=== PATIENT | female | born 1960 | race Caucasian/White ===

== ENCOUNTER 2017-12-23 15:40 | Inpatient (IN) | payer OTHER ==
[2017-12-23] MEDS ORDERED: SODIUM CHLORIDE 0.9% 1,000 ML IV ONE (15:48)
[2017-12-23] MEDS ORDERED: SODIUM CHLORIDE 0.9% 500 ML IV ONE (15:48)
--- NOTE | 2017-12-23 15:51 | ED ---
General Adult HPI - General Chief complaint: Chest Pain Stated complaint: poss Stemi Time Seen by Provider: 12/23/17 15:43 Source: patient, EMS, RN notes reviewed Mode of arrival: EMS Limitations: no limitations - History of Present Illness Initial comments: Patient is a pleasant 57-year-old female presenting to the emergency Department with chest discomfort. Onset was about an hour prior to arrival. Patient describes discomfort as pressure. There is some radiation towards the jaw. Patient may have some mild associated dyspnea. No history of similar symptoms previously. No history of previous cardiac disease. Patient is a smoker and does have a history of hypertension. - Related Data Home Medications Medication Instructions Recorded Confirmed Hydrochlorothiazide 12/23/17 Levothyroxine Sodium [Synthroid] 12/23/17 Allergies Allergy/AdvReac Type Severity Reaction Status Date / Time Sulfa (Sulfonamide Allergy Unknown Verified 12/23/17 15:45 Antibiotics) Review of Systems ROS Statement: Those systems with pertinent positive or pertinent negative responses have been documented in the HPI. ROS Other: All systems not noted in ROS Statement are negative. Constitutional: Denies: fever Eyes: Denies: eye pain ENT: Denies: ear pain Respiratory: Denies: cough Cardiovascular: Reports: chest pain Endocrine: Denies: fatigue Gastrointestinal: Denies: abdominal pain Genitourinary: Denies: dysuria Musculoskeletal: Denies: back pain Skin: Denies: rash Neurological: Denies: weakness Past Medical History Past Medical History: Cancer, Hypertension, Thyroid Disorder Additional Past Medical History / Comment(s): breast History of Any Multi-Drug Resistant Organisms: None Reported Additional Past Surgical History / Comment(s): lumpectomy left side Past Psychological History: No Psychological Hx Reported Smoking Status: Current every day smoker Past Alcohol Use History: None Reported Past Drug Use History: None Reported General Exam Limitations: no limitations General appearance: alert Head exam: Present: atraumatic Eye exam: Present: normal appearance Neck exam: Present: normal inspection Respiratory exam: Present: normal lung sounds bilaterally Cardiovascular Exam: Present: regular rate, normal rhythm Expanded Peripheral pulses: 2+: Radial (R), Radial (L), Dorsalis Pedis (R), Dorsalis Pedis (L) GI/Abdominal exam: Present: soft. Absent: tenderness Extremities exam: Present: normal inspection Neurological exam: Present: alert Psychiatric exam: Present: normal affect, normal mood Skin exam: Present: normal color Course Vital Signs 12/23/17 15:41 Temperature 99.3 F Pulse Rate 104 H Respiratory 18 Rate Blood Pressure 163/103 O2 Sat by Pulse 100 Oximetry - Reevaluation(s) Reevaluation #1: 12/23/17 15:49 Dr. Alves was present when patient arrived. Patient has gone to the Autographer already at this time. EKG Findings - EKG Comments: EKG Findings:: Sinus rhythm at 98. OR 170. QRS 80. QT 366. QTc 467. Normal axis. Anterior lateral ST elevation. Q waves in leads V1 through V5. There is also elevation in lead 1 and aVL. Depression in lead 3 and aVF. Disposition Clinical Impression: ST elevation myocardial infarction (STEMI) Disposition: ADMITTED IP TO THIS HOSP Condition: Critical Is patient prescribed a controlled substance at d/c from ED?: No Referrals: Wilbur Downs MD [Primary Care Provider] - 1-2 days Decision Time: 15:51
[2017-12-23 15:55] LABS: Basophils # (A) 0.1 k/uL (0-0.2); Basophils % (A) 1 %; Eosinophils # (A) 0.7 k/uL (0-0.7); Eosinophils % (A) 5 %; HGB 17.2 gm/dL (11.4-16.0); Lymphocytes # (A) 3.2 k/uL (1.0-4.8); Lymphocytes % (A) 25 %; MCH 30.1 pg (25.0-35.0); MCHC 34.5 g/dL (31.0-37.0); MCV 87.2 fL (80.0-100.0); Mean Platelet Volume 7.1; Monocytes # (A) 0.5 k/uL (0-1.0); Monocytes % (A) 4 %; Neutrophils # (A) 8.2 k/uL (1.3-7.7); Neutrophils % (A) 64 %; Platelet Count 333 k/uL (150-450); RBC 5.73 m/uL (3.80-5.40); RDW 14.1 % (11.5-15.5); WBC 12.9 k/uL (3.8-10.6)
[2017-12-23 16:08] LABS: ALT 117 U/L (9-52); AST 89 U/L (14-36); Albumin 4.6 g/dL (3.5-5.0); Alkaline Phosphatase 152 U/L (38-126); Anion Gap 12 mmol/L; Blood Urea Nitrogen 14 mg/dL (7-17); Calcium 10.2 mg/dL (8.4-10.2); Carbon Dioxide 26 mmol/L (22-30); Chloride 101 mmol/L (98-107); Glucose 290 mg/dL (74-99); Potassium 4.1 mmol/L (3.5-5.1); Sodium 139 mmol/L (137-145); Total Bilirubin 0.6 mg/dL (0.2-1.3); Total Protein 8.1 g/dL (6.3-8.2)
[2017-12-23] MEDS ORDERED: LIDOCAINE 2% SYG (PF) 100 MG/5 ML MISCELLANE ONE (16:09)
[2017-12-23] MEDS ORDERED: MIDAZOLAM 2 MG/2 ML VIAL ONE (16:09)
[2017-12-23] MEDS: MIDAZOLAM 2 MG/2 ML VIAL IV ONE ×2 (16:11→16:41)
[2017-12-23] MEDS ORDERED: diphenhydrAMINE 50 MG/ML 1 ML VIAL ONE (16:11)
[2017-12-23] MEDS ORDERED: diphenhydrAMINE 50 MG/ML 1 ML VIAL IVP ONE (16:13)
[2017-12-23] MEDS ORDERED: BIVALIRUDIN BOLUS 250 MG/50 ML IV ONE (16:14)
[2017-12-23] MEDS ORDERED: BIVALIRUDIN 250 MG in SODIUM CHLORIDE 0.9% 50 ML IV ONE (16:14)
[2017-12-23 16:17] LABS: Prothrombin Time 9.8 sec (9.0-12.0)
[2017-12-23] MEDS: LIDOCAINE 2% SYG (PF) 100 MG/5 ML IV ONE ×2 (16:20→16:44)
[2017-12-23] MEDS ORDERED: MORPHINE SULFATE 4 MG/ML SYRINGE ONE (16:22)
[2017-12-23 16:23] LABS: Partial Thromboplastin Time 20.8 sec (22.0-30.0)
[2017-12-23] MEDS ORDERED: METOPROLOL TARTRATE 5 MG/5 ML VIAL IVP ONE ×5 (16:23→17:18)
[2017-12-23] MEDS: MORPHINE SULFATE 4MG/4ML SYRG IV ONE ×2 (16:23→16:48)
[2017-12-23] MEDS: METOPROLOL TARTRATE 5 MG/5 ML VIAL IVP ONE ×2 (16:25→16:30)
[2017-12-23] MEDS: niCARdipine Syringe (1,000 mcg/10 mL) INTRACORON ONE ×2 (16:32→16:37)
[2017-12-23] MEDS ORDERED: NITROGLYCERIN 1000MCG/10ML SYRINGE INTRACORON ONE (16:38)
[2017-12-23] MEDS ORDERED: IOPAMIDOL-370 100ML BTL INJ ONE ×2 (16:43)
[2017-12-23] MEDS ORDERED: TICAGRELOR 90 MG TAB ONE (16:50)
[2017-12-23] MEDS ORDERED: TICAGRELOR 90 MG TAB PO ONE (16:52)
[2017-12-23] MEDS ORDERED: ATROPINE SULFATE 0.1 MG/ML 10ML SYRINGE IV PRN (16:59)
[2017-12-23] MEDS ORDERED: RX INFO: IV CONTRAST WAS GIVEN 1 EACH MISC MISCELLANE PRN (16:59)
[2017-12-23] MEDS ORDERED: MAG HYDROX/AL HYDROX/SIMETH 30 ML CUP PO PRN (16:59)
[2017-12-23] MEDS ORDERED: ATORVASTATIN 80 MG TAB ONE (17:16)
[2017-12-23] MEDS ORDERED: ATORVASTATIN 80 MG TAB PO ONE (17:18)
[2017-12-23 18:12] LABS: Glucose,Whole Blood 314 mg/dL (75-99)
[2017-12-23] MEDS: NICOTINE 14MG/24HR PATCH TRANSDERM SCH (18:12)
[2017-12-23] MEDS: SODIUM CHLORIDE 0.9% 1,000 ML IV SCH (18:12)
[2017-12-23] MEDS: NITROGLYCERIN SL TABS 0.4 MG TAB SUBLINGUAL PRN ×2 (20:23→20:30)
--- NOTE | 2017-12-23 20:28 | CC ---
CARDIAC CATHETERIZATION REPORT DATE OF SERVICE: 12/23/2017. PROCEDURE: 1. Left heart catheterization and coronary angiography. 2. PTCA and stenting of a totally occluded mid LAD performed in the setting of an acute ST-elevation [place] with reperfusion accomplished in 27 minutes. PERFORMED BY: Dr. Niels Alves. ANESTHESIA: Moderate conscious sedation time was 47 minutes. Patient was administered morphine, Versed, Benadryl and oxygen saturation and hemodynamics were monitored closely. CLINICAL INFORMATION: Mrs. Deandra Rodas presented to the emergency room with chest pain and anterior and inferior ST elevation suggestive of an anterior myocardial infarction with a wrap- around LAD. She was advised prompt cardiac catheterization and brought in for the procedure immediately. PROCEDURE NOTE: Under local anesthesia and strict aseptic precautions, a 6-[place] introducer was placed in the right femoral artery. I started out by using a standard left Gabriela type guide catheter. I noted that the LAD was totally occluded in the midportion and proceeded to perform intervention of that in the same setting. I then performed coronary angiography of the right coronary artery and checked LV pressures but did not perform LV gram. The patient tolerated procedure well. She received a Angiomax bolus and infusion as per protocol and also 180 mg of Brilinta was given orally. She was hemodynamically stable, relieved of chest pain. EKG improved remarkably and she also received some IV lidocaine 100 mg total during the procedure because of ventricular ectopy which was reperfusion arrhythmias. Two drug-eluting stents were deployed in the mid LAD. The patient tolerated procedure well. She had a Perclose device used to secure hemostasis and was sent to the room in stable condition. CARDIAC CATHETERIZATION FINDINGS: The left end-diastolic pressure was 24 mmHg without any gradient across aortic valve. LEFT MAIN CORONARY ARTERY: Left main coronary artery is a short patent disease-free vessel that immediately bifurcates into LAD and circumflex. LEFT ANTERIOR DESCENDING CORONARY ARTERY: This vessel is totally occluded in the mid portion after a septal and a small diagonal branch. There is a very small high diagonal branch that comes off and has a tight stenosis. LEFT POSTERIOR CIRCUMFLEX CORONARY ARTERY: Technically a nondominant vessel gives off a single obtuse marginal that has a 30 to 40% narrowing and a small secondary branch which is free of significant disease. There is moderate calcification in the coronary system. RIGHT CORONARY ARTERY: This is a large dominant vessel. No significant disease, supplies a sizable amount of myocardium and distally bifurcates into multiple branches including a large PLV system and a small PDA and all of these branches are free of significant disease other than minor irregularities. LV gram was not performed. CARDIAC CATH FINDINGS: Left main normal. LAD total occluded in the midportion. Circumflex nondominant with 30-40% mid lesion. Right coronary superdominant, no significant lesions, large PLV system. Small PDA system. LV pressures were elevated at 24 mmHg. RECOMMENDATION: Advised PCI of LAD that was performed expeditiously. PCI PROCEDURE DETAILS: Standard left Gabriela guide catheter was used to cannulate the left coronary artery. A run-through wire was used to cross the lesion. Wire was kept distally. Predilatation was performed using a 2.5 caliber 12 mm long Trek balloon. Immediate reperfusion was accomplished in 27 minutes. I then deployed 2 stents. The distal stent was a 2.5 caliber 15 Xience and the proximal stent was a 2.5 caliber 12 Xience. Both of these were telescoped. Excellent angiographic result was achieved. Patient had complete resolution of chest pain. Inferior ST-segment changes resolved completely. Anterior changes persisted but improved remarkably. Patient was hemodynamically stable. The sheath was taken out and a Perclose device used to secure hemostasis and she was sent to the room in stable condition. Results were discussed with the patient and her . This patient received 2 drug-eluting stents in the LAD with remarkably good angiographic result. She is hemodynamically stable and was sent to the ICU in a stable condition. MMODL / IJN: [id number] /
--- NOTE | 2017-12-23 20:34 | LTR ---
DATE OF SERVICE: 12/23/[address] Downs: Thank you for the opportunity to participate in the care of Mrs. Deandra Rodas. This lady presented with acute anterior [place], underwent prompt cardiac cath and PCI of LAD with excellent angiographic results. She has 2 drug-eluting stents. I believe she is going to undergo chemo and radiation for breast cancer. We should, however, continue antiplatelet agent without interruption. I suspect there will be an interruption for the antiplatelet agent during the chemotherapy, but hopefully that will not happen for at least 6 weeks. I discussed the results in detail with the patient and family. I have also spoken to the radiation oncologist. I would appreciate if you would coordinate care for this patient, especially in view of dual antiplatelet therapy and feel free to call me for any questions or concerns. Thank you for your referral and please call for questions. With kindest regards, Sincerely, ALFREDO / MARTNIA: [id number] /
[2017-12-23 21:24] LABS: Glucose,Whole Blood 294 mg/dL (75-99)
[2017-12-23] MEDS ORDERED: MORPHINE SULFATE 2 MG/ML SYRINGE IVP PRN (21:34)
[2017-12-23] MEDS ORDERED: HYDROcodone/APAP 5-325MG 1 EACH TAB PO PRN (21:35)
[2017-12-23] MEDS ORDERED: ACETAMINOPHEN TAB 325 MG TAB PO PRN (21:35)
[2017-12-23] MEDS: INSULIN ASPART 100 UNIT/ML 1 ML 10 ML VIAL SQ SCH (22:09)
[2017-12-23] MEDS: ATORVASTATIN 80 MG TAB PO SCH (22:09)
[2017-12-23] MEDS: METOPROLOL TARTRATE 25 MG TAB PO SCH (22:09)
[2017-12-23] MEDS: ALPRAZolam 0.25 MG TAB PO PRN (22:10)
--- NOTE | 2017-12-23 23:16 | CONS ---
CONSULTATION Mrs. Deandra Rodas is a 57-year-old lady with a diagnosis of hypothyroidism, borderline hypertension, smoking of at least more than 1 pack a day, which she has cut down recently. She was recently diagnosed with left-sided breast cancer, had a lumpectomy on December 06 or so at [facility] and she is scheduled to have chemo and radiation and has met with both the radiation oncologist as well as medical oncologist. She was in her barn working with the horses when she experienced chest pressure and heaviness in both upper extremities that got progressively worse and she came to the emergency room. She had chest pain for nearly an hour before she arrived in the emergency room. She had ongoing chest pain with anterior ST elevation as well as ST elevation in leads 2 3 and AVF also suggestive of a wrap-around LAD. I evaluated the patient in the emergency room and she was hemodynamically stable and advised prompt cardiac catheterization and PCI. I explained to her the rationale, risks, benefits, options. She understood all details and wished to proceed with the procedure. PAST MEDICAL HISTORY: 1. Hypertension. 2. Smoking. 3. Recent diagnosis of left-sided breast cancer status post lumpectomy with some infection on antibiotics, going for radiation and chemotherapy and she has already met with the radiation oncologist and medical oncologist. 4. Probable borderline hypertension. ALLERGIES: SULFA. MEDICATIONS: Hydrochlorothiazide 25 mg daily, Synthroid 150 mcg daily. PHYSICAL EXAMINATION: Blood pressure is 150/90, pulse rate is about 98 per minute. HEENT: Unremarkable. Fundus was not examined by me. NECK: Supple. No JVD. I do not hear a carotid bruit. There is no thyromegaly. Heart exam reveals S1, S2 heard normally. No rub, murmur or gallop lungs are clear. Abdomen is soft, nontender. Lower extremities reveal palpable pulses. No edema. There is evidence of psoriatic changes on the skin throughout the body. EKG revealed sinus mechanism, anterior as well as inferior ST elevation. This suggests probable LAD occlusion of a very large wrap-around LAD. IMPRESSION: 1. Acute anterior ST-elevation myocardial infarction with inferior changes as well. 2. Hypothyroidism. 3. Smoking and chronic obstructive pulmonary disease. 4. Recent diagnosis of breast cancer. RECOMMENDATION: I am recommending prompt cardiac cath and PCI. Risks, benefits, options explained. Patient understands all details as does the and wished to proceed. MMODL / IJN: [id number] /
--- NOTE | 2017-12-23 23:31 | HP ---
HISTORY AND PHYSICAL DATE OF SERVICE: 12/23/2017 CHIEF COMPLAINT: Chest pain. HISTORY OF PRESENT ILLNESS: This 57-year-old woman with a past medical history of multiple medical problems including hypertension, hypothyroidism, history of breast cancer, had a recent lumpectomy with lymph node removal on the left side. The patient was being followed by in the outpatient setting. Today the patient had acute sudden onset of severe crushing chest pain in the anterior part of the chest which was radiating to the back and also to the joints in both arms. Also because of increasing pain the patient went to [facility] and was subsequently transferred to [facility] for further evaluation and treatment. Hyperacute anterior wall myocardial infarction was noted, ST-elevation in the EKG. The patient underwent cardiac catheterization as well as PTCA and stenting of the totally occluded LAD, done by the Cardiology. There is no history of fevers or rigors. No history of headache, loss of consciousness, or seizures. PAST MEDICAL HISTORY: Hypertension, hypothyroidism, history of breast cancer, history of lumpectomy, history of nicotine dependence. MEDICATIONS: Home medications are: 1. Synthroid 150 mcg p.o. daily. 2. HydroDIURIL 12.5 mg b.i.d. 3. Cleocin 300 mg daily. 4. Zyrtec 10 mg daily. ALLERGIES: Sulfa. FAMILY HISTORY: History of heart disease on the dad's side. SOCIAL HISTORY: History of smoking as mentioned, the patient is trying to cut down. No history of alcohol intake. REVIEW OF SYSTEMS: ENT: No diminished vision or hearing. CARDIAC: As mentioned earlier. GI: No nausea or vomiting. : No dysuria or hematuria. NERVOUS SYSTEMS: No numbness or weakness. ALLERGIES: None. MUSCULOSKELETAL: As mentioned. HEMATOLOGY: No history of anemia. ENDOCRINE: Hypothyroid. CONSTITUTIONAL: As mentioned. DERMATOLOGY: Negative. PSYCHIATRIC: As mentioned earlier. PHYSICAL EXAMINATION: Alert and oriented x3. Pulse is 97, blood pressure 120/80, respirations 20, temperature 98.9, pulse ox 98% on 2 L. HEENT: Conjunctivae normal. Oral mucosa moist. NECK: No no jugular venous distention. No lymph node enlargement. CARDIOVASCULAR: S1 and S2 muffled. LUNGS: Breath sounds diminished at the bases. Few scattered rhonchi. No crackles. ABDOMEN: Soft, nontender. No mass palpable. EXTREMITIES: Obese legs. No edema, no swelling. NERVOUS SYSTEM: Higher functions as mentioned. Moves all limbs equally. LYMPHATICS: No lymph nodes palpable SKIN: No rash. LAB STUDIES: WBC 11.3, hemoglobin 17.2. Glucose 293, 214, 294. AST is 89, ALT is 117, troponin 0.05. ASSESSMENT: 1. Acute anterior ST-segment elevation myocardial infarction, status post PTCA and stenting of the mid LAD. 2. Diabetes type 2. 3. History of nicotine dependence. 4. Increased AST and ALT. 5. Increased WBC. 6. Increased hemoglobin. 7. History of hypothyroidism. 8. History of hypertension. 9. History of breast cancer with lumpectomy recently. RECOMMENDATIONS: This 57-year-old woman presented with multiple complex medical issues. We will monitor the patient closely. Continue the current medications and symptomatic treatment. Resume home medications. Dual antiplatelet agents, beta blockers. Otherwise closely follow with post PTCA protocol. Closely monitor blood sugars closely. Repeat labs in the morning. DVT prophylaxis. Incentive spirometry. Closely follow with Cardiology. Further recommendations to follow. MMODL / IJN: [id number] / KANU
[2017-12-24 06:19] LABS: Basophils # (A) 0.1 k/uL (0-0.2); Basophils % (A) 1 %; Eosinophils # (A) 0.3 k/uL (0-0.7); Eosinophils % (A) 2 %; HCT 46.8 % (34.0-46.0); HGB 16.2 gm/dL (11.4-16.0); Lymphocytes # (A) 3.1 k/uL (1.0-4.8); Lymphocytes % (A) 17 %; MCH 31.1 pg (25.0-35.0); MCHC 34.6 g/dL (31.0-37.0); MCV 89.9 fL (80.0-100.0); Mean Platelet Volume 6.7; Monocytes # (A) 0.8 k/uL (0-1.0); Monocytes % (A) 5 %; Neutrophils # (A) 13.1 k/uL (1.3-7.7); Neutrophils % (A) 75 %; Platelet Count 270 k/uL (150-450); RDW 15.1 % (11.5-15.5); WBC 17.6 k/uL (3.8-10.6)
[2017-12-24 06:30] LABS: Anion Gap 10 mmol/L; Blood Urea Nitrogen 11 mg/dL (7-17); Calcium 9.4 mg/dL (8.4-10.2); Carbon Dioxide 26 mmol/L (22-30); Chloride 100 mmol/L (98-107); Glucose 250 mg/dL (74-99); Potassium 4.4 mmol/L (3.5-5.1); Sodium 136 mmol/L (137-145)
[2017-12-24] MEDS ORDERED: LEVOTHYROXINE 75 MCG TAB PO SCH (06:30)
[2017-12-24 07:29] LABS: Glucose,Whole Blood 261 mg/dL (75-99)
[2017-12-24] MEDS: METOPROLOL TARTRATE 25 MG TAB PO SCH ×2 (08:30→20:12)
[2017-12-24] MEDS: INSULIN ASPART 100 UNIT/ML 1 ML 10 ML VIAL SQ SCH ×4 (08:30→20:11)
[2017-12-24] MEDS: TICAGRELOR 90 MG TAB PO SCH ×2 (08:30→20:12)
[2017-12-24] MEDS: NICOTINE 14MG/24HR PATCH TRANSDERM SCH (08:30)
[2017-12-24] MEDS: ASPIRIN 81 MG PO SCH (08:31)
[2017-12-24] MEDS: SODIUM CHLORIDE 0.9% 1,000 ML IV SCH (08:31)
[2017-12-24] MEDS: LEVOTHYROXINE 75 MCG TAB PO SCH (08:31)
[2017-12-24] MEDS: LISINOPRIL 10 MG TAB PO SCH (08:31)
--- NOTE | 2017-12-24 10:50 | PN ---
PROGRESS NOTE Deandra is a 57-year-old lady who is admitted to hospital with acute anterior wall myocardial infarction. Underwent emergent cardiac catheterization and angioplasty of [place] LAD. This morning, patient is feeling better. Denies chest pain or difficulty in breathing. Had an echocardiogram that shows apical hypokinesis. PHYSICAL EXAM: On exam, comfortable at rest. Vital signs are stable. There is no jugular venous distention. Chest exam reveals good air entry bilaterally. Heart exam reveals first and second heart sounds. No gallop. Abdomen is soft. Exam of extremities did not reveal any edema. Peripheral pulses are felt. The patient is currently on aspirin, Lipitor, Zestril, Lopressor. ASSESSMENT: Acute anterior wall myocardial infarction status post catheterization and angioplasty. I do not have any EKG from this morning. I will review it once it is available. Continue with the current medications. Transfer her out of ICU. ALFREDO / KIMMIEN: [id number] /
[2017-12-24 12:08] LABS: Glucose,Whole Blood 247 mg/dL (75-99)
[2017-12-24 12:49] LABS: Hemoglobin A1C 9.5 % (4.0-6.0)
--- NOTE | 2017-12-24 13:03 | ECHOF ---
Referral Reason:Ant STEMi, S/P PCI LAD MEASUREMENTS -------- HEIGHT: 170.2 cm WEIGHT: 82.1 kg BP: 134/91 RVIDd: 2.5 cm (< 3.3) IVSd: 1.3 cm (0.6 - 1.1) LVIDd: 4.3 cm (3.9 - 5.3) LVPWd: 1.3 cm (0.6 - 1.1) IVSs: 1.6 cm LVIDs: 3.3 cm LVPWs: 1.6 cm LA Diam: 3.2 cm (2.7 - 3.8) LAESV Index (A-L): 19.79 ml/m Ao Diam: 3.2 cm (2.0 - 3.7) AV Cusp: 1.8 cm (1.5 - 2.6) MV EXCURSION: 15.944 mm (> 18.000) MV EF SLOPE: 42 mm/s (70 - 150) EPSS: 1.0 cm MV E Jamarcus: 0.83 m/s MV DecT: 205 ms MV A Jamarcus: 0.81 m/s MV E/A Ratio: 1.02 RAP: 15.00 mmHg RVSP: 40.27 mmHg FINDINGS -------- Sinus rhythm. This was a technically good study. The left ventricular size is normal. There is mild concentric left ventricular hypertrophy. Overa ll left ventricular systolic function is mild-moderately impaired with, an EF between 40 - 45 %. Ap ical anterior LV wall motion is hypokinetic. Apical lateral LV wall motion is hypokinetic. Apic al inferior LV wall motion is hypokinetic. Apical septum LV wall motion is hypokinetic. The right ventricle is normal in size. Normal LA size by volume 22+/-6 ml/m2. The right atrium is normal in size. There is mild aortic valve sclerosis. Mild mitral annular calcification present. There is trace mitral regurgitation. Mild tricuspid regurgitation present. There is mild pulmonary hypertension. The right ventricular systolic pressure, as measured by Doppler, is 40.27mmHg. The pulmonic valve was not well visualized. The aortic root size is normal. The inferior vena cava is dilated with no significant inspiratory collapse which is consistent estima [place] right atrial pressure of >15 mmHg. There is no pericardial effusion. CONCLUSIONS -------- 1. Sinus rhythm. 2. This was a technically good study. 3. The left ventricular size is normal. 4. There is mild concentric left ventricular hypertrophy. 5. Apical anterior LV wall motion is hypokinetic. 6. Apical lateral LV wall motion is hypokinetic. 7. Apical inferior LV wall motion is hypokinetic. 8. Apical septum LV wall motion is hypokinetic. 9. The right ventricle is normal in size. 10. Normal LA size by volume 22+/-6 ml/m2. 11. The right atrium is normal in size. 12. There is mild aortic valve sclerosis. 13. Mild mitral annular calcification present. 14. There is trace mitral regurgitation. 15. Mild tricuspid regurgitation present. 16. There is mild pulmonary hypertension. 17. The right ventricular systolic pressure, as measured by Doppler, is 40.27mmHg. 18. The pulmonic valve was not well visualized. 19. The aortic root size is normal. 20. The inferior vena cava is dilated with no significant inspiratory collapse which is consistent es timated right atrial pressure of >15 mmHg. 21. There is no pericardial effusion. [employer]TER: Patricia White RDCS
[2017-12-24] MEDS: ALPRAZolam 0.25 MG TAB PO PRN (13:42)
[2017-12-24 14:21] VITALS: BMI 29.5
--- NOTE | 2017-12-24 15:28 | XR ---
EXAMINATION TYPE: XR chest 1V portable DATE OF EXAM: 12/24/2017 COMPARISON: NONE INDICATION: CHF TECHNIQUE: Single frontal view of the chest is obtained. FINDINGS: The heart size is enlarged. The pulmonary vasculature is normal. The lungs are clear. IMPRESSION: 1. Mild cardiomegaly
--- NOTE | 2017-12-24 16:02 | PN ---
PROGRESS NOTE DATE OF SERVICE: 12/24/2017 This 57-year-old woman was admitted with acute anterior ST segment elevation myocardial infarction and had PTCA and stenting of the mid LAD. The patient has been closely monitored at this time. Patient was complaining of minimal chest tightness which was increasing with respiration at this time. Two-D echo with Doppler was done today which showed ejection fraction 40-45% and hypokinetic echevarria. No pericardial effusion was noted. The patient is on dual antiplatelet treatment. The patient was closely monitored. PAST MEDICAL HISTORY: Reviewed. REVIEW OF SYSTEMS: CARDIOVASCULAR SYSTEM: As mentioned. RESPIRATORY: As mentioned. GI: No nausea. : No dysuria. NERVOUS SYSTEM: No numbness or weakness. CURRENT MEDICATIONS: 1. Tylenol 650 q.6h p.r.n. 2. [place] 5 mg q.h.s. 3. Maalox 30 mL q.4 hours. 4. Xanax 0.25 mg t.i.d. 5. Aspirin 81 mg daily. 6. Lipitor 80 mg q.h.s. 7. p.r.n. for bradycardia. 8. NovoLog a.c. and at bedtime. 9. Synthroid 150 mg mcg p.o. daily. 10.Zestril 10 mg p.o. 11.Lopressor 25 mg p.o. b.i.d. 12.Morphine p.r.n. 13.Habitrol 14 daily. 14.Nitrostat 0.4 mg p.r.n. sublingual. 15.Brilinta 90 mg p.o. b.i.d. 16.Ambien 5 mg p.o. q.h.s. PHYSICAL EXAMINATION: Patient is alert, oriented x3. Pulse 78, blood pressure 131/70, respiration 22, temperature 98.8, pulse ox 94% room air. HEENT: Conjunctivae normal. Oral mucosa moist. NECK: No jugular venous distention. CARDIOVASCULAR: S1, S2 muffled. No S3, no S4. No pericardium rub. No pleural rub. RESPIRATORY: Breath sounds diminished in the bases. No rhonchi. No crackles. ABDOMEN: Soft, nontender. No mass palpable. LEGS: No edema, no swelling. NERVOUS SYSTEM: Higher function as mentioned. Moves all four limbs. No focal deficits. LYMPHATICS: No lymphadenopathy in the neck, axillae, groin. SKIN: No ulcer, rash, or bleeding. LABS: WBC 17, hemoglobin 16.2, sodium is 136. Troponin is 51. Accu-Cheks are 274 and hemoglobin A1c 9.5. ASSESSMENT: 1. Acute ST-segment elevation anterior wall myocardial infarction, status post PTCA and stenting of the mid LAD. 2. Diabetes mellitus type 2, uncontrolled with hyperglycemia. 3. History of nicotine dependence. 4. Chest pain, possibly mild pleural pericarditis. 5. Increased AST, ALT. 6. Increased WBC. 7. Increased hemoglobin. 8. History of hypothyroidism. 9. History of hypertension. 10.History of breast cancer with lumpectomy recently. RECOMMENDATIONS AND DISCUSSION: I recommend to continue current management and symptomatic treatment. Continue the current medication. I would also recommend initiate insulin because of the elevated blood sugars for better control with NovoLog scale. Otherwise I would also recommend smoking cessation. Symptomatic treatment of the pain. Closely follow with Cardiology. The 2D echo is noted. I would also obtain a chest x-ray to complete the workup. The overall prognosis guarded because of multiple complex medical issues. White count is elevated. There is no evidence of an overt infection at this time. I would also recommend UA with micro also. See orders for details. Further recommendations to follow. Discussed with the patient. MMODL / IJN: [id number] / KANU
[2017-12-24 16:48] LABS: Glucose,Whole Blood 265 mg/dL (75-99)
[2017-12-24] MEDS ORDERED: BISACODYL 5 MG TABLET.DR PO PRN (18:33)
[2017-12-24 19:52] LABS: Glucose,Whole Blood 268 mg/dL (75-99)
[2017-12-24] MEDS: ATORVASTATIN 80 MG TAB PO SCH (20:12)
[2017-12-24 20:22] LABS: Appearance,Urine Clear (Clear); Bilirubin,Urine Negative (Negative); Blood,Urine Small (Negative); Color,Urine Light Yellow; Glucose,Urine (UA) 4+ (Negative); Ketones,Urine Negative (Negative); Leukocyte Esterase,Urine Negative (Negative); Nitrite,Urine Negative (Negative); Protein,Urine Negative (Negative); RBC,Urine 2 /hpf (0-5); Specific Gravity,Urine 1.016 (1.001-1.035); Squamous Epithelial Cell,Urine 1 /hpf (0-4); Urobilinogen,Urine <2.0 mg/dL (<2.0); WBC,Urine 1 /hpf (0-5)
[2017-12-24 20:31] LABS: Amphetamine Screen,Urine Not Detected (NotDetected); Barbiturate Screen,Urine Not Detected (NotDetected); Benzodiazepines Screen,Urine Detected (NotDetected); Cocaine Screen,Urine Not Detected (NotDetected); Methadone Screen, Urine Not Detected (NotDetected); Opiate Screen,Urine Not Detected (NotDetected); Oxycodone Screen, Urine Not Detected (NotDetected); Phencyclidine Screen,Urine Not Detected (NotDetected); Tricyclic Antidepressant,Urine Not Detected (NotDetected); Urn Cannabinoid Scrn Not Detected (NotDetected)
[2017-12-24] MEDS: INSULIN DETEMIR 100 UNIT/ML 10 ML VIAL SQ SCH (21:12)
[2017-12-24] MEDS: ZOLPIDEM 5 MG TAB PO PRN (22:51)
[2017-12-25 05:44] LABS: Basophils # (A) 0.1 k/uL (0-0.2); Basophils % (A) 1 %; Eosinophils # (A) 0.6 k/uL (0-0.7); Eosinophils % (A) 4 %; HCT 43.3 % (34.0-46.0); HGB 15.1 gm/dL (11.4-16.0); Lymphocytes # (A) 3.5 k/uL (1.0-4.8); Lymphocytes % (A) 23 %; MCH 30.8 pg (25.0-35.0); MCHC 34.9 g/dL (31.0-37.0); MCV 88.5 fL (80.0-100.0); Monocytes # (A) 0.8 k/uL (0-1.0); Monocytes % (A) 5 %; Neutrophils # (A) 9.8 k/uL (1.3-7.7); Neutrophils % (A) 65 %; Platelet Count 262 k/uL (150-450); RDW 14.2 % (11.5-15.5); WBC 15.1 k/uL (3.8-10.6)
[2017-12-25 05:51] LABS: Anion Gap 5 mmol/L; Blood Urea Nitrogen 11 mg/dL (7-17); Calcium 9.4 mg/dL (8.4-10.2); Carbon Dioxide 29 mmol/L (22-30); Chloride 103 mmol/L (98-107); Glucose 199 mg/dL (74-99); Potassium 4.4 mmol/L (3.5-5.1); Sodium 137 mmol/L (137-145)
[2017-12-25] MEDS: LEVOTHYROXINE 75 MCG TAB PO SCH (06:14)
[2017-12-25 07:02] LABS: Glucose,Whole Blood 191 mg/dL (75-99)
[2017-12-25] MEDS: INSULIN ASPART 100 UNIT/ML 1 ML 10 ML VIAL SQ SCH ×4 (08:00→21:27)
[2017-12-25] MEDS: NICOTINE 14MG/24HR PATCH TRANSDERM SCH (08:56)
[2017-12-25] MEDS: ASPIRIN 81 MG PO SCH (08:56)
[2017-12-25] MEDS: LISINOPRIL 10 MG TAB PO SCH (08:56)
[2017-12-25] MEDS: METOPROLOL TARTRATE 25 MG TAB PO SCH ×2 (08:57→20:40)
[2017-12-25] MEDS: TICAGRELOR 90 MG TAB PO SCH ×2 (08:57→20:39)
--- NOTE | 2017-12-25 11:01 | PN ---
PROGRESS NOTE Deandra is a 57-year-old lady who is admitted to hospital with acute anterior wall myocardial infarction, underwent cardiac catheterization and angioplasty of LAD. The patient had an echocardiogram that showed mild to moderately impaired LV function with an ejection fraction of 40% to 45%. Patient is doing well. We will ambulate her and hopefully can be discharged home tomorrow. LABS: Labs show a hemoglobin of 15. Potassium is 4.4. Creatinine is 0.7. MEDICATIONS: Current medications include aspirin, Lipitor, lisinopril, Lopressor. ALLERGIES: Allergic to SULFA. PHYSICAL EXAMINATION: On exam, comfortable at rest. Vital signs are stable. Chest exam reveals good air entry bilaterally. Heart exam reveals first and second heart sounds. No gallop. Abdomen is soft, nontender. Exam of extremities did not reveal edema. Peripheral pulses are felt. ASSESSMENT: Acute anterior wall myocardial infarction. PLAN: Patient is doing well. She will continue with the current medications. Hopefully can be discharged home tomorrow afternoon. MMODL / IJN: [id number] /
[2017-12-25 12:19] LABS: Glucose,Whole Blood 248 mg/dL (75-99)
[2017-12-25 16:38] LABS: Glucose,Whole Blood 196 mg/dL (75-99)
[2017-12-25] MEDS: INSULIN DETEMIR 100 UNIT/ML 10 ML VIAL SQ SCH (20:37)
[2017-12-25] MEDS: ATORVASTATIN 80 MG TAB PO SCH (20:39)
[2017-12-25 20:52] LABS: Glucose,Whole Blood 187 mg/dL (75-99)
[2017-12-25] MEDS: ZOLPIDEM 5 MG TAB PO PRN (23:29)
[2017-12-26 01:28] VITALS: RESP 18
[2017-12-26 06:24] LABS: Glucose,Whole Blood 175 mg/dL (75-99)
[2017-12-26 08:05] LABS: Basophils # (A) 0.1 k/uL (0-0.2); Basophils % (A) 1 %; Eosinophils # (A) 0.8 k/uL (0-0.7); Eosinophils % (A) 6 %; HCT 43.8 % (34.0-46.0); HGB 14.6 gm/dL (11.4-16.0); Lymphocytes # (A) 3.6 k/uL (1.0-4.8); Lymphocytes % (A) 25 %; MCH 29.4 pg (25.0-35.0); MCHC 33.4 g/dL (31.0-37.0); MCV 88.1 fL (80.0-100.0); Mean Platelet Volume 7.7; Monocytes # (A) 0.9 k/uL (0-1.0); Monocytes % (A) 6 %; Neutrophils # (A) 8.5 k/uL (1.3-7.7); Neutrophils % (A) 61 %; Platelet Count 283 k/uL (150-450); RBC 4.98 m/uL (3.80-5.40); RDW 13.6 % (11.5-15.5); WBC 14.1 k/uL (3.8-10.6)
[2017-12-26 08:31] LABS: Chloride 105 mmol/L (98-107); Glucose 166 mg/dL (74-99); Potassium 4.6 mmol/L (3.5-5.1); Sodium 141 mmol/L (137-145)
[2017-12-26 08:33] LABS: Anion Gap 9 mmol/L; Blood Urea Nitrogen 13 mg/dL (7-17); Calcium 9.1 mg/dL (8.4-10.2); Carbon Dioxide 27 mmol/L (22-30)
[2017-12-26 08:39] LABS: Glucose,Whole Blood 326 mg/dL (75-99)
--- NOTE | 2017-12-26 11:13 | P.PN ---
Subjective Progress Note Date: 12/25/17 Progress Note being dictated for Dr. Monteiro. Interval history: This a 57-year-old female admitted with acute STEMI, status post PTCA with stenting of the mid LAD, newly diagnosed diabetes mellitus and multiple other medical issues. Ambulating, tolerating exertion well. Telemetry sinus rhythm. Denies chest pain, palpitations or increased shortness of breath. Denies lightheadedness dizziness or focal deficits. Blood sugars better controlled. Chest x-ray reporting mild cardiomegaly, lungs clear. Afebrile. Objective - Vital Signs Vital signs: Vital Signs Temp 98.0 F 12/25/17 17:17 Pulse 82 12/25/17 17:17 Resp 15 12/25/17 17:17 BP 115/69 12/25/17 17:17 Pulse Ox 98 12/25/17 17:17 Intake & Output 12/24/17 12/25/17 12/25/17 18:59 06:59 18:59 Intake Total 480 520 510 Output Total 1800 800 600 Balance -1320 -280 -90 Weight 85.6 kg 85.6 kg 85.6 kg Intake: IV 0 20 10 Saline Flush for PIVL 20 10 site Sodium Chloride 0.9% 1, 0 000 ml @ 75 mls/hr IV . [id number] [facility] Rx#:[id number] Oral 480 500 500 Output: Urine 1800 800 600 Other: Voiding Method Bedside Commode - Exam PHYSICAL EXAM: VITAL SIGNS: As above GENERAL: Being up in bed, no acute distress HEENT: Conjunctivae normal. eyes normal. Oral mucosa moist NECK: No JVD. No thyroid enlargement. No LNs CARDIOVASCULAR: S1, S2 muffled. No murmur, no gallop, no rub RESPIRATION: Breath sounds diminished in the bases. No rhonchi or crackles. No bronchial breathing. ABDOMEN: Soft, nontender . No guarding. no masses palpable. Bowel sounds heard. LEGS: No edema. no swelling PSYCHIATRY: Alert and oriented -3, mood and affect normal. NERVOUS SYSTEM: Cranial N 2-12 grossly normal. Moves all 4 limbs. Diffuse weakness No focal deficits. No sensory deficit. Skin: no ulcer no rash Joints: No active swelling. No inflammation. Lymphatic system. No LN neck axilla or groin. - Labs CBC & Chem 7: 12/26/17 05:44 12/25/17 05:25 Labs: Abnormal Lab Results - Last 24 Hours (Table) 12/24/17 12/24/17 12/25/17 Range/Units 19:49 20:05 05:25 WBC 15.1 H (3.8-10.6) k/uL Neutrophils # 9.8 H (1.3-7.7) k/uL Glucose (74-99) mg/dL POC Glucose (mg/dL) 268 H (75-99) mg/dL Urine Glucose (UA) 4+ H (Negative) Urine Blood Small H (Negative) U Benzodiazepines Scrn Detected H (NotDetected) 12/25/17 12/25/17 12/25/17 Range/Units 05:25 07:01 12:17 WBC (3.8-10.6) k/uL Neutrophils # (1.3-7.7) k/uL Glucose 199 H (74-99) mg/dL POC Glucose (mg/dL) 191 H 248 H (75-99) mg/dL Urine Glucose (UA) (Negative) Urine Blood (Negative) U Benzodiazepines Scrn (NotDetected) 12/25/17 Range/Units 16:37 WBC (3.8-10.6) k/uL Neutrophils # (1.3-7.7) k/uL Glucose (74-99) mg/dL POC Glucose (mg/dL) 196 H (75-99) mg/dL Urine Glucose (UA) (Negative) Urine Blood (Negative) U Benzodiazepines Scrn (NotDetected) Assessment and Plan Assessment: 1. Acute STEMI, status post PTCA with stenting of the mid LAD 2. Diabetes mellitus type 2, hemoglobin A1c 9.5, newly diagnosed 3. History of nicotine dependence 4. Elevated LFTs Plan: Continue current medication regime ,monitoring and symptomatic treatment. Increase ambulation as tolerated. Awaiting transfer to telemetry unit. Discharge planning in progress for tomorrow pending cardiology clearance. Close monitoring of Accu-Cheks with Diabetic teaching. Further recommendations to follow. The impression and plan of care has been dictated as directed. : I performed a history and examination of this patient, discussed the same with the dictator. I agree with the dictator's note ,documented as a scribe. Any additional findings or plans will be noted.
[2017-12-26 11:28] VITALS: TEMP 97.5
[2017-12-26] MEDS: INSULIN ASPART 100 UNIT/ML 1 ML 10 ML VIAL SQ SCH ×2 (11:33→13:24)
[2017-12-26] MEDS: LEVOTHYROXINE 75 MCG TAB PO SCH (11:33)
[2017-12-26] MEDS: LISINOPRIL 10 MG TAB PO SCH (11:33)
[2017-12-26] MEDS: ASPIRIN 81 MG PO SCH (11:33)
[2017-12-26] MEDS: TICAGRELOR 90 MG TAB PO SCH (11:34)
[2017-12-26] MEDS: METOPROLOL TARTRATE 25 MG TAB PO SCH (11:34)
[2017-12-26] MEDS: NICOTINE 14MG/24HR PATCH TRANSDERM SCH (11:35)
--- NOTE | 2017-12-26 11:38 | P.PN ---
Subjective Progress Note Date: 12/26/17 This is a 49-year-old female admitted to the hospital with an acute anterior wall myocardial infarction, she underwent angioplasty with stenting of the LAD. Echocardiogram with Doppler study was performed which revealed mildly impaired LV function of 40-45%. She was seen and examined as morning, denies any chest pain or difficulty in breathing. Hemodynamically she is stable. Objective - Vital Signs Vital signs: Vital Signs Temp 98 F 12/26/17 00:00 Pulse 85 12/26/17 00:00 Resp 18 12/26/17 00:00 BP 123/64 12/26/17 00:00 Pulse Ox 97 12/26/17 00:00 Intake & Output 12/25/17 12/26/17 12/26/17 18:59 06:59 18:59 Intake Total 510 1010 120 Output Total 600 Balance -90 1010 120 Weight 85.6 kg Intake: IV 10 10 Saline Flush for PIVL 10 10 site Oral 500 1000 120 Output: Urine 600 Other: Voiding Method Toilet # Voids 2 2 - Exam PHYSICAL EXAMINATION: GENERAL: 57-year-old female in no. Distress at the time of my examination. HEENT: Head is atraumatic, normocephalic. Pupils equal, round. Sclera anicteric. Conjunctiva are clear. Mucous membranes of the mouth are moist. Neck is supple. There is no elevated jugular venous pressure.] bruit is heard. HEART EXAMINATION: Heart S1, S2 normal. No murmur or gallop heard. CHEST EXAMINATION: Lungs are clear to auscultation and precussion. No chest wall tenderness is noted on palpation or with deep breathing. ABDOMEN: Soft, nontender. Bowel sounds are heard. No organomegaly noted. EXTREMITIES: 2+ peripheral pulses with no evidence of peripheral edema and no calf tenderness noted. NEUROLOGIC patient is awake, alert and oriented ?-3. . - Labs CBC & Chem 7: 12/26/17 05:44 12/25/17 05:25 Labs: Abnormal Lab Results - Last 24 Hours (Table) 12/25/17 12/25/17 12/25/17 Range/Units 12:17 16:37 20:50 WBC (3.8-10.6) k/uL Neutrophils # (1.3-7.7) k/uL Eosinophils # (0-0.7) k/uL POC Glucose (mg/dL) 248 H 196 H 187 H (75-99) mg/dL 12/26/17 12/26/17 12/26/17 Range/Units 05:44 06:22 08:28 WBC 14.1 H (3.8-10.6) k/uL Neutrophils # 8.5 H (1.3-7.7) k/uL Eosinophils # 0.8 H (0-0.7) k/uL POC Glucose (mg/dL) 175 H 326 H (75-99) mg/dL Assessment and Plan Plan: Assessment and plan #1 acute anterior wall myocardial infarction status post angioplasty and stenting of the LAD #2 hyperlipidemia #3 hypertension #4 diabetes #5 nicotine dependence Plan From cardiology's perspective, patient may be up to be discharged home today. We'll make her a follow-up appointment to see Dr. CHRISTINA Alves in the office one week post discharge. Patient will be discharged home on aspirin 81 mg daily, Lipitor 80 mg daily, lisinopril 10 mg daily, metoprolol 25 mg one tablet by mouth twice a day, Brilinta 90 mg twice a day, nicotine patch, and sublingual nitroglycerin as needed for chest pain. Patient has been educated regarding her medication, diet, activity, and the importance of nicotine cessation. DNP note has been reviewed, I agree with a documented findings and plan of care. Patient was seen and examined.
[2017-12-26 11:44] LABS: Glucose,Whole Blood 182 mg/dL (75-99)
[2017-12-26 13:32] VITALS: BP 126/71; PULSE 78
--- NOTE | 2017-12-26 16:26 | DS ---
DISCHARGE SUMMARY FINAL DIAGNOSES: 1. Acute ST-elevation myocardial infarction, anterior wall, status post percutaneous transluminal coronary angioplasty and stenting of the mid left anterior descending coronary artery. 2. Diabetes mellitus, type 2, newly diagnosed, with hyperglycemia. 3. History of nicotine dependence. 4. Elevated liver function tests. DISCHARGE DISPOSITION: The patient will be discharged in stable condition with guarded prognosis. HISTORY OF PRESENT ILLNESS: This 57-year-old woman with a past medical history of multiple medical problems was admitted with acute ST-segment elevation myocardial infarction. Patient underwent PTCA and stenting of the mid LAD. The patient improved significantly. Cardiology cleared the patient for discharge. On exam, vitals are stable. CARDIOVASCULAR SYSTEM: S1, S2 muffled. ABDOMEN: Soft. NERVOUS SYSTEM: No focal deficit. DISCHARGE ADVICE AND MEDICATIONS: 1. Diet is cardiac. 2. Activity limited until followup.. 3. Follow up with Dr. Wilbur Downs in 2 to 3 days. 4. Follow up with Cardiology as recommended. 5. Zyrtec 10 mg p.o. daily. 6. Synthroid 150 mcg p.o. daily. 7. Aspirin 81 mg p.o. daily. 8. Lipitor 80 mg at bedtime. 9. Lantus 15 units subcutaneously at bedtime. 10.Zestril 10 mg p.o. daily. 11.Lopressor 25 mg p.o. b.i.d. 12.Habitrol 14 daily. 13.Nitrostat 0.4 sublingually p.r.n. 14.Brilinta 90 mg p.o. b.i.d. 15.Accu-Cheks before meals and at bedtime; results to Dr. Jevon Downs; continue to monitor. 16.Consistent-carb diet. MMODL / IJN: [id number] /
== END 2017-12-26 15:24 | disposition home or self-care (01) | DRG 247 ==
LOC: EC 15:40 → 6ICU 16:59 → 6SEL 12-25 19:52
PROVIDERS: ADMIT Internal Medicine; ATTEND Internal Medicine
PROC: B2111ZZ Fluoroscopy of Multiple Coronary Arteries using Low Osmolar Contrast (ICD-10-PCS; 2017-12-23)
PROC: 027135Z Dilation of Coronary Artery, Two Arteries with Two Drug-eluting Intraluminal Devices, Percutaneous Approach (ICD-10-PCS; principal; 2017-12-23 15:44)
PROC: 4A023N7 Measurement of Cardiac Sampling and Pressure, Left Heart, Percutaneous Approach (ICD-10-PCS; 2017-12-23 15:44)
DX: I21.09 ST elevation (STEMI) myocardial infarction involving other coronary artery of anterior wall (principal); E03.9 Hypothyroidism, unspecified; E11.65 Type 2 diabetes mellitus with hyperglycemia; E78.5 Hyperlipidemia, unspecified; F17.210 Nicotine dependence, cigarettes, uncomplicated; C50.912 Malignant neoplasm of unspecified site of left female breast; I11.9 Hypertensive heart disease without heart failure; I25.10 Atherosclerotic heart disease of native coronary artery without angina pectoris; J44.9 Chronic obstructive pulmonary disease, unspecified; R79.89 Other specified abnormal findings of blood chemistry; D72.829 Elevated white blood cell count, unspecified; Z79.899 Other long term (current) drug therapy; Z79.890 Hormone replacement therapy; Z88.2 Allergy status to sulfonamides
CPT/HCPCS: 36415; 71045; 80048; 80053; 80306; 81001; 83036; 83735; 84484; 85025; 85610; 85730; 93306; 93458; 99285

== ENCOUNTER 2018-10-13 14:49 | Observation (INO) | payer OTHER ==
[2018-10-13] MEDS ORDERED: ASPIRIN 81 MG PO STA (15:19)
--- NOTE | 2018-10-13 15:23 | ED ---
General Adult HPI - General Chief complaint: Chest Pain Stated complaint: Chest pain Time Seen by Provider: 10/13/18 15:04 Source: patient Mode of arrival: wheelchair Limitations: no limitations - History of Present Illness Initial comments: Dictation was produced using [employer] dictation software. please excuse any grammatical, word or spelling errors. Chief Complaint: 58-year-old female past medical history of coronary artery disease presents with chest pain 1 day. History of Present Illness: Is a 58-year-old female she was chest pain 1 day. Patient describes the pain is crushing pressure-like sensation over her anterior sternum. States pain radiates to her back. Denies any extremity paresthesias. No associated diaphoresis. No radiation of symptoms to her upper extremities or jaw. Patient reports that her symptoms are similar to when she was diagnosed with coronary artery disease in the past and requiring emergent stent placement. Patient otherwise has been baseline medically. Patient most previous stent was performed in November of last year. 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 Patient currently asymptomatic. The ROS documented in this emergency department record has been reviewed and confirmed by me. Those systems with pertinent positive or negative responses have been documented in the HPI. All other systems are other negative and/or noncontributory. PHYSICAL EXAM: General Impression: Alert and oriented x3, not in acute distress HEENT: Normocephalic atraumatic, extra-ocular movements intact, pupils equal and reactive to light bilaterally, mucous membranes moist. Cardiovascular: Heart regular rate and rhythm, S1&S2 audible, no murmurs, rubs or gallops Chest: Lungs clear to auscultation bilaterally, no rhonchi, no wheeze, no rales Abdomen: Bowel sounds present, abdomen soft, non-tender, non-distended, no organomegaly Musculoskeletal: Pulses present and equal in all extremities, no peripheral edema Motor: no focal deficits noted Neurological: CN II-XII grossly intact, no focal motor or sensory deficits noted Skin: Intact with no visualized rashes Psych: Normal affect and mood ED course: 58-year-old female past history coronary artery disease presents with chest pain symptoms. Vital signs upon arrival are within acceptable limits.EKG is not suggestive of ischemia or infarction. CBC, coag panel, metabolic panel is unremarkable. Cardiac enzymes are negative. Chest x-ray is nonacute. Patient still has minor symptoms however much improved since initial. Patient given aspirin. Patient is otherwise well-appearing. Physical examination is benign. Given patient's risk factors and history of coronary artery disease and recent stent placement to place patient in observation for serial troponins and cardiology consultation. EKG interpretation: Ventricular rate 70, normal sinus rhythm, FL interval 162, care is 82, QTc 455. No FL prolongation, no QTC prolongation, no ST or T-wave changes noted. EKG compared to 12/23/2017 showing no changes. Overall, this EKG is unremarkable - Related Data Home Medications Medication Instructions Recorded Confirmed Cetirizine HCl [Zyrtec] 10 mg PO DAILY 12/23/17 10/13/18 Anastrozole [Arimidex] 1 mg PO DAILY 10/13/18 10/13/18 Calcium Carbonate [Calcium] 600 mg PO BID 10/13/18 10/13/18 Cholecalciferol (Vitamin D3) 2,000 unit PO DAILY 10/13/18 10/13/18 [Vitamin D3] Insulin Glargine [Lantus] 15 unit SQ HS PRN 10/13/18 10/13/18 Levothyroxine Sodium [Synthroid] 137 mcg PO DAILY 10/13/18 10/13/18 Ubidecarenone [Co Q-10] 100 mg PO DAILY 10/13/18 10/13/18 Previous Rx's Medication Instructions Recorded Aspirin 81 mg PO DAILY #30 chew 12/26/17 Lisinopril [Zestril] 10 mg PO DAILY #30 tab 12/26/17 Metoprolol Tartrate [Lopressor] 25 mg PO BID #60 tab 12/26/17 Nitroglycerin Sl Tabs [Nitrostat] 0.4 mg SUBLINGUAL Q5M PRN #100 tab 12/26/17 Ticagrelor [Brilinta] 90 mg PO BID #60 tab 12/26/17 Allergies Allergy/AdvReac Type Severity Reaction Status Date / Time Sulfa (Sulfonamide Allergy Unknown Verified 10/13/18 16:03 Antibiotics) Review of Systems ROS Statement: Those systems with pertinent positive or pertinent negative responses have been documented in the HPI. ROS Other: All systems not noted in ROS Statement are negative. Past Medical History Past Medical History: Cancer, Hypertension, Thyroid Disorder Additional Past Medical History / Comment(s): breast (in remission) History of Any Multi-Drug Resistant Organisms: MRSA Date of last positivie culture/infection: 2012; groin Additional Past Surgical History / Comment(s): lumpectomy left side with lymphnodes removed, Bladder suspension 20 years ago Past Psychological History: No Psychological Hx Reported Smoking Status: Former smoker Past Alcohol Use History: None Reported Past Drug Use History: None Reported General Exam Limitations: no limitations Course Vital Signs 10/13/18 10/13/18 10/13/18 14:55 15:14 15:30 Temperature 98.7 F Pulse Rate 72 64 65 Respiratory 18 18 18 Rate Blood Pressure 165/90 154/95 144/76 O2 Sat by Pulse 97 95 96 Oximetry 10/13/18 10/13/18 16:00 16:27 Temperature Pulse Rate 53 L 57 L Respiratory 16 18 Rate Blood Pressure 134/68 133/69 O2 Sat by Pulse 97 96 Oximetry Medical Decision Making - Lab Data Result diagrams: 10/13/18 15:25 10/13/18 15:25 Lab Results 10/13/18 10/13/18 10/13/18 Range/Units 15:25 15:25 15:25 WBC 10.6 (3.8-10.6) k/uL RBC 5.49 H (3.80-5.40) m/uL Hgb 16.3 H (11.4-16.0) gm/dL Hct 48.5 H (34.0-46.0) % MCV 88.5 (80.0-100.0) fL MCH 29.8 (25.0-35.0) pg MCHC 33.6 (31.0-37.0) g/dL RDW 13.8 (11.5-15.5) % Plt Count 307 (150-450) k/uL Neutrophils % 58 % Lymphocytes % 25 % Monocytes % 5 % Eosinophils % 10 % Basophils % 1 % Neutrophils # 6.1 (1.3-7.7) k/uL Lymphocytes # 2.6 (1.0-4.8) k/uL Monocytes # 0.6 (0-1.0) k/uL Eosinophils # 1.1 H (0-0.7) k/uL Basophils # 0.1 (0-0.2) k/uL PT 9.7 (9.0-12.0) sec INR 0.9 (<1.2) APTT 23.8 (22.0-30.0) sec Sodium 140 (137-145) mmol/L Potassium 4.7 (3.5-5.1) mmol/L Chloride 111 H (98-107) mmol/L Carbon Dioxide 22 (22-30) mmol/L Anion Gap 7 mmol/L BUN 14 (7-17) mg/dL Creatinine 0.64 (0.52-1.04) mg/dL Est GFR (CKD-EPI)AfAm >90 (>60 ml/min/1.73 sqM) Est GFR (CKD-EPI)NonAf >90 (>60 ml/min/1.73 sqM) Glucose 155 H (74-99) mg/dL Calcium 9.8 (8.4-10.2) mg/dL Magnesium 1.8 (1.6-2.3) mg/dL Total Bilirubin 0.6 (0.2-1.3) mg/dL AST 29 (14-36) U/L ALT 41 (9-52) U/L Alkaline Phosphatase 82 (38-126) U/L Troponin I (0.000-0.034) ng/mL Total Protein 8.1 (6.3-8.2) g/dL Albumin 4.5 (3.5-5.0) g/dL 10/13/18 Range/Units 15:25 WBC (3.8-10.6) k/uL RBC (3.80-5.40) m/uL Hgb (11.4-16.0) gm/dL Hct (34.0-46.0) % MCV (80.0-100.0) fL MCH (25.0-35.0) pg MCHC (31.0-37.0) g/dL RDW (11.5-15.5) % Plt Count (150-450) k/uL Neutrophils % % Lymphocytes % % Monocytes % % Eosinophils % % Basophils % % Neutrophils # (1.3-7.7) k/uL Lymphocytes # (1.0-4.8) k/uL Monocytes # (0-1.0) k/uL Eosinophils # (0-0.7) k/uL Basophils # (0-0.2) k/uL PT (9.0-12.0) sec INR (<1.2) APTT (22.0-30.0) sec Sodium (137-145) mmol/L Potassium (3.5-5.1) mmol/L Chloride (98-107) mmol/L Carbon Dioxide (22-30) mmol/L Anion Gap mmol/L BUN (7-17) mg/dL Creatinine (0.52-1.04) mg/dL Est GFR (CKD-EPI)AfAm (>60 ml/min/1.73 sqM) Est GFR (CKD-EPI)NonAf (>60 ml/min/1.73 sqM) Glucose (74-99) mg/dL Calcium (8.4-10.2) mg/dL Magnesium (1.6-2.3) mg/dL Total Bilirubin (0.2-1.3) mg/dL AST (14-36) U/L ALT (9-52) U/L Alkaline Phosphatase (38-126) U/L Troponin I <0.012 (0.000-0.034) ng/mL Total Protein (6.3-8.2) g/dL Albumin (3.5-5.0) g/dL Disposition Clinical Impression: Chest pain Disposition: ADMITTED IP TO THIS [facility] Condition: Fair Referrals: Wilbur Downs MD [Primary Care Provider] - 1-2 days Decision Time: 16:41
[2018-10-13 15:34] LABS: Basophils # (A) 0.1 k/uL (0-0.2); Basophils % (A) 1 %; Eosinophils # (A) 1.1 k/uL (0-0.7); Eosinophils % (A) 10 %; HCT 48.5 % (34.0-46.0); HGB 16.3 gm/dL (11.4-16.0); Lymphocytes # (A) 2.6 k/uL (1.0-4.8); Lymphocytes % (A) 25 %; MCH 29.8 pg (25.0-35.0); MCHC 33.6 g/dL (31.0-37.0); MCV 88.5 fL (80.0-100.0); Mean Platelet Volume 6.5; Monocytes # (A) 0.6 k/uL (0-1.0); Monocytes % (A) 5 %; Neutrophils # (A) 6.1 k/uL (1.3-7.7); Neutrophils % (A) 58 %; Platelet Count 307 k/uL (150-450); RBC 5.49 m/uL (3.80-5.40); RDW 13.8 % (11.5-15.5); WBC 10.6 k/uL (3.8-10.6)
[2018-10-13 15:44] LABS: ALT 41 U/L (9-52); AST 29 U/L (14-36); Albumin 4.5 g/dL (3.5-5.0); Alkaline Phosphatase 82 U/L (38-126); Anion Gap 7 mmol/L; Blood Urea Nitrogen 14 mg/dL (7-17); Calcium 9.8 mg/dL (8.4-10.2); Carbon Dioxide 22 mmol/L (22-30); Chloride 111 mmol/L (98-107); Glucose 155 mg/dL (74-99); INR 0.9 (<1.2); Magnesium 1.8 mg/dL (1.6-2.3); Partial Thromboplastin Time 23.8 sec (22.0-30.0); Prothrombin Time 9.7 sec (9.0-12.0); Sodium 140 mmol/L (137-145); Total Bilirubin 0.6 mg/dL (0.2-1.3); Total Protein 8.1 g/dL (6.3-8.2)
[2018-10-13 15:48] LABS: Potassium 4.7 mmol/L (3.5-5.1)
--- NOTE | 2018-10-13 16:14 | XR ---
EXAMINATION TYPE: XR chest 2V DATE OF EXAM: 10/13/2018 COMPARISON: 12/24/2017 HISTORY: Chest pain TECHNIQUE: Frontal and lateral views of the chest are obtained. FINDINGS: Heart is enlarged. There is no heart failure. Lungs are clear of infiltrate. There is no s ign of pleural effusion. Bony thorax is intact. There are chest leads. IMPRESSION: Cardiomegaly. No active cardiopulmonary disease. Heart appears increased compared to old exam.
[2018-10-13] MEDS ORDERED: NITROGLYCERIN SL TABS 0.4 MG TAB SUBLINGUAL PRN ×2 (16:42→16:44)
[2018-10-13] MEDS ORDERED: NON-FORMULARY DRUG (Insulin Glargine 15 UNIT) SQ PRN (16:44)
[2018-10-13] MEDS ORDERED: TEMAZEPAM 15 MG CAP PO PRN (17:48)
[2018-10-13] MEDS ORDERED: HYDROcodone/APAP 5-325MG 1 EACH TAB PO PRN (17:48)
[2018-10-13] MEDS ORDERED: ALPRAZolam 0.25 MG TAB PO PRN (17:48)
[2018-10-13] MEDS ORDERED: ACETAMINOPHEN TAB 500 MG TAB PO PRN (17:48)
--- NOTE | 2018-10-13 20:58 | HP ---
HISTORY AND PHYSICAL CHIEF COMPLAINTS: Chest pain. HISTORY OF PRESENT ILLNESS: This 58-year-old woman with a past medical history of multiple medical problems including history of hypertension, hypothyroidism, history of breast cancer, was admitted with acute ST segment elevation myocardial infarction last year. The patient had PTCA of the LAD and the patient improved significantly. Currently the patient was admitted to [facility]. The patient being followed by Dr. Wilbur Downs in the outpatient setting. The patient had initially had pain in the epigastrium. Subsequently, patient had percussion pressure sensation over the sternum which was radiating to the back and there was no associated palpitations, sweating and the patient came to [facility] and was admitted for further evaluation and treatment. There is no history of any fever, rigors. No history of headache, loss of consciousness or seizures. The initial troponins are negative. EKG showed diffuse ST- T changes. PAST MEDICAL HISTORY: History of CAD, cardiac catheterization and cardiac stent, hypertension, hypothyroidism, history of breast cancer, history of MRSA. MEDICATIONS: Prior to admission include home medications are: 1. Coenzyme Q 100 mg daily. 2. Arimidex 1 mg p.o. daily. 3. Nitrostat. 4. Synthroid 137 mcg daily. 5. Vitamin D. 6. Calcium. 8. Lopressor 25 mg p.o. b.i.d. 9. Zestril 10 mg. 10.Lantus 15 units subcu q.h.s. 11.Zyrtec 10 mg daily. 12.Aspirin 81 mg daily. ALLERGIES: SULFA. FAMILY HISTORY: No history of heart disease or strokes in the family. SOCIAL HISTORY: No history of current smoking. Previous history of smoking. No alcohol intake. REVIEW OF SYSTEMS: ENT: No diminished hearing or vision. CARDIOVASCULAR: As mentioned earlier. GI: As mentioned earlier. : No dysuria. NERVOUS SYSTEM: No numbness or weakness. ALLERGY/IMMUNOLOGY: No asthma or hayfever. MUSCULOSKELETAL: As mentioned earlier. HEMATOLOGY/ONCOLOGY: No history of anemia. ENDOCRINE: Diabetes. CONSTITUTIONAL: As mentioned earlier. Dermatology: Negative. Rheumatology: Negative. Psychiatry: As mentioned earlier. PHYSICAL EXAM: Alert, oriented times three. Pulse 57, blood pressure 130/69, respiration 18, temperature normal. Pulse ox 98% on 2 L. HEENT is conjunctivae normal. Oral mucosa moist. Neck is no jugular venous distention. No carotid bruit. No lymph node enlargement. CARDIOVASCULAR: S1, S2 muffled. Respirations: Breath sounds diminished in the bases. Scattered rhonchi. No crackles. ABDOMEN: Soft, nontender. No mass palpable. LEGS: No edema. No swelling. NERVOUS SYSTEM: Higher functions as mentioned earlier. Moves all 4 limbs. No focal motor or sensory deficits. Lymphatics: No lymph nodes palpable in the neck, axillae or groin. Skin: No ulcer. No rash. No bleeding. JOINTS: No active deforming arthropathy. LABS: WBC 10.2, hemoglobin 16.3, sodium 140, potassium 4.7, glucose 150. ASSESSMENT: 1. Chest pain possible unstable angina. 2. Possible gastroesophageal reflux disease. 3. History of myocardial infarction, ST segment elevation as well as cardiac catheterization and stenting of the LAD last year. 4. Diabetes mellitus type 2. 5. History of nicotine dependence. 6. Hypothyroidism. 7. Hypertension. 8. History of breast cancer. 9. History of lumpectomy. 10.History of bladder suspension. RECOMMENDATIONS AND DISCUSSION: In this 58-year-old woman who presented with multiple medical issues, we will monitor the patient closely, continue the current medications, management and symptomatic treatment. Rule out myocardial infarction. Cardiology consultation. Resume the home medications, symptomatic treatment provided. Guarded prognosis because of multiple complex medical issues. Further recommendations to follow. MMODL / IJN: [id number] / MTDD
[2018-10-13] MEDS ORDERED: TICAGRELOR 90 MG TAB PO SCH (21:00)
[2018-10-13] MEDS: METOPROLOL TARTRATE 25 MG TAB PO SCH (21:04)
[2018-10-13] MEDS: CALCIUM CARBONATE 500 MG CHEWABLE PO SCH (21:05)
[2018-10-14 03:39] LABS: Basophils # (A) 0.1 k/uL (0-0.2); Basophils % (A) 1 %; Eosinophils # (A) 1.1 k/uL (0-0.7); Eosinophils % (A) 11 %; HCT 44.4 % (34.0-46.0); HGB 14.9 gm/dL (11.4-16.0); Lymphocytes # (A) 2.9 k/uL (1.0-4.8); Lymphocytes % (A) 28 %; MCH 29.9 pg (25.0-35.0); MCHC 33.6 g/dL (31.0-37.0); MCV 88.9 fL (80.0-100.0); Mean Platelet Volume 6.7; Monocytes # (A) 0.5 k/uL (0-1.0); Monocytes % (A) 5 %; Neutrophils # (A) 5.6 k/uL (1.3-7.7); Neutrophils % (A) 54 %; Platelet Count 289 k/uL (150-450); RBC 4.99 m/uL (3.80-5.40); RDW 13.9 % (11.5-15.5); WBC 10.3 k/uL (3.8-10.6)
[2018-10-14 03:55] LABS: Anion Gap 7 mmol/L; Blood Urea Nitrogen 14 mg/dL (7-17); Calcium 9.5 mg/dL (8.4-10.2); Carbon Dioxide 23 mmol/L (22-30); Chloride 109 mmol/L (98-107); Glucose 173 mg/dL (74-99); HDL Cholesterol 28 mg/dL (40-60); Potassium 4.3 mmol/L (3.5-5.1); Sodium 139 mmol/L (137-145)
[2018-10-14 04:13] LABS: Cholesterol 359 mg/dL (<200); Triglycerides 1185 mg/dL (<150)
[2018-10-14] MEDS ORDERED: LEVOTHYROXINE 137 MCG TAB PO SCH (06:30)
[2018-10-14] MEDS ORDERED: PANTOPRAZOLE 40 MG TABLET PO SCH (07:30)
[2018-10-14] MEDS ORDERED: ATORVASTATIN 40 MG TAB PO SCH (09:00)
[2018-10-14] MEDS ORDERED: ASPIRIN 325 MG TAB PO SCH (09:00)
[2018-10-14] MEDS ORDERED: FENOFIBRATE 54 MG TAB PO SCH (09:00)
[2018-10-14] MEDS ORDERED: ANASTROZOLE 1 MG TAB PO SCH (09:00)
[2018-10-14] MEDS ORDERED: CHOLECALCIFEROL 1,000 UNIT TAB PO SCH (09:00)
[2018-10-14] MEDS ORDERED: CO Q PO SCH (09:00)
[2018-10-14] MEDS ORDERED: LISINOPRIL 10 MG TAB PO SCH (09:00)
[2018-10-14] MEDS ORDERED: CLOPIDOGREL 75 MG TAB PO SCH (09:00)
[2018-10-14] MEDS ORDERED: LORATADINE 10 MG TAB PO SCH (09:00)
[2018-10-14] MEDS: METOPROLOL TARTRATE 25 MG TAB PO SCH (09:43)
[2018-10-14] MEDS: CALCIUM CARBONATE 500 MG CHEWABLE PO SCH (09:44)
--- NOTE | 2018-10-14 09:44 | P.CRDCN ---
History of Present Illness History of present illness: This is a pleasant 58-year-old female past medical history significant for coronary artery disease status post acute anterior wall myocardial infarction and stent placement to the LAD 2017, hypertension, diabetes mellitus, hypertension, dyslipidemia, former nicotine dependence and history of breast cancer in the past status post radiation and lumpectomy. She follows in the off ice with Dr. Alves. We've asked to see her in consultation secondary to chest discomfort. She states yesterday while sitting down watching television she started feeling an abnormal sensation in the midsternal region. She describes this as a tight pressure sensation like somebody was squeezing her from the front to the back. It felt like she was being squeezed in a vice. The symptoms were getting progressively worse with no specific aggravating factor. Similar to her previous heart attack in intensity however the type of systems were some what similar. There was no radiation to the arm, neck or jaw. She denies associated shortness of breath, dizziness, nausea, vomiting, palpitations or diaphoresis. Her symptoms persisted for approximately 30 minutes and ultimately subsided upon arrival to the emergency department when she was given aspirin. She has had no further symptoms of chest discomfort since arriving at the hospital. She is seen and examined resting comfortably in bed laying flat in no acute distress. EKG reveals sinus mechanism with evidence of old anterior wall myocardial infarction T-wave inversions in the precordial leads. Chest x-ray is negative for an acute cardiopulmonary process. Laboratory data reviewed, cardiac enzymes negative 3, WBC 10.3, hemoglobin 14.9, platelets 289, sodium 139, potassium 4.3, creatinine 0.7, triglycerides 1185. Current cardiac medications include aspirin 81 mg daily, lisinopril 10 mg daily, Lopressor 25 mg twice a day, Brilinta 90 mg twice a day. She states she stopped taking her statins couple of months ago for no real reason. Cardiac catheterization performed in November 2017 revealed significant stenosis and total occlusion of the LAD of which she underwent successful stent placement 2 as well as a 30-40% lesion noted in the mid circumflex artery. Echocardiogram obtained at that time revealed impaired left ventricular systolic function with ejection fraction 40-45%. She underwent repeat echocardiogram in the office in December 2017 again showing persistent impaired LV systolic function with ejection fraction 40-45% with hypokinesia of the apex, apical septum and lateral wall. She also had elevated PA pressures at that time. She underwent an exercise stress test in the office January 2018 when she walked for 6 minutes and 7 seconds achieving a heart rate of 154 with evidence of an old apical septal myocardial infarction with no evidence of stress-induced ischemia. At the time of my exam: CONSTITUTIONAL: Denies fever. Denies chills. EYES: Denies blurred vision. Denies vision changes. Denies eye pain. EARS, NOSE, MOUTH & THROAT: Denies headache. Denies sore throat. Denies ear pain. CARDIOVASCULAR: Denies chest pain. Denies shortness of breath. Denies orthopnea. Denies PND. Denies palpitations. RESPIRATORY: Denies cough. GASTROINTESTINAL: Denies abdominal pain. Denies diarrhea. Denies constipation. Denies nausea. Denies vomiting. MUSCULOSKELETAL: Denies myalgias. INTEGUMENTARY: Denies pruitis. Denies rash. NEUROLOGIC: Denies numbness. Denies tingling. Denies weakness. PSYCHIATRIC: Denies anxiety. Denies depression. ENDOCRINE: Denies fatigue. Denies weight change. Denies polydipsia. Denies poly urina. GENITOURINARY: Denies burning, hematuria or urgency with micturation. HEMATOLOGIC: Denies history of anemia. Denies bleeding. Blood pressure 147/77 heart rate 65 afebrile maintaining oxygen saturation on room air GENERAL: This is a 58-year-old female in no apparent distress at the time of my examination. HEENT: Head is atraumatic, normocephalic. Pupils are equal, round. Sclerae anicteric. Conjunctivae are clear. Mucous membranes of the mouth are moist. Neck is supple. There is no jugular venous distention. No carotid bruit is heard. LUNGS: Clear to auscultation no wheezes, rales or rhonchi. No chest wall tenderness is noted on palpation or with deep breathing. HEART: Regular rate and rhythm without murmurs, rubs or gallops. S1 and S2 heard. ABDOMEN: Soft, nontender. Bowel sounds are heard. No organomegaly noted. EXTREMITIES: No evidence of peripheral edema and no calf tenderness noted. VASCULAR: Radial and dorsalis pedis pulses palpated, no evidence of clubbing. NEUROLOGIC: Patient is awake, alert and oriented x3. ASSESSMENT Chest pain at rest, an acute event has been ruled out. History of coronary artery disease in the setting of an acute myocardial infarct ion status post successful stent placement to a totally occluded LAD maintained on dual antiplatelet therapy Ischemic cardiomyopathy, ejection fraction 40-45% Hypertension Dyslipidemia, uncontrolled and noncompliant with medications at home Diabetes mellitus Former nicotine dependence, patient states she quit after her event in November 2017 History of breast cancer status post radiation treatment and lumpectomy PLAN Obtain 2-D echocardiogram and Doppler study to assess cardiac structure and function. Change her Brilinta to Plavix 75 mg daily. Initiate on Crestor and TriCor for better control of lipids. Increase activity and ambulation in the halls and assess for any exertional symptoms of chest discomfort. If she has no symptoms of exertional chest discomfort she may be discharged home to follow-up in the office with Dr. Alves in one to 2 weeks. Any further symptoms of chest discomfort we will consider coronary angiography. Thank you kindly for this consultation. Nurse Practitioner note has been reviewed, I agree with a documented findings and plan of care. Patient was seen and examined. Past Medical History Past Medical History: Cancer, Hypertension, Thyroid Disorder Additional Past Medical History / Comment(s): breast (in remission) History of Any Multi-Drug Resistant Organisms: MRSA Date of last positivie culture/infection: 2012; groin Additional Past Surgical History / Comment(s): lumpectomy left side with lymphnodes removed, Bladder suspension 20 years ago Past Psychological History: No Psychological Hx Reported Smoking Status: Former smoker Past Alcohol Use History: None Reported Past Drug Use History: None Reported Medications and Allergies Home Medications Medication Instructions Recorded Confirmed Type Cetirizine HCl [Zyrtec] 10 mg PO DAILY 12/23/17 10/13/18 History Aspirin 81 mg PO DAILY #30 chew 12/26/17 10/13/18 Rx Lisinopril [Zestril] 10 mg PO DAILY #30 tab 12/26/17 10/13/18 Rx Metoprolol Tartrate [Lopressor] 25 mg PO BID #60 tab 12/26/17 10/13/18 Rx Nitroglycerin Sl Tabs [Nitrostat] 0.4 mg SUBLINGUAL Q5M PRN #100 tab 12/26/17 10/13/18 Rx Ticagrelor [Brilinta] 90 mg PO BID #60 tab 12/26/17 10/13/18 Rx Anastrozole [Arimidex] 1 mg PO DAILY 10/13/18 10/13/18 History Calcium Carbonate [Calcium] 600 mg PO BID 10/13/18 10/13/18 History Cholecalciferol (Vitamin D3) 2,000 unit PO DAILY 10/13/18 10/13/18 History [Vitamin D3] Insulin Glargine [Lantus] 15 unit SQ HS PRN 10/13/18 10/13/18 History Levothyroxine Sodium [Synthroid] 137 mcg PO DAILY 10/13/18 10/13/18 History Ubidecarenone [Co Q-10] 100 mg PO DAILY 10/13/18 10/13/18 History Allergies Allergy/AdvReac Type Severity Reaction Status Date / Time Sulfa (Sulfonamide Allergy Unknown Verified 10/13/18 16:03 Antibiotics) Physical Exam Vitals: Vital Signs Temp Pulse Pulse Resp BP BP Pulse Ox 10/14/18 07:36 97.5 F L 65 15 147/77 97 10/14/18 04:03 67 19 98 10/14/18 03:20 98.4 F 17 112/58 96 10/14/18 02:17 17 10/14/18 01:07 71 18 10/14/18 00:15 64 19 10/13/18 23:32 61 18 147/76 97 10/13/18 22:00 65 16 147/76 10/13/18 21:02 64 16 128/66 97 10/13/18 20:35 73 18 152/78 95 10/13/18 19:30 62 18 137/71 98 10/13/18 18:30 59 L 20 155/94 97 10/13/18 17:30 61 18 137/44 98 10/13/18 16:27 57 L 18 133/69 96 10/13/18 16:00 53 L 16 134/68 97 10/13/18 15:30 65 18 144/76 96 10/13/18 15:14 64 18 154/95 95 10/13/18 14:55 98.7 F 72 18 165/90 97 Intake and Output 10/13/18 10/14/18 10/14/18 22:59 06:59 14:59 Other: Voiding Method Toilet Results 10/14/18 03:22 10/14/18 03:22 Cardiac Enzymes 10/13/18 10/13/18 10/13/18 Range/Units 15:25 15:25 20:42 AST 29 (14-36) U/L Troponin I <0.012 <0.012 (0.000-0.034) ng/mL 10/14/18 Range/Units 03:22 AST (14-36) U/L Troponin I <0.012 (0.000-0.034) ng/mL Coagulation 10/13/18 Range/Units 15:25 PT 9.7 (9.0-12.0) sec APTT 23.8 (22.0-30.0) sec Lipids 10/14/18 Range/Units 03:22 Triglycerides 1185 H (<150) mg/dL Cholesterol 359 H (<200) mg/dL HDL Cholesterol 28 L (40-60) mg/dL CBC 10/13/18 10/14/18 Range/Units 15:25 03:22 WBC 10.6 10.3 (3.8-10.6) k/uL RBC 5.49 H 4.99 (3.80-5.40) m/uL Hgb 16.3 H 14.9 (11.4-16.0) gm/dL Hct 48.5 H 44.4 (34.0-46.0) % Plt Count 307 289 (150-450) k/uL Comprehensive Metabolic Panel 10/13/18 10/14/18 Range/Units 15:25 03:22 Sodium 140 139 (137-145) mmol/L Potassium 4.7 4.3 (3.5-5.1) mmol/L Chloride 111 H 109 H (98-107) mmol/L Carbon Dioxide 22 23 (22-30) mmol/L BUN 14 14 (7-17) mg/dL Creatinine 0.64 0.70 (0.52-1.04) mg/dL Glucose 155 H 173 H (74-99) mg/dL Calcium 9.8 9.5 (8.4-10.2) mg/dL AST 29 (14-36) U/L ALT 41 (9-52) U/L Alkaline Phosphatase 82 (38-126) U/L Total Protein 8.1 (6.3-8.2) g/dL Albumin 4.5 (3.5-5.0) g/dL Current Medications Generic Name Dose Route Start Last Admin Trade Name Freq PRN Reason Stop Dose Admin Acetaminophen 500 mg 10/13/18 17:48 Tylenol Tab PO Q6HR PRN Fever and/ or Pain Hydrocodone Bitart/Acetaminophen 1 each 10/13/18 17:48 [place] 5-325 PO Q6HR PRN Pain Alprazolam 0.25 mg 10/13/18 17:48 Xanax PO TID PRN Anxiety Anastrozole 1 mg 10/14/18 09:00 Arimidex PO DAILY [facility] Atorvastatin Calcium 40 mg 10/14/18 09:00 Lipitor PO DAILY [facility] Calcium Carbonate/Glycine 500 mg 10/13/18 21:00 10/13/18 21:05 Tums PO Not Given BID [facility] Cholecalciferol 2,000 unit 10/14/18 09:00 Vitamin D3 PO DAILY [facility] Clopidogrel Bisulfate 75 mg 10/14/18 09:00 Plavix PO DAILY [facility] Fenofibrate 54 mg 10/14/18 09:00 Lofibra PO DAILY [facility] Levothyroxine Sodium 137 mcg 10/14/18 06:30 10/14/18 07:05 Synthroid PO 137 mcg DAILY@0630 [facility] Administration Lisinopril 10 mg 10/14/18 09:00 Zestril PO DAILY [facility] Loratadine 10 mg 10/14/18 09:00 Claritin PO DAILY [facility] Metoprolol Tartrate 25 mg 10/13/18 21:00 10/13/18 21:04 Lopressor PO 25 mg BID [facility] Administration Nitroglycerin 0.4 mg 10/13/18 16:42 Nitrostat SUBLINGUAL Q5M PRN Chest Pain Nitroglycerin 0.4 mg 10/13/18 16:44 Nitrostat SUBLINGUAL Q5M PRN Chest Pain Co-Q 10 100mg 100 mg 10/14/18 09:00 PO DAILY [facility] Pantoprazole Sodium 40 mg 10/14/18 07:30 Protonix PO AC-BRKFST [facility] Temazepam 15 mg 10/13/18 17:48 Restoril PO HS PRN Insomnia Intake and Output 10/13/18 10/14/18 10/14/18 22:59 06:59 14:59 Other: Voiding Method Toilet 10/14/18 03:22 10/14/18 03:22
[2018-10-14] MEDS ORDERED: ASPIRIN 81 MG PO SCH (09:45)
[2018-10-14 12:13] VITALS: BP 152/68; PULSE 58; RESP 16; TEMP 98
[2018-10-14 12:20] LABS: Glucose,Whole Blood 258 mg/dL (75-99)
--- NOTE | 2018-10-14 12:21 | ECHOF ---
Referral Reason:cp MEASUREMENTS -------- HEIGHT: 165.1 cm WEIGHT: 83.9 kg BP: IVSd: 1.3 cm (0.6 - 1.1) LVIDd: 4.5 cm (3.9 - 5.3) LVPWd: 1.4 cm (0.6 - 1.1) IVSs: 1.7 cm LVIDs: 3.1 cm LVPWs: 2.0 cm LA Diam: 4.1 cm (2.7 - 3.8) LAESV Index (A-L): 33.01 ml/m Ao Diam: 3.0 cm (2.0 - 3.7) AV Cusp: 1.2 cm (1.5 - 2.6) LA Diam: 3.5 cm (2.7 - 3.8) MV EXCURSION: 18.742 mm (> 18.000) MV EF SLOPE: 33 mm/s (70 - 150) EPSS: 0.7 cm MV E Jamarcus: 0.29 m/s MV DecT: 196 ms MV A Jamarcus: 0.61 m/s MV E/A Ratio: 0.48 RAP: 5.00 mmHg RVSP: 26.68 mmHg FINDINGS -------- Sinus rhythm. This was a technically adequate study. The left ventricular size is normal. There is mild concentric left ventricular hypertrophy. Overa ll left ventricular systolic function is mild-moderately impaired with, an EF between 40 - 45 %. An terseptal Hypokinesis [place] Hypokinesis. The right ventricle is normal in size. The left atrium is mildly dilated. LA is midly dilated 29-33ml/m2. The right atrial size is normal. The aortic valve is trileaflet, and appears structurally normal. No aortic stenosis or regurgitation. Mild mitral annular calcification present. Mild mitral regurgitation is present. Mild tricuspid regurgitation present. There is no evidence of pulmonary hypertension. The right v entricular systolic pressure, as measured by Doppler, is 26.68mmHg. There is no pulmonic regurgitation present. The aortic root size is normal. There is no pericardial effusion. CONCLUSIONS -------- 1. The left ventricular size is normal. 2. There is mild concentric left ventricular hypertrophy. 3. Overall left ventricular systolic function is mild-moderately impaired with, an EF between 40 - 45 %. 4. Anterseptal Hypokinesis 5. [place] Hypokinesis. 6. The right ventricle is normal in size. 7. The left atrium is mildly dilated. 8. LA is midly dilated 29-33ml/m2. 9. The right atrial size is normal. 10. The aortic valve is trileaflet, and appears structurally normal. No aortic stenosis or regurgitat ion. 11. Mild mitral annular calcification present. 12. Mild mitral regurgitation is present. 13. There is no evidence of pulmonary hypertension. 14. The right ventricular systolic pressure, as measured by Doppler, is 26.68mmHg. 15. There is no pulmonic regurgitation present. 16. The aortic root size is normal. 17. There is no pericardial effusion. SPUD GRADER: Marlen Carver RDCS
--- NOTE | 2018-10-14 16:08 | P.DS ---
Providers Date of admission: 10/13/18 16:42 Attending physician: Sharan Monteiro Consults: 10/13/18 16:42 Consult Physician Urgent Consulting Provider: Tereso Alves Consult Reason/Comments: chest pain Do you want consulting provider notified?: Yes Primary care physician: Wilbur Downs MD Hospital Course: Diagnoses: Chest pain/pressure, completely resolved. Patient has been cleared by cartilage team for discharge Hyperlipidemia Hypertension Diabetes mellitus History of coronary artery disease History of left breast cancer, status post lumpectomy, continue on anastrozole Hypothyroidism Hospital course This is a pleasant 58 years old female with past medical history of coronary artery disease, status post stenting, breast cancer status post radiation therapy and lumpectomy, currently on oral chemotherapy, history of diabetes mellitus, hypertension, osteoarthritis, psoriasis, hypothyroidism. She presents because of signs symptoms of chest discomfort with no dyspnea or dizziness. Patient had no palpitation. Patient chest pressure has completely resolved and she denies any other symptoms. She's been evaluated by [facility] with the workup including echo, cardiac enzymes and EKG was reviewed by the [facility]. Patient has been cleared by [facility] for discharge after chest some of her medication lack change in her bowel intact to Plavix and adding TriCor and Crestor for her height cholesterol, patient is made aware of these changes and she agreeable with them. Patient back to her baseline and she wants to be discharged home. Problems and management plan was discussed with the patient and she verbalized understanding and acceptance Patient was found stable and can be discharged home however she needs follow-up as an outpatient. Patient was instructed to follow up with her PCP in one week. Also she was instructed to follow up with her [facility] in 2 weeks and she agrees with that. Patient said that she will call and make her own appointments. Gen: patient is a AAOx3, no distress CVS: S1-S2, RRR, no murmur Lungs: B/L CTA, no wheezing Abdomen: soft, no distention, no tenderness, positive bowel sounds Extremity: no leg edema or induration Time spent more than 35 minutes Patient Condition at Discharge: Fair Plan - Discharge Summary Discharge Rx Participant: No New Discharge Prescriptions: New Rosuvastatin Calcium [Crestor] 10 mg PO DAILY #90 tab Fenofibrate [Lofibra] 54 mg PO DAILY #90 tab Clopidogrel [Plavix] 75 mg PO DAILY #90 tab Pantoprazole [Protonix] 40 mg PO AC-BRKFST #20 tablet.dr Continue Cetirizine HCl [Zyrtec] 10 mg PO DAILY Aspirin 81 mg PO DAILY #30 chew Lisinopril [Zestril] 10 mg PO DAILY #30 tab Metoprolol Tartrate [Lopressor] 25 mg PO BID #60 tab Nitroglycerin Sl Tabs [Nitrostat] 0.4 mg SUBLINGUAL Q5M PRN #100 tab PRN Reason: Chest Pain Ubidecarenone [Co Q-10] 100 mg PO DAILY Anastrozole [Arimidex] 1 mg PO DAILY Levothyroxine Sodium [Synthroid] 137 mcg PO DAILY Cholecalciferol (Vitamin D3) [Vitamin D3] 2,000 unit PO DAILY Calcium Carbonate [Calcium] 600 mg PO BID Insulin Glargine [Lantus] 15 unit SQ HS PRN PRN Reason: Blood Sugar - High Discontinued Ticagrelor [Brilinta] 90 mg PO BID #60 tab Discharge Medication List Cetirizine HCl [Zyrtec] 10 mg PO DAILY 12/23/17 [History] Aspirin 81 mg PO DAILY #30 chew 12/26/17 [Rx] Lisinopril [Zestril] 10 mg PO DAILY #30 tab 12/26/17 [Rx] Metoprolol Tartrate [Lopressor] 25 mg PO BID #60 tab 12/26/17 [Rx] Nitroglycerin Sl Tabs [Nitrostat] 0.4 mg SUBLINGUAL Q5M PRN #100 tab 12/26/17 [Rx] Anastrozole [Arimidex] 1 mg PO DAILY 10/13/18 [History] Calcium Carbonate [Calcium] 600 mg PO BID 10/13/18 [History] Cholecalciferol (Vitamin D3) [Vitamin D3] 2,000 unit PO DAILY 10/13/18 [History] Insulin Glargine [Lantus] 15 unit SQ HS PRN 10/13/18 [History] Levothyroxine Sodium [Synthroid] 137 mcg PO DAILY 10/13/18 [History] Ubidecarenone [Co Q-10] 100 mg PO DAILY 10/13/18 [History] Clopidogrel [Plavix] 75 mg PO DAILY #90 tab 10/14/18 [Rx] Fenofibrate [Lofibra] 54 mg PO DAILY #90 tab 10/14/18 [Rx] Pantoprazole [Protonix] 40 mg PO AC-BRKFST #20 tablet. 10/14/18 [Rx] Rosuvastatin Calcium [Crestor] 10 mg PO DAILY #90 tab 10/14/18 [Rx] Follow up Appointment(s)/Referral(s): Tereso Alves MD [STAFF PHYSICIAN] - 2 Weeks ([facility] will call with appointment date and time) Wilbur Downs MD [Primary Care Provider] - 1-2 days Activity/Diet/Wound Care/Special Instructions: Cardiac diet Activity is limited until you see your doctor
== END 2018-10-14 16:30 | disposition home or self-care (01) ==
LOC: EC 14:49 → 1SOBS 16:42
PROVIDERS: ADMIT Hospitalist; ATTEND Hospitalist
DX: R07.89 Other chest pain (principal); I25.10 Atherosclerotic heart disease of native coronary artery without angina pectoris; I11.9 Hypertensive heart disease without heart failure; E03.9 Hypothyroidism, unspecified; E11.9 Type 2 diabetes mellitus without complications; E78.5 Hyperlipidemia, unspecified; M19.90 Unspecified osteoarthritis, unspecified site; L40.9 Psoriasis, unspecified; I25.5 Ischemic cardiomyopathy; Z91.14 Patient's other noncompliance with medication regimen; Z79.811 Long term (current) use of aromatase inhibitors; Z79.4 Long term (current) use of insulin; Z79.890 Hormone replacement therapy; Z79.82 Long term (current) use of aspirin; Z79.899 Other long term (current) drug therapy; Z88.2 Allergy status to sulfonamides; Z86.14 Personal history of Methicillin resistant Staphylococcus aureus infection; Z95.5 Presence of coronary angioplasty implant and graft; Z87.891 Personal history of nicotine dependence; Z85.3 Personal history of malignant neoplasm of breast; I25.2 Old myocardial infarction; Z92.3 Personal history of irradiation
CPT/HCPCS: 99285; 36415; 93005 ×2; 93306; 80061; 80053; 80048; 83735; 84484 ×2; 85025 ×2; 85610; 85730; 71046; G0378 ×2; S0170

== ENCOUNTER 2021-01-10 04:28 | Inpatient (IN) | payer OTHER ==
--- NOTE | 2021-01-10 04:37 | ED ---
Chest Pain HPI - General Chief Complaint: Chest Pain Stated Complaint: Chest Pain Time Seen by Provider: 01/10/21 04:35 Source: patient, RN notes reviewed, old records reviewed Mode of arrival: wheelchair - History of Present Illness Initial Comments: This pain started this morning after she woke up or so she will chest pain. Patient has history of ST elevated HI and cardiac of coronary artery disease. Patient states pain left-sided of her chest were back. She is not related to her first HI she said that happened so quick this was definitely not as severe. Patient denying any diaphoresis she might feel shortness of breath. Patient is also having persistent chest pain throughout ER stay but not requiring pain medication currently MD Complaint: chest pain -: hour(s) Pain Location: left chest Pain Radiation: LUE Severity: severe Severity scale (1-10): 8 Quality: heaviness, similar to prior HI Consistency: constant Improves With: nothing Worsens With: nothing Anginal Symptoms: sense of impending doom Other Symptoms: palpitations Treatments Prior to Arrival: none - Related Data Home Medications Medication Instructions Recorded Confirmed Cetirizine HCl [Zyrtec] 10 mg PO DAILY 12/23/17 10/13/18 Anastrozole [Arimidex] 1 mg PO DAILY 10/13/18 10/13/18 Calcium Carbonate [Calcium] 600 mg PO BID 10/13/18 10/13/18 Cholecalciferol (Vitamin D3) 2,000 unit PO DAILY 10/13/18 10/13/18 [Vitamin D3] Insulin Glargine [Lantus] 15 unit SQ HS PRN 10/13/18 10/13/18 Levothyroxine Sodium [Synthroid] 137 mcg PO DAILY 10/13/18 10/13/18 Ubidecarenone [Co Q-10] 100 mg PO DAILY 10/13/18 10/13/18 Previous Rx's Medication Instructions Recorded Aspirin 81 mg PO DAILY #30 chew 12/26/17 Metoprolol Tartrate [Lopressor] 25 mg PO BID #60 tab 12/26/17 Nitroglycerin Sl Tabs [Nitrostat] 0.4 mg SUBLINGUAL Q5M PRN #100 tab 12/26/17 lisinopriL [Zestril] 10 mg PO DAILY #30 tab 12/26/17 Clopidogrel [Plavix] 75 mg PO DAILY #90 tab 10/14/18 Fenofibrate [Lofibra] 54 mg PO DAILY #90 tab 10/14/18 Pantoprazole [Protonix] 40 mg PO ARIN #20 tablet. 10/14/18 Rosuvastatin Calcium [Crestor] 10 mg PO DAILY #90 tab 10/14/18 Allergies Allergy/AdvReac Type Severity Reaction Status Date / Time Sulfa (Sulfonamide Allergy Unknown Verified 01/10/21 06:23 Antibiotics) Review of Systems ROS Statement: Those systems with pertinent positive or pertinent negative responses have been documented in the HPI. ROS Other: All systems not noted in ROS Statement are negative. EKG Findings - EKG Comments: EKG Findings:: EKG sinus rhythm 79, MI 154 QRS 92 QTC 477 Past Medical History Past Medical History: Coronary Artery Disease (CAD), Cancer, Diabetes Mellitus, Hypertension, Myocardial Infarction (HI), Osteoarthritis (OA), Skin Disorder, Thyroid Disorder Additional Past Medical History / Comment(s): L breast cancer with lumpectomy and radiation, IDDM type II, psoriasis, arthritis in neck, hypothyroid, sinus problems, past elevated LFT but pt was told not to worry about that. Last Myocardial Infarction Date:: 12/23/17 History of Any Multi-Drug Resistant Organisms: MRSA Date of last positivie culture/infection: 2012; MDRO Source:: groin Past Surgical History: Heart Catheterization With Stent Additional Past Surgical History / Comment(s): lumpectomy left breast with lymph nodes removed, bladder suspension 20 years ago, colonoscopy Past Anesthesia/Blood Transfusion Reactions: No Reported Reaction Date of Last Stent Placement:: 12/23/17 Past Psychological History: No Psychological Hx Reported Smoking Status: Never smoker Past Alcohol Use History: None Reported Past Drug Use History: None Reported - Past Family History Father Family Medical History: Cancer, Diabetes Mellitus, Hypertension Additional Family Medical History / Comment(s): Father of lymphoma at the age of 54yrs. Mother Additional Family Medical History / Comment(s): Mother has heart problems and is almost 80yrs old General Exam General appearance: alert, in no apparent distress, anxious Head exam: Present: atraumatic, normocephalic, normal inspection Eye exam: Present: normal appearance, PERRL, EOMI. Absent: scleral icterus, conjunctival injection, periorbital swelling ENT exam: Present: normal exam, mucous membranes moist Neck exam: Present: normal inspection. Absent: tenderness, meningismus, lymphadenopathy Respiratory exam: Present: normal lung sounds bilaterally. Absent: respiratory distress, wheezes, rales, rhonchi, stridor Cardiovascular Exam: Present: regular rate, normal rhythm, normal heart sounds. Absent: systolic murmur, diastolic murmur, rubs, gallop, clicks GI/Abdominal exam: Present: soft, normal bowel sounds. Absent: distended, tenderness, guarding, rebound, rigid Extremities exam: Present: normal inspection, full ROM, normal capillary refill. Absent: tenderness, pedal edema, joint swelling, calf tenderness Back exam: Present: normal inspection Neurological exam: Present: alert, oriented X3, CN II-XII intact Psychiatric exam: Present: normal affect, normal mood Skin exam: Present: warm, dry, intact, normal color. Absent: rash Course Vital Signs 01/10/21 01/10/21 01/10/21 04:34 04:59 05:46 Temperature 98.1 F Pulse Rate 70 79 79 Respiratory 18 16 16 Rate Blood Pressure 161/114 157/90 141/75 O2 Sat by Pulse 97 96 95 Oximetry 01/10/21 05:54 Temperature Pulse Rate 79 Respiratory 16 Rate Blood Pressure 138/91 O2 Sat by Pulse 95 Oximetry - Reevaluation(s) Reevaluation #1: 01/10/21 05:38 Medical record is reviewed Reevaluation #2: 01/10/21 05:39 Patient still has persistent chest pain here in the ER Reevaluation #3: 01/10/21 06:25 Patient is multiple EKGs with no changes in morphology Reevaluation #4: 01/10/21 06:25 patient informed results and questions answered - Consultations Consultation #1: Spoke with Dr. Ramirez regarding elevated troponin, EKGs, we will send Dr. Eisenberg EKGs and attempt nitro for chest pain Chest Pain MDM - MDM 60 female DF for evaluation patient Dese for evaluation of chest pain elevated troponin. Patient be admitted for cardiac evaluation and treatment, Critical Care Time Critical Care Time: Yes Total Critical Care Time: 31 Disposition Clinical Impression: Chest pain, Acute non-ST elevation myocardial infarction (NSTEMI) Disposition: ADMITTED IP TO THIS HOSP Condition: Serious Is patient prescribed a controlled substance at d/c from ED?: No
[2021-01-10 04:47] LABS: Basophils # (A) 0.1 k/uL (0-0.2); Basophils % (A) 1 %; Eosinophils # (A) 0.5 k/uL (0-0.7); Eosinophils % (A) 5 %; HCT 47.5 % (34.0-46.0); HGB 16.2 gm/dL (11.4-16.0); Lymphocytes # (A) 2.6 k/uL (1.0-4.8); Lymphocytes % (A) 24 %; MCH 31.1 pg (25.0-35.0); MCHC 34.1 g/dL (31.0-37.0); Mean Platelet Volume 8.1; Monocytes # (A) 0.5 k/uL (0-1.0); Monocytes % (A) 4 %; Neutrophils % (A) 64 %; Platelet Count 282 k/uL (150-450); RBC 5.21 m/uL (3.80-5.40); RDW 13.9 % (11.5-15.5); WBC 10.9 k/uL (3.8-10.6)
[2021-01-10 04:57] LABS: INR 0.9 (<1.2); Partial Thromboplastin Time 22.7 sec (22.0-30.0); Prothrombin Time 9.8 sec (9.0-12.0)
[2021-01-10 04:59] LABS: ALT 60 U/L (4-34); AST 90 U/L (14-36); African American GFR (CKD) >90 (>60 ml/min/1.73 sqM); Albumin 4.2 g/dL (3.5-5.0); Alkaline Phosphatase 151 U/L (38-126); Anion Gap 9 mmol/L; Blood Urea Nitrogen 12 mg/dL (7-17); Calcium 10.1 mg/dL (8.4-10.2); Carbon Dioxide 23 mmol/L (22-30); Chloride 103 mmol/L (98-107); Creatine Kinase 277 U/L (30-135); Glucose 338 mg/dL (74-99); Magnesium 1.5 mg/dL (1.6-2.3); Non-African American GFR(CKD) >90 (>60 ml/min/1.73 sqM); Potassium 4.4 mmol/L (3.5-5.1); Sodium 135 mmol/L (137-145); Total Bilirubin 0.4 mg/dL (0.2-1.3); Total Protein 7.8 g/dL (6.3-8.2)
--- NOTE | 2021-01-10 05:05 | XR ---
EXAMINATION TYPE: XR chest 1V portable DATE OF EXAM: 01/10/2021 COMPARISON: 10/13/2018 HISTORY: Chest pain TECHNIQUE: FINDINGS: Heart is moderately enlarged. There is no gross heart failure. Costophrenic angles are chuck r. There are no hilar masses. There are chest leads. Mediastinum is normal. IMPRESSION: There is moderate cardiomegaly that is similar to old exam. No heart failure.
[2021-01-10] MEDS ORDERED: NITROGLYCERIN SL TABS 0.4 MG TAB SUBLINGUAL PRN (05:30)
[2021-01-10] MEDS ORDERED: MORPHINE SULFATE 4 MG/ML SYRINGE IV PRN (05:30)
[2021-01-10] MEDS ORDERED: HEPARIN SODIUM 1,000 UN/ML (10ML VL) IV ONE (05:30)
[2021-01-10] MEDS ORDERED: ASPIRIN 325 MG TAB PO STA ×2 (05:38→07:32)
[2021-01-10] MEDS ORDERED: NITROGLYCERIN OINT 1 INCH/GM PACKET TOPICAL STA (05:45)
[2021-01-10] MEDS: HEPARIN SOD,PORK IN 0.45% NACL 25,000 UNIT in 0.45% NACL 1 250ML.BAG IV SCH (05:56)
[2021-01-10 06:49] LABS: Glucose,Whole Blood 333 mg/dL (75-99)
[2021-01-10] MEDS ORDERED: HEPARIN SODIUM,PORCINE 2,500 UNIT in SODIUM CHLORIDE 0.9% 250 ML IRRIGATION PRN (07:00)
[2021-01-10] MEDS ORDERED: HEPARIN SODIUM,PORCINE 10,000 UNIT in SODIUM CHLORIDE 0.9% 1,000 ML IRRIGATION PRN (07:00)
--- NOTE | 2021-01-10 07:21 | CONS ---
CONSULTATION CHIEF COMPLAINT: Chest pain. HISTORY OF PRESENT ILLNESS: Deandra is a 60-year-old lady with history of known coronary artery disease, status post prior cardiac catheterization in 2018, hypertension, diabetes, dyslipidemia, who presented to [facility] Emergency Room this morning complaining of chest pain. Chest discomfort is primarily in upper back and intrascapular pain with mild to moderate intensity. Came on at rest and persistent. She was still having chest pain in the ER. The EKG shows sinus rhythm with poor R-wave progression. Troponin had come back elevated at 3.5. Her chest pain has improved somewhat with the sublingual nitroglycerin, but did not resolve fully. At the time of my evaluation she is still complaining of intrascapular chest discomfort. I advised the patient to undergo cardiac catheterization for further evaluation. She sees Dr. Niels Alves in the outpatient setting for her cardiac needs. PAST MEDICAL HISTORY: Significant for diabetes, hypertension, dyslipidemia. MEDICATIONS: At home include aspirin, Arimidex, Pepcid, Lofibra, insulin, levothyroxine, metoprolol, and lisinopril. ALLERGIES: SULFA. FAMILY HISTORY: Negative for premature coronary artery disease. SOCIAL HISTORY: Significant for smoking. There is no history of EtOH abuse or drug abuse. REVIEW OF SYSTEMS: HEENT: Unremarkable. CARDIAC: As described above. RESPIRATORY: As described above. GI: Negative. GENITOURINARY: Negative. ALLERGY/IMMUNOLOGY: Negative. SKIN: Negative. MUSCULOSKELETAL: Negative. ENDOCRINE: Negative. DERMATOLOGIC: Negative. CONSTITUTIONAL: Negative. ONCOLOGICAL: Negative. EXECUTOR OF ESTATE: Negative. Rest of the system review is not relevant. PHYSICAL EXAM: She is comfortable at rest. Vital signs are stable. There is no jugular venous distention. Carotid upstroke is normal. There is no bruit. Chest exam reveals good air entry bilaterally. Heart exam reveals first and second heart sounds. No gallop. No murmur. No rub. Abdomen is soft and nontender. Exam of extremities did not reveal any edema. Peripheral pulses are felt. LABS: Labs show that the troponin is elevated. Creatinine is 0.9. Hemoglobin is 16.2, platelet count is 282. Troponin is elevated at 3.8, blood sugar is poorly controlled at 333. ASSESSMENT: Acute non ST-segment elevation myocardial infarction. PLAN: Patient will undergo cardiac catheterization to performing angioplasty by Dr. Niels Alves, her primary unemployment insurance director, who is going to do this sometime this morning. MMELIANEL / IJN: [id number] /
[2021-01-10] MEDS ORDERED: LIDOCAINE 1% INJ 10MG/ML (20 ML MDV) ONE (07:24)
[2021-01-10] MEDS ORDERED: VERAPAMIL 2.5 MG/ML 2 ML AMP ONE (07:24)
[2021-01-10] MEDS ORDERED: HEPARIN SODIUM 1,000 UN/ML (10ML VL) ONE (07:24)
[2021-01-10] MEDS ORDERED: LIDOCAINE 1% INJ 10MG/ML (20 ML MDV) SQ ONE (07:32)
[2021-01-10] MEDS ORDERED: MIDAZOLAM 2 MG/2 ML VIAL IV ONE (07:32)
[2021-01-10] MEDS ORDERED: SODIUM CHLORIDE 0.9% 1,000 ML in EMPTY BAG 1 BAG IV ONE (07:32)
[2021-01-10] MEDS ORDERED: ALPRAZolam 0.5 MG TAB PO PRN (07:32)
[2021-01-10] MEDS ORDERED: ALPRAZolam 0.25 MG TAB PO PRN (07:32)
[2021-01-10] MEDS ORDERED: ATORVASTATIN 80 MG TAB PO STA (07:32)
[2021-01-10] MEDS: VERAPAMIL SYRINGE (5 MG/10 ML) INTRAARTER ONE ×2 (07:34→08:13)
[2021-01-10] MEDS ORDERED: IV FLUID CONTINUATION 900 ML IV ONE (07:36)
[2021-01-10] MEDS: HEPARIN SODIUM 1,000 UN/ML (10ML VL) IV ONE ×2 (07:42→08:18)
[2021-01-10] MEDS ORDERED: TIROFIBAN BOLUS 12.5MG/250 ML BAG IV ONE (07:44)
[2021-01-10] MEDS ORDERED: TIROFIBAN 12.5MG-250ML NS 250 ML IV ONE (07:44)
[2021-01-10] MEDS ORDERED: TICAGRELOR 90 MG TAB ONE (07:45)
[2021-01-10] MEDS ORDERED: TICAGRELOR 90 MG TAB PO ONE (07:46)
[2021-01-10] MEDS: NITROGLYCERIN 1000MCG/10ML SYRINGE INTRACORON ONE ×2 (08:03→08:09)
[2021-01-10] MEDS ORDERED: IOPAMIDOL-370 100ML BTL INJ ONE ×2 (08:05→08:14)
[2021-01-10] MEDS: METOPROLOL TARTRATE 25 MG TAB PO SCH ×2 (10:00→20:42)
[2021-01-10] MEDS: SODIUM CHLORIDE 0.9% 1,000 ML IV SCH (10:02)
--- NOTE | 2021-01-10 11:40 | CC ---
CARDIAC CATHETERIZATION REPORT DATE OF SERVICE: 01/10/2021 PROCEDURE: 1. Left heart catheterization and coronary angiography. 2. PTCA and stenting of totally occluded proximal/mid LAD with 3 drug-eluting stents. PERFORMED BY: Dr. Niels Alves. ANESTHESIA: Moderate conscious sedation time was 47 minutes. Patient was administered Versed. Oxygen saturation, hemodynamics and EKG were monitored closely. CLINICAL INFORMATION: Mrs. Deandra Rodas is a 60-year-old lady with history of smoking, hypertension, diabetes, hyperlipidemia, who suffered from an acute anterior wall myocardial infarction with ST elevation in September 2018 and underwent stenting of a totally occluded mid LAD with 2 drug-eluting stents. She continues to smoke and has significant risk factors. Recently her underwent aortocoronary bypass surgery about 2 weeks ago. She came into the hospital with chest pain, did not have any ST elevation, but had precordial ST-T abnormality, nonspecific type with a non-ST elevation MO and troponin up to 4.0. She was seen and evaluated by Dr. Eisenberg and I proceeded with coronary angiography. PROCEDURE NOTE: Under local anesthesia and strict aseptic precautions, a 6-Kazakh introducer was placed in the right radial artery. Using a JR4 catheter, I performed selective coronary angiography of the right coronary artery. Using a JL3.5 guide catheter, I did selective coronary angiography of the left system and proceeded to perform intervention in the same setting. The moderate conscious sedation time was 47 minutes. CARDIAC CATHETERIZATION FINDINGS: Left ventricular end-diastolic pressure was about 8-9 mmHg without any gradient across the aortic valve. CORONARY ANGIOGRAPHY FINDINGS: RIGHT CORONARY ARTERY: This is a large dominant vessel that has about a 30% to 35% narrowing, super dominant, gives off a large PDA and PLV, both of which supply a fair amount of myocardium. Minor irregularities. No significant disease in the RCA. LEFT MAIN CORONARY ARTERY: Short patent disease-free vessel that bifurcates into LAD and circumflex. LEFT ANTERIOR DESCENDING CORONARY ARTERY: This vessel is totally occluded in the proximal portion after the origin of a small diagonal branch and the occlusion is well before the stent which can be visualized. This is the culprit lesion. LEFT POSTERIOR CIRCUMFLEX CORONARY ARTERY: This is a nondominant vessel that has about a 50-60% narrowing in the midportion and from this narrowed area a small obtuse marginal comes off and then it continues distally as a second obtuse marginal branch. The circumflex therefore has a 50% mid lesion. The LAD has a total occlusion. LEFT VENTRICULOGRAM: LV-gram was not performed. FINAL IMPRESSION: This patient has a right dominant system, 35% RCA disease, 100% mid LAD occlusion, mid/proximal LAD occlusion before the stent, circumflex has a 50% stenosis, nondominant vessel. RECOMMENDATIONS: I recommend intervention of the LAD and proceeded to perform this in the same setting. PTCA PROCEDURE DETAILS: I used a JL3.5 guide catheter to cannulate the left coronary artery, a run-through wire to cross the lesion. A 2.5 caliber 12 mm NC Trek balloon was used to pre-dilate the lesion both proximal to the stent and also within the stent and also distal to the stent. I then deployed a 3.25 caliber 12 mm stent proximal to the previous stent and then another 3.25 caliber 8 mm stent proximal to it. I used the same balloon to dilate within the previous stent distally and I noted that there was a small dissection beyond the distal stent. This was addressed with a 2.5 caliber 18 mm long Xience stent. This Xience stent was deployed extending from the previous stent into the LAD beyond the diagonal branch. Therefore, 3 stents were deployed, 2 of them were 3.25 caliber 8 mm long and 12 mm long proximal to the previous stent and another 2.5 caliber 18 mm stent distal to and within the previous stent. The patient has diffuse disease distally and there was also sluggish flow initially but then the flow improved. Patient had a good CHERI-3 flow. Resolution of chest pain. EKG improved. She received 180 mg of Brilinta and was sent to the ICU in a hemodynamically stable condition. The results were discussed with her mother and also her . She received heparin and Aggrastat combination. ACT initially was over 300 and subsequently ACT was 194 and additional 1000 units was given. Excellent angiographic result was achieved, but the distal LAD has diffuse disease in it all the way towards the apex. The patient was advised regarding risk factor modification and smoking cessation. She was sent to the ICU in a stable condition after applying a TR band and saturation of the fingers of the right hand was about 94%. Excellent angiographic result without complication was achieved. MMODL / IJN: [id number] /
[2021-01-10 11:45] LABS: Glucose,Whole Blood 293 mg/dL (75-99)
[2021-01-10] MEDS: INSULIN ASPART (NovoLOG) 100 UNIT/ML VIAL SQ SCH ×3 (13:21→20:42)
[2021-01-10 16:35] LABS: Glucose,Whole Blood 229 mg/dL (75-99)
[2021-01-10] MEDS: INSULN ASP PRT/INSULIN ASPART 100 UNIT/ML 10 ML VIAL SQ SCH (17:21)
[2021-01-10] MEDS: NICOTINE 14MG/24HR PATCH TRANSDERM SCH (17:21)
--- NOTE | 2021-01-10 20:20 | P.HPIM ---
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 Chronic stable medical conditions include diabetes mellitus type 2, hypertension, or strep throat is, hypothyroid, psoriasis, arthritis. Patient has known history of coronary artery disease with a stent. Patient smokes less than half a pack a day. Yesterday morning patient started having pain in the upper part of the chest and across the back. Patient did go down to the left arm and her teeth. There was no dizziness nor lightheadedness but patient did break on in a perspiration. Symptoms gradually progressed and got worse over over the day. Patient decided to come to the ER. This morning. Troponins were positive. Patient ruled out for an acute non-ST elevation myocardial infarction. Patient is found to have totally occluded proximal LAD. PTCA and stenting was done with 3 stents. Postprocedure laying in bed. No chest pain. No shortness of breath. Review of systems: GEN.: Tired EYES: None HEENT: None NECK: None RESPIRATORY: As above CARDIOVASCULAR: As above GASTROINTESTINAL: None GENITOURINARY: None MUSCULOSKELETAL: Some joint pains LYMPHATICS: None HEMATOLOGICAL: None PSYCHIATRY: None NEUROLOGICAL: None Past medical history to include: Coronary artery disease with stent, diabetes, hypertension, prostatitis, hypothyroid, left breast cancer with lumpectomy and radiation, psoriasis, arthritis of the neck, sinus problems, claustrophobia Social history: This with her . Patient has been smoking over 45 years currently down to less than half a pack a day. No alcohol. Family history: Diabetes, hypertension, father had lymphoma Physical examination: VITAL SIGNS: 98.1, 70, 16, 157 /90, 96% room air upon presentation GENERAL: BMI 35, laying in bed, not in distress. EYES: Pupils equal. Conjunctiva normal. HEENT: External appearance of nose and ears normal, oral cavity grossly normal. NECK: JVD not raised; masses not palpable. HEART: First and second heart sounds are normal; no edema. LUNGS: Respiratory rate normal; decreased breath sounds. ABDOMEN: Soft, nontender, liver spleen not palpable, no masses palpable. PSYCH: Alert and oriented x3; mood and affect normal. NEUROLOGICAL: Cranial nerves grossly intact; no facial asymmetry, power and sensation grossly intact. LYMPHATICS: No lymph nodes palpable in the axilla and neck INVESTIGATIONS, reviewed in the clinical context: WBC 10.9 hemoglobin 16.2 platelets 282 potassium 4.4 creatinine 0.61 Blood glucose 338 Magnesium 1.5 AST 90 ALT 60 Troponin I 3.8- 4.0- 31.4 ProBNP 1570 EKG tracing personally reviewed by me-normal sinus rhythm. T waves in V1 and V2 lead L1, aVL, poor R-wave progression Chest x-ray film personally reviewed by me-cardiomegaly Assessment and plan: -Acute non-ST evaluation myocardial infarction Patient underwent emergent cardiac catheterization with 3 stents stent to the LAD. Aspirin, Lipitor, IV heparin, Cozaar, Lopressor, Brilinta -Coronary artery disease with a prior history of stent -Obesity BMI 35 Dietitian -Essential hypertension, uncontrolled Patient on Cozaar, Lopressor. Follow blood pressure closely -Diabetes mellitus type 2, chronic insulin, uncontrolled with hyperglycemia Patient mealtimes a rather anorectic and variable amounts. This was discussed with the patient. For the present time. The patient on NovoLog mix 70/30 mix 14 units with breakfast and supper and 6 units with lunch. Follow Accu-Cheks closely -Hypothyroid Continue with Synthroid -Chronic nicotine dependence, cigarette smoker Nicotine patch 14 Patient admitted to the ICU. IV heparin. Beta cierra, aspirin, Brilinta, Cozaar. Insulin as above. Care was discussed with the patient. Questions answered. Patient was seen by cardiology. Follow Accu-Cheks Given the complexity and severity of patient's condition expect the patient to be in the hospital at least for 2 overnights Past Medical History Past Medical History: Coronary Artery Disease (CAD), Cancer, Diabetes Mellitus, Hypertension, Myocardial Infarction (MA), Osteoarthritis (OA), Skin Disorder, Thyroid Disorder Additional Past Medical History / Comment(s): L breast cancer with lumpectomy and radiation, IDDM type II, psoriasis, arthritis in neck, hypothyroid, sinus p roblems, past elevated LFT but pt was told not to worry about that. Last Myocardial Infarction Date:: 12/23/17 History of Any Multi-Drug Resistant Organisms: MRSA Date of last positivie culture/infection: 2012; MDRO Source:: groin Past Surgical History: Heart Catheterization With Stent Additional Past Surgical History / Comment(s): lumpectomy left breast with lymph nodes removed, bladder suspension 20 years ago, colonoscopy Past Anesthesia/Blood Transfusion Reactions: No Reported Reaction Date of Last Stent Placement:: 12/23/17 Past Psychological History: No Psychological Hx Reported Smoking Status: Never smoker Past Alcohol Use History: None Reported Past Drug Use History: None Reported - Past Family History Father Family Medical History: Cancer, Diabetes Mellitus, Hypertension Additional Family Medical History / Comment(s): Father of lymphoma at the age of 54yrs. Mother Additional Family Medical History / Comment(s): Mother has heart problems and is almost 80yrs old Medications and Allergies Home Medications Medication Instructions Recorded Confirmed Type Cetirizine HCl [Zyrtec] 10 mg PO DAILY 12/23/17 01/10/21 History Aspirin 81 mg PO DAILY #30 chew 12/26/17 01/10/21 Rx Metoprolol Tartrate [Lopressor] 25 mg PO BID #60 tab 12/26/17 01/10/21 Rx Nitroglycerin Sl Tabs [Nitrostat] 0.4 mg SUBLINGUAL Q5M PRN #100 tab 12/26/17 01/10/21 Rx lisinopriL [Zestril] 10 mg PO DAILY #30 tab 12/26/17 01/10/21 Rx Anastrozole [Arimidex] 1 mg PO DAILY 10/13/18 01/10/21 History Calcium Carbonate [Calcium] 600 mg PO BID 10/13/18 01/10/21 History Levothyroxine Sodium [Synthroid] 137 mcg PO DAILY 10/13/18 01/10/21 History Ubidecarenone [Co Q-10] 100 mg PO HS 10/13/18 01/10/21 History Clopidogrel [Plavix] 75 mg PO DAILY #90 tab 10/14/18 01/10/21 Rx Cholecalciferol [Vitamin D3 (25 25 mcg PO BID 01/10/21 01/10/21 History Mcg = 1000 Iu)] Cyanocobalamin (Vitamin B-12) 2,500 mcg PO DAILY 01/10/21 01/10/21 History [Vitamin B-12] Famotidine [Pepcid] 20 mg PO BID 01/10/21 01/10/21 History Fenofibrate [Lofibra] 54 mg PO HS 01/10/21 01/10/21 History Insulin NPH Human Isophane 20 units SQ HS 01/10/21 01/10/21 History [NovoLIN N] Serenol 1 tab PO DAILY 01/10/21 01/10/21 History Ticagrelor [Brilinta] 90 mg PO BID 30 Days #60 tab 01/10/21 Rx Allergies Allergy/AdvReac Type Severity Reaction Status Date / Time Sulfa (Sulfonamide Allergy Unknown Verified 01/10/21 06:23 Antibiotics) Physical Exam Vitals: Vital Signs Temp Pulse Resp BP Pulse Ox 01/10/21 10:00 75 16 139/89 94 L 01/10/21 09:00 76 26 H 137/89 92 L 01/10/21 08:00 134/102 01/10/21 07:50 134/102 01/10/21 07:40 134/102 01/10/21 07:30 134/102 01/10/21 07:00 75 11 L 142/84 94 L 01/10/21 06:50 99.3 F 77 18 149/86 92 L 01/10/21 05:54 79 16 138/91 95 01/10/21 05:46 79 16 141/75 95 01/10/21 04:59 79 16 157/90 96 01/10/21 04:34 98.1 F 70 18 161/114 97 Intake and Output 01/09/21 01/10/21 01/10/21 22:59 06:59 14:59 Intake Total 306 Balance 306 Intake: IV 306 0.9 NaCl- 150 Oral 0 Other: Weight 98.4 kg Results CBC & Chem 7: 01/10/21 04:38 01/10/21 04:38 Labs: Abnormal Lab Results - Last 24 Hours (Table) 01/10/21 01/10/21 01/10/21 Range/Units 04:38 04:38 04:38 WBC 10.9 H (3.8-10.6) k/uL Hgb 16.2 H (11.4-16.0) gm/dL Hct 47.5 H (34.0-46.0) % APTT (22.0-30.0) sec Sodium 135 L (137-145) mmol/L Glucose 338 H (74-99) mg/dL POC Glucose (mg/dL) (75-99) mg/dL Magnesium 1.5 L (1.6-2.3) mg/dL AST 90 H (14-36) U/L ALT 60 H (4-34) U/L Alkaline Phosphatase 151 H (38-126) U/L Creatine Kinase 277 H (30-135) U/L Troponin I 3.830 H* (0.000-0.034) ng/mL 01/10/21 01/10/21 01/10/21 Range/Units 06:02 06:02 06:48 WBC (3.8-10.6) k/uL Hgb (11.4-16.0) gm/dL Hct (34.0-46.0) % APTT 128.1 H* (22.0-30.0) sec Sodium (137-145) mmol/L Glucose (74-99) mg/dL POC Glucose (mg/dL) 333 H (75-99) mg/dL Magnesium (1.6-2.3) mg/dL AST (14-36) U/L ALT (4-34) U/L Alkaline Phosphatase (38-126) U/L Creatine Kinase (30-135) U/L Troponin I 4.010 H* (0.000-0.034) ng/mL Thrombosis Risk Factor Assmnt - Choose All That Apply Any of the Below Risk Factors Present?: Yes Each Factor Represents 1 point: Acute MA Other Risk Factors: Yes Each Risk Factor Represents 2 Points: Age 61-74 years Other congenital or acquired thrombophilia - If yes, enter type in comment: No Thrombosis Risk Factor Assessment Total Risk Factor Score: 3 Thrombosis Risk Factor Assessment Level: Moderate Risk
[2021-01-10 20:24] LABS: Glucose,Whole Blood 265 mg/dL (75-99)
[2021-01-10] MEDS: LOSARTAN 50 MG TAB PO SCH (20:41)
[2021-01-10] MEDS: FAMOTIDINE 20 MG TAB PO SCH (20:42)
[2021-01-11] MEDS: SODIUM CHLORIDE 0.9% 1,000 ML IV SCH (02:20)
[2021-01-11] MEDS: HEPARIN SOD,PORK IN 0.45% NACL 25,000 UNIT in 0.45% NACL 1 250ML.BAG IV SCH (06:51)
[2021-01-11] MEDS ORDERED: INSULN ASP PRT/INSULIN ASPART 100 UNIT/ML 10 ML VIAL SQ SCH (07:30)
[2021-01-11 07:40] LABS: HCT 43.5 % (34.0-46.0); HGB 15.2 gm/dL (11.4-16.0); MCH 31.4 pg (25.0-35.0); MCHC 34.9 g/dL (31.0-37.0); MCV 89.9 fL (80.0-100.0); Mean Platelet Volume 7.8; Platelet Count 238 k/uL (150-450); RBC 4.83 m/uL (3.80-5.40); RDW 13.4 % (11.5-15.5); WBC 10.4 k/uL (3.8-10.6)
[2021-01-11 07:57] LABS: African American GFR (CKD) >90 (>60 ml/min/1.73 sqM); Anion Gap 4 mmol/L; Blood Urea Nitrogen 13 mg/dL (7-17); Calcium 9.3 mg/dL (8.4-10.2); Carbon Dioxide 27 mmol/L (22-30); Chloride 105 mmol/L (98-107); Glucose 257 mg/dL (74-99); Non-African American GFR(CKD) >90 (>60 ml/min/1.73 sqM); Potassium 4.5 mmol/L (3.5-5.1); Sodium 136 mmol/L (137-145)
[2021-01-11] MEDS: ASPIRIN 81 MG PO SCH (08:05)
[2021-01-11] MEDS: FAMOTIDINE 20 MG TAB PO SCH ×2 (08:05→20:07)
[2021-01-11] MEDS: LEVOTHYROXINE 137 MCG TAB PO SCH (08:05)
[2021-01-11] MEDS: NICOTINE 14MG/24HR PATCH TRANSDERM SCH (08:06)
[2021-01-11] MEDS: METOPROLOL TARTRATE 25 MG TAB PO SCH (08:06)
[2021-01-11] MEDS ORDERED: ASPIRIN 325 MG TAB PO SCH (09:00)
[2021-01-11] MEDS ORDERED: TICAGRELOR 90 MG TAB PO SCH (09:00)
--- NOTE | 2021-01-11 09:20 | US ---
EXAMINATION TYPE: US abdomen limited DATE OF EXAM: 01/11/2021 COMPARISON: NONE CLINICAL HISTORY: Mildly elevated LFT. EXAM MEASUREMENTS: Liver Length: 21.5 cm Gallbladder Wall: 0.1 cm CBD: 0.5 cm Right Kidney: 11.7 x 5.1 x 5.7 cm Pancreas: Tail obscured by overlying bowel gas, visualized portions wnl Liver: Increased attenuation, decreased visualization of vessels suggestive of fatty infiltrate. Enl arged Gallbladder: wnl Evidence for sonographic Hankins's sign: No CBD: wnl Right Kidney: No hydronephrosis or masses seen IMPRESSION: The liver is enlarged and echogenic with poor penetration which is nonspecific but is most commonly s een with hepatic steatosis. Please correlate with patient's clinical scenario.
[2021-01-11 10:07] LABS: Glucose,Whole Blood 308 mg/dL (75-99)
[2021-01-11] MEDS: INSULIN ASPART (NovoLOG) 100 UNIT/ML VIAL SQ SCH ×4 (10:19→20:09)
[2021-01-11] MEDS: INSULN ASP PRT/INSULIN ASPART 100 UNIT/ML 10 ML VIAL SQ SCH ×2 (10:21→16:48)
--- NOTE | 2021-01-11 10:35 | ECHOF ---
Referral Reason:NSTEMI s/p PCI MEASUREMENTS -------- HEIGHT: 168.9 cm WEIGHT: 82.1 kg BP: 118/70 IVSd: 1.4 cm (0.6 - 1.1) LVIDd: 4.5 cm (3.9 - 5.3) LVPWd: 1.4 cm (0.6 - 1.1) EDV(Teich): 93 ml IVSs: 2.2 cm LVIDs: 3.5 cm LVPWs: 2.0 cm %IVS Thck: 53 % ESV(Teich): 51 ml EF(Teich): 45 % %FS: 22 % SV(Teich): 42 ml LA Diam: 2.4 cm (2.7 - 3.8) RVIDd: 2.3 cm (< 3.3) LALs A4C: 4.5 cm LAAs A4C: 13.5 cm LAESV A-L A4C: 35 ml LAESV MOD A4C: 30 ml LALs A2C: 4.3 cm LAAs A2C: 14.6 cm LAESV A-L A2C: 42 ml LAESV MOD A2C: 41 ml LAESV(A-L): 39 ml LAESV Index (A-L): 20.05 ml/m HR_2Ch_Q: 72 bpm HR_4Ch_Q: 69 bpm LVVED_2Ch_Q: 67 ml LVVED_4Ch_Q: 74 ml LVVED_BiP_Q: 69 ml LVVES_2Ch_Q: 43 ml LVVES_4Ch_Q: 55 ml LVVES_BiP_Q: 50 ml LVEF_2Ch_Q: 35 % LVEF_4Ch_Q: 26 % LVEF_BiP_Q: 28 % LVSV_2Ch_Q: 24 ml LVSV_4Ch_Q: 19 ml LVSV_BiP_Q: 19 ml LVCO_2Ch_Q: 1.7 l/min LVCO_4Ch_Q: 1.3 l/min LVCO_BiP_Q: 1.4 l/min LVLs_2Ch_Q: 6.5 cm LVLs_4Ch_Q: 7.1 cm LVLd_2Ch_Q: 7.2 cm LVLd_4Ch_Q: 7.6 cm Ao Diam: 3.1 cm (2.0 - 3.7) AV Cusp: 1.7 cm (1.5 - 2.6) EPSS: 1.2 cm MV E Jamarcus: 0.56 m/s MV DecT: 388 ms MV Dec Edmonson: 1.5 m/s MV A Jamarcus: 0.87 m/s MV E/A Ratio: 0.65 MV PHT: 113 ms AV Vmax: 1.34 m/s AV maxP.13 mmHg MV EF SLOPE: 61.52 mm/s (70 - 150) MV EXCURSION: 19.20 mm (> 18.000) FINDINGS -------- Sinus rhythm. This was a technically adequate study. The left ventricular size is normal. There is moderate concentric left ventricular hypertrophy. O verall left ventricular systolic function is severely impaired with, an EF between 25 - 30 %. Apica l anterior LV wall motion is hypokinetic. Apical lateral LV wall motion is hypokinetic. Apical inferior LV wall motion is hypokinetic. Apical septum LV wall motion is hypokinetic. The right ventricle is normal in size. Normal LA size by volume 22+/-6 ml/m2. The right atrium is normal in size. Interatrial and interventricular septum intact. There is mild aortic valve sclerosis. The mitral valve is normal. The tricuspid valve appears structurally normal. Unable to estimate RVSP due to inadequate TR jet s pectral doppler profile. Trace/mild (physiologic) pulmonic regurgitation. The aortic root size is normal. IVC Not well visulized. There is no pericardial effusion. CONCLUSIONS -------- 1. The left ventricular size is normal. 2. There is moderate concentric left ventricular hypertrophy. 3. Overall left ventricular systolic function is severely impaired with, an EF between 25 - 30 %. 4. Apical anterior LV wall motion is hypokinetic. 5. Apical lateral LV wall motion is hypokinetic. 6. Apical inferior LV wall motion is hypokinetic. 7. Apical septum LV wall motion is hypokinetic. 8. Trace/mild (physiologic) pulmonic regurgitation. 9. There is no pericardial effusion. RECEIVING TEAM MEMBER: Patricia White RD
[2021-01-11 11:59] LABS: Glucose,Whole Blood 353 mg/dL (75-99)
--- NOTE | 2021-01-11 13:12 | P.PN ---
Subjective This is a pleasant 60-year-old female past medical history significant for coronary artery disease status post acute anterior wall myocardial infarction and stent placement to the LAD 2017, hypertension, type 2 diabetes, hypertension, dyslipidemia, nicotine dependence and history of breast cancer in the past status post radiation and lumpectomy. She follows in the office with Dr. Alves. Patient presents to the emergency department with complaints of chest pain. EKG shows sinus rhythm with poor R wave progression, precordial ST-T abn ormality. Troponin elevated to 4.0. Cardiac catheterization was recommended. 01/10- Patient underwent cardiac catheterization with Dr. Alves, which revealed RCA 30-35% stenosis, 100% mid LAD occlusion, mid/proximal LAD occlusion before the stent, circumflex 50% mid lesion. 3 stents were placed into the LAD. Echocardiogram EF 25-30%, Apical anterior, lateral, inferior and septum LV wall motion is hypokinetic. Previous echocardiogram 09/2018 revealed an EF of 40- 45%. 01/11/2021: Patient seen and examined at bedside, no acute distress. Denies chest pain, shortness of breath, palpitations, lightheadedness, dizziness. Telemetry reviewed, patient maintain sinus mechanism HR 70-80s. Patient currently maintained on aspirin 81 mg daily, atorvastatin 20 mg nightly, metoprolol tartrate 25 mg twice a day, Brilinta 90 mg twice a day, losartan 50 mg nightly. Blood pressure 118/70 heart rate 81 afebrile maintaining oxygen saturation on room air GENERAL: This is a 58-year-old female in no apparent distress at the time of my examination. HEENT: Head is atraumatic, normocephalic. No JVD. LUNGS: Clear to auscultation no wheezes, rales or rhonchi. No chest wall tenderness is noted on palpation or with deep breathing. HEART: Regular rate and rhythm . S1 and S2 heard. ABDOMEN: Soft, nontender. Bowel sounds are heard. No organomegaly noted. EXTREMITIES: No evidence of peripheral edema and no calf tenderness noted. VASCULAR: Radial and dorsalis pedis pulses palpated, 2+ pulses SKIN: Right radial cath site, clean dry intact no hematoma NEUROLOGIC: Patient is awake, alert and oriented x3. ASSESSMENT NSTEMI s/p PCI to LAD on 01/10/2021 History of coronary artery disease in the setting of an acute myocardial infarction status post successful stent placement to a totally occluded LAD Ischemic cardiomyopathy, ejection fraction 25-30% Hypertension Dyslipidemia Type 2 Diabetes Chronic nicotine dependence History of breast cancer status post radiation treatment and lumpectomy PLAN Echo reviewed EF 25-30% Start spironolactone 25mg daily Stop metoprolol tartrate 25mg BID Start metoprolol succinate 25mg daily Continue dual antiplatelet therapy- Per case management patients co-pay is $80 for Brilinta, which patient cannot afford. Will switch patient to Plavix 75mg daily Continue atorvastatin 80mg daily, and Losartan 50mg On discharge, patient will follow up with Dr. Alves Further recommendations based on clinical course Nurse Practitioner note has been reviewed, I agree with a documented findings and plan of care. Patient was seen and examined. Objective - Vital Signs Vital signs: Vital Signs Temp 98.4 F 01/10/21 12:00 Pulse 68 01/10/21 13:00 Resp 20 01/10/21 13:00 BP 120/84 01/10/21 13:00 Pulse Ox 95 01/10/21 13:00 Intake & Output 01/09/21 01/10/21 01/10/21 18:59 06:59 18:59 Intake Total 531 Balance 531 Weight 98.4 kg Intake: IV 531 0.9 NaCl- 375 Oral 0 - Labs CBC & Chem 7: 01/11/21 07:17 01/11/21 07:17 Labs: Abnormal Lab Results - Last 24 Hours (Table) 01/10/21 01/10/21 01/10/21 Range/Units 04:38 04:38 04:38 WBC 10.9 H (3.8-10.6) k/uL Hgb 16.2 H (11.4-16.0) gm/dL Hct 47.5 H (34.0-46.0) % APTT (22.0-30.0) sec Sodium 135 L (137-145) mmol/L Glucose 338 H (74-99) mg/dL POC Glucose (mg/dL) (75-99) mg/dL Magnesium 1.5 L (1.6-2.3) mg/dL AST 90 H (14-36) U/L ALT 60 H (4-34) U/L Alkaline Phosphatase 151 H (38-126) U/L Creatine Kinase 277 H (30-135) U/L Troponin I 3.830 H* (0.000-0.034) ng/mL 01/10/21 01/10/21 01/10/21 Range/Units 06:02 06:02 06:48 WBC (3.8-10.6) k/uL Hgb (11.4-16.0) gm/dL Hct (34.0-46.0) % APTT 128.1 H* (22.0-30.0) sec Sodium (137-145) mmol/L Glucose (74-99) mg/dL POC Glucose (mg/dL) 333 H (75-99) mg/dL Magnesium (1.6-2.3) mg/dL AST (14-36) U/L ALT (4-34) U/L Alkaline Phosphatase (38-126) U/L Creatine Kinase (30-135) U/L Troponin I 4.010 H* (0.000-0.034) ng/mL 01/10/21 01/10/21 Range/Units 11:00 11:44 WBC (3.8-10.6) k/uL Hgb (11.4-16.0) gm/dL Hct (34.0-46.0) % APTT (22.0-30.0) sec Sodium (137-145) mmol/L Glucose (74-99) mg/dL POC Glucose (mg/dL) 293 H (75-99) mg/dL Magnesium (1.6-2.3) mg/dL AST (14-36) U/L ALT (4-34) U/L Alkaline Phosphatase (38-126) U/L Creatine Kinase (30-135) U/L Troponin I 31.400 H* (0.000-0.034) ng/mL
[2021-01-11] MEDS: SPIRONOLACTONE 25 MG TAB PO SCH (13:47)
[2021-01-11 15:38] LABS: Chol/HDL Ratio 15.96
[2021-01-11 16:32] LABS: Glucose,Whole Blood 242 mg/dL (75-99)
--- NOTE | 2021-01-11 17:07 | P.PN ---
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 Chronic stable medical conditions include diabetes mellitus type 2, hypertension, or strep throat is, hypothyroid, psoriasis, arthritis. Patient has known history of coronary artery disease with a stent. Patient smokes less than half a pack a day. Yesterday morning patient started having pain in the upper part of the chest and across the back. Patient did go down to the left arm and her teeth. There was no dizziness nor lightheadedness but patient did break on in a perspiration. Symptoms gradually progressed and got worse over over the day. Patient decided to come to the ER. This morning. Troponins were positive. Patient ruled out for an acute non-ST elevation myocardial infarction. Patient is found to have totally occluded proximal LAD. PTCA and stenting was done with 3 stents. January 11: Sitting up in a chair. Eating her lunch. Accu-Cheks every running a bit high. No chest pain or shortness of breath. Review of systems: Was done for constitutional, cardiovascular, GI, pulmonary. relevant finding as above Active Medications Alprazolam (Alprazolam 0.25 Mg Tab) 0.25 mg PO Q6HR PRN PRN Reason: Mild Anxiety Alprazolam (Alprazolam 0.5 Mg Tab) 0.5 mg PO Q6HR PRN PRN Reason: Moderate Anxiety Aspirin (Aspirin 81 Mg) 81 mg PO DAILY [facility] Last Admin: 01/11/21 08:05 Dose: 81 mg Documented by: Atorvastatin Calcium (Atorvastatin 80 Mg Tab) 80 mg PO HS [facility] Clopidogrel Bisulfate (Clopidogrel 75 Mg Tab) 75 mg PO DAILY [facility] Famotidine (Famotidine 20 Mg Tab) 20 mg PO BID [facility] Last Admin: 01/11/21 08:05 Dose: 20 mg Documented by: Insulin Aspart (Insulin Aspart (Novolog) 100 Unit/Ml Vial) 0 unit SQ ACHS [facility]; Protocol Last Admin: 01/11/21 16:48 Dose: 3 unit Documented by: Insulin Aspart (Insuln Asp Prt/Insulin Aspart 100 Unit/Ml 10 Ml Vial) 14 unit SQ AC-BID [facility] Last Admin: 01/11/21 16:48 Dose: 14 unit Documented by: Insulin Aspart (Insuln Asp Prt/Insulin Aspart 100 Unit/Ml 10 Ml Vial) 6 unit SQ AC-BRKFST [facility] Last Admin: 01/11/21 10:21 Dose: 6 unit Documented by: Levothyroxine Sodium (Levothyroxine 137 Mcg Tab) 137 mcg PO DAILY@0630 [facility] Last Admin: 01/11/21 08:05 Dose: 137 mcg Documented by: Losartan Potassium (Losartan 50 Mg Tab) 50 mg PO HS [facility] Last Admin: 01/10/21 20:41 Dose: 50 mg Documented by: Metoprolol Succinate (Metoprolol Succinate (Er) 25 Mg Tab.Er.24h) 25 mg PO DAILY [facility] Morphine Sulfate (Morphine Sulfate 4 Mg/Ml Syringe) 4 mg IV Q4HR PRN PRN Reason: Chest Pain Nicotine (Nicotine 14mg/24hr Patch) 1 patch TRANSDERM DAILY [facility] Last Admin: 01/11/21 08:06 Dose: 1 patch Documented by: Nitroglycerin (Nitroglycerin Sl Tabs 0.4 Mg Tab) 0.4 mg SUBLINGUAL Q5M PRN PRN Reason: Chest Pain Last Admin: 01/10/21 05:41 Dose: 0.4 mg Documented by: Spironolactone (Spironolactone 25 Mg Tab) 25 mg PO DAILY [facility] Last Admin: 01/11/21 13:47 Dose: 25 mg Documented by: Past medical history to include: Coronary artery disease with stent, diabetes, hypertension, prostatitis, hypothyroid, left breast cancer with lumpectomy and radiation, psoriasis, arthritis of the neck, sinus problems, claustrophobia Social history: This with her . Patient has been smoking over 45 years currently down to less than half a pack a day. No alcohol. Family history: Diabetes, hypertension, father had lymphoma Physical examination: VITAL SIGNS: 97.5, 79, 18, 130/72, 98% room air GENERAL: Sitting up in a chair, eating her lunch EYES: Pupils equal. Conjunctiva normal. HEENT: External appearance of nose and ears normal, oral cavity grossly normal. NECK: JVD not raised; masses not palpable. HEART: First and second heart sounds are normal; no edema. LUNGS: Respiratory rate normal; decreased breath sounds. ABDOMEN: Soft, nontender, liver spleen not palpable, no masses palpable. PSYCH: Alert and oriented x3; mood and affect normal. INVESTIGATIONS, reviewed in the clinical context: January 11: WBC 10.4 hemoglobin 15.2 potassium 4.5 crit 0.66 HbA1c: 11.9 triglycerides 702 less frustrating 3. Accu-Cheks 308, 353, 242 Liver ultrasound: There was enlarged. Suggestive of hepatic steatosis 2-D echocardiogram: Moderate concentric LVH. EF 25-30%. Multiple wall motion abnormality. Admission labs: WBC 10.9 hemoglobin 16.2 platelets 282 potassium 4.4 creatinine 0.61 Blood glucose 338 Magnesium 1.5 AST 90 ALT 60 Troponin I 3.8- 4.0- 31.4 ProBNP 1570 EKG tracing personally reviewed by me-normal sinus rhythm. T waves in V1 and V2 lead L1, aVL, poor R-wave progression Chest x-ray film personally reviewed by me-cardiomegaly Assessment and plan: -Acute non-ST evaluation myocardial infarction emergent cardiac catheterization with 3 stents to the LAD. Aspirin, Lipitor, IV heparin, Cozaar, Lopressor, Brilinta -Acute ischemic cardiomyopathy from systolic dysfunction EF 25-30% On Cozaar. add Aldactone. -Coronary artery disease with a prior history of stent -Obesity BMI 35 Dietitian -Essential hypertension, Cozaar, Lopressor. Follow blood pressure closely -Diabetes mellitus type 2, chronic insulin, uncontrolled with hyperglycemia Patient mealtimes a rather erratic and variable amounts. This was discussed with the patient. For the present time. Increase NovoLog mix 70/30 mix 20 units with breakfast and supper and 10 units with lunch. Follow Accu-Cheks closely -Hypothyroid Continue with Synthroid -Chronic nicotine dependence, cigarette smoker Nicotine patch 14 Care was discussed with the patient. Increase activity as tolerated. Aldactone was added. NovoLog Mix 70/30 dose was increased as above. Discussed with the patient importance of diabetes control. We'll get a better handle on Accu- Cheks before patient's discharge.
[2021-01-11 19:55] LABS: Glucose,Whole Blood 220 mg/dL (75-99)
[2021-01-11] MEDS: LOSARTAN 50 MG TAB PO SCH (20:07)
[2021-01-11] MEDS: ATORVASTATIN 80 MG TAB PO SCH (20:07)
[2021-01-12 06:09] LABS: Glucose,Whole Blood 231 mg/dL (75-99)
[2021-01-12 06:53] LABS: Glucose,Whole Blood 255 mg/dL (75-99)
[2021-01-12] MEDS: LEVOTHYROXINE 137 MCG TAB PO SCH (06:58)
[2021-01-12] MEDS ORDERED: INSULN ASP PRT/INSULIN ASPART 100 UNIT/ML 10 ML VIAL SQ SCH ×2 (07:30)
[2021-01-12] MEDS: INSULIN ASPART (NovoLOG) 100 UNIT/ML VIAL SQ SCH ×4 (08:44→19:52)
[2021-01-12] MEDS: NICOTINE 14MG/24HR PATCH TRANSDERM SCH (08:54)
[2021-01-12] MEDS: FAMOTIDINE 20 MG TAB PO SCH ×2 (08:54→19:52)
[2021-01-12] MEDS: ASPIRIN 81 MG PO SCH (08:54)
[2021-01-12] MEDS: CLOPIDOGREL 75 MG TAB PO SCH (08:54)
[2021-01-12] MEDS: SPIRONOLACTONE 25 MG TAB PO SCH (08:55)
[2021-01-12] MEDS: METOPROLOL SUCCINATE (ER) 25 MG TAB.ER.24H PO SCH (08:55)
[2021-01-12 11:49] LABS: Glucose,Whole Blood 235 mg/dL (75-99)
[2021-01-12] MEDS: INSULN ASP PRT/INSULIN ASPART 100 UNIT/ML 10 ML VIAL SQ SCH ×2 (12:45→17:20)
[2021-01-12 13:13] VITALS: BMI 31.0
--- NOTE | 2021-01-12 13:14 | P.PN ---
Subjective This is a pleasant 60-year-old female past medical history significant for coronary artery disease status post acute anterior wall myocardial infarction and stent placement to the LAD 2017, hypertension, type 2 diabetes, hypertension, dyslipidemia, nicotine dependence and history of breast cancer in the past status post radiation and lumpectomy. She follows in the office with Dr. Alves. Patient presents to the emergency department with complaints of chest pain. EKG shows sinus rhythm with poor R wave progression, precordial ST-T abn ormality. Troponin elevated to 4.0. Cardiac catheterization was recommended. 01/10- Patient underwent cardiac catheterization with Dr. Alves, which revealed RCA 30-35% stenosis, 100% mid LAD occlusion, mid/proximal LAD occlusion before the stent, circumflex 50% mid lesion. 3 stents were placed into the LAD. Echocardiogram EF 25-30%, Apical anterior, lateral, inferior and septum LV wall motion is hypokinetic. Previous echocardiogram 09/2018 revealed an EF of 40- 45%. 01/12/2021: Patient seen and examined at bedside, no acute distress. Denies chest pain, shortness of breath, palpitations, lightheadedness, dizziness. Telemetry reviewed, patient maintain sinus mechanism HR 70-80s. Patient currently maintained on aspirin 81 mg daily, atorvastatin 20 mg nightly, metoprolol tartrate 25 mg twice a day, Plavix 75mg daily, losartan 50 mg nightly, Spironolactone 25mg daily. Blood pressure 130/65, heart rate 77, afebrile, maintaining oxygen saturations 96% on room air. GENERAL: This is a 58-year-old female in no apparent distress at the time of my examination. HEENT: Head is atraumatic, normocephalic. No JVD. LUNGS: Clear to auscultation no wheezes, rales or rhonchi. HEART: Regular rate and rhythm . S1 and S2 heard. ABDOMEN: Soft, nontender. Bowel sounds are heard. No organomegaly noted. EXTREMITIES: No evidence of peripheral edema and no calf tenderness noted. VASCULAR: Radial and dorsalis pedis pulses palpated, 2+ pulses SKIN: Right radial cath site, clean dry intact no hematoma NEUROLOGIC: Patient is awake, alert and oriented x3. ASSESSMENT NSTEMI s/p PCI to LAD on 01/10/2021 History of coronary artery disease in the setting of an acute myocardial infarction status post successful stent placement to a totally occluded LAD Ischemic cardiomyopathy, ejection fraction 25-30% Hypertension Dyslipidemia Type 2 Diabetes Chronic nicotine dependence History of breast cancer status post radiation treatment and lumpectomy PLAN From a cardiology perspective, patient is stable to be discharged home. Echo reviewed EF 25-30% Continue spironolactone 25mg daily Continue metoprolol succinate 25mg daily Continue dual antiplatelet therapy- Aspirin and Plavix. Per case management patients co-pay is $80 for [employer], which patient cannot afford. Will continue with Plavix 75mg daily Continue atorvastatin 80mg daily, and Losartan 50mg On discharge, patient will follow up with Dr. Alves Nurse Practitioner note has been reviewed, I agree with a documented findings and plan of care. Patient was seen and examined. Objective - Vital Signs Vital signs: Vital Signs Temp 97 F L 01/12/21 08:00 Pulse 77 01/12/21 08:00 Resp 16 01/12/21 08:40 BP 131/65 01/12/21 08:00 Pulse Ox 95 01/12/21 04:11 Intake & Output 01/11/21 01/12/21 01/12/21 18:59 06:59 18:59 Intake Total 480 180 Output Total 0 0 Balance 480 180 Weight 87.2 kg Intake: Oral 480 180 Output: Urine 0 Stool 0 0 Other: # Voids 2 1 # Bowel Movements 0 - Labs CBC & Chem 7: 01/11/21 07:17 01/11/21 07:17 Labs: Abnormal Lab Results - Last 24 Hours (Table) 01/11/21 01/11/21 01/11/21 Range/Units 07:17 07:17 09:58 POC Glucose (mg/dL) 308 H (75-99) mg/dL Hemoglobin A1c 11.9 H (4.0-6.0) % Triglycerides 702.0 H (0.0-149.0) mg/dL Cholesterol 383 H (0-200) mg/dL HDL Cholesterol 24.0 L (40.0-60.0) mg/dL 01/11/21 01/11/21 01/11/21 Range/Units 11:57 16:31 19:54 POC Glucose (mg/dL) 353 H 242 H 220 H (75-99) mg/dL Hemoglobin A1c (4.0-6.0) % Triglycerides (0.0-149.0) mg/dL Cholesterol (0-200) mg/dL HDL Cholesterol (40.0-60.0) mg/dL 01/12/21 01/12/21 Range/Units 06:08 06:52 POC Glucose (mg/dL) 231 H 255 H (75-99) mg/dL Hemoglobin A1c (4.0-6.0) % Triglycerides (0.0-149.0) mg/dL Cholesterol (0-200) mg/dL HDL Cholesterol (40.0-60.0) mg/dL
[2021-01-12 16:03] VITALS: RESP 16
[2021-01-12 16:56] LABS: Glucose,Whole Blood 188 mg/dL (75-99)
--- NOTE | 2021-01-12 19:46 | P.PN ---
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 Chronic stable medical conditions include diabetes mellitus type 2, hypertension, or strep throat is, hypothyroid, psoriasis, arthritis. Patient has known history of coronary artery disease with a stent. Patient smokes less than half a pack a day. Yesterday morning patient started having pain in the upper part of the chest and across the back. Patient did go down to the left arm and her teeth. There was no dizziness nor lightheadedness but patient did break on in a perspiration. Symptoms gradually progressed and got worse over over the day. Patient decided to come to the ER. This morning. Troponins were positive. Patient ruled out for an acute non-ST elevation myocardial infarction. Patient is found to have totally occluded proximal LAD. PTCA and stenting was done with 3 stents. January 11: Sitting up in a chair. Eating her lunch. Accu-Cheks every running a bit high. No chest pain or shortness of breath. January 12: No chest pain no shortness breath. Feeling better. Accu-Cheks are better controlled today in 200s. Seen by the dietitian. Patient having a better understanding of 4 meals in view of diabetes Review of systems: Was done for constitutional, cardiovascular, GI, pulmonary. relevant finding as above Active Medications Alprazolam (Alprazolam 0.25 Mg Tab) 0.25 mg PO Q6HR PRN PRN Reason: Mild Anxiety Alprazolam (Alprazolam 0.5 Mg Tab) 0.5 mg PO Q6HR PRN PRN Reason: Moderate Anxiety Aspirin (Aspirin 81 Mg) 81 mg PO DAILY [facility] Last Admin: 01/12/21 08:54 Dose: 81 mg Documented by: Atorvastatin Calcium (Atorvastatin 80 Mg Tab) [address] [facility] Last Admin: 01/11/21 20:07 Dose: 80 mg Documented by: Clopidogrel Bisulfate (Clopidogrel 75 Mg Tab) 75 mg PO DAILY [facility] Last Admin: 01/12/21 08:54 Dose: 75 mg Documented by: Famotidine (Famotidine 20 Mg Tab) 20 mg PO BID [facility] Last Admin: 01/12/21 08:54 Dose: 20 mg Documented by: Insulin Aspart (Insulin Aspart (Novolog) 100 Unit/Ml Vial) [address] [facility]; Protocol Last Admin: 01/12/21 17:20 Dose: 2 unit Documented by: Insulin Aspart (Insuln Asp Prt/Insulin Aspart 100 Unit/Ml 10 Ml Vial) 10 unit SQ AC-LUNCH [facility] Last Admin: 01/12/21 12:45 Dose: 10 unit Documented by: Insulin Aspart (Insuln Asp Prt/Insulin Aspart 100 Unit/Ml 10 Ml Vial) 24 unit SQ AC-BID [facility] Last Admin: 01/12/21 17:20 Dose: 24 unit Documented by: Levothyroxine Sodium (Levothyroxine 137 Mcg Tab) 137 mcg PO DAILY@0630 [facility] Last Admin: 01/12/21 06:58 Dose: 137 mcg Documented by: Losartan Potassium (Losartan 50 Mg Tab) 50 mg PO HS [facility] Last Admin: 01/11/21 20:07 Dose: 50 mg Documented by: Metoprolol Succinate (Metoprolol Succinate (Er) 25 Mg Tab.Er.24h) 25 mg PO DAILY [facility] Last Admin: 01/12/21 08:55 Dose: 25 mg Documented by: Morphine Sulfate (Morphine Sulfate 4 Mg/Ml Syringe) 4 mg IV Q4HR PRN PRN Reason: Chest Pain Nicotine (Nicotine 14mg/24hr Patch) 1 patch TRANSDERM DAILY [facility] Last Admin: 01/12/21 08:54 Dose: 1 patch Documented by: Nitroglycerin (Nitroglycerin Sl Tabs 0.4 Mg Tab) 0.4 mg SUBLINGUAL Q5M PRN PRN Reason: Chest Pain Last Admin: 01/10/21 05:41 Dose: 0.4 mg Documented by: Spironolactone (Spironolactone 25 Mg Tab) 25 mg PO DAILY [facility] Last Admin: 01/12/21 08:55 Dose: 25 mg Documented by: Past medical history to include: Coronary artery disease with stent, diabetes, hypertension, prostatitis, hypothyroid, left breast cancer with lumpectomy and radiation, psoriasis, arthritis of the neck, sinus problems, claustrophobia Social history: This with her . Patient has been smoking over 45 years currently down to less than half a pack a day. No alcohol. Family history: Diabetes, hypertension, father had lymphoma Physical examination: VITAL SIGNS: 98, 74, 16, 131/76, 96% room air GENERAL: Sitting up in a chair, comfortable EYES: Pupils equal. Conjunctiva normal. HEENT: External appearance of nose and ears normal, oral cavity grossly normal. NECK: JVD not raised; masses not palpable. HEART: First and second heart sounds are normal; no edema. LUNGS: Respiratory rate normal; decreased breath sounds. ABDOMEN: Soft, nontender, liver spleen not palpable, no masses palpable. PSYCH: Alert and oriented x3; mood and affect normal. INVESTIGATIONS, reviewed in the clinical context: January 12: Accu-Cheks: 231, 255, 235, January 11: WBC 10.4 hemoglobin 15.2 potassium 4.5 crit 0.66 HbA1c: 11.9 triglycerides 702 less frustrating 3. Accu-Cheks 308, 353, 242 Liver ultrasound: There was enlarged. Suggestive of hepatic steatosis 2-D echocardiogram: Moderate concentric LVH. EF 25-30%. Multiple wall motion abnormality. Admission labs: WBC 10.9 hemoglobin 16.2 platelets 282 potassium 4.4 creatinine 0.61 Blood glucose 338 Magnesium 1.5 AST 90 ALT 60 Troponin I 3.8- 4.0- 31.4 ProBNP 1570 EKG tracing personally reviewed by me-normal sinus rhythm. T waves in V1 and V2 lead L1, aVL, poor R-wave progression Chest x-ray film personally reviewed by me-cardiomegaly Assessment and plan: -Acute non-ST evaluation myocardial infarction emergent cardiac catheterization with 3 stents to the LAD. Aspirin, Lipitor, IV heparin-discontinued, Cozaar, Lopressor, Brilinta-patient cannot afford. Change back to Plavix -Acute ischemic cardiomyopathy from systolic dysfunction EF 25-30% On Cozaar. Aldactone. -Coronary artery disease with a prior history of stent Continue current medications -Obesity BMI 35 Dietitian -Essential hypertension, Cozaar, Lopressor. Follow blood pressure closely -Diabetes mellitus type 2, chronic insulin, uncontrolled with hyperglycemia Patient mealtimes rather erratic and variable amounts. This was discussed with the patient. For the present time. Increase NovoLog mix 70/30 mix 24 units with breakfast and supper and 10 units with lunch. Follow Accu-Cheks closely -Hypothyroid Continue with Synthroid -Chronic nicotine dependence, cigarette smoker Nicotine patch 14 Insulin for to adjusted today. Discussed with the patient. Seems to have a better understanding. Hopefully can be discharged tomorrow. Patient cannot afford Brilinta. wallpaper remover steam to Plavix.
[2021-01-12 19:48] LABS: Glucose,Whole Blood 250 mg/dL (75-99)
[2021-01-12] MEDS: ATORVASTATIN 80 MG TAB PO SCH (19:52)
[2021-01-12] MEDS: LOSARTAN 50 MG TAB PO SCH (19:52)
[2021-01-13] MEDS: INSULN ASP PRT/INSULIN ASPART 100 UNIT/ML 10 ML VIAL SQ SCH ×2 (06:53→13:33)
[2021-01-13] MEDS: LEVOTHYROXINE 137 MCG TAB PO SCH (06:53)
[2021-01-13 06:54] LABS: Glucose,Whole Blood 201 mg/dL (75-99)
[2021-01-13] MEDS: INSULIN ASPART (NovoLOG) 100 UNIT/ML VIAL SQ SCH ×2 (06:55→13:34)
[2021-01-13 09:49] VITALS: PULSE 72; TEMP 98
[2021-01-13] MEDS: METOPROLOL SUCCINATE (ER) 25 MG TAB.ER.24H PO SCH (09:49)
[2021-01-13] MEDS: ASPIRIN 81 MG PO SCH (09:49)
[2021-01-13] MEDS: CLOPIDOGREL 75 MG TAB PO SCH (09:49)
[2021-01-13] MEDS: FAMOTIDINE 20 MG TAB PO SCH (09:49)
[2021-01-13] MEDS: SPIRONOLACTONE 25 MG TAB PO SCH (09:49)
[2021-01-13] MEDS: NICOTINE 14MG/24HR PATCH TRANSDERM SCH (09:49)
[2021-01-13 11:42] LABS: Glucose,Whole Blood 219 mg/dL (75-99)
[2021-01-13 15:39] VITALS: BP 128/68
--- NOTE | 2021-01-13 19:36 | P.DS ---
Providers Date of admission: 01/10/21 05:30 Expected date of discharge: 01/13/21 Attending physician: Malcolm Gibson Consults: 01/10/21 05:30 Consult Physician Urgent Consulting Provider: Candido Ramirez Consult Reason/Comments: NSTEMI Do you want consulting provider notified?: Yes Primary care physician: Wilbur Downs MD Hospital Course: Chief Complaint: Chest pain History of presenting complaint: This is a pleasant 60-year-old patient, Dr. Wilbur Downs. Chronic stable medical conditions include diabetes mellitus type 2, hypertension, or strep throat is, hypothyroid, psoriasis, arthritis. Patient has known history of coronary artery disease with a stent. Patient smokes less than half a pack a day. Yesterday morning patient started having pain in the upper part of the chest and across the back. Patient did go down to the left arm and her teeth. There was no dizziness nor lightheadedness but patient did break on in a perspiration. Symptoms gradually progressed and got worse over over the day. Patient decided to come to the ER. This morning. Troponins were positive. Patient ruled out for an acute non-ST elevation myocardial infarction. Patient is found to have totally occluded proximal LAD. PTCA and stenting was done with 3 stents. January 11: Sitting up in a chair. Eating her lunch. Accu-Cheks every running a bit high. No chest pain or shortness of breath. January 12: No chest pain no shortness breath. Feeling better. Accu-Cheks are better controlled today in 200s. Seen by the dietitian. Patient having a better understanding of 4 meals in view of diabetes January 13: Doing much better. No cardiac symptoms. Accu-Cheks, better controlled. Importance of management of diabetes injects factors discussed detail. Patient told to monitor Accu-Cheks. Didn't take it to her family doctor. Discussion and discharge planning more than 35 minutes Consultation: [facility]iology [facility] Past medical history to include: Coronary artery disease with stent, diabetes, hypertension, prostatitis, hypothyroid, left breast cancer with lumpectomy and radiation, psoriasis, arthritis of the neck, sinus problems, claustrophobia Social history: This with her . Patient has been smoking over 45 years currently down to less than half a pack a day. No alcohol. Family history: Diabetes, hypertension, father had lymphoma Physical examination: VITAL SIGNS: 98, 72, 16, 121/72, 97% room air GENERAL: Sitting up in a chair, comfortable EYES: Pupils equal. Conjunctiva normal. HEENT: External appearance of nose and ears normal, oral cavity grossly normal. NECK: JVD not raised; masses not palpable. HEART: First and second heart sounds are normal; no edema. LUNGS: Respiratory rate normal; decreased breath sounds. ABDOMEN: Soft, nontender, liver spleen not palpable, no masses palpable. PSYCH: Alert and oriented x3; mood and affect normal. INVESTIGATIONS, reviewed in the clinical context: January 12: Accu-Cheks: 231, 255, 235, January 11: WBC 10.4 hemoglobin 15.2 potassium 4.5 crit 0.66 HbA1c: 11.9 triglycerides 702 less frustrating 3. Accu-Cheks 308, 353, 242 Liver ultrasound: There was enlarged. Suggestive of hepatic steatosis 2-D echocardiogram: Moderate concentric LVH. EF 25-30%. Multiple wall motion abnormality. Admission labs: WBC 10.9 hemoglobin 16.2 platelets 282 potassium 4.4 creatinine 0.61 Blood glucose 338 Magnesium 1.5 AST 90 ALT 60 Troponin I 3.8- 4.0- 31.4 ProBNP 1570 EKG tracing personally reviewed by me-normal sinus rhythm. T waves in V1 and V2 lead L1, aVL, poor R-wave progression Chest x-ray film personally reviewed by me-cardiomegaly Assessment and plan: -Acute non-ST evaluation myocardial infarction emergent cardiac catheterization with 3 stents to the LAD. Aspirin, Lipitor, IV heparin-discontinued, Cozaar, Lopressor, Brilinta-patient cannot afford. Change back to Plavix -Acute ischemic cardiomyopathy from systolic dysfunction EF 25-30% On Cozaar. Aldactone. -Coronary artery disease with a prior history of stent Continue current medications -Obesity BMI 35 Dietitian -Essential hypertension, Cozaar, Lopressor. Follow blood pressure closely -Diabetes mellitus type 2, chronic insulin, uncontrolled with hyperglycemia Patient mealtimes rather erratic and variable amounts. This was discussed with the patient. For the present time. Increase NovoLog mix 70/30 mix 26 units with breakfast and supper and 10 units with lunch. -Hypothyroid Continue with Synthroid -Chronic nicotine dependence, cigarette smoker Nicotine patch 14 Disposition: Home Plan - Discharge Summary Discharge Rx Participant: Yes New Discharge Prescriptions: New Atorvastatin [Lipitor] 80 mg PO HS 30 Days #30 tab Clopidogrel [Plavix] 75 mg PO DAILY 30 Days #30 tab Insuln Asp Prt/Insulin Aspart [NovoLOG MIX 70-30 VIAL] 26 unit SQ AC-BID #1 vial Insuln Asp Prt/Insulin Aspart [NovoLOG MIX 70-30 VIAL] 10 unit SQ AC-LUNCH #1 vial Losartan [Cozaar] 50 mg PO HS 30 Days #30 tab Spironolactone [Aldactone] 25 mg PO DAILY 30 Days #30 tab Metoprolol Succinate (ER) [Toprol XL] 25 mg PO DAILY 30 Days #30 tab.er.24h Nicotine 14Mg/24Hr Patch [Habitrol] 1 patch TRANSDERM DAILY #14 patch Continue Aspirin 81 mg PO DAILY #30 chew Nitroglycerin Sl Tabs [Nitrostat] 0.4 mg SUBLINGUAL Q5M PRN #100 tab PRN Reason: Chest Pain Ubidecarenone [Co Q-10] 100 mg PO HS Anastrozole [Arimidex] 1 mg PO DAILY Levothyroxine Sodium [Synthroid] 137 mcg PO DAILY Calcium Carbonate [Calcium] 600 mg PO BID Serenol 1 tab PO DAILY Cyanocobalamin (Vitamin B-12) [Vitamin B-12] 2,500 mcg PO DAILY Famotidine [Pepcid] 20 mg PO BID Cholecalciferol [Vitamin D3 (25 Mcg = 1000 Iu)] 25 mcg PO BID Fenofibrate [Lofibra] 54 mg PO HS Discontinued Cetirizine HCl [Zyrtec] 10 mg PO DAILY lisinopriL [Zestril] 10 mg PO DAILY #30 tab Metoprolol Tartrate [Lopressor] 25 mg PO BID #60 tab Clopidogrel [Plavix] 75 mg PO DAILY #90 tab Insulin NPH Human Isophane [NovoLIN N] 20 units SQ HS Discharge Medication List Aspirin 81 mg PO DAILY #30 chew 12/26/17 [Rx] Nitroglycerin Sl Tabs [Nitrostat] 0.4 mg SUBLINGUAL Q5M PRN #100 tab 12/26/17 [Rx] Anastrozole [Arimidex] 1 mg PO DAILY 10/13/18 [History] Calcium Carbonate [Calcium] 600 mg PO BID 10/13/18 [History] Levothyroxine Sodium [Synthroid] 137 mcg PO DAILY 10/13/18 [History] Ubidecarenone [Co Q-10] 100 mg PO HS 10/13/18 [History] Cholecalciferol [Vitamin D3 (25 Mcg = 1000 Iu)] 25 mcg PO BID 01/10/21 [History] Cyanocobalamin (Vitamin B-12) [Vitamin B-12] 2,500 mcg PO DAILY 01/10/21 [History] Famotidine [Pepcid] 20 mg PO BID 01/10/21 [History] Fenofibrate [Lofibra] 54 mg PO HS 01/10/21 [History] Serenol 1 tab PO DAILY 01/10/21 [History] Atorvastatin [Lipitor] 80 mg PO HS 30 Days #30 tab 01/11/21 [Rx] Clopidogrel [Plavix] 75 mg PO DAILY 30 Days #30 tab 01/11/21 [Rx] Losartan [Cozaar] 50 mg PO HS 30 Days #30 tab 01/11/21 [Rx] Metoprolol Succinate (ER) [Toprol XL] 25 mg PO DAILY 30 Days #30 tab.er.24h 01/12/21 [Rx] Spironolactone [Aldactone] 25 mg PO DAILY 30 Days #30 tab 01/12/21 [Rx] Insuln Asp Prt/Insulin Aspart [NovoLOG MIX 70-30 VIAL] 10 unit SQ AC-LUNCH #1 vial 01/13/21 [Rx] Insuln Asp Prt/Insulin Aspart [NovoLOG MIX 70-30 VIAL] 26 unit SQ AC-BID #1 vial 01/13/21 [Rx] Nicotine 14Mg/24Hr Patch [Habitrol] 1 patch TRANSDERM DAILY #14 patch 01/13/21 [Rx] Follow up Appointment(s)/Referral(s): Tereso Alves MD [STAFF PHYSICIAN] - 01/25/21 11:00 am Wilbur Downs MD [Primary Care Provider] - 1-2 days Patient Instructions/Handouts: *[facility] - After Heart Catheterization - Charge Lpn Instructions Discharge Disposition: HOME SELF-CARE
--- NOTE | 2021-01-14 11:40 | CDI ---
Documentation Clarification Form Date: 01/14/2021 11:25:17 AM From: Ely Diaz CCS, CCDS Admit Date: 01/10/2021 05:30:00 AM Patient Name: Deandra Rodas Visit Number: [id number] Discharge Date: 01/13/2021 03:38:00 PM ATTENTION: The Clinical Documentation Specialists (CDI) and [facility] Coding Staff appreciate your assistance in clarifying documentation. Please respond to the clarification below the line at the bottom and electronically sign. The CDI & [facility] Coding staff will review the response and follow-up if needed. Please note: Queries are made part of the Legal Health Record. If you have any questions, please contact the author of this message via ITS. Dr. Tereso Alves: Coronary Dissection is documented in the 01/10 Heart Catheterization and PTCA report: "... I used the same balloon to dilate within the previous stent distally and I noted that there was a small dissection beyond the distal stent. This was addressed with a 2.5 caliber 18 mm long Xience stent. This Xience stent was deployed extending from the previous stent into the LAD beyond the diagonal branch." Additional clarification regarding the significance of the documented coronary dissection is requested. History/Risk Factors per the 01/10 H/P: DM II, Hypertension, Hypothyroid, Psoriasis, Osteoarthritis, CAD w/stent, Smoker. Clinical Indicators: Presented to the ED on 01/10 with Chest Pain. History of STEMI & CAD. ED Clinical Impression: Chest pain, Acute NSTEMI Procedures: 01/10 Left Heart Catheterization w/o Left Ventriculogram: This patient has a right dominant system, 35% RCA disease, 100% mid LAD occlusion, mid/proximal LAD occlusion before the stent, circumflex has a 50% stenosis, nondominant vessel. 01/10 PTCA with 3 stents to LAD Treatment 01/10: IV Heparin, IV Morphine, Nitro sl, po Aspirin, Nitropaste, to laboratory animal facility supervisor. Please clarify the significance of the documented coronary dissection: [ ] Coronary dissection is clinically significant and is a complication of the procedure [ ] Coronary dissection is clinically significant but is not a complication of the procedure [ ] Coronary dissection not clinically significant [ ] Other, please specify: [ ] Unable to determine (Template Last Revised: August 2020) Coronary dissection not clinically significant MTDD
== END 2021-01-13 15:38 | disposition home or self-care (01) | DRG 246 ==
LOC: EC 04:28 → 2SICU 05:30 → 3SCARD 21:15
PROVIDERS: ADMIT Hospitalist; ATTEND Hospitalist
PROC: B2111ZZ Fluoroscopy of Multiple Coronary Arteries using Low Osmolar Contrast (ICD-10-PCS; 2021-01-10)
PROC: 027036Z Dilation of Coronary Artery, One Artery with Three Drug-eluting Intraluminal Devices, Percutaneous Approach (ICD-10-PCS; principal; 2021-01-10 07:30)
PROC: 4A023N7 Measurement of Cardiac Sampling and Pressure, Left Heart, Percutaneous Approach (ICD-10-PCS; 2021-01-10 07:30)
DX: I21.4 Non-ST elevation (NSTEMI) myocardial infarction (principal); I25.42 Coronary artery dissection; I25.10 Atherosclerotic heart disease of native coronary artery without angina pectoris; I25.2 Old myocardial infarction; I11.9 Hypertensive heart disease without heart failure; I25.5 Ischemic cardiomyopathy; F17.210 Nicotine dependence, cigarettes, uncomplicated; E78.5 Hyperlipidemia, unspecified; M19.90 Unspecified osteoarthritis, unspecified site; E03.9 Hypothyroidism, unspecified; L40.9 Psoriasis, unspecified; Z79.4 Long term (current) use of insulin; Z79.890 Hormone replacement therapy; Z79.82 Long term (current) use of aspirin; Z79.02 Long term (current) use of antithrombotics/antiplatelets; Z88.2 Allergy status to sulfonamides; Z86.14 Personal history of Methicillin resistant Staphylococcus aureus infection; Z83.3 Family history of diabetes mellitus; Z82.49 Family history of ischemic heart disease and other diseases of the circulatory system; Z85.3 Personal history of malignant neoplasm of breast; E66.9 Obesity, unspecified; Z68.35 Body mass index [BMI] 35.0-35.9, adult; E11.65 Type 2 diabetes mellitus with hyperglycemia; Z92.3 Personal history of irradiation; Z79.811 Long term (current) use of aromatase inhibitors; Z79.899 Other long term (current) drug therapy; Z80.7 Family history of other malignant neoplasms of lymphoid, hematopoietic and related tissues
CPT/HCPCS: 36415; 71045; 76705; 80048; 80053; 80061; 82550; 83036; 83721; 83735; 83880; 84484; 85025; 85027; 85610; 85730; 93005; 93306; 93458; 99291

== ENCOUNTER 2023-09-16 15:09 | Inpatient (IN) | payer OTHER ==
--- NOTE | 2023-09-16 15:55 | ED ---
General Adult HPI - General Chief complaint: Shortness of Breath Stated complaint: fever/[place] Time Seen by Provider: 09/16/23 15:19 Source: patient, family Mode of arrival: wheelchair Limitations: no limitations - History of Present Illness Initial comments: Dictation was produced using [employer] dictation software. please excuse any grammatical, word or spelling errors. Chief Complaint: 63-year-old female past medical history of [place] tobacco abuse presents to the ER for cough and constitutional symptoms History of Present Illness: Patient 63-year-old female with 3 days history of cough and chest congestion. She does report shortness of breath. who is at the bedside states that he came down with bronchitis recently. States that he was expecting that his would not have contracted disease. Patient did have some mild nasal congestion and sore throat. She denies any chest pain. States that her cough is nonproductive. The ROS documented in this emergency department record has been reviewed and confirmed by me. Those systems with pertinent positive or negative responses have been documented in the HPI. All other systems are other negative and/or noncontributory. - Related Data Home Medications Medication Instructions Recorded Confirmed Anastrozole [Arimidex] 1 mg PO DAILY 10/13/18 01/10/21 Calcium Carbonate [Calcium] 600 mg PO BID 10/13/18 01/10/21 Levothyroxine Sodium [Synthroid] 137 mcg PO DAILY 10/13/18 01/10/21 Ubidecarenone [Co Q-10] 100 mg PO HS 10/13/18 01/10/21 Cholecalciferol [Vitamin D3 (25 25 mcg PO BID 01/10/21 01/10/21 Mcg = 1000 Iu)] Cyanocobalamin (Vitamin B-12) 2,500 mcg PO DAILY 01/10/21 01/10/21 [Vitamin B-12] Famotidine [Pepcid] 20 mg PO BID 01/10/21 01/10/21 Fenofibrate [Lofibra] 54 mg PO HS 01/10/21 01/10/21 Serenol 1 tab PO DAILY 01/10/21 01/10/21 Previous Rx's Medication Instructions Recorded Aspirin 81 mg PO DAILY #30 chew 12/26/17 Nitroglycerin Sl Tabs [Nitrostat] 0.4 mg SUBLINGUAL Q5M PRN #100 tab 12/26/17 Atorvastatin [Lipitor] 80 mg PO HS 30 Days #30 tab 01/11/21 Clopidogrel [Plavix] 75 mg PO DAILY 30 Days #30 tab 01/11/21 Losartan [Cozaar] 50 mg PO HS 30 Days #30 tab 01/11/21 Metoprolol Succinate (ER) [Toprol 25 mg PO DAILY 30 Days #30 01/12/21 XL] tab.er.24h Spironolactone [Aldactone] 25 mg PO DAILY 30 Days #30 tab 01/12/21 Insuln Asp Prt/Insulin Aspart 10 unit SQ AC-LUNCH #1 vial 01/13/21 [NovoLOG MIX 70-30 VIAL] Insuln Asp Prt/Insulin Aspart 26 unit SQ AC-BID #1 vial 01/13/21 [NovoLOG MIX 70-30 VIAL] Nicotine 14Mg/24Hr Patch [Habitrol] 1 patch TRANSDERM DAILY #14 patch 01/13/21 Allergies Allergy/AdvReac Type Severity Reaction Status Date / Time Sulfa (Sulfonamide Allergy Unknown Verified 09/16/23 15:17 Antibiotics) Review of Systems ROS Statement: Those systems with pertinent positive or pertinent negative responses have been documented in the HPI. ROS Other: All systems not noted in ROS Statement are negative. Past Medical History Past Medical History: Coronary Artery Disease (CAD), Cancer, Diabetes Mellitus, Hypertension, Myocardial Infarction ([place]), Osteoarthritis (OA), Skin Disorder, Thyroid Disorder Additional Past Medical History / Comment(s): L breast cancer with lumpectomy and radiation, IDDM type II, psoriasis, arthritis in neck, hypothyroid, sinus problems, past elevated LFT but pt was told not to worry about that. Last Myocardial Infarction Date:: 12/23/17 History of Any Multi-Drug Resistant Organisms: MRSA Date of last positivie culture/infection: 2012; MDRO Source:: groin Past Surgical History: Heart Catheterization With Stent Additional Past Surgical History / Comment(s): lumpectomy left breast with lymph nodes removed, bladder suspension 20 years ago, colonoscopy Past Anesthesia/Blood Transfusion Reactions: No Reported Reaction Date of Last Stent Placement:: 12/23/17 Past Psychological History: No Psychological Hx Reported Smoking Status: Never smoker Past Alcohol Use History: None Reported Past Drug Use History: None Reported - Past Family History Father Family Medical History: Cancer, Diabetes Mellitus, Hypertension Additional Family Medical History / Comment(s): Father of lymphoma at the age of 54yrs. Mother Additional Family Medical History / Comment(s): Mother has heart problems and is almost 80yrs old General Exam - General Exam Comments Initial Comments: PHYSICAL EXAM: General Impression: Alert and oriented x3, not in acute distress HEENT: Normocephalic atraumatic, extra-ocular movements intact, pupils equal and reactive to light bilaterally, mucous membranes moist. Cardiovascular: Heart regular rate and rhythm Chest: Able to complete full sentences, no retractions, no tachypnea Abdomen: abdomen soft, non-tender, non-distended, no organomegaly Musculoskeletal: Pulses present and equal in all extremities, no peripheral edema Motor: no focal deficits noted Neurological: CN II-XII grossly intact, no focal motor or sensory deficits noted Skin: Intact with no visualized rashes Psych: Normal affect and mood Limitations: no limitations Course Vital Signs 09/16/23 09/16/23 15:15 17:27 Temperature 100.3 F H 99.1 F Pulse Rate 128 H 117 H Respiratory 18 20 Rate Blood Pressure 146/83 126/65 O2 Sat by Pulse 90 L 97 Oximetry EKG Findings - EKG Comments: EKG Findings:: My EKG interpretation: Ventricular rate 121, sinus tachycardia,. 150, cures 94, QTc 410. No HI prolongation, no QTC prolongation. Interpretation limited due to significant artifact specially in the lateral precordial leads. Overall this EKG is nonspecific Medical Decision Making - Medical Decision Making Was pt. sent in by a medical professional or institution (, PA, SHIP CARPENTER, urgent care, hospital, or [facility]...) When possible be specific @ -No Did you speak to anyone other than the patient for history (EMS, parent, family, police, friend...)? What history was obtained from this source @ -No Did you review nursing and triage notes (agree or disagree)? Why? @ -I reviewed and agree with nursing and triage notes Were old charts reviewed (outside hosp., previous admission, EMS record, old EKG, old radiological studies, urgent care reports/EKG's, [facility] records)? Report findings @ -No old charts were reviewed Differential Diagnosis (chest pain, altered mental status, abdominal pain women, abdominal pain men, vaginal bleeding, musculoskeletal, weakness, fever, dyspnea, syncope, headache, dizziness, GI bleed, back pain, seizure, CVA, palpatations, mental health)? @ -Not applicable EKG interpreted by me (3pts min.). @ -None done X-rays interpreted by me (1pt min.). @ -Chest x-ray shows focal pneumonia likely viral CT interpreted by me (1pt min.). @ -None done U/S interpreted by me (1pt. min.). @ -None done What testing was considered but not performed or refused? (CT, X-rays, U/S, labs)? Why? @ -None What meds were considered but not given or refused? Why? @ -None Did you discuss the management of the patient with other professionals (professionals i.e. , PA, SHIP CARPENTER, lab, RT, psych nurse, social media content specialist, central office trouble shooter, teacher, tactical response group officer, rifle case repairer)? Give summary @ -Case discussed with hospitalist for admission Was smoking cessation discussed for >3mins.? @ -No Was critical care preformed (if so, how long)? @ -No Were there social determinants of health that impacted care today? How? (Homelessness, low income, unemployed, alcoholism, drug addiction, transportation, low edu. Level, literacy, decrease access to med. care, usp, rehab)? @ -No Was there de-escalation of care discussed even if they declined (Discuss DNR or withdrawal of care, Hospice)? DNR status @ -No What co-morbidities impacted this encounter? (DM, HTN, Smoking, COPD, CAD, Cancer, CVA, ARF, Chemo, Hep., AIDS, mental health diagnosis, sleep apnea, morbid obesity)? @ -None Was patient admitted / discharged? Hospital course, mention meds given and route, prescriptions, significant lab abnormalities, going to OR and other pertinent info. @ -63-year-old female presents emergency department for respiratory infectious type symptoms. Vital signs upon arrival shows temperature 100.3, heart rate of 128. Patient 90% on room air. Laboratory evaluation shows findings within acceptable limits except for some mild acidosis. Influenza A positive. Patient given IV fluids. Patient started on Tamiflu. Disposition options were discussed. She is feels ill and would prefer to be admitted observation. Undiagnosed new problem with uncertain prognosis? @ -No Drug Therapy requiring intensive monitoring for toxicity (Heparin, Nitro, Insulin, Cardizem)? @ -No Were any procedures done? @ -No Diagnosis/symptom? Acute, or Chronic, or Acute on Chronic? Uncomplicated (without systemic symptoms) or Complicated (systemic symptoms)? @ -Influenza complicated by respiratory failure Side effects of treatment? @ -No Exacerbation, Progression, or Severe Exacerbation? @ -No Poses a threat to life or bodily function? How? (Chest pain, [place], [place], pneumonia, PE, COPD, DKA, ARF, appy, cholecystitis, CVA, Diverticulitis, Homicidal, Suicidal, threat to staff... and all critical care pts) @ -yes - Lab Data Result diagrams: 09/16/23 16:10 09/16/23 16:10 Lab Results 09/16/23 09/16/23 09/16/23 Range/Units 16:00 16:10 16:10 WBC 10.9 H (3.8-10.6) k/uL RBC 5.37 (3.80-5.40) m/uL Hgb 16.6 H (11.4-16.0) gm/dL Hct 47.8 H (34.0-46.0) % MCV 89.0 (80.0-100.0) fL MCH 30.9 (25.0-35.0) pg MCHC 34.7 (31.0-37.0) g/dL RDW 12.9 (11.5-15.5) % Plt Count 179 (150-450) k/uL MPV 8.6 Neutrophils % 83 % Lymphocytes % 10 % Monocytes % 5 % Eosinophils % 1 % Basophils % 1 % Neutrophils # 9.0 H (1.3-7.7) k/uL Lymphocytes # 1.1 (1.0-4.8) k/uL Monocytes # 0.5 (0-1.0) k/uL Eosinophils # 0.1 (0-0.7) k/uL Basophils # 0.1 (0-0.2) k/uL PT 10.5 (10.0-12.5) sec INR 1.0 (<1.2) APTT 29.2 (22.0-30.0) sec Sodium (137-145) mmol/L Potassium (3.5-5.1) mmol/L Chloride (98-107) mmol/L Carbon Dioxide (22-30) mmol/L Anion Gap mmol/L BUN (7-17) mg/dL Creatinine (0.52-1.04) mg/dL Est GFR (CKD-EPI)AfAm (>60 ml/min/1.73 sqM) Est GFR (CKD-EPI)NonAf (>60 ml/min/1.73 sqM) Glucose (74-99) mg/dL Plasma Lactic Acid Tyson (0.7-2.0) mmol/L Calcium (8.4-10.2) mg/dL Total Bilirubin (0.2-1.3) mg/dL AST (14-36) U/L ALT (4-34) U/L Alkaline Phosphatase (38-126) U/L Total Protein (6.3-8.2) g/dL Albumin (3.5-5.0) g/dL Influenza Type A (PCR) Detected A (Not Detectd) Influenza Type B (PCR) Not Detected (Not Detectd) RSV (PCR) Not Detected (Not Detectd) SARS-CoV-2 (PCR) Not Detected (Not Detectd) 09/16/23 09/16/23 Range/Units 16:10 16:10 WBC (3.8-10.6) k/uL RBC (3.80-5.40) m/uL Hgb (11.4-16.0) gm/dL Hct (34.0-46.0) % MCV (80.0-100.0) fL MCH (25.0-35.0) pg MCHC (31.0-37.0) g/dL RDW (11.5-15.5) % Plt Count (150-450) k/uL MPV Neutrophils % % Lymphocytes % % Monocytes % % Eosinophils % % Basophils % % Neutrophils # (1.3-7.7) k/uL Lymphocytes # (1.0-4.8) k/uL Monocytes # (0-1.0) k/uL Eosinophils # (0-0.7) k/uL Basophils # (0-0.2) k/uL PT (10.0-12.5) sec INR (<1.2) APTT (22.0-30.0) sec Sodium 133 L (137-145) mmol/L Potassium 3.9 (3.5-5.1) mmol/L Chloride 102 (98-107) mmol/L Carbon Dioxide 17 L (22-30) mmol/L Anion Gap 14 mmol/L BUN 17 (7-17) mg/dL Creatinine 0.54 (0.52-1.04) mg/dL Est GFR (CKD-EPI)AfAm >90 (>60 ml/min/1.73 sqM) Est GFR (CKD-EPI)NonAf >90 (>60 ml/min/1.73 sqM) Glucose 326 H (74-99) mg/dL Plasma Lactic Acid Tyson 2.0 (0.7-2.0) mmol/L Calcium 9.4 (8.4-10.2) mg/dL Total Bilirubin 0.8 (0.2-1.3) mg/dL AST 24 (14-36) U/L ALT 24 (4-34) U/L Alkaline Phosphatase 90 (38-126) U/L Total Protein 7.3 (6.3-8.2) g/dL Albumin 3.6 (3.5-5.0) g/dL Influenza Type A (PCR) (Not Detectd) Influenza Type B (PCR) (Not Detectd) RSV (PCR) (Not Detectd) SARS-CoV-2 (PCR) (Not Detectd) Disposition Clinical Impression: Influenza Disposition: ADMITTED IP TO THIS HOSP Condition: Fair Referrals: Wilbur Downs MD [REFERRING] - 1-2 days Decision Time: 17:37
[2023-09-16 16:19] LABS: Basophils # (A) 0.1 k/uL (0-0.2); Basophils % (A) 1 %; Eosinophils # (A) 0.1 k/uL (0-0.7); Eosinophils % (A) 1 %; HCT 47.8 % (34.0-46.0); HGB 16.6 gm/dL (11.4-16.0); Lymphocytes # (A) 1.1 k/uL (1.0-4.8); Lymphocytes % (A) 10 %; MCH 30.9 pg (25.0-35.0); MCHC 34.7 g/dL (31.0-37.0); Mean Platelet Volume 8.6; Monocytes # (A) 0.5 k/uL (0-1.0); Monocytes % (A) 5 %; Neutrophils % (A) 83 %; Platelet Count 179 k/uL (150-450); RBC 5.37 m/uL (3.80-5.40); RDW 12.9 % (11.5-15.5); WBC 10.9 k/uL (3.8-10.6)
[2023-09-16] MEDS: ACETAMINOPHEN TAB 500 MG TAB PO STA (16:19)
[2023-09-16 16:29] LABS: ALT 24 U/L (4-34); AST 24 U/L (14-36); African American GFR (CKD) >90 (>60 ml/min/1.73 sqM); Albumin 3.6 g/dL (3.5-5.0); Alkaline Phosphatase 90 U/L (38-126); Anion Gap 14 mmol/L; Blood Urea Nitrogen 17 mg/dL (7-17); Calcium 9.4 mg/dL (8.4-10.2); Carbon Dioxide 17 mmol/L (22-30); Chloride 102 mmol/L (98-107); Glucose 326 mg/dL (74-99); Non-African American GFR(CKD) >90 (>60 ml/min/1.73 sqM); Potassium 3.9 mmol/L (3.5-5.1); Sodium 133 mmol/L (137-145); Total Bilirubin 0.8 mg/dL (0.2-1.3); Total Protein 7.3 g/dL (6.3-8.2)
[2023-09-16 16:39] LABS: Partial Thromboplastin Time 29.2 sec (22.0-30.0); Prothrombin Time 10.5 sec (10.0-12.5)
--- NOTE | 2023-09-16 17:23 | XR ---
EXAMINATION TYPE: XR chest 2V DATE OF EXAM: 09/16/2023 5:08 PM CLINICAL INDICATION:Female, 63 years old with history of cough; [facility] COMPARISON: Chest radiographs from 01/10/2021. TECHNIQUE: XR chest 2V Frontal and lateral views of the chest. FINDINGS: Lungs/Pleura: Multifocal airspace opacities are identified within the left lung. No evidence of pleur al effusion or pneumothorax. Pulmonary vascularity: Unremarkable. Heart/mediastinum: Cardiomediastinal silhouette is unremarkable. Musculoskeletal: No acute osseous pathology. IMPRESSION: Findings most consistent with left sided acute focal pneumonia.
[2023-09-16] MEDS ORDERED: NALOXONE 0.4 MG/ML 1 ML VIAL IV PRN (17:31)
[2023-09-16] MEDS: SODIUM CHLORIDE 0.9% 1,000 ML IV STA (18:50)
[2023-09-16 19:55] LABS: Appearance,Urine Cloudy (Clear); Bacteria,Urine Rare /hpf; Bilirubin,Urine Negative (Negative); Blood,Urine Small (Negative); Color,Urine Yellow; Glucose,Urine (UA) 4+ (Negative); Hyaline Casts,Urine 6 /lpf (0-2); Ketones,Urine 1+ (Negative); Leukocyte Esterase,Urine Negative (Negative); Mucus,Urine Rare /hpf; Nitrite,Urine Negative (Negative); Protein,Urine 2+ (Negative); RBC,Urine 3 /hpf (0-5); Specific Gravity,Urine 1.036 (1.001-1.035); Squamous Epithelial Cell,Urine 4 /hpf (0-4); Urobilinogen,Urine <2.0 mg/dL (<2.0); WBC,Urine 2 /hpf (0-5)
[2023-09-16] MEDS: HYDROcodone/APAP 5-325MG 1 EACH TAB PO STA (19:55)
[2023-09-16 20:11] LABS: Glucose,Whole Blood 396 mg/dL (70-110)
[2023-09-16] MEDS: IPRATROPIUM-ALBUTEROL 3 ML NEB INHALATION PRN (20:13)
[2023-09-16] MEDS: SODIUM CHLORIDE 0.9% 1,000 ML IV SCH (21:47)
[2023-09-16] MEDS: INSULIN ASPART (NovoLOG) 100 UNIT/ML VIAL SQ SCH (22:33)
[2023-09-16] MEDS: OSELTAMIVIR 75 MG CAP PO SCH (22:33)
[2023-09-17] MEDS: ACETAMINOPHEN TAB 325 MG TAB PO PRN (00:52)
[2023-09-17 01:23] LABS: Glucose,Whole Blood 426 mg/dL (70-110)
[2023-09-17] MEDS ORDERED: DILTIAZEM DRIP BOLUS FROM BAG 1 MG SOLN IV ONE (01:38)
[2023-09-17] MEDS ORDERED: niCARdipine 20 MG in SODIUM CHLORIDE 0.9% 192 ML IV SCH (01:45)
[2023-09-17] MEDS: DILTIAZEM 125 MG in SODIUM CHLORIDE 0.9% 100 ML IV SCH (01:59)
[2023-09-17] MEDS: AZITHROMYCIN 500 MG in SODIUM CHLORIDE 0.9% 250 ML IVPB SCH (01:59)
[2023-09-17] MEDS: DILTIAZEM DRIP BOLUS FROM BAG 1 MG SOLN IV ONE (02:00)
[2023-09-17] MEDS: HEPARIN SOD,PORK IN 0.45% NACL 25,000 UNIT in 0.45% NACL 1 250ML.BAG IV SCH (02:03)
[2023-09-17] MEDS: INSULIN ASPART (NovoLOG) 100 UNIT/ML VIAL SQ ONE (02:15)
--- NOTE | 2023-09-17 02:36 | P.CNPUL ---
History of Present Illness Consult date: 09/17/23 Requesting physician: Pan Buckley Reason for consult: dyspnea Chief complaint: Shortness of breath, fever, cough History of present illness: I am seeing this patient in consultation today 09/17/2023 after she presented with several days of flulike symptoms. Patient is a 63-year-old white female with past medical history significant for hypertension, hyperlipidemia, coronary artery disease with 3 stents to the LAD, diabetes mellitus, hypothyroidism, psoriasis, former tobacco smoker, among other things. Starting Sunday, the patient started to develop runny nose, sore throat, congested nonproductive cough, intermittent fevers with a Tmax of 102 F, myalgias, nausea without emesis, reduced appetite. Her reportedly had similar symptoms. Over the weekend, she has progressively become more short of breath, and came to the emergency room yesterday afternoon. She did test positive for influenza A on arrival. She is currently sitting up in bed, on 4 L/min nasal cannula, in some mild respiratory distress. She talks in short 3-4 word phrases. There is some accessory muscle use. She is complaining of some sharp left lateral chest pain. This began several days ago with coughing. Reproducible with palpation. chest x-ray on arrival demonstrates some left-sided airspace opacities, concerning for pneumonia. CBC on arrival: WBC count of 10.9, hemoglobin 16.6, hematocrit 47.8, platelets 179. BMP on arrival: Sodium 133, potassium 3.9, chloride 102, serum bicarb 17, BUN 17, creatinine 0.44, glucose 326. Patient was started on a 5-day course of Tamiflu in the emergency room. Earlier, while on the general medical floor, an A team was called as the patient did go into atrial fibrillation with rapid ventricular rate. Patient denies any history of irregular heart rhythm or atrial fibrillation. Heart rate currently fluctuates between 150 and 190 bpm. Blood pressure is currently stable at 120/76 mmHg. She is currently alert and able to answer my questions. She is dyspneic, her nasal cannula had been hanging on her forehead. Denies any lightheadedness, heart palpitations, substernal or radiating chest pain. Patient is in the process of being transferred to the cardiac stepdown unit, and cardiology has been notified. Review of Systems REVIEW OF SYSTEMS: CONSTITUTIONAL: Denies any recent significant weight loss or weight gain. Admits generalized weakness, fatigue, malaise, myalgias, and intermittent fevers. EYES: Denies change in vision. EARS, NOSE, MOUTH, THROAT: Admits sinus congestion and frontal headache and post nasal drip and sore throat CARDIOVASCULAR: Denies chest pain, palpitations or syncopal episodes. RESPIRATORY: See HPI GASTROINTESTINAL: Denies abdominal pain, vomiting, or diarrhea. Admits reduced oral intake and some nausea. GENITOURINARY: Denies hematuria, denies infections. MUSKULOSKELETAL: Denies pain, denies swelling. INTEGUMENTARY: Denies rash, denies eczema. NEUROLOGICAL: Denies recent memory loss, no recent seizure activity. PSYCHIATRIC: Denies anxiety, denies depression. HEMATOLOGIC/LYMPHATIC: Denies anemia, denies enlarged lymph node Past Medical History Past Medical History: Coronary Artery Disease (CAD), Cancer, Diabetes Mellitus, Hypertension, Myocardial Infarction ([place]), Osteoarthritis ([place]), Skin Disorder, Thyroid Disorder Additional Past Medical History / Comment(s): L breast cancer with lumpectomy and radiation, IDDM type II, psoriasis, arthritis in neck, hypothyroid, sinus problems, past elevated LFT but pt was told not to worry about that. Last Myocardial Infarction Date:: 12/23/17 History of Any Multi-Drug Resistant Organisms: MRSA Date of last positivie culture/infection: 2012; MDRO Source:: groin Past Surgical History: Heart Catheterization With Stent Additional Past Surgical History / Comment(s): lumpectomy left breast with lymph nodes removed, bladder suspension 20 years ago, colonoscopy Past Anesthesia/Blood Transfusion Reactions: No Reported Reaction Date of Last Stent Placement:: 12/23/17 Past Psychological History: No Psychological Hx Reported Additional Psychological History / Comment(s): Pt has clausterphobia. Pt resides with her spouse. She is independent. Smoking Status: Never smoker Past Alcohol Use History: None Reported Additional Past Alcohol Use History / Comment(s): Pt started smoking in 1974 and quit in 11/2017 Past Drug Use History: None Reported - Past Family History Father Family Medical History: Cancer, Diabetes Mellitus, Hypertension Additional Family Medical History / Comment(s): Father of lymphoma at the age of 54yrs. Mother Additional Family Medical History / Comment(s): Mother has heart problems and is almost 80yrs old Medications and Allergies Home Medications Medication Instructions Recorded Confirmed Type Aspirin 81 mg PO DAILY #30 chew 12/26/17 09/16/23 Rx Anastrozole [Arimidex] 1 mg PO DAILY 10/13/18 09/16/23 History Clopidogrel [Plavix] 75 mg PO DAILY 30 Days #30 tab 01/11/21 09/16/23 Rx Losartan [Cozaar] 50 mg PO HS 30 Days #30 tab 01/11/21 09/16/23 Rx Spironolactone [Aldactone] 25 mg PO DAILY 30 Days #30 tab 01/12/21 09/16/23 Rx Fluocinolone 0.01% Oil 1 applic TOPICAL DIRECTED 09/16/23 09/16/23 History Insulin NPH Hum/Reg Insulin Hm 45 unit SQ DAILY 09/16/23 09/16/23 History [NovoLIN 70-30 100 Unit/ml Vial] Levothyroxine Sodium [Synthroid] 150 mcg PO DAILY 09/16/23 09/16/23 History Metoprolol Succinate (ER) [Toprol 75 mg PO BID 09/16/23 09/16/23 History Xl] Rosuvastatin [Crestor] 20 mg PO HS 09/16/23 09/16/23 History Venlafaxine HCl [Effexor XR] 150 mg PO DAILY 09/16/23 09/16/23 History Allergies Allergy/AdvReac Type Severity Reaction Status Date / Time Sulfa (Sulfonamide Allergy Unknown Verified 09/16/23 18:02 Antibiotics) Physical Exam Vitals: Vital Signs Temp Pulse Pulse Resp BP BP Pulse Ox 09/16/23 20:20 104 H 09/16/23 20:15 100 09/16/23 19:58 98.1 F 108 H 20 141/65 97 09/16/23 18:54 99 F 109 H 20 134/65 97 09/16/23 17:27 99.1 F 117 H 20 126/65 97 09/16/23 15:15 100.3 F H 128 H 18 146/83 90 L Intake and Output 09/16/23 09/16/23 09/17/23 14:59 22:59 06:59 Other: Weight 79.379 kg GENERAL EXAM: Patient is currently sitting up in bed with her legs crossed, speaks in 3-4 word phrases, appears dyspneic at rest. HEAD: Normocephalic and atraumatic EYES: Normal reaction of pupils, equal size. NOSE: Clear with pink turbinates. THROAT: No erythema or exudates. NECK: No masses, no JVD. CHEST: No chest wall deformity. LUNGS: Equal air entry with diffuse rhonchi. On 4 L/min nasal cannula. No conversational dyspnea or accessory muscle use.. CVS: S1 and S2 normal with no audible murmur, irregular rhythm. No extra heart sounds. Tachycardic, heart rate currently 160 bpm ABDOMEN: No hepatosplenomegaly, active bowel sounds, no guarding or rigidity. SPINE: No scoliosis or deformity SKIN: Diffuse erythema and plaquing on all 4 extremities CENTRAL NERVOUS SYSTEM: No focal deficits, tone is normal in all 4 extremities. EXTREMITIES: There is no peripheral edema, clubbing, or cyanosis. Peripheral pulses are intact. Results - Laboratory Findings CBC and BMP: 09/16/23 16:10 09/16/23 16:10 PT/INR, D-dimer PT 10.5 sec (10.0-12.5) 09/16/23 16:10 INR 1.0 (<1.2) 09/16/23 16:10 Abnormal lab findings: Abnormal Labs 09/16/23 09/16/23 09/16/23 16:00 16:10 16:10 WBC 10.9 H Hgb 16.6 H Hct 47.8 H Neutrophils # 9.0 H Sodium 133 L Carbon Dioxide 17 L Glucose 326 H POC Glucose (mg/dL) Urine Appearance Ur Specific Kerrick Urine Protein Urine Glucose (UA) Urine Ketones Urine Blood Urine Bacteria Hyaline Casts Urine Mucus Influenza Type A (PCR) Detected A 09/16/23 09/16/23 09/17/23 19:00 20:09 01:21 WBC Hgb Hct Neutrophils # Sodium Carbon Dioxide Glucose POC Glucose (mg/dL) 396 H 426 H Urine Appearance Cloudy H Ur Specific Kerrick 1.036 H Urine Protein 2+ H Urine Glucose (UA) 4+ H Urine Ketones 1+ H Urine Blood Small H Urine Bacteria Rare H Hyaline Casts 6 H Urine Mucus Rare H Influenza Type A (PCR) - Diagnostic Findings Chest x-ray: image reviewed Assessment and Plan Assessment: Acute hypoxemic respiratory failure, secondary to acute influenza A infection and possible left-sided superimposed bacterial pneumonia. Chest x-ray on admiss ion demonstrates left-sided airspace opacities, concerning for community- acquired pneumonia. New onset atrial fibrillation with rapid ventricular rate, patient was started on Cardizem infusion at 10 mg/h and anticoagulated on IV heparin per protocol History of coronary artery disease with PCI/stents to the LAD History of hyperlipidemia History of hypertension Diabetes mellitus, insulin-dependent History of hypothyroidism Psoriasis Former tobacco smoker Plan: Patient's medications, labs, chest x-ray reviewed Continue supplemental oxygen to maintain oxygen saturation of 92% or greater Continue Tamiflu twice daily for 5 days Add combination of azithromycin and Rocephin Obtain blood cultures and sputum culture. Procalcitonin level pending. Start patient on Cardizem infusion and IV heparin infusion per cardiology recommendation Repeat EKG is pending. Blood glucose management per admitting Patient is in the process of being transferred to the cardiac stepdown unit. I have personally seen and examined the patient, performed the documentation and the assessment and plan as written. Number of minutes spent on the visit:30 Time with Patient: Greater than 30
[2023-09-17 02:42] LABS: Glucose,Whole Blood 403 mg/dL (70-110)
[2023-09-17 02:58] LABS: Glucose,Whole Blood 471 mg/dL (70-110)
[2023-09-17 03:08] LABS: ABG Base Excess -9.1 mmol/L; ABG HCO3 19 mmol/L (21-25); ABG Oxygen Saturation 95.5 % (94-97); ABG PCO2 48 mmHg (35-45); ABG PH 7.21 (7.35-7.45); ABG PO2 94 mmHg (83-108); ABG TCO2 20 mmol/L (19-24); Allen Test Performed? Yes
[2023-09-17 03:18] LABS: Glucose,Whole Blood 420 mg/dL (70-110)
[2023-09-17] MEDS ORDERED: DEXTROSE 50% SYRINGE 50 ML IVP PRN ×2 (03:33)
[2023-09-17] MEDS: INSULIN REGULAR 100 UNIT in SODIUM CHLORIDE 0.9% 100 ML IV SCH (03:48)
[2023-09-17 04:05] LABS: HCT 49.7 % (34.0-46.0); MCH 29.7 pg (25.0-35.0); MCHC 32.1 g/dL (31.0-37.0); MCV 92.5 fL (80.0-100.0); Mean Platelet Volume 8.8; Platelet Count 194 k/uL (150-450); RBC 5.37 m/uL (3.80-5.40); WBC 3.3 k/uL (3.8-10.6)
[2023-09-17 04:10] LABS: African American GFR (CKD) 42 (>60 ml/min/1.73 sqM); Anion Gap 16 mmol/L; Blood Urea Nitrogen 30 mg/dL (7-17); Calcium 8.8 mg/dL (8.4-10.2); Carbon Dioxide 15 mmol/L (22-30); Chloride 103 mmol/L (98-107); Glucose 389 mg/dL (74-99); Magnesium 1.3 mg/dL (1.6-2.3); Non-African American GFR(CKD) 36 (>60 ml/min/1.73 sqM); Potassium 3.1 mmol/L (3.5-5.1); Sodium 134 mmol/L (137-145)
[2023-09-17 04:25] LABS: Neutrophils % (M) 4 %
[2023-09-17 04:26] LABS: Band Neutrophils % 36 %; Lymphocytes # (M) 1.32 k/uL (1.0-4.8); Metamyelocytes # (M) 0.53 k/uL (0); Metamyelocytes % 16 %; Monocytes # (M) 0.13 k/uL (0-1.0); Nucleated Red Blood Cells 0 /100 WBC (0-0); Total Cells Counted 100
[2023-09-17] MEDS ORDERED: SODIUM CHLORIDE 0.9% 1,000 ML IV SCH (04:30)
[2023-09-17] MEDS: DEXTROSE 5% IN WATER 100 ML with AMIODARONE 150 MG IV ONE (04:32)
[2023-09-17] MEDS ORDERED: Magnesium Replacement Protocol 1 EACH MISC MISCELLANE PRN (04:34)
[2023-09-17] MEDS ORDERED: Potassium Replacement Protocol 1 EACH MISC MISCELLANE PRN ×2 (04:34→18:33)
[2023-09-17] MEDS: AMIODARONE 360 MG in DEXTROSE 5% IN WATER 200 ML IV ONE (04:42)
[2023-09-17] MEDS: SODIUM CHLORIDE 0.9% 1,000 ML IV ONE ×3 (04:48→08:52)
[2023-09-17] MEDS: MAGNESIUM SULFATE-D5W PMX 1 GM in DEXTROSE/WATER 1 100ML.BAG IVPB SCH (04:53)
[2023-09-17] MEDS: POTASSIUM CHLORIDE 10 MEQ in WATER FOR INJECTION 1 100ML.BAG IVPB SCH (04:53)
[2023-09-17 05:04] LABS: Glucose,Whole Blood 339 mg/dL (70-110)
[2023-09-17] MEDS: DEXTROSE 5% IN WATER 1,000 ML with SODIUM BICARB (1 MEQ/ML) 150 ML IV SCH (05:08)
[2023-09-17 05:53] LABS: Glucose,Whole Blood 311 mg/dL (70-110)
[2023-09-17 06:08] LABS: ABG Base Excess -10.5 mmol/L; ABG HCO3 19 mmol/L (21-25); ABG Oxygen Saturation 95.7 % (94-97); ABG PCO2 55 mmHg (35-45); ABG PO2 101 mmHg (83-108); ABG TCO2 20 mmol/L (19-24); Allen Test Performed? Yes
[2023-09-17 06:12] LABS: ABG PH 7.13 (7.35-7.45)
[2023-09-17] MEDS: NOREPINEPHRINE 4 MG in SODIUM CHLORIDE 0.9% 250 ML IV SCH (06:40)
[2023-09-17 07:08] LABS: Glucose,Whole Blood 264 mg/dL (70-110)
[2023-09-17] MEDS: SODIUM BICARB 8.4% 50 ML SYR (1 MEQ/ML) IV STA (07:08)
--- NOTE | 2023-09-17 07:29 | P.CRDCN ---
History of Present Illness Consult date: 09/17/23 Chief complaint: Shortness of breath and cough and congestion History of present illness: The patient is a 63-year-old female patient who is known to our service from before with a past medical history significant for coronary artery disease with prior stenting of the LAD in the setting of acute coronary syndrome with subsequent echocardiogram showing an ejection fraction between 25 to 30% at that point as well as history of smoking and hypertension and dyslipidemia and multiple comorbid conditions. The patient was brought to the hospital by her who is brought in medic. Apparently for the last few days she has been experiencing progressive cough associated with shortness of breath and congestion and also low-grade fever exceeding 100 Fahrenheit. No symptoms of any chest pain or chest discomfort and no dizziness or lightheadedness and no presyncope or syncope. She was brought to the hospital where chest x-ray showed what is seems to be underlying pneumonia involving the left lung and the patient was initially admitted to the floor. We consulted to see the patient because of atrial fibrillation with rapid ventricular response and initially the patient was stable hemodynamically and started on Cardizem IV. Subsequently the patient deteriorated over the next few hours. Her shortness of breath has progressed and she became more congested and for that reason she was transferred to the intensive care unit and she was intubated and placed on mechanical ventilation. Because her pressure has been soft the Cardizem IV was stopped and she was started on amiodarone IV. Currently she is in atrial fibrillation with overall controlled heart rate and heart rate around 110 bpm. She is also on heparin IV. Beside that she underwent further workup including hemoglobin which came to be stable and creatinine at 1.53 with low potassium and normal sodium. The chest x-ray showed large left-sided pneumonia. Currently the patient is in what is seems to be septic shock. She received 3 L of IV fluid with the pressure being low and currently she is unstable requiring norepinephrine to support her blood pressure. She underwent stenting of the LAD in 2020 and she underwent an echo last in 2020 showing an EF between 25 to 30%. For some reasons reviewing her home medication she continues to be on dual antiplatelet therapy for unknown reason at this point. No history of atrial fibrillation in the past and. The e xamination showed the patient to be intubated on mechanical ventilation with irregular rhythm and bilateral rhonchi and no edema was noted Assessment Pneumonia/sepsis Possible septic shock Atrial fibrillation which is a new diagnosis to the patient in the setting of sepsis History of cardiomyopathy Coronary artery disease with prior stenting of the LAD History of smoking Electrolytes imbalance Acute renal failure likely to be prerenal Plan Agree about continue amiodarone at this point Continue heparin as well Monitor the kidney function and electrolytes and hemoglobin Supportive blood pressure with vasopressors Obtain an echocardiogram and further cardiac testing including serial enzymes Further recommendation to follow Past Medical History Past Medical History: Coronary Artery Disease (CAD), Cancer, Diabetes Mellitus, Hypertension, Myocardial Infarction (DC), Osteoarthritis (OA), Skin Disorder, Thyroid Disorder Additional Past Medical History / Comment(s): L breast cancer with lumpectomy and radiation, IDDM type II, psoriasis, arthritis in neck, hypothyroid, sinus problems, past elevated LFT but pt was told not to worry about that. Last Myocardial Infarction Date:: 12/23/17 History of Any Multi-Drug Resistant Organisms: MRSA Date of last positivie culture/infection: 2012; MDRO Source:: groin Past Surgical History: Heart Catheterization With Stent Additional Past Surgical History / Comment(s): lumpectomy left breast with lymph nodes removed, bladder suspension 20 years ago, colonoscopy Past Anesthesia/Blood Transfusion Reactions: No Reported Reaction Date of Last Stent Placement:: 12/23/17 Past Psychological History: No Psychological Hx Reported Additional Psychological History / Comment(s): Pt has clausterphobia. Pt resides with her spouse. She is independent. Smoking Status: Never smoker Past Alcohol Use History: None Reported Additional Past Alcohol Use History / Comment(s): Pt started smoking in 1974 and quit in 11/2017 Past Drug Use History: None Reported - Past Family History Father Family Medical History: Cancer, Diabetes Mellitus, Hypertension Additional Family Medical History / Comment(s): Father of lymphoma at the age of 54yrs. Mother Additional Family Medical History / Comment(s): Mother has heart problems and is almost 80yrs old Medications and Allergies Home Medications Medication Instructions Recorded Confirmed Type Aspirin 81 mg PO DAILY #30 chew 12/26/17 09/16/23 Rx Anastrozole [Arimidex] 1 mg PO DAILY 10/13/18 09/16/23 History Clopidogrel [Plavix] 75 mg PO DAILY 30 Days #30 tab 01/11/21 09/16/23 Rx Losartan [Cozaar] 50 mg PO HS 30 Days #30 tab 01/11/21 09/16/23 Rx Spironolactone [Aldactone] 25 mg PO DAILY 30 Days #30 tab 01/12/21 09/16/23 Rx Fluocinolone 0.01% Oil 1 applic TOPICAL DIRECTED 09/16/23 09/16/23 History Insulin NPH Hum/Reg Insulin Hm 45 unit SQ DAILY 09/16/23 09/16/23 History [NovoLIN 70-30 100 Unit/ml Vial] Levothyroxine Sodium [Synthroid] 150 mcg PO DAILY 09/16/23 09/16/23 History Metoprolol Succinate (ER) [Toprol 75 mg PO BID 09/16/23 09/16/23 History Xl] Rosuvastatin [Crestor] 20 mg PO HS 09/16/23 09/16/23 History Venlafaxine HCl [Effexor XR] 150 mg PO DAILY 09/16/23 09/16/23 History Allergies Allergy/AdvReac Type Severity Reaction Status Date / Time Sulfa (Sulfonamide Allergy Unknown Verified 09/16/23 18:02 Antibiotics) Physical Exam Vitals: Vital Signs Temp Pulse Pulse Resp BP BP Pulse Ox 09/17/23 07:00 103 H 32 H 99 09/17/23 06:45 112 H 31 H 91/53 96 09/17/23 06:30 99 19 64/47 100 09/17/23 06:15 99 27 H 76/58 09/17/23 06:00 116 H 22 85/52 09/17/23 05:45 112 H 31 H 82/51 09/17/23 05:30 111 H 23 82/51 09/17/23 05:00 109 H 25 H 83/53 97 09/17/23 04:30 126 H 23 80/68 09/17/23 04:00 146 H 25 H 85/59 97 09/17/23 03:30 98.7 F 158 H 28 H 119/54 96 09/17/23 03:25 09/17/23 03:19 151 H 31 H 09/16/23 20:20 104 H 09/16/23 20:15 100 09/16/23 20:00 108 H 09/16/23 19:58 98.1 F 108 H 20 141/65 97 09/16/23 18:54 99 F 109 H 20 134/65 97 09/16/23 17:27 99.1 F 117 H 20 126/65 97 09/16/23 15:15 100.3 F H 128 H 18 146/83 90 L FiO2 09/17/23 07:00 100 09/17/23 06:45 100 09/17/23 06:30 40 09/17/23 06:15 100 09/17/23 06:00 09/17/23 05:45 09/17/23 05:30 09/17/23 05:00 40 09/17/23 04:30 09/17/23 04:00 40 09/17/23 03:30 40 09/17/23 03:25 40 09/17/23 03:19 09/16/23 20:20 09/16/23 20:15 09/16/23 20:00 09/16/23 19:58 09/16/23 18:54 09/16/23 17:27 09/16/23 15:15 Intake and Output 09/16/23 09/17/23 09/17/23 22:59 06:59 14:59 Intake Total 3038.091 112.333 Output Total 237 0 Balance 2801.091 112.333 Intake: IV 2500 100 Dextrose 5% in Water 1, 200 100 000 ml @ 100 mls/hr IV . [id number] [facility] with Sodium Bicarb (1 Meq/ml) 150 ml Rx#:[id number] Magnesium Sulfate-D5w Pmx 100 1 gm In Dextrose/Water 1 100ml.bag @ 100 mls/hr IVPB Q1H [facility] Rx#: [id number] Potassium Chloride 10 meq 100 In Water For Injection 1 100ml.bag @ 100 mls/hr IVPB Q1HR [facility] Rx#: [id number] Sodium Chloride 0.9% 1, 2000 000 ml @ 999 mls/hr IV . Q1H1M ONE Rx#:[id number] cefTRIAXone 2 gm In 100 Sodium Chloride 0.9% 50 ml @ 100 mls/hr IVPB Q24H [facility] Rx#:[id number] Intake, IV Titration 58.091 12.333 Amount Diltiazem 125 mg In 46.708 Sodium Chloride 0.9% 100 ml @ 10 MG/HR 10 mls/hr IV .[id number] [facility] Rx#: [id number] Insulin Regular 100 unit 11.383 12.333 In Sodium Chloride 0.9% 100 ml @ Titrate IV .Q0M [facility] Rx#:[id number] Oral 480 Output: Urine 237 0 Other: Voiding Method Indwelling Catheter Weight 79.379 kg ABP, PAP, CO, CI - Last 8 Hours Arterial Blood Pressure 94/46 Results 09/17/23 03:43 09/17/23 03:43 Cardiac Enzymes 09/16/23 09/17/23 Range/Units 16:10 03:43 AST 24 (14-36) U/L Troponin I 0.029 (0.000-0.034) ng/mL Coagulation 09/16/23 Range/Units 16:10 PT 10.5 (10.0-12.5) sec APTT 29.2 (22.0-30.0) sec CBC 09/16/23 09/17/23 Range/Units 16:10 03:43 WBC 10.9 H 3.3 L (3.8-10.6) k/uL RBC 5.37 5.37 (3.80-5.40) m/uL Hgb 16.6 H 16.0 (11.4-16.0) gm/dL Hct 47.8 H 49.7 H (34.0-46.0) % Plt Count 179 194 (150-450) k/uL Comprehensive Metabolic Panel 09/16/23 09/17/23 Range/Units 16:10 03:43 Sodium 133 L 134 L (137-145) mmol/L Potassium 3.9 3.1 L (3.5-5.1) mmol/L Chloride 102 103 (98-107) mmol/L Carbon Dioxide 17 L 15 L (22-30) mmol/L BUN 17 30 H (7-17) mg/dL Creatinine 0.54 1.52 H (0.52-1.04) mg/dL Glucose 326 H 389 H (74-99) mg/dL Calcium 9.4 8.8 (8.4-10.2) mg/dL AST 24 (14-36) U/L ALT 24 (4-34) U/L Alkaline Phosphatase 90 (38-126) U/L Total Protein 7.3 (6.3-8.2) g/dL Albumin 3.6 (3.5-5.0) g/dL Current Medications Generic Name Dose Route Start Last Admin Trade Name Freq PRN Reason Stop Dose Admin Acetaminophen 650 mg 09/16/23 17:31 09/17/23 00:52 Acetaminophen Tab 325 Mg Tab PO 650 mg Q6HR PRN Administration Mild Pain or Fever > 100.5 Albuterol/Ipratropium 3 ml 09/16/23 19:38 09/16/23 20:13 Ipratropium-Albuterol 3 Ml Neb INHALATION 3 ml RT-TID PRN Administration Shortness Of Breath Or Wheezing Chlorhexidine Gluconate 15 ml 09/17/23 09:00 Chlorhexidine Gluconate 15 Ml Cup MUCOUS MEM BID [facility] Dextrose/Water 25 ml 09/17/23 03:33 Dextrose 50% Syringe 50 Ml IVP PER PROTOCOL PRN Hypoglycemia Protocol Dextrose/Water 50 ml 09/17/23 03:33 Dextrose 50% Syringe 50 Ml IVP PER PROTOCOL PRN Hypoglycemia Protocol Heparin Sodium (Porcine) 0 unit 09/17/23 01:48 Heparin Sodium 1,000 Un/Ml (10ml Vl) IV PER PROTOCOL PRN Low PTT Protocol Sodium Chloride 1,000 mls @ 20 mls/hr 09/16/23 17:45 09/16/23 21:47 Saline 0.9% IV Not Given .Q24H [facility] Azithromycin 500 mg/ Sodium 250 mls @ 250 mls/hr 09/17/23 02:00 09/17/23 01:59 Chloride IVPB 09/19/23 02:59 250 mls/hr Q24H [facility] Administration Protocol Ceftriaxone Sodium 2 gm/ 50 mls @ 100 mls/hr 09/17/23 02:00 09/17/23 03:51 Sodium Chloride IVPB 100 mls/hr Q24H [facility] Administration Protocol Diltiazem HCl 125 mg/ Sodium 125 mls @ 10 mls/hr 09/17/23 02:00 09/17/23 06:20 Chloride IV 0 mg/hr .[id number] [facility] 0 mls/hr Infusion 10 MG/HR Heparin Sodium/Sodium Chloride 250 mls @ 9.525 mls/hr 09/17/23 02:00 09/17/23 02:03 25,000 unit/ Sodium Chloride IV 12 units/kg/hr .Q24H [facility] 9.525 mls/hr Administration Protocol 12 UNITS/KG/HR Insulin Human Regular 100 unit 100 mls @ 0 mls/hr 09/17/23 04:00 09/17/23 07:13 / Sodium Chloride IV 12 units/hr .Q0M [facility] 12 mls/hr Titration Protocol Titrate Amiodarone HCl 360 mg/ 200 mls @ 33.333 mls/hr 09/17/23 04:45 09/17/23 04:42 Dextrose/Water IV 09/17/23 10:44 1 mg/min .Q6H [facility] 33.333 mls/hr Administration Protocol 1 MG/MIN Amiodarone HCl 450 mg/ 250 mls @ 16.667 mls/hr 09/17/23 11:00 Dextrose/Water IV 09/18/23 04:59 .Q15H [facility] Protocol 0.5 MG/MIN Sodium Bicarbonate 150 ml/ 1,150 mls @ 100 mls/hr 09/17/23 05:00 09/17/23 05:08 Dextrose/Water IV 100 mls/hr .[id number] [facility] Administration Potassium Chloride 10 meq/ IV 100 mls @ 100 mls/hr 09/17/23 05:00 09/17/23 06:02 Solution IVPB 09/17/23 08:59 100 mls/hr Q1HR [facility] Administration Protocol Magnesium Sulfate/Dextrose 1 100 mls @ 100 mls/hr 09/17/23 04:45 09/17/23 06:02 gm/ IV Solution IVPB 09/17/23 08:44 100 mls/hr Q1H [facility] Administration Protocol Propofol 1,000 mg/ IV Solution 100 mls @ 7.144 mls/hr 09/17/23 06:15 09/17/23 06:43 IV 15 mcg/kg/min .Q14H [facility] 7.144 mls/hr Administration Protocol 15 MCG/KG/MIN Norepinephrine Bitartrate 4 mg 254 mls @ 9.073 mls/hr 09/17/23 06:30 09/17/23 06:40 / Sodium Chloride IV 0.03 mcg/kg/min .Q24H [facility] 9.073 mls/hr Administration Protocol 0.03 MCG/KG/MIN Insulin Aspart 0 unit 09/16/23 21:00 09/16/23 22:33 Insulin Aspart (Novolog) 100 Unit/Ml Vial SQ 10 unit ACHS [facility] Administration Protocol Miscellaneous Information 1 each 09/17/23 04:34 Potassium Replacement Protocol 1 Each Misc MISCELLANE DAILY PRN Per Protocol Protocol Miscellaneous Information 1 each 09/17/23 04:34 Magnesium Replacement Protocol 1 Each Misc MISCELLANE DAILY PRN Per Protocol Protocol Naloxone HCl 0.2 mg 09/16/23 17:31 Naloxone 0.4 Mg/Ml 1 Ml Vial IV Q2M PRN Opioid Reversal Oseltamivir Phosphate 75 mg 09/16/23 21:00 09/16/23 22:33 Oseltamivir 75 Mg Cap PO 09/21/23 09:01 75 mg Q12HR [facility] Administration Protocol Intake and Output 09/16/23 09/17/23 09/17/23 22:59 06:59 14:59 Intake Total 3038.091 112.333 Output Total 237 0 Balance 2801.091 112.333 Intake: IV 2500 100 Dextrose 5% in Water 1, 200 100 000 ml @ 100 mls/hr IV . [id number] [facility] with Sodium Bicarb (1 Meq/ml) 150 ml Rx#:[id number] Magnesium Sulfate-D5w Pmx 100 1 gm In Dextrose/Water 1 100ml.bag @ 100 mls/hr IVPB Q1H [facility] Rx#: [id number] Potassium Chloride 10 meq 100 In Water For Injection 1 100ml.bag @ 100 mls/hr IVPB Q1HR [facility] Rx#: [id number] Sodium Chloride 0.9% 1, 2000 000 ml @ 999 mls/hr IV . Q1H1M [facility] Rx#:[id number] cefTRIAXone 2 gm In 100 Sodium Chloride 0.9% 50 ml @ 100 mls/hr IVPB Q24H [facility] Rx#:[id number] Intake, IV Titration 58.091 12.333 Amount Diltiazem 125 mg In 46.708 Sodium Chloride 0.9% 100 ml @ 10 MG/HR 10 mls/hr IV .[id number] [facility] Rx#: [id number] Insulin Regular 100 unit 11.383 12.333 In Sodium Chloride 0.9% 100 ml @ Titrate IV .Q0M [facility] Rx#:[id number] Oral 480 Output: Urine 237 0 Other: Voiding Method Indwelling Catheter Weight 79.379 kg 09/17/23 03:43 09/17/23 03:43
--- NOTE | 2023-09-17 07:38 | XR ---
EXAMINATION TYPE: XR chest 1V portable DATE OF EXAM: 09/17/2023 7:22 AM CLINICAL INDICATION:Female, 63 years old with history of Tube placement; COMPARISON: Chest radiograph from one day prior. TECHNIQUE: XR chest 1V portable Frontal view of the chest. FINDINGS: Lungs/Pleura: Left airspace opacities. No evidence of pneumothorax or pleural effusion. Pulmonary vascularity: Unremarkable. Heart/mediastinum: Cardiomediastinal silhouette is unremarkable. Musculoskeletal: No acute osseous pathology. Other findings: None Lines/Tubes: Endotracheal tube with distal tip 5.3 cm above the becca. Nasogastric tube with its distal tip and side-port projecting under the diaphragm. IMPRESSION: 1. Left airspace opacities concerning for pneumonia. 2. Stable support tubes.
[2023-09-17 07:49] LABS: ABG Base Excess -2.3 mmol/L; ABG HCO3 25 mmol/L (21-25); ABG PCO2 56 mmHg (35-45); ABG PH 7.26 (7.35-7.45); ABG PO2 >400 mmHg (83-108); ABG TCO2 27 mmol/L (19-24); Allen Test Performed? Yes
--- NOTE | 2023-09-17 07:49 | XR ---
EXAMINATION TYPE: XR chest 1V DATE OF EXAM: 09/17/2023 5:21 AM CLINICAL INDICATION:Female, 63 years old with history of SOB; [facility] COMPARISON: Chest radiograph from one day prior. TECHNIQUE: XR chest 1V Frontal view of the chest. FINDINGS: Lungs/Pleura: Masslike consolidation left midlung. There is no evidence of pleural effusion, focal co nsolidation, or pneumothorax. Pulmonary vascularity: Unremarkable. Heart/mediastinum: Cardiomediastinal silhouette is unremarkable. Musculoskeletal: No acute osseous pathology. IMPRESSION: Masslike consolidation left midlung. This is worsened from prior.
[2023-09-17 07:59] LABS: Glucose,Whole Blood 246 mg/dL (70-110)
--- NOTE | 2023-09-17 08:28 | P.CNPUL ---
History of Present Illness Consult date: 09/17/23 Reason for consult: dyspnea History of present illness: 63-year-old female patient currently intubated on mechanical ventilator due to extensive left lung pneumonia. The patient is known to have coronary artery disease with previous coronary stenting x 3 involving the LAD in addition to history of congestive heart failure/ischemic cardiomyopathy, breast cancer, hypertension hyperlipidemia and she is a chronic smoker. The patient started ge tting sick sometime last week and she was having cough and congestion and fever with a temperature of 102 along with myalgias without any emesis. She came into the hospital and she tested positive for influenza A and within 12 hours she decompensated and the patient was brought into the intensive care unit with hypoxic respiratory failure. She was briefly placed placed on the BiPAP and she failed BiPAP therapy. Subsequently, the patient was intubated and placed on the mechanical ventilator. During the course, the patient also developed A-fib with RVR. At this point in time, the patient is in septic shock, hypotensive, intubated on mechanical ventilator. Her ventilator setting including assist- control mode with rate of 20, tidal volume of 400, FiO2 of 60% and a PEEP of 5. Preintubation blood gas shows 0.13 with a pCO2 of 55 and FiO2 of 40% with a pO2 of 101. This was done on the BiPAP. The patient's chest x-ray showed an extensive left lung consolidation that developed. ET tube is in a good location post intubation. Patient was given IV Eliquis patient received a total of 2 L 2 L of normal saline and currently she is on pressors with norepinephrine running at 0.13 mcg/kg/min. Her mean arterial pressures of 57. She is also in A-fib RVR, amiodarone drip is running at 1 mg/min and the patient is also on IV heparin. She is on propofol running at 3035 mcg/kg/min and IV fluids are in the order of bicarb infusion at rate of 100 cc an hour. White cell count is at 3.3 with a hemoglobin of 16 and a platelet count of 194. The BUN is at 30 with a creatinine of 1.5 and a serum bicarb is at 15 with a sodium level of 134 and a potassium level of 3.1. The troponins were negative. The rest of the viral panel is also negative with exception of influenza a. She was started on Tamiflu. She is on a combination of Rocephin and Zithromax. The patient is also on insulin drip at 13 units an hour for blood sugar control. Review of Systems ROS unobtainable: due to endotracheal tube Past Medical History Past Medical History: Coronary Artery Disease (CAD), Cancer, Heart Failure, Diabetes Mellitus, Hypertension, Myocardial Infarction ([place]), Osteoarthritis (OA), Skin Disorder, Thyroid Disorder Additional Past Medical History / Comment(s): L breast cancer with lumpectomy and radiation, IDDM type II, psoriasis, arthritis in neck, hypothyroid, sinus problems, past elevated LFT but pt was told not to worry about that. Last Myocardial Infarction Date:: 12/23/17 History of Any Multi-Drug Resistant Organisms: MRSA Date of last positivie culture/infection: 2012; MDRO Source:: groin Past Surgical History: Heart Catheterization With Stent Additional Past Surgical History / Comment(s): lumpectomy left breast with lymph nodes removed, bladder suspension 20 years ago, colonoscopy Past Anesthesia/Blood Transfusion Reactions: No Reported Reaction Date of Last Stent Placement:: 12/23/17 Past Psychological History: No Psychological Hx Reported Additional Psychological History / Comment(s): Pt has clausterphobia. Pt res ides with her spouse. She is independent. Smoking Status: Never smoker Past Alcohol Use History: None Reported Additional Past Alcohol Use History / Comment(s): Pt started smoking in 1974 and quit in 11/2017 Past Drug Use History: None Reported - Past Family History Father Family Medical History: Cancer, Diabetes Mellitus, Hypertension Additional Family Medical History / Comment(s): Father of lymphoma at the age of 54yrs. Mother Additional Family Medical History / Comment(s): Mother has heart problems and is almost 80yrs old Medications and Allergies Home Medications Medication Instructions Recorded Confirmed Type Aspirin 81 mg PO DAILY #30 chew 12/26/17 09/16/23 Rx Anastrozole [Arimidex] 1 mg PO DAILY 10/13/18 09/16/23 History Clopidogrel [Plavix] 75 mg PO DAILY 30 Days #30 tab 01/11/21 09/16/23 Rx Losartan [Cozaar] 50 mg PO HS 30 Days #30 tab 01/11/21 09/16/23 Rx Spironolactone [Aldactone] 25 mg PO DAILY 30 Days #30 tab 01/12/21 09/16/23 Rx Fluocinolone 0.01% Oil 1 applic TOPICAL DIRECTED 09/16/23 09/16/23 History Insulin NPH Hum/Reg Insulin Hm 45 unit SQ DAILY 09/16/23 09/16/23 History [NovoLIN 70-30 100 Unit/ml Vial] Levothyroxine Sodium [Synthroid] 150 mcg PO DAILY 09/16/23 09/16/23 History Metoprolol Succinate (ER) [Toprol 75 mg PO BID 09/16/23 09/16/23 History Xl] Rosuvastatin [Crestor] 20 mg PO HS 09/16/23 09/16/23 History Venlafaxine HCl [Effexor XR] 150 mg PO DAILY 09/16/23 09/16/23 History Allergies Allergy/AdvReac Type Severity Reaction Status Date / Time Sulfa (Sulfonamide Allergy Unknown Verified 09/16/23 18:02 Antibiotics) Physical Exam Vitals: Vital Signs Temp Pulse Pulse Resp BP BP Pulse Ox 09/17/23 07:53 09/17/23 07:00 103 H 32 H 99 09/17/23 06:45 112 H 31 H 91/53 96 09/17/23 06:30 99 19 64/47 100 09/17/23 06:15 99 27 H 76/58 09/17/23 06:00 116 H 22 85/52 09/17/23 05:45 112 H 31 H 82/51 09/17/23 05:30 111 H 23 82/51 09/17/23 05:00 109 H 25 H 83/53 97 09/17/23 04:30 126 H 23 80/68 09/17/23 04:00 146 H 25 H 85/59 97 09/17/23 03:30 98.7 F 158 H 28 H 119/54 96 09/17/23 03:25 09/17/23 03:19 151 H 31 H 09/16/23 20:20 104 H 09/16/23 20:15 100 09/16/23 20:00 108 H 09/16/23 19:58 98.1 F 108 H 20 141/65 97 09/16/23 18:54 99 F 109 H 20 134/65 97 09/16/23 17:27 99.1 F 117 H 20 126/65 97 09/16/23 15:15 100.3 F H 128 H 18 146/83 90 L FiO2 09/17/23 07:53 60 09/17/23 07:00 100 09/17/23 06:45 100 09/17/23 06:30 40 09/17/23 06:15 100 09/17/23 06:00 09/17/23 05:45 09/17/23 05:30 09/17/23 05:00 40 09/17/23 04:30 09/17/23 04:00 40 09/17/23 03:30 40 09/17/23 03:25 40 09/17/23 03:19 09/16/23 20:20 09/16/23 20:15 09/16/23 20:00 09/16/23 19:58 09/16/23 18:54 09/16/23 17:27 09/16/23 15:15 Intake and Output 09/16/23 09/17/23 09/17/23 22:59 06:59 14:59 Intake Total 3038.091 112.333 Output Total 237 0 Balance 2801.091 112.333 Intake: IV 2500 100 Dextrose 5% in Water 1, 200 100 000 ml @ 100 mls/hr IV . [id number] LAURE with Sodium Bicarb (1 Meq/ml) 150 ml Rx#:[id number] Magnesium Sulfate-D5w Pmx 100 1 gm In Dextrose/Water 1 100ml.bag @ 100 mls/hr IVPB Q1H LAURE Rx#: [id number] Potassium Chloride 10 meq 100 In Water For Injection 1 100ml.bag @ 100 mls/hr IVPB Q1HR LAURE Rx#: [id number] Sodium Chloride 0.9% 1, 2000 000 ml @ 999 mls/hr IV . Q1H1M ONE Rx#:[id number] cefTRIAXone 2 gm In 100 Sodium Chloride 0.9% 50 ml @ 100 mls/hr IVPB Q24H LAURE Rx#:[id number] Intake, IV Titration 58.091 12.333 Amount Diltiazem 125 mg In 46.708 Sodium Chloride 0.9% 100 ml @ 10 MG/HR 10 mls/hr IV .[id number] LAURE Rx#: [id number] Insulin Regular 100 unit 11.383 12.333 In Sodium Chloride 0.9% 100 ml @ Titrate IV .Q0M LAURE Rx#:[id number] Oral 480 Output: Urine 237 0 Other: Voiding Method Indwelling Catheter Weight 79.379 kg ABP, PAP, CO, CI - Last 8 Hours Arterial Blood Pressure 94/46 GENERAL EXAM: Patient is Sedated, intubated on mechanical ventilator on assist control mode mechanical ventilation. The patient has an orogastric and orotracheal tube are both in place. HEAD: Normocephalic and atraumatic EYES: Normal reaction of pupils, equal size. NOSE: Clear with pink turbinates. THROAT: No erythema or exudates. NECK: No masses, no JVD. CHEST: No chest wall deformity. LUNGS: Equal air entry with diffuse rhonchi. Diffuse rhonchi heard throughout the lung irizarry bilaterally CVS: S1 and S2 normal with no audible murmur, irregular rhythm. No extra heart sounds. ABDOMEN: No hepatosplenomegaly, active bowel sounds, no guarding or rigidity. SPINE: No scoliosis or deformity SKIN: Diffuse erythema and plaquing on all 4 extremities, the patient has psoriatic patches throughout her body more so in the lower extremities bilaterally. CENTRAL NERVOUS SYSTEM: No focal deficits, tone is normal in all 4 extremities. The patient is currently sedated on propofol EXTREMITIES: There is no peripheral edema, clubbing, or cyanosis. Peripheral pulses are intact. Results - Laboratory Findings CBC and BMP: 09/17/23 03:43 09/17/23 03:43 ABG ABG pH 7.13 (7.35-7.45) L* 09/17/23 06:01 ABG pCO2 55 mmHg (35-45) H 09/17/23 06:01 ABG pO2 101 mmHg (83-108) 09/17/23 06:01 ABG O2 Saturation 95.7 % (94-97) 09/17/23 06:01 PT/INR, D-dimer PT 10.5 sec (10.0-12.5) 09/16/23 16:10 INR 1.0 (<1.2) 09/16/23 16:10 Abnormal lab findings: Abnormal Labs 09/16/23 09/16/23 09/16/23 16:00 16:10 16:10 WBC 10.9 H Hgb 16.6 H Hct 47.8 H Neutrophils # 9.0 H Metamyelocytes # (Man) ABG pH ABG pCO2 ABG HCO3 Sodium 133 L Potassium Carbon Dioxide 17 L BUN Creatinine Glucose 326 H POC Glucose (mg/dL) Plasma Lactic Acid Tyson Magnesium Troponin I Procalcitonin Urine Appearance Ur Specific [place] Urine Protein Urine Glucose (UA) Urine Ketones Urine Blood Urine Bacteria Hyaline Casts Urine Mucus Influenza Type A (PCR) Detected A 09/16/23 09/16/23 09/16/23 16:10 19:00 20:09 WBC Hgb Hct Neutrophils # Metamyelocytes # (Man) ABG pH ABG pCO2 ABG HCO3 Sodium Potassium Carbon Dioxide BUN Creatinine Glucose POC Glucose (mg/dL) 396 H Plasma Lactic Acid Tyson Magnesium Troponin I Procalcitonin 5.65 H Urine Appearance Cloudy H Ur Specific [place] 1.036 H Urine Protein 2+ H Urine Glucose (UA) 4+ H Urine Ketones 1+ H Urine Blood Small H Urine Bacteria Rare H Hyaline Casts 6 H Urine Mucus Rare H Influenza Type A (PCR) 09/17/23 09/17/23 09/17/23 01:21 02:32 02:56 WBC Hgb Hct Neutrophils # Metamyelocytes # (Man) ABG pH ABG pCO2 ABG HCO3 Sodium Potassium Carbon Dioxide BUN Creatinine Glucose POC Glucose (mg/dL) 426 H 403 H 471 H Plasma Lactic Acid Tyson Magnesium Troponin I Procalcitonin Urine Appearance Ur Specific [place] Urine Protein Urine Glucose (UA) Urine Ketones Urine Blood Urine Bacteria Hyaline Casts Urine Mucus Influenza Type A (PCR) 09/17/23 09/17/23 09/17/23 03:00 03:17 03:43 WBC 3.3 L Hgb Hct 49.7 H Neutrophils # Metamyelocytes # (Man) 0.53 H ABG pH 7.21 L ABG pCO2 48 H ABG HCO3 19 L Sodium Potassium Carbon Dioxide BUN Creatinine Glucose POC Glucose (mg/dL) 420 H Plasma Lactic Acid Tyson Magnesium Troponin I Procalcitonin Urine Appearance Ur Specific [place] Urine Protein Urine Glucose (UA) Urine Ketones Urine Blood Urine Bacteria Hyaline Casts Urine Mucus Influenza Type A (PCR) 09/17/23 09/17/23 09/17/23 03:43 03:43 05:02 WBC Hgb Hct Neutrophils # Metamyelocytes # (Man) ABG pH ABG pCO2 ABG HCO3 Sodium 134 L Potassium 3.1 L Carbon Dioxide 15 L BUN 30 H Creatinine 1.52 H Glucose 389 H POC Glucose (mg/dL) 339 H Plasma Lactic Acid Tyson 6.5 H* Magnesium 1.3 L Troponin I Procalcitonin Urine Appearance Ur Specific [place] Urine Protein Urine Glucose (UA) Urine Ketones Urine Blood Urine Bacteria Hyaline Casts Urine Mucus Influenza Type A (PCR) 09/17/23 09/17/23 09/17/23 05:52 06:01 07:06 WBC Hgb Hct Neutrophils # Metamyelocytes # (Man) ABG pH 7.13 L* ABG pCO2 55 H ABG HCO3 19 L Sodium Potassium Carbon Dioxide BUN Creatinine Glucose POC Glucose (mg/dL) 311 H 264 H Plasma Lactic Acid Tyson Magnesium Troponin I Procalcitonin Urine Appearance Ur Specific [place] Urine Protein Urine Glucose (UA) Urine Ketones Urine Blood Urine Bacteria Hyaline Casts Urine Mucus Influenza Type A (PCR) 09/17/23 09/17/23 09/17/23 07:25 07:25 07:57 WBC Hgb Hct Neutrophils # Metamyelocytes # (Man) ABG pH ABG pCO2 ABG HCO3 Sodium Potassium Carbon Dioxide BUN Creatinine Glucose POC Glucose (mg/dL) 246 H Plasma Lactic Acid Tyson 5.0 H* Magnesium Troponin I 0.050 H* Procalcitonin Urine Appearance Ur Specific [place] Urine Protein Urine Glucose (UA) Urine Ketones Urine Blood Urine Bacteria Hyaline Casts Urine Mucus Influenza Type A (PCR) - Diagnostic Findings Chest x-ray: image reviewed Assessment and Plan Plan: Acute hypoxic respiratory failure, secondary to an extensive left lung pneumonia. The patient has developed dense consolidation of the left lower lobe highly suggestive of bacterial pneumonia with an underlying influenza A infection. Currently intubated on mechanical ventilator. Acute hypercapnic respiratory failure secondary to above, currently intubated on mechanical ventilator Acute influenza A infection Acute hypotension secondary to septic shock, currently on pressors New onset A-fib with RVR currently on amiodarone drip running at 1 mg/min. Cardizem drip has been discontinued and the patient is currently on IV heparin Acute kidney injury Continue propofol for sedation Anion gap metabolic acidosis Coronary artery disease with previous PCI involving the LAD and stenting. History of CHF, impaired LV function with systolic heart failure Hypertension history of Hyperlipidemia history of Diabetes mellitus insulin-dependent History of smoking Psoriasis Hypothyroidism History of breast cancer Plan Continue ventilator support and increased respiratory rate up to 28 and FiO2 will be gradually weaned down to maintain saturation above 90% The patient will be given a total of 3 L of fluid bolus and continue with the bicarb infusion for now Check lactic acid level Check procalcitonin level Propofol for sedation Continue pressors and titrate for mean arterial pressure above 60 Vasopressin if needed Will assess a triple-lumen catheter Monitor renal function Obtain ultrasound of the kidneys Obtain echocardiogram Will proceed with a bronchoscopy and obtain a lavage of the left lower lobe Antibiotic coverage will include a combination of Rocephin and Zithromax and v ancomycin Continue Tamiflu IV heparin IV insulin for blood sugar control Patient n.p.o. for now Condition is critical and will continue to follow make further recommendation based on his progress. Time with Patient: Greater than 30
[2023-09-17] MEDS: CISATRACURIUM 2 MG/ML 5 ML VIAL IV ONE (08:31)
[2023-09-17] MEDS ORDERED: VANCOMYCIN IV PER PHARMACY 1 EACH MISC MISCELLANE PRN (08:40)
[2023-09-17 09:08] LABS: Glucose,Whole Blood 201 mg/dL (70-110)
--- NOTE | 2023-09-17 09:50 | XR ---
EXAMINATION TYPE: XR chest 1V confirm line plcmt DATE OF EXAM: 09/17/2023 9:25 AM CLINICAL INDICATION:Female, 63 years old with history of line placement; [facility] COMPARISON: Chest radiographs same day TECHNIQUE: XR chest 1V confirm line plcmt Frontal view of the chest. FINDINGS: Lungs/Pleura: Left midlung airspace consolidation There is no evidence of pleural effusion, right foc al consolidation, or pneumothorax. Pulmonary vascularity: Unremarkable. Heart/mediastinum: Cardiomediastinal silhouette is unremarkable. Musculoskeletal: No acute osseous pathology. Left central venous catheter with tip in the superior vena cava. Endotracheal tube 3. Exam as well as clear. Nasogastric tube in appropriate position with tip terminating below the diaphragm. IMPRESSION: 1. Support line and tubes in appropriate position. 2. Left midlung airspace consolidation.
[2023-09-17] MEDS: HEPARIN SODIUM 1,000 UN/ML (10ML VL) IV PRN (09:58)
[2023-09-17] MEDS: VANCOMYCIN 1,500 MG in SODIUM CHLORIDE 0.9% 500 ML 500 ML IVPB ONE (10:00)
[2023-09-17 10:18] LABS: Glucose,Whole Blood 186 mg/dL (70-110)
[2023-09-17] MEDS: CHLORHEXIDINE GLUCONATE 15 ML CUP MUCOUS MEM SCH (10:28)
[2023-09-17] MEDS: AMIODARONE 450 MG in DEXTROSE 5% IN WATER 250 ML IV SCH (10:33)
--- NOTE | 2023-09-17 10:38 | CA ---
Transthoracic Echo Report Name: Deandra Rodas Age: 63 Gender: F : 1960 Exam Date: 09/17/2023 07:42 Exam Location: [facility] Ht (in): 67 Wt (lb): 175 Ordering Physician: Dawood Mendes Attending/Referring Phys: Wet Cotton Feeder Lila Sinha RDCS Procedure CPT: Indications: evaluate LV function Cardiac Hx: Technical Quality: Fair Contrast 1: Definity Total Dose (mL): 2 Contrast 2: Total Dose (mL): MEASUREMENTS (Male / Female) Normal Values 2D ECHO LV Diastolic Diameter PLAX 4.4 cm 4.2 - 5.9 / 3.9 - 5.3 cm LV Systolic Diameter PLAX 1.6 cm IVS Diastolic Thickness 1.3 cm 0.6 - 1.0 / 0.6 - 0.9 cm LVPW Diastolic Thickness 1.6 cm 0.6 - 1.0 / 0.6 - 0.9 cm LV Relative Wall Thickness 0.7 RV Internal Dim ED PLAX 2.2 cm LA Volume 29.1 cm??? 18 - 58 / 22 - 52 cm??? LA Volume Index 14.9 cm???/m??? 16 - 28 cm???/m??? M-MODE Aortic Root Diameter MM 3.3 cm LA Systolic Diameter MM 3.6 cm LA Ao Ratio MM 1.1 AV Cusp Separation MM 1.5 cm DOPPLER AV Peak Velocity 173.3 cm/s AV Peak Gradient 12.0 mmHg AV Mean Velocity 136.1 cm/s AV Mean Gradient 7.9 mmHg AV Velocity Time Integral 23.3 cm LVOT Peak Velocity 109.0 cm/s LVOT Peak Gradient 4.8 mmHg LVOT Velocity Time Integral 14.3 cm MV Area PHT 6.4 cm??? Mitral E Point Velocity 104.1 cm/s Mitral A Point Velocity 0.4 cm/s Mitral E to A Ratio 231.6 MV Deceleration Time 118.5 ms MV E' Velocity 7.0 cm/s Mitral E to MV E' Ratio 14.8 TR Peak Velocity 231.8 cm/s TR Peak Gradient 21.5 mmHg Right Ventricular Systolic Press 25.8 mmHg FINDINGS Left Ventricle Moderately increased left ventricular wall thickness. Reduced global left ventricular systolic function. Tyrone akinetic. Left ventricular apical thrombus. Left ventricular ejection fraction is estimated at 20-25 %. Right Ventricle Normal right ventricular size and function. Right ventricular systolic pressure within normal limits. Right Atrium Normal right atrial size. Left Atrium Normal left atrial size. Mitral Valve Structurally normal mitral valve. Mild mitral annular calcification. Mild mitral regurgitation. Aortic Valve No aortic valve stenosis or regurgitation. Tricuspid Valve Structurally normal tricuspid valve. Mild tricuspid regurgitation. Pulmonic Valve Structurally normal pulmonic valve. Pericardium No pericardial effusion. Aorta Normal size aortic root and proximal ascending aorta. CONCLUSIONS LV apical thrombus present Apical and periapical akinesis Globally reduced EF 20-25% Mild mitral regurgitation No pericardial effusion Previewed by: Dr Heron Kearney (Electronically Signed) Final Date: 17 September 2023 10:37
[2023-09-17 11:09] LABS: Glucose,Whole Blood 162 mg/dL (70-110)
[2023-09-17 12:10] LABS: Glucose,Whole Blood 182 mg/dL (70-110)
[2023-09-17 13:12] LABS: Glucose,Whole Blood 138 mg/dL (70-110)
--- NOTE | 2023-09-17 14:02 | US ---
EXAMINATION TYPE: US kidneys/renal and bladder DATE OF EXAM: 09/17/2023 COMPARISON: NONE CLINICAL INDICATION: Female, 63 years old with history of elevated creat.; Elevated creat EXAM MEASUREMENTS: Right Kidney: 13.3 x 6.4 x 5.9 cm Left Kidney: 13.0 x 5.7 x 5.9 cm Right Kidney: Enlarged. Left Kidney: Enlarged. Bladder: Not visualized Bilateral Jets seen: No *Incidental finding: Gallbladder appears enlarged measuring 10.7 cm in length. Gallbladder wall appea rs thickened: 0.44 cm. IMPRESSION: 1. No evidence for obstructive uropathy 2. Mild thickening of the gallbladder wall suggested which could be due to incomplete distention cor relate for signs and symptoms of acute cholecystitis tightness.
[2023-09-17 14:10] LABS: Glucose,Whole Blood 169 mg/dL (70-110)
[2023-09-17] MEDS ORDERED: VENLAFAXINE HCL ER 150 MG CAP PO SCH (14:15)
[2023-09-17] MEDS: CLOPIDOGREL 75 MG TAB PO SCH (14:43)
[2023-09-17] MEDS: ASPIRIN 81 MG PO SCH (14:43)
[2023-09-17 15:22] LABS: Glucose,Whole Blood 201 mg/dL (70-110)
[2023-09-17 16:21] LABS: Glucose,Whole Blood 187 mg/dL (70-110)
--- NOTE | 2023-09-17 16:44 | P.PCN ---
Date of Procedure: 09/17/23 Preoperative Diagnosis: Left lung pneumonia Postoperative Diagnosis: Same Procedure(s) Performed: Bronchoscopy and bronchoalveolar lavage of the left lower lobe Insertion of the triple-lumen catheters Anesthesia: JAREKA Surgeon: Lonnie Palacios Estimated Blood Loss (ml): 0 Pathology: other Condition: critical Disposition: ICU Operative Findings: Bronchoscopy and the bronchoalveolar lavage A timeout was done. Consent was obtained by the . The bronchoscopy was done in the intensive care unit as the patient was intubated on mechanical ventilator. The patient was placed on 100% FiO2. The patient was sedated with propofol and the patient was also given a dose of Nimbex 10 mg IV push After achieving adequate paralysis, the flexor bronchoscope was easily passed through the orotracheal tube. The bronchoscope was advanced to the lower t rachea and the distal trachea was within normal limits. Examination of the right side include the right mainstem bronchus, right upper lobe bronchus, bronchus immediately right middle lobe bronchus and right lower lobe bronchus and the various 10 segments on the right. No significant abnormalities was noted on the right. Then the bronchoscope was moved to the left and left mainstem bronchus was filled with some respiratory secretions that were suctioned out without any major difficulties. The secondary becca between the left upper and left lower lobe was inflamed and erythematous and there was some mucosal inflammatory changes. More secretions were noted in the left lower lobe bronchus and the lingular segment of the left upper lobe. The various 8 segments on the left were expected and there was no endobronchial tumors or lesions. The bronchoscope was moved to the left lower lobe and bronchoalveolar lavage was done. A total of 60 cc of saline was infused and 30 cc of purulent material was aspirated without major difficulties. The aspirate was somewhat bloody. No oxygen saturation the patient tolerated procedure well without any hemodynamic instability. Therapeutic airway suctioning was done and the bronchoscope was removed The bronchoalveolar lavage from the left lower lobe will be sent for microbial cultures and analysis The patient will be kept on a combination of Rocephin, Zithromax and vancomycin Central Line Procedure Note Indication: [x_] Hypotension/Sepsis/Need for Pressors [_] Vascular Access [_] Dialysis Access [_] Suspected Central Line Infection [_] Line Malfunction [_] Other: _ Central Line Location: [_] Right or [_x] Left [_] Internal Jugular Vein or [x_] Subclavian Vein or [_] Femoral Vein Consent: [_x ] Consent was obtained from prior to the procedure. Indications, risks and benefits were discussed prior to the procedure. [_] The procedure was performed emergently and the permission was implied because of the emergent nature. PROCEDURE SUMMARY: The [facility] Central Line Insertion Practices form was completed during and immediately following the procedure. A time out was performed. My hands were washed immediately prior to the procedure. I wore a surgical cap, mask with protective eyewear, full gown and sterile gloves throughout the procedure. The patient was placed in Trendelenburg position. The Left chest was prepped using chlorhexidine scrub and draped in sterile fashion using a three quarter sheet drape and sterile towels. Skin preparation was allowed to dry prior to skin puncture. Anatomic landmarks were identified. Anesthesia was achieved over the vein using 1% lidocaine. Using real-time ultrasound, with sterile probe cover and sterile gel, the introducer needle was inserted into the vein under direct ultrasound visualization. Venous blood was withdrawn. The syringe was removed and a guidewire was advanced into the introducer needle. The guidewire was visualized in the appropriate vein by ultrasound. A small incision was made at the skin surface with a scalpel and the introducer needle was exchanged for a dilator over the guidewire. After appropriate dilation was obtained, the dilator was exchanged over the wire for an antimicrobial coated central venous catheter. The wire was removed and the catheter was sutured in place . A biopatch was placed at the insertion site. A sterile op-site was placed over the catheter and biopatch. The patient tolerated the procedure without any hemodynamic compromise. At time of procedure completion, all ports aspirated and flushed properly. Post-procedure chest x-ray : [_] Is pending at this time. [_x ] Shows adequate positioning of the catheter for use.
[2023-09-17 17:01] LABS: Appearance,BF Grossly Bloody (Clear); RBC, Body Fluid 9600 /UL (0-2000)
[2023-09-17 17:24] LABS: Glucose,Whole Blood 238 mg/dL (70-110)
[2023-09-17 18:11] LABS: Glucose,Whole Blood 225 mg/dL (70-110)
[2023-09-17] MEDS: POTASSIUM BICARBONATE/CIT AC 20 MEQ TABLET.EFF NG-TUBE SCH (18:49)
[2023-09-17 19:10] LABS: Glucose,Whole Blood 236 mg/dL (70-110)
[2023-09-17] MEDS: VASOPRESSIN 20 UNIT in SODIUM CHLORIDE 0.9% 50 ML IV SCH (19:47)
[2023-09-17 20:04] LABS: Glucose,Whole Blood 171 mg/dL (70-110)
[2023-09-17] MEDS: ALBUMIN HUMAN 5% 500 ML in EMPTY BAG 1 BAG IVPB STA (20:06)
[2023-09-17] MEDS: ATORVASTATIN 40 MG TAB PO SCH (20:17)
[2023-09-17] MEDS: NOREPINEPHRINE 32 MG in SODIUM CHLORIDE 0.9% 218 ML IV SCH (20:30)
[2023-09-17] MEDS: OSELTAMIVIR 30 MG CAP PO SCH (20:48)
[2023-09-17 21:14] LABS: Glucose,Whole Blood 168 mg/dL (70-110)
[2023-09-17 22:06] LABS: Glucose,Whole Blood 173 mg/dL (70-110)
--- NOTE | 2023-09-17 23:20 | P.HPIM ---
History of Present Illness H&P Date: 09/17/23 Chief Complaint: Shortness of breath Patient is a 63-year-old female with a known history of coronary artery disease status post stent placement, chronic CHF, hypertension, diabetes type 2, history of left breast cancer due to lumpectomy and radiation, hypothyroidism and ost eoarthritis and prior history of smoking, quit in 2018 presents to ER with complaints of shortness of breath, cough, congestion and generalized weakness since last week. She was also complaining of nasal congestion and sore throat. Cough is mainly nonproductive. Patient's was treated for bronchitis recently. On admission patient was Febrile with Tmax 100.3 and tachycardic and tachypneic admission on admission. She was requiring 4 L oxygen via nasal cannula. Laboratory data showed WBC 10.9 hemoglobin 16.6 and platelets 179, sodium 133 potassium 3.9 chloride 102 bicarb is 17, BUN 17 and creatinine 0.54 and blood sugar 326 procalcitonin level was 5.65 Urinalysis showed cloudy with increased physical gravity and 2+ protein and 4+ glucose and 1+ ketones and negative for leukocyte esterase. Patient is tested positive for influenza A. Patient decompensated and was sent to ER due to hypoxic respiratory failure. Patient was placed on BiPAP initially and is eventually intubated and currently on mechanical ventilator. Chest x-ray showed findings most consistent with a left-sided acute focal pneumonia. Review of Systems ROS unobtainable: due to endotracheal tube Past Medical History Past Medical History: Coronary Artery Disease (CAD), Cancer, Heart Failure, Diabetes Mellitus, Hypertension, Myocardial Infarction (CO), Osteoarthritis (OA), Skin Disorder, Thyroid Disorder Additional Past Medical History / Comment(s): L breast cancer with lumpectomy and radiation, IDDM type II, psoriasis, arthritis in neck, hypothyroid, sinus problems, past elevated LFT but pt was told not to worry about that. Last Myocardial Infarction Date:: 12/23/17 History of Any Multi-Drug Resistant Organisms: MRSA Date of last positivie culture/infection: 2012; MDRO Source:: groin Past Surgical History: Heart Catheterization With Stent Additional Past Surgical History / Comment(s): lumpectomy left breast with lymph nodes removed, bladder suspension 20 years ago, colonoscopy Past Anesthesia/Blood Transfusion Reactions: No Reported Reaction Date of Last Stent Placement:: 12/23/17 Past Psychological History: No Psychological Hx Reported Additional Psychological History / Comment(s): Pt has clausterphobia. Pt resides with her spouse. She is independent. Smoking Status: Never smoker Past Alcohol Use History: None Reported Additional Past Alcohol Use History / Comment(s): Pt started smoking in 1974 and quit in 11/2017 Past Drug Use History: None Reported - Past Family History Father Family Medical History: Cancer, Diabetes Mellitus, Hypertension Additional Family Medical History / Comment(s): Father of lymphoma at the age of 54yrs. Mother Additional Family Medical History / Comment(s): Mother has heart problems and is almost 80yrs old Medications and Allergies Home Medications Medication Instructions Recorded Confirmed Type Aspirin 81 mg PO DAILY #30 chew 12/26/17 09/16/23 Rx Anastrozole [Arimidex] 1 mg PO DAILY 10/13/18 09/16/23 History Clopidogrel [Plavix] 75 mg PO DAILY 30 Days #30 tab 01/11/21 09/16/23 Rx Losartan [Cozaar] 50 mg PO HS 30 Days #30 tab 01/11/21 09/16/23 Rx Spironolactone [Aldactone] 25 mg PO DAILY 30 Days #30 tab 01/12/21 09/16/23 Rx Fluocinolone 0.01% Oil 1 applic TOPICAL DIRECTED 09/16/23 09/16/23 History Insulin NPH Hum/Reg Insulin Hm 45 unit SQ DAILY 09/16/23 09/16/23 History [NovoLIN 70-30 100 Unit/ml Vial] Levothyroxine Sodium [Synthroid] 150 mcg PO DAILY 09/16/23 09/16/23 History Metoprolol Succinate (ER) [Toprol 75 mg PO BID 09/16/23 09/16/23 History Xl] Rosuvastatin [Crestor] 20 mg PO HS 09/16/23 09/16/23 History Venlafaxine HCl [Effexor XR] 150 mg PO DAILY 09/16/23 09/16/23 History Allergies Allergy/AdvReac Type Severity Reaction Status Date / Time Sulfa (Sulfonamide Allergy Unknown Verified 09/16/23 18:02 Antibiotics) Physical Exam Vitals: Vital Signs Temp Pulse Pulse Resp BP BP Pulse Ox 09/17/23 10:30 122 H 28 H 97 09/17/23 10:15 115 H 28 H 97 09/17/23 10:00 116 H 28 H 97 09/17/23 09:45 126 H 28 H 97 09/17/23 09:30 122 H 97 09/17/23 09:15 105 H 99 09/17/23 09:00 129 H 27 H 72 L 09/17/23 08:45 134 H 28 H 96 09/17/23 08:30 95 09/17/23 08:15 114 H 31 H 97 09/17/23 08:00 97.9 F 114 H 23 98 09/17/23 07:53 09/17/23 07:45 101 H 24 99 09/17/23 07:30 106 H 24 92 L 09/17/23 07:15 96 21 98 09/17/23 07:00 103 H 32 H 99 09/17/23 06:45 112 H 31 H 91/53 96 09/17/23 06:30 99 19 64/47 100 09/17/23 06:15 99 27 H 76/58 09/17/23 06:00 116 H 22 85/52 09/17/23 05:45 112 H 31 H 82/51 09/17/23 05:30 111 H 23 82/51 09/17/23 05:00 109 H 25 H 83/53 97 09/17/23 04:30 126 H 23 80/68 09/17/23 04:00 146 H 25 H 85/59 97 09/17/23 03:30 98.7 F 158 H 28 H 119/54 96 09/17/23 03:25 09/17/23 03:19 151 H 31 H 09/16/23 20:20 104 H 09/16/23 20:15 100 09/16/23 20:00 108 H 09/16/23 19:58 98.1 F 108 H 20 141/65 97 09/16/23 18:54 99 F 109 H 20 134/65 97 09/16/23 17:27 99.1 F 117 H 20 126/65 97 09/16/23 15:15 100.3 F H 128 H 18 146/83 90 L FiO2 09/17/23 10:30 09/17/23 10:15 09/17/23 10:00 09/17/23 09:45 09/17/23 09:30 09/17/23 09:15 09/17/23 09:00 09/17/23 08:45 09/17/23 08:30 09/17/23 08:15 60 09/17/23 08:00 100 09/17/23 07:53 60 09/17/23 07:45 09/17/23 07:30 09/17/23 07:15 09/17/23 07:00 100 09/17/23 06:45 100 09/17/23 06:30 40 09/17/23 06:15 100 09/17/23 06:00 09/17/23 05:45 09/17/23 05:30 09/17/23 05:00 40 09/17/23 04:30 09/17/23 04:00 40 09/17/23 03:30 40 09/17/23 03:25 40 09/17/23 03:19 09/16/23 20:20 09/16/23 20:15 09/16/23 20:00 09/16/23 19:58 09/16/23 18:54 09/16/23 17:27 09/16/23 15:15 Intake and Output 09/16/23 09/17/23 09/17/23 22:59 06:59 14:59 Intake Total 3038.091 2042.015 Output Total 237 20 Balance 2801.091 2022.015 Intake: IV 2500 1783 Dextrose 5% in Water 1, 200 200 000 ml @ 100 mls/hr IV . [id number] [facility] with Sodium Bicarb (1 Meq/ml) 150 ml Rx#:[id number] Magnesium Sulfate-D5w Pmx 100 1 gm In Dextrose/Water 1 100ml.bag @ 100 mls/hr IVPB Q1H [facility] Rx#: [id number] Potassium Chloride 10 meq 100 In Water For Injection 1 100ml.bag @ 100 mls/hr IVPB Q1HR [facility] Rx#: [id number] Pressure Bag (0.9 sodium 3 chloride) Sodium Chloride 0.9% 1, 80 000 ml @ 20 mls/hr IV . Q24H [facility] Rx#:[id number] Sodium Chloride 0.9% 1, 2000 1000 000 ml @ 999 mls/hr IV . Q1H1M ONE Rx#:[id number] Vancomycin 1,500 mg In 500 Sodium Chloride 0.9% 500 ml 500 ml @ 167 mls/hr IVPB ONCE ONE Rx#: [id number] cefTRIAXone 2 gm In 100 Sodium Chloride 0.9% 50 ml @ 100 mls/hr IVPB Q24H [facility] Rx#:[id number] Intake, IV Titration 58.091 259.015 Amount Diltiazem 125 mg In 46.708 Sodium Chloride 0.9% 100 ml @ 10 MG/HR 10 mls/hr IV .[id number] [facility] Rx#: [id number] Heparin Sod,Pork in 0.45% 66.516 NaCl 25,000 unit In 0.45 % NaCl 1 250ml.bag @ 12 UNITS/KG/HR 9.525 mls/hr IV .Q24H [facility] Rx#: [id number] Insulin Regular 100 unit 11.383 53.866 In Sodium Chloride 0.9% 100 ml @ Titrate IV .Q0M [facility] Rx#:[id number] Norepinephrine 4 mg In 108.825 Sodium Chloride 0.9% 250 ml @ 0.03 MCG/KG/MIN 9. 073 mls/hr IV .Q24H [facility] Rx#:[id number] propofoL 1,000 mg In 29.808 Empty Bag 1 bag @ 15 MCG/ KG/MIN 7.144 mls/hr IV . Q14H [facility] Rx#:[id number] Oral 480 Output: Urine 237 20 Other: Voiding Method Indwelling Catheter Weight 79.379 kg ABP, PAP, CO, CI - Last 8 Hours Arterial Blood Pressure 124/48 Arterial Blood Pressure 86/43 Arterial Blood Pressure 106/45 Arterial Blood Pressure 90/45 Arterial Blood Pressure 97/46 Arterial Blood Pressure 100/48 Arterial Blood Pressure 190/67 Arterial Blood Pressure 92/50 Arterial Blood Pressure 86/53 Arterial Blood Pressure 101/50 Arterial Blood Pressure 82/45 Arterial Blood Pressure 104/44 Arterial Blood Pressure 95/49 Arterial Blood Pressure 97/42 Arterial Blood Pressure 94/46 PHYSICAL EXAMINATION: Patient is sedated and on mechanical ventilator... HEENT: Normocephalic. Neck is supple. Pupils reactive. Nostrils clear. Oral cavity is moist. Neck reveals no JVD, carotid bruits, or thyromegaly. CHEST EXAMINATION: Trachea is central. Symmetrical expansion. Bibasilar diminished sounds and scattered coarse sounds on the left side.. CARDIAC: Normal S1, S2 with no gallops. No murmurs ABDOMEN: Soft. Bowel sounds present. No organomegaly. No abdominal bruits. Extremities: reveal no edema. No clubbing or cyanosis Neurologically patient is sedated and intubated. No gross focal deficits noted Skin: No rash or skin lesions. Psychiatric: Could not be assessed Musculoskeletal: No joint swelling or deformity. Results CBC & Chem 7: 09/17/23 03:43 09/17/23 17:15 Labs: Abnormal Lab Results - Last 24 Hours (Table) 09/16/23 09/16/23 09/16/23 Range/Units 16:00 16:10 16:10 WBC 10.9 H (3.8-10.6) k/uL Hgb 16.6 H (11.4-16.0) gm/dL Hct 47.8 H (34.0-46.0) % Neutrophils # 9.0 H (1.3-7.7) k/uL Metamyelocytes # (Man) (0) k/uL APTT (22.0-30.0) sec ABG pH (7.35-7.45) ABG pCO2 (35-45) mmHg ABG HCO3 (21-25) mmol/L Sodium 133 L (137-145) mmol/L Potassium (3.5-5.1) mmol/L Carbon Dioxide 17 L (22-30) mmol/L BUN (7-17) mg/dL Creatinine (0.52-1.04) mg/dL Glucose 326 H (74-99) mg/dL POC Glucose (mg/dL) (70-110) mg/dL Hemoglobin A1c (<=6.0) % Plasma Lactic Acid Tyson (0.7-2.0) mmol/L Magnesium (1.6-2.3) mg/dL Troponin I (0.000-0.034) ng/mL Procalcitonin (0.02-0.09) ng/mL Urine Appearance (Clear) Ur Specific Emmett (1.001-1.035) Urine Protein (Negative) Urine Glucose (UA) (Negative) Urine Ketones (Negative) Urine Blood (Negative) Urine Bacteria (None) /hpf Hyaline Casts (0-2) /lpf Urine Mucus (None) /hpf Influenza Type A (PCR) Detected A (Not Detectd) 09/16/23 09/16/23 09/16/23 Range/Units 16:10 19:00 20:09 WBC (3.8-10.6) k/uL Hgb (11.4-16.0) gm/dL Hct (34.0-46.0) % Neutrophils # (1.3-7.7) k/uL Metamyelocytes # (Man) (0) k/uL APTT (22.0-30.0) sec ABG pH (7.35-7.45) ABG pCO2 (35-45) mmHg ABG HCO3 (21-25) mmol/L Sodium (137-145) mmol/L Potassium (3.5-5.1) mmol/L Carbon Dioxide (22-30) mmol/L BUN (7-17) mg/dL Creatinine (0.52-1.04) mg/dL Glucose (74-99) mg/dL POC Glucose (mg/dL) 396 H (70-110) mg/dL Hemoglobin A1c (<=6.0) % Plasma Lactic Acid Tyson (0.7-2.0) mmol/L Magnesium (1.6-2.3) mg/dL Troponin I (0.000-0.034) ng/mL Procalcitonin 5.65 H (0.02-0.09) ng/mL Urine Appearance Cloudy H (Clear) Ur Specific Emmett 1.036 H (1.001-1.035) Urine Protein 2+ H (Negative) Urine Glucose (UA) 4+ H (Negative) Urine Ketones 1+ H (Negative) Urine Blood Small H (Negative) Urine Bacteria Rare H (None) /hpf Hyaline Casts 6 H (0-2) /lpf Urine Mucus Rare H (None) /hpf Influenza Type A (PCR) (Not Detectd) 09/17/23 09/17/23 09/17/23 Range/Units 01:21 02:32 02:56 WBC (3.8-10.6) k/uL Hgb (11.4-16.0) gm/dL Hct (34.0-46.0) % Neutrophils # (1.3-7.7) k/uL Metamyelocytes # (Man) (0) k/uL APTT (22.0-30.0) sec ABG pH (7.35-7.45) ABG pCO2 (35-45) mmHg ABG HCO3 (21-25) mmol/L Sodium (137-145) mmol/L Potassium (3.5-5.1) mmol/L Carbon Dioxide (22-30) mmol/L BUN (7-17) mg/dL Creatinine (0.52-1.04) mg/dL Glucose (74-99) mg/dL POC Glucose (mg/dL) 426 H 403 H 471 H (70-110) mg/dL Hemoglobin A1c (<=6.0) % Plasma Lactic Acid Tyson (0.7-2.0) mmol/L Magnesium (1.6-2.3) mg/dL Troponin I (0.000-0.034) ng/mL Procalcitonin (0.02-0.09) ng/mL Urine Appearance (Clear) Ur Specific Emmett (1.001-1.035) Urine Protein (Negative) Urine Glucose (UA) (Negative) Urine Ketones (Negative) Urine Blood (Negative) Urine Bacteria (None) /hpf Hyaline Casts (0-2) /lpf Urine Mucus (None) /hpf Influenza Type A (PCR) (Not Detectd) 09/17/23 09/17/23 09/17/23 Range/Units 03:00 03:17 03:43 WBC 3.3 L (3.8-10.6) k/uL Hgb (11.4-16.0) gm/dL Hct 49.7 H (34.0-46.0) % Neutrophils # (1.3-7.7) k/uL Metamyelocytes # (Man) 0.53 H (0) k/uL APTT (22.0-30.0) sec ABG pH 7.21 L (7.35-7.45) ABG pCO2 48 H (35-45) mmHg ABG HCO3 19 L (21-25) mmol/L Sodium (137-145) mmol/L Potassium (3.5-5.1) mmol/L Carbon Dioxide (22-30) mmol/L BUN (7-17) mg/dL Creatinine (0.52-1.04) mg/dL Glucose (74-99) mg/dL POC Glucose (mg/dL) 420 H (70-110) mg/dL Hemoglobin A1c (<=6.0) % Plasma Lactic Acid Tyson (0.7-2.0) mmol/L Magnesium (1.6-2.3) mg/dL Troponin I (0.000-0.034) ng/mL Procalcitonin (0.02-0.09) ng/mL Urine Appearance (Clear) Ur Specific Emmett (1.001-1.035) Urine Protein (Negative) Urine Glucose (UA) (Negative) Urine Ketones (Negative) Urine Blood (Negative) Urine Bacteria (None) /hpf Hyaline Casts (0-2) /lpf Urine Mucus (None) /hpf Influenza Type A (PCR) (Not Detectd) 09/17/23 09/17/23 09/17/23 Range/Units 03:43 03:43 03:43 WBC (3.8-10.6) k/uL Hgb (11.4-16.0) gm/dL Hct (34.0-46.0) % Neutrophils # (1.3-7.7) k/uL Metamyelocytes # (Man) (0) k/uL APTT (22.0-30.0) sec ABG pH (7.35-7.45) ABG pCO2 (35-45) mmHg ABG HCO3 (21-25) mmol/L Sodium 134 L (137-145) mmol/L Potassium 3.1 L (3.5-5.1) mmol/L Carbon Dioxide 15 L (22-30) mmol/L BUN 30 H (7-17) mg/dL Creatinine 1.52 H (0.52-1.04) mg/dL Glucose 389 H (74-99) mg/dL POC Glucose (mg/dL) (70-110) mg/dL Hemoglobin A1c 12.7 H (<=6.0) % Plasma Lactic Acid Tyson 6.5 H* (0.7-2.0) mmol/L Magnesium 1.3 L (1.6-2.3) mg/dL Troponin I (0.000-0.034) ng/mL Procalcitonin (0.02-0.09) ng/mL Urine Appearance (Clear) Ur Specific Emmett (1.001-1.035) Urine Protein (Negative) Urine Glucose (UA) (Negative) Urine Ketones (Negative) Urine Blood (Negative) Urine Bacteria (None) /hpf Hyaline Casts (0-2) /lpf Urine Mucus (None) /hpf Influenza Type A (PCR) (Not Detectd) 09/17/23 09/17/23 09/17/23 Range/Units 05:02 05:52 06:01 WBC (3.8-10.6) k/uL Hgb (11.4-16.0) gm/dL Hct (34.0-46.0) % Neutrophils # (1.3-7.7) k/uL Metamyelocytes # (Man) (0) k/uL APTT (22.0-30.0) sec ABG pH 7.13 L* (7.35-7.45) ABG pCO2 55 H (35-45) mmHg ABG HCO3 19 L (21-25) mmol/L Sodium (137-145) mmol/L Potassium (3.5-5.1) mmol/L Carbon Dioxide (22-30) mmol/L BUN (7-17) mg/dL Creatinine (0.52-1.04) mg/dL Glucose (74-99) mg/dL POC Glucose (mg/dL) 339 H 311 H (70-110) mg/dL Hemoglobin A1c (<=6.0) % Plasma Lactic Acid Tyson (0.7-2.0) mmol/L Magnesium (1.6-2.3) mg/dL Troponin I (0.000-0.034) ng/mL Procalcitonin (0.02-0.09) ng/mL Urine Appearance (Clear) Ur Specific Emmett (1.001-1.035) Urine Protein (Negative) Urine Glucose (UA) (Negative) Urine Ketones (Negative) Urine Blood (Negative) Urine Bacteria (None) /hpf Hyaline Casts (0-2) /lpf Urine Mucus (None) /hpf Influenza Type A (PCR) (Not Detectd) 09/17/23 09/17/23 09/17/23 Range/Units 07:06 07:25 07:25 WBC (3.8-10.6) k/uL Hgb (11.4-16.0) gm/dL Hct (34.0-46.0) % Neutrophils # (1.3-7.7) k/uL Metamyelocytes # (Man) (0) k/uL APTT (22.0-30.0) sec ABG pH (7.35-7.45) ABG pCO2 (35-45) mmHg ABG HCO3 (21-25) mmol/L Sodium (137-145) mmol/L Potassium (3.5-5.1) mmol/L Carbon Dioxide (22-30) mmol/L BUN (7-17) mg/dL Creatinine (0.52-1.04) mg/dL Glucose (74-99) mg/dL POC Glucose (mg/dL) 264 H (70-110) mg/dL Hemoglobin A1c (<=6.0) % Plasma Lactic Acid Tyson 5.0 H* (0.7-2.0) mmol/L Magnesium (1.6-2.3) mg/dL Troponin I 0.050 H* (0.000-0.034) ng/mL Procalcitonin (0.02-0.09) ng/mL Urine Appearance (Clear) Ur Specific Emmett (1.001-1.035) Urine Protein (Negative) Urine Glucose (UA) (Negative) Urine Ketones (Negative) Urine Blood (Negative) Urine Bacteria (None) /hpf Hyaline Casts (0-2) /lpf Urine Mucus (None) /hpf Influenza Type A (PCR) (Not Detectd) 09/17/23 09/17/23 09/17/23 Range/Units 07:57 08:15 09:07 WBC (3.8-10.6) k/uL Hgb (11.4-16.0) gm/dL Hct (34.0-46.0) % Neutrophils # (1.3-7.7) k/uL Metamyelocytes # (Man) (0) k/uL APTT 40.6 H (22.0-30.0) sec ABG pH (7.35-7.45) ABG pCO2 (35-45) mmHg ABG HCO3 (21-25) mmol/L Sodium (137-145) mmol/L Potassium (3.5-5.1) mmol/L Carbon Dioxide (22-30) mmol/L BUN (7-17) mg/dL Creatinine (0.52-1.04) mg/dL Glucose (74-99) mg/dL POC Glucose (mg/dL) 246 H 201 H (70-110) mg/dL Hemoglobin A1c (<=6.0) % Plasma Lactic Acid Tyson (0.7-2.0) mmol/L Magnesium (1.6-2.3) mg/dL Troponin I (0.000-0.034) ng/mL Procalcitonin (0.02-0.09) ng/mL Urine Appearance (Clear) Ur Specific Emmett (1.001-1.035) Urine Protein (Negative) Urine Glucose (UA) (Negative) Urine Ketones (Negative) Urine Blood (Negative) Urine Bacteria (None) /hpf Hyaline Casts (0-2) /lpf Urine Mucus (None) /hpf Influenza Type A (PCR) (Not Detectd) 09/17/23 Range/Units 10:16 WBC (3.8-10.6) k/uL Hgb (11.4-16.0) gm/dL Hct (34.0-46.0) % Neutrophils # (1.3-7.7) k/uL Metamyelocytes # (Man) (0) k/uL APTT (22.0-30.0) sec ABG pH (7.35-7.45) ABG pCO2 (35-45) mmHg ABG HCO3 (21-25) mmol/L Sodium (137-145) mmol/L Potassium (3.5-5.1) mmol/L Carbon Dioxide (22-30) mmol/L BUN (7-17) mg/dL Creatinine (0.52-1.04) mg/dL Glucose (74-99) mg/dL POC Glucose (mg/dL) 186 H (70-110) mg/dL Hemoglobin A1c (<=6.0) % Plasma Lactic Acid Tyson (0.7-2.0) mmol/L Magnesium (1.6-2.3) mg/dL Troponin I (0.000-0.034) ng/mL Procalcitonin (0.02-0.09) ng/mL Urine Appearance (Clear) Ur Specific Emmett (1.001-1.035) Urine Protein (Negative) Urine Glucose (UA) (Negative) Urine Ketones (Negative) Urine Blood (Negative) Urine Bacteria (None) /hpf Hyaline Casts (0-2) /lpf Urine Mucus (None) /hpf Influenza Type A (PCR) (Not Detectd) Thrombosis Risk Factor Assmnt - DVT/VTE Prophylaxis DVT/VTE Prophylaxis: Pharmacologic Prophylaxis ordered - Choose All That Apply Each Factor Represents 1 point: Age 41-60 years, Obesity (BMI >25) Other Risk Factors: No Thrombosis Risk Factor Assessment Total Risk Factor Score: 2 Thrombosis Risk Factor Assessment Level: Low Risk Assessment and Plan Assessment: Acute hypoxic respiratory failure requiring mechanical ventilator currently. Acute influenza A infection Left-sided acute focal bacterial pneumonia Sepsis/septic shock requiring pressor support secondary to above New onset atrial fibrillation with rapid ventricular rate Hyperglycemia is uncontrolled diabetes type 2 Acute kidney injury possibly ATN Coronary artery history of stent placement to LAD Chronic CHF with systolic dysfunction/ischemic cardiomyopathy Hyperlipidemia Hypertension Hypothyroidism History of breast cancer status post lumpectomy and radiation Previous history of smoking DVT prophylaxis patient is on heparin drip currently Plan: Patient is on mechanical ventilator. Sedated. Patient will be continued on antibiotics vancomycin and ceftriaxone and also on azithromycin. Patient to be continued on telemetry. Continue with Cardizem drip and amiodarone drip. Patient is also on pressor support with norepinephrine. Was started on Tamiflu Continue with home medications including aspirin Plavix and statins. Patient is on insulin drip for better blood sugar control. Follow-up repeat lactic acid level. Follow-up renal function. Follow-up culture reports. Critical care team is on board. Prognosis is guarded at this time. Time with Patient: Greater than 30
[2023-09-17 23:33] LABS: Glucose,Whole Blood 192 mg/dL (70-110)
[2023-09-17] MEDS: POTASSIUM CHLORIDE 20 MEQ in WATER FOR INJECTION 1 100ML.BAG IVPB SCH (23:55)
[2023-09-18 00:11] LABS: Glucose,Whole Blood 196 mg/dL (70-110)
[2023-09-18] MEDS: IPRATROPIUM-ALBUTEROL 3 ML NEB INHALATION SCH (00:16)
[2023-09-18 01:08] LABS: Glucose,Whole Blood 182 mg/dL (70-110)
[2023-09-18 02:39] LABS: Glucose,Whole Blood 200 mg/dL (70-110)
[2023-09-18 02:39] LABS: Glucose,Whole Blood 209 mg/dL (70-110)
[2023-09-18] MEDS: MAGNESIUM SULFATE-D5W PMX 1 GM in DEXTROSE/WATER 1 100ML.BAG IVPB ONE (03:28)
[2023-09-18 03:41] LABS: ALT 17 U/L (4-34); AST 32 U/L (14-36); African American GFR (CKD) 32 (>60 ml/min/1.73 sqM); Albumin 2.7 g/dL (3.5-5.0); Alkaline Phosphatase 45 U/L (38-126); Anion Gap 11 mmol/L; Blood Urea Nitrogen 32 mg/dL (7-17); Carbon Dioxide 19 mmol/L (22-30); Chloride 104 mmol/L (98-107); Glucose 200 mg/dL (74-99); Non-African American GFR(CKD) 28 (>60 ml/min/1.73 sqM); Potassium 4.1 mmol/L (3.5-5.1); Sodium 134 mmol/L (137-145); Total Bilirubin 0.7 mg/dL (0.2-1.3); Total Protein 5.8 g/dL (6.3-8.2)
[2023-09-18 03:45] LABS: Glucose,Whole Blood 203 mg/dL (70-110)
[2023-09-18 03:56] LABS: HCT 41.3 % (34.0-46.0); HGB 14.2 gm/dL (11.4-16.0); MCH 30.7 pg (25.0-35.0); MCHC 34.4 g/dL (31.0-37.0); MCV 89.1 fL (80.0-100.0); Mean Platelet Volume 10.9; Platelet Count 122 k/uL (150-450); RBC 4.63 m/uL (3.80-5.40); RDW 13.6 % (11.5-15.5); WBC 2.2 k/uL (3.8-10.6)
[2023-09-18 04:22] LABS: Glucose,Whole Blood 224 mg/dL (70-110)
[2023-09-18 05:25] LABS: Glucose,Whole Blood 197 mg/dL (70-110)
[2023-09-18 05:53] LABS: ABG Base Excess -5.1 mmol/L; ABG HCO3 22 mmol/L (21-25); ABG PCO2 44 mmHg (35-45); ABG PH 7.29 (7.35-7.45); ABG PO2 72 mmHg (83-108); ABG TCO2 23 mmol/L (19-24); Allen Test Performed? Yes
[2023-09-18 06:22] LABS: Glucose,Whole Blood 191 mg/dL (70-110)
[2023-09-18] MEDS: VANCOMYCIN 1,500 MG in SODIUM CHLORIDE 0.9% 500 ML 500 ML IVPB ONE (06:23)
[2023-09-18] MEDS: LEVOTHYROXINE 75 MCG TAB PO SCH (06:23)
[2023-09-18 07:08] LABS: Glucose,Whole Blood 186 mg/dL (70-110)
[2023-09-18 07:51] LABS: Glucose,Whole Blood 184 mg/dL (70-110)
[2023-09-18 07:54] LABS: Band Neutrophils % 19 %; Eosinophils # (M) 0.07 k/uL (0-0.7); Lymphocytes # (M) 0.33 k/uL (1.0-4.8); Metamyelocytes # (M) 0.31 k/uL (0); Metamyelocytes % 14 %; Monocytes # (M) 0.11 k/uL (0-1.0); Myelocytes # (M) 0.04 k/uL (0); Myelocytes % 2 %; Neutrophils % (M) 42 %; Nucleated Red Blood Cells 0 /100 WBC (0-0); Total Cells Counted 100
--- NOTE | 2023-09-18 08:40 | XR ---
EXAMINATION TYPE: XR chest 1V portable DATE OF EXAM: 09/18/2023 5:19 AM CLINICAL INDICATION:Female, 63 years old with history of Tube placement; [facility] COMPARISON: Chest radiographs from 09/17/2023. TECHNIQUE: XR chest 1V portable Frontal view of the chest. FINDINGS: Lungs/Pleura: Similar left midlung airspace consolidation. There is no evidence of pleural effusion, focal consolidation, or pneumothorax. Pulmonary vascularity: Unremarkable. Heart/mediastinum: Cardiomediastinal silhouette is unremarkable. Musculoskeletal: No acute osseous pathology. Other findings: None Lines/Tubes: Endotracheal tube with distal tip 2.8 cm above the becca. Nasogastric tube with its distal tip and side-port projecting under the diaphragm. Left central venous catheter with distal tip at the superior vena cava. IMPRESSION: Similar left midlung airspace consolidation
[2023-09-18 08:53] LABS: Nucleated Cells, Body Fluid 200 /UL
[2023-09-18 09:15] LABS: Glucose,Whole Blood 156 mg/dL (70-110)
[2023-09-18] MEDS: PIPERACILLIN-TAZOBACTAM 3.375 GM in SODIUM CHLORIDE 0.9% 100 ML IVPB SCH (09:35)
[2023-09-18] MEDS: AMIODARONE 200 MG TAB PO SCH (10:12)
[2023-09-18 10:23] LABS: Glucose,Whole Blood 144 mg/dL (70-110)
--- NOTE | 2023-09-18 10:38 | P.PN ---
Subjective Progress Note Date: 09/18/23 63-year-old female patient currently intubated on mechanical ventilator due to extensive left lung pneumonia. The patient is known to have coronary artery disease with previous coronary stenting x 3 involving the LAD in addition to history of congestive heart failure/ischemic cardiomyopathy, breast cancer, hypertension hyperlipidemia and she is a chronic smoker. The patient started getting sick sometime last week and she was having cough and congestion and fever with a temperature of 102 along with myalgias without any emesis. She came into the hospital and she tested positive for influenza A and within 12 hours she decompensated and the patient was brought into the intensive care unit with hypoxic respiratory failure. She was briefly placed placed on the BiPAP and she failed BiPAP therapy. Subsequently, the patient was intubated and placed on the mechanical ventilator. During the course, the patient also developed A-fib with RVR. At this point in time, the patient is in septic shock , hypotensive, intubated on mechanical ventilator. Her ventilator setting including assist-control mode with rate of 20, tidal volume of 400, FiO2 of 60% and a PEEP of 5. Preintubation blood gas shows 0.13 with a pCO2 of 55 and FiO2 of 40% with a pO2 of 101. This was done on the BiPAP. The patient's chest x- ray showed an extensive left lung consolidation that developed. ET tube is in a good location post intubation. Patient was given IV Eliquis patient received a total of 2 L 2 L of normal saline and currently she is on pressors with norepinephrine running at 0.13 mcg/kg/min. Her mean arterial pressures of 57. She is also in A-fib RVR, amiodarone drip is running at 1 mg/min and the patient is also on IV heparin. She is on propofol running at 3035 mcg/kg/min and IV fluids are in the order of bicarb infusion at rate of 100 cc an hour. White cell count is at 3.3 with a hemoglobin of 16 and a platelet count of 194. The BUN is at 30 with a creatinine of 1.5 and a serum bicarb is at 15 with a sodium level of 134 and a potassium level of 3.1. The troponins were negative. The re st of the viral panel is also negative with exception of influenza a. She was started on Tamiflu. She is on a combination of Rocephin and Zithromax. The patient is also on insulin drip at 13 units an hour for blood sugar control. On 09/18/2023, the patient is being seen for a follow-up. The patient was in septic shock related to a extensive left lung pneumonia. The patient is post intubation mechanical ventilation. She also underwent a bronchoscopy yesterday endobronchial lavage of the left lung was done and the cultures are still pending for now. This morning, the patient remains intubated on mechanical ventilator. He is currently on propofol running at 45 mcg/kg/min. She is on a assist-control mode at the rate of 28, tidal volume of 400, FiO2 of 50% with a PEEP of 5. Peak airway pressures around 38 with a static airway pressure of around 25. CVP is at 13. The patient remains on a bicarb infusion running at 100 cc an hour. Cardiac rhythm has converted to sinus and the patient completed amiodarone loading. She is hypotensive with a low urine output of 10 to 20 cc an hour. Norepinephrine is running at 0.26 mcg/kg/min and the patient is also on vasopressin, physiologic dose. She remains on IV heparin. Echocardiogram was completed yesterday and the patient was found to have impaired LV function with a left ventricular ejection fraction of 20 to 25%. At the same time, the patient was found to have a left ventricular apical thrombus and apical/periapical akinesis and mild mitral regurgitation. The patient remains on IV heparin. As mentioned, the patient has converted to normal sinus rhythm. In terms of the blood work, the repeat procalcitonin level was quite elevated at 99. Blood cultures are negative. The patient has sustained acute kidney injury with a creatinine of 1.88 with a BUN of 32. Sodium is at 134. Potassium is at 4.1. Bicarb level is up to 19. The patient's white cell count is at 2.2 with a hemoglobin 14.2 and a platelet count of 122. Lactic acid level has been fluctuating and the highest level was at 6.5 dropped down to 5.0. In terms of antibiotic coverage, the patient on Rocephin and Zithromax and vancomycin. The patient is also completing course of Tamiflu. The patient is currently in sinus tachycardia. Tmax was one 1.6. Objective - Vital Signs Vital signs: Vital Signs Temp 98.8 F 09/18/23 04:00 Pulse 126 H 09/18/23 08:28 Resp 28 H 09/18/23 08:00 BP 91/53 09/17/23 06:45 Pulse Ox 92 L 09/18/23 08:00 FiO2 50 09/18/23 08:13 Intake & Output 09/17/23 09/18/23 09/18/23 18:59 06:59 18:59 Intake Total 4136.542 4166.731 386.470 Output Total 335 880 40 Balance 3801.542 3286.731 346.470 Weight 85.2 kg Intake: IV 3327 3019 242 Albumin Human 5% 500 ml 500 In Empty Bag 1 bag @ 500 mls/hr IVPB ONCE STA Rx#: [id number] Azithromycin 500 mg In 250 Sodium Chloride 0.9% 250 ml @ 250 mls/hr IVPB Q24H [facility] Rx#:[id number] Dextrose 5% in Water 1, 1000 1200 200 000 ml @ 100 mls/hr IV . [id number] [facility] with Sodium Bicarb (1 Meq/ml) 150 ml Rx#:[id number] Magnesium Sulfate-D5w Pmx 100 1 gm In Dextrose/Water 1 100ml.bag @ 100 mls/hr IVPB ONCE ONE Rx#: [id number] Magnesium Sulfate-D5w Pmx 200 1 gm In Dextrose/Water 1 100ml.bag @ 100 mls/hr IVPB Q1H [facility] Rx#: [id number] Potassium Chloride 10 meq 200 200 In Water For Injection 1 100ml.bag @ 100 mls/hr IVPB Q1HR [facility] Rx#: [id number] Pressure Bag (0.9 sodium 27 69 12 chloride) Sodium Chloride 0.9% 1, 400 100 30 000 ml @ 20 mls/hr IV . Q24H [facility] Rx#:[id number] Sodium Chloride 0.9% 1, 1000 000 ml @ 999 mls/hr IV . Q1H1M ONE Rx#:[id number] Vancomycin 1,500 mg In 500 500 Sodium Chloride 0.9% 500 ml 500 ml @ 167 mls/hr IVPB ONCE ONE Rx#: [id number] cefTRIAXone 2 gm In 100 Sodium Chloride 0.9% 50 ml @ 100 mls/hr IVPB Q24H [facility] Rx#:[id number] Intake, IV Titration 968.562 4031.731 144.470 Amount Amiodarone 450 mg In 250 Dextrose 5% in Water 250 ml @ 0.5 MG/MIN 16.667 mls/hr IV .Q15H [facility] Rx#: [id number] Heparin Sod,Pork in 0.45% 66.516 164.287 NaCl 25,000 unit In 0.45 % NaCl 1 250ml.bag @ 12 UNITS/KG/HR 9.525 mls/hr IV .Q24H [facility] Rx#: [id number] Insulin Regular 100 unit 115.125 92.308 19.458 In Sodium Chloride 0.9% 100 ml @ Titrate IV .Q0M [facility] Rx#:[id number] Norepinephrine 32 mg In 67.471 48.230 Sodium Chloride 0.9% 218 ml @ 0.03 MCG/KG/MIN 1. 116 mls/hr IV .Q24H [facility] Rx#:[id number] Norepinephrine 4 mg In 455.666 225.112 Sodium Chloride 0.9% 250 ml @ 0.03 MCG/KG/MIN 9. 073 mls/hr IV .Q24H [facility] Rx#:[id number] Vasopressin 20 unit In 27.004 Sodium Chloride 0.9% 50 ml @ 0.03 UNITS/MIN 4.59 mls/hr IV .Q11H7M [facility] Rx# :[id number] propofoL 1,000 mg In 172.235 Empty Bag 1 bag @ 15 MCG/ KG/MIN 7.144 mls/hr IV . Q14H [facility] Rx#:[id number] propofoL 1,000 mg In 231.549 76.782 Empty Bag 1 bag @ 15 MCG/ KG/MIN 7.144 mls/hr IV . Q14H [facility] Rx#:[id number] Other 90 Output: Gastric Drainage 700 Urine 335 180 40 Other: Voiding Method Indwelling Catheter Indwelling Catheter Indwelling Catheter ABP, PAP, CO, CI - Last Documented Arterial Blood Pressure 115/52 - Exam GENERAL EXAM: Patient is Sedated, intubated on mechanical ventilator on assist control mode mechanical ventilation. The patient has an orogastric and orotracheal tube are both in place. HEAD: Normocephalic and atraumatic EYES: Normal reaction of pupils, equal size. NOSE: Clear with pink turbinates. THROAT: No erythema or exudates. NECK: No masses, no JVD. CHEST: No chest wall deformity. LUNGS: Equal air entry with diffuse rhonchi. Diffuse rhonchi heard throughout the lung irizarry bilaterally CVS: S1 and S2 normal with no audible murmur, irregular rhythm. No extra heart sounds. ABDOMEN: No hepatosplenomegaly, active bowel sounds, no guarding or rigidity. SPINE: No scoliosis or deformity SKIN: Diffuse erythema and plaquing on all 4 extremities, the patient has psoriatic patches throughout her body more so in the lower extremities bilaterally. CENTRAL NERVOUS SYSTEM: No focal deficits, tone is normal in all 4 extremities. The patient is currently sedated on propofol EXTREMITIES: There is no peripheral edema, clubbing, or cyanosis. Peripheral pulses are intact. - Labs CBC & Chem 7: 09/18/23 03:25 09/18/23 03:25 Labs: Abnormal Lab Results - Last 24 Hours (Table) 09/17/23 09/17/23 09/17/23 Range/Units 03:43 03:43 03:43 WBC (3.8-10.6) k/uL Plt Count (150-450) k/uL Lymphocytes # (Manual) (1.0-4.8) k/uL Metamyelocytes # (Man) (0) k/uL Myelocytes # (Manual) (0) k/uL APTT (22.0-30.0) sec ABG pH (7.35-7.45) ABG pCO2 (35-45) mmHg ABG pO2 (83-108) mmHg ABG Total CO2 (19-24) mmol/L ABG O2 Saturation (94-97) % ABG Lactic Acid (0.5-1.6) mmol/L Sodium (137-145) mmol/L Potassium (3.5-5.1) mmol/L Carbon Dioxide (22-30) mmol/L BUN (7-17) mg/dL Creatinine (0.52-1.04) mg/dL Glucose (74-99) mg/dL POC Glucose (mg/dL) (70-110) mg/dL Hemoglobin A1c 12.7 H (<=6.0) % Plasma Lactic Acid Tyson (0.7-2.0) mmol/L Calcium (8.4-10.2) mg/dL Troponin I (0.000-0.034) ng/mL Total Protein (6.3-8.2) g/dL Albumin (3.5-5.0) g/dL Procalcitonin 99.90 H (0.02-0.09) ng/mL Cortisol 151.0 H (3.1-22.4) UG/DL Fluid Appearance (Clear) 09/17/23 09/17/23 09/17/23 Range/Units 07:47 08:15 08:30 WBC (3.8-10.6) k/uL Plt Count (150-450) k/uL Lymphocytes # (Manual) (1.0-4.8) k/uL Metamyelocytes # (Man) (0) k/uL Myelocytes # (Manual) (0) k/uL APTT 40.6 H (22.0-30.0) sec ABG pH 7.26 L (7.35-7.45) ABG pCO2 56 H (35-45) mmHg ABG pO2 >400 H (83-108) mmHg ABG Total CO2 27 H (19-24) mmol/L ABG O2 Saturation 99.0 H (94-97) % ABG Lactic Acid (0.5-1.6) mmol/L Sodium (137-145) mmol/L Potassium (3.5-5.1) mmol/L Carbon Dioxide (22-30) mmol/L BUN (7-17) mg/dL Creatinine (0.52-1.04) mg/dL Glucose (74-99) mg/dL POC Glucose (mg/dL) (70-110) mg/dL Hemoglobin A1c (<=6.0) % Plasma Lactic Acid Tyson (0.7-2.0) mmol/L Calcium (8.4-10.2) mg/dL Troponin I (0.000-0.034) ng/mL Total Protein (6.3-8.2) g/dL Albumin (3.5-5.0) g/dL Procalcitonin (0.02-0.09) ng/mL Cortisol (3.1-22.4) UG/DL Fluid Appearance Grossly Bloody A (Clear) 09/17/23 09/17/23 09/17/23 Range/Units 09:07 10:16 11:07 WBC (3.8-10.6) k/uL Plt Count (150-450) k/uL Lymphocytes # (Manual) (1.0-4.8) k/uL Metamyelocytes # (Man) (0) k/uL Myelocytes # (Manual) (0) k/uL APTT (22.0-30.0) sec ABG pH (7.35-7.45) ABG pCO2 (35-45) mmHg ABG pO2 (83-108) mmHg ABG Total CO2 (19-24) mmol/L ABG O2 Saturation (94-97) % ABG Lactic Acid (0.5-1.6) mmol/L Sodium (137-145) mmol/L Potassium (3.5-5.1) mmol/L Carbon Dioxide (22-30) mmol/L BUN (7-17) mg/dL Creatinine (0.52-1.04) mg/dL Glucose (74-99) mg/dL POC Glucose (mg/dL) 201 H 186 H 162 H (70-110) mg/dL Hemoglobin A1c (<=6.0) % Plasma Lactic Acid Tyson (0.7-2.0) mmol/L Calcium (8.4-10.2) mg/dL Troponin I (0.000-0.034) ng/mL Total Protein (6.3-8.2) g/dL Albumin (3.5-5.0) g/dL Procalcitonin (0.02-0.09) ng/mL Cortisol (3.1-22.4) UG/DL Fluid Appearance (Clear) 09/17/23 09/17/23 09/17/23 Range/Units 11:48 12:09 13:11 WBC (3.8-10.6) k/uL Plt Count (150-450) k/uL Lymphocytes # (Manual) (1.0-4.8) k/uL Metamyelocytes # (Man) (0) k/uL Myelocytes # (Manual) (0) k/uL APTT (22.0-30.0) sec ABG pH (7.35-7.45) ABG pCO2 (35-45) mmHg ABG pO2 (83-108) mmHg ABG Total CO2 (19-24) mmol/L ABG O2 Saturation (94-97) % ABG Lactic Acid (0.5-1.6) mmol/L Sodium (137-145) mmol/L Potassium (3.5-5.1) mmol/L Carbon Dioxide (22-30) mmol/L BUN (7-17) mg/dL Creatinine (0.52-1.04) mg/dL Glucose (74-99) mg/dL POC Glucose (mg/dL) 182 H 138 H (70-110) mg/dL Hemoglobin A1c (<=6.0) % Plasma Lactic Acid Tyson 4.4 H* (0.7-2.0) mmol/L Calcium (8.4-10.2) mg/dL Troponin I (0.000-0.034) ng/mL Total Protein (6.3-8.2) g/dL Albumin (3.5-5.0) g/dL Procalcitonin (0.02-0.09) ng/mL Cortisol (3.1-22.4) UG/DL Fluid Appearance (Clear) 09/17/23 09/17/23 09/17/23 Range/Units 14:09 15:15 15:19 WBC (3.8-10.6) k/uL Plt Count (150-450) k/uL Lymphocytes # (Manual) (1.0-4.8) k/uL Metamyelocytes # (Man) (0) k/uL Myelocytes # (Manual) (0) k/uL APTT 54.1 H (22.0-30.0) sec ABG pH (7.35-7.45) ABG pCO2 (35-45) mmHg ABG pO2 (83-108) mmHg ABG Total CO2 (19-24) mmol/L ABG O2 Saturation (94-97) % ABG Lactic Acid (0.5-1.6) mmol/L Sodium (137-145) mmol/L Potassium (3.5-5.1) mmol/L Carbon Dioxide (22-30) mmol/L BUN (7-17) mg/dL Creatinine (0.52-1.04) mg/dL Glucose (74-99) mg/dL POC Glucose (mg/dL) 169 H 201 H (70-110) mg/dL Hemoglobin A1c (<=6.0) % Plasma Lactic Acid Tyson (0.7-2.0) mmol/L Calcium (8.4-10.2) mg/dL Troponin I (0.000-0.034) ng/mL Total Protein (6.3-8.2) g/dL Albumin (3.5-5.0) g/dL Procalcitonin (0.02-0.09) ng/mL Cortisol (3.1-22.4) UG/DL Fluid Appearance (Clear) 09/17/23 09/17/23 09/17/23 Range/Units 16:19 17:15 17:15 WBC (3.8-10.6) k/uL Plt Count (150-450) k/uL Lymphocytes # (Manual) (1.0-4.8) k/uL Metamyelocytes # (Man) (0) k/uL Myelocytes # (Manual) (0) k/uL APTT (22.0-30.0) sec ABG pH (7.35-7.45) ABG pCO2 (35-45) mmHg ABG pO2 (83-108) mmHg ABG Total CO2 (19-24) mmol/L ABG O2 Saturation (94-97) % ABG Lactic Acid (0.5-1.6) mmol/L Sodium (137-145) mmol/L Potassium 3.2 L (3.5-5.1) mmol/L Carbon Dioxide (22-30) mmol/L BUN (7-17) mg/dL Creatinine (0.52-1.04) mg/dL Glucose (74-99) mg/dL POC Glucose (mg/dL) 187 H (70-110) mg/dL Hemoglobin A1c (<=6.0) % Plasma Lactic Acid Tyson (0.7-2.0) mmol/L Calcium (8.4-10.2) mg/dL Troponin I 0.102 H* (0.000-0.034) ng/mL Total Protein (6.3-8.2) g/dL Albumin (3.5-5.0) g/dL Procalcitonin (0.02-0.09) ng/mL Cortisol (3.1-22.4) UG/DL Fluid Appearance (Clear) 09/17/23 09/17/23 09/17/23 Range/Units 17:20 17:30 18:10 WBC (3.8-10.6) k/uL Plt Count (150-450) k/uL Lymphocytes # (Manual) (1.0-4.8) k/uL Metamyelocytes # (Man) (0) k/uL Myelocytes # (Manual) (0) k/uL APTT (22.0-30.0) sec ABG pH (7.35-7.45) ABG pCO2 (35-45) mmHg ABG pO2 (83-108) mmHg ABG Total CO2 (19-24) mmol/L ABG O2 Saturation (94-97) % ABG Lactic Acid 3.9 H* (0.5-1.6) mmol/L Sodium (137-145) mmol/L Potassium (3.5-5.1) mmol/L Carbon Dioxide (22-30) mmol/L BUN (7-17) mg/dL Creatinine (0.52-1.04) mg/dL Glucose (74-99) mg/dL POC Glucose (mg/dL) 238 H 225 H (70-110) mg/dL Hemoglobin A1c (<=6.0) % Plasma Lactic Acid Tyson (0.7-2.0) mmol/L Calcium (8.4-10.2) mg/dL Troponin I (0.000-0.034) ng/mL Total Protein (6.3-8.2) g/dL Albumin (3.5-5.0) g/dL Procalcitonin (0.02-0.09) ng/mL Cortisol (3.1-22.4) UG/DL Fluid Appearance (Clear) 09/17/23 09/17/23 09/17/23 Range/Units 19:07 20:02 20:31 WBC (3.8-10.6) k/uL Plt Count (150-450) k/uL Lymphocytes # (Manual) (1.0-4.8) k/uL Metamyelocytes # (Man) (0) k/uL Myelocytes # (Manual) (0) k/uL APTT (22.0-30.0) sec ABG pH (7.35-7.45) ABG pCO2 (35-45) mmHg ABG pO2 (83-108) mmHg ABG Total CO2 (19-24) mmol/L ABG O2 Saturation (94-97) % ABG Lactic Acid (0.5-1.6) mmol/L Sodium (137-145) mmol/L Potassium (3.5-5.1) mmol/L Carbon Dioxide (22-30) mmol/L BUN (7-17) mg/dL Creatinine (0.52-1.04) mg/dL Glucose (74-99) mg/dL POC Glucose (mg/dL) 236 H 171 H (70-110) mg/dL Hemoglobin A1c (<=6.0) % Plasma Lactic Acid Tyson 5.0 H* (0.7-2.0) mmol/L Calcium (8.4-10.2) mg/dL Troponin I (0.000-0.034) ng/mL Total Protein (6.3-8.2) g/dL Albumin (3.5-5.0) g/dL Procalcitonin (0.02-0.09) ng/mL Cortisol (3.1-22.4) UG/DL Fluid Appearance (Clear) 09/17/23 09/17/23 09/17/23 Range/Units 21:13 22:04 23:13 WBC (3.8-10.6) k/uL Plt Count (150-450) k/uL Lymphocytes # (Manual) (1.0-4.8) k/uL Metamyelocytes # (Man) (0) k/uL Myelocytes # (Manual) (0) k/uL APTT (22.0-30.0) sec ABG pH (7.35-7.45) ABG pCO2 (35-45) mmHg ABG pO2 (83-108) mmHg ABG Total CO2 (19-24) mmol/L ABG O2 Saturation (94-97) % ABG Lactic Acid (0.5-1.6) mmol/L Sodium (137-145) mmol/L Potassium (3.5-5.1) mmol/L Carbon Dioxide (22-30) mmol/L BUN (7-17) mg/dL Creatinine (0.52-1.04) mg/dL Glucose (74-99) mg/dL POC Glucose (mg/dL) 168 H 173 H 192 H (70-110) mg/dL Hemoglobin A1c (<=6.0) % Plasma Lactic Acid Tyson (0.7-2.0) mmol/L Calcium (8.4-10.2) mg/dL Troponin I (0.000-0.034) ng/mL Total Protein (6.3-8.2) g/dL Albumin (3.5-5.0) g/dL Procalcitonin (0.02-0.09) ng/mL Cortisol (3.1-22.4) UG/DL Fluid Appearance (Clear) 09/17/23 09/18/23 09/18/23 Range/Units 23:15 00:08 01:06 WBC (3.8-10.6) k/uL Plt Count (150-450) k/uL Lymphocytes # (Manual) (1.0-4.8) k/uL Metamyelocytes # (Man) (0) k/uL Myelocytes # (Manual) (0) k/uL APTT (22.0-30.0) sec ABG pH (7.35-7.45) ABG pCO2 (35-45) mmHg ABG pO2 (83-108) mmHg ABG Total CO2 (19-24) mmol/L ABG O2 Saturation (94-97) % ABG Lactic Acid (0.5-1.6) mmol/L Sodium (137-145) mmol/L Potassium 3.2 L (3.5-5.1) mmol/L Carbon Dioxide (22-30) mmol/L BUN (7-17) mg/dL Creatinine (0.52-1.04) mg/dL Glucose (74-99) mg/dL POC Glucose (mg/dL) 196 H 182 H (70-110) mg/dL Hemoglobin A1c (<=6.0) % Plasma Lactic Acid Tyson (0.7-2.0) mmol/L Calcium (8.4-10.2) mg/dL Troponin I (0.000-0.034) ng/mL Total Protein (6.3-8.2) g/dL Albumin (3.5-5.0) g/dL Procalcitonin (0.02-0.09) ng/mL Cortisol (3.1-22.4) UG/DL Fluid Appearance (Clear) 09/18/23 09/18/23 09/18/23 Range/Units 02:19 02:37 03:24 WBC (3.8-10.6) k/uL Plt Count (150-450) k/uL Lymphocytes # (Manual) (1.0-4.8) k/uL Metamyelocytes # (Man) (0) k/uL Myelocytes # (Manual) (0) k/uL APTT (22.0-30.0) sec ABG pH (7.35-7.45) ABG pCO2 (35-45) mmHg ABG pO2 (83-108) mmHg ABG Total CO2 (19-24) mmol/L ABG O2 Saturation (94-97) % ABG Lactic Acid (0.5-1.6) mmol/L Sodium (137-145) mmol/L Potassium (3.5-5.1) mmol/L Carbon Dioxide (22-30) mmol/L BUN (7-17) mg/dL Creatinine (0.52-1.04) mg/dL Glucose (74-99) mg/dL POC Glucose (mg/dL) 200 H 209 H 203 H (70-110) mg/dL Hemoglobin A1c (<=6.0) % Plasma Lactic Acid Tyson (0.7-2.0) mmol/L Calcium (8.4-10.2) mg/dL Troponin I (0.000-0.034) ng/mL Total Protein (6.3-8.2) g/dL Albumin (3.5-5.0) g/dL Procalcitonin (0.02-0.09) ng/mL Cortisol (3.1-22.4) UG/DL Fluid Appearance (Clear) 09/18/23 09/18/23 09/18/23 Range/Units 03:25 03:25 04:20 WBC 2.2 L (3.8-10.6) k/uL Plt Count 122 L (150-450) k/uL Lymphocytes # (Manual) 0.33 L (1.0-4.8) k/uL Metamyelocytes # (Man) 0.31 H (0) k/uL Myelocytes # (Manual) 0.04 H (0) k/uL APTT (22.0-30.0) sec ABG pH (7.35-7.45) ABG pCO2 (35-45) mmHg ABG pO2 (83-108) mmHg ABG Total CO2 (19-24) mmol/L ABG O2 Saturation (94-97) % ABG Lactic Acid (0.5-1.6) mmol/L Sodium 134 L (137-145) mmol/L Potassium (3.5-5.1) mmol/L Carbon Dioxide 19 L (22-30) mmol/L BUN 32 H (7-17) mg/dL Creatinine 1.88 H (0.52-1.04) mg/dL Glucose 200 H (74-99) mg/dL POC Glucose (mg/dL) 224 H (70-110) mg/dL Hemoglobin A1c (<=6.0) % Plasma Lactic Acid Tyson (0.7-2.0) mmol/L Calcium 7.0 L (8.4-10.2) mg/dL Troponin I (0.000-0.034) ng/mL Total Protein 5.8 L (6.3-8.2) g/dL Albumin 2.7 L (3.5-5.0) g/dL Procalcitonin (0.02-0.09) ng/mL Cortisol (3.1-22.4) UG/DL Fluid Appearance (Clear) 09/18/23 09/18/23 09/18/23 Range/Units 05:22 05:55 06:21 WBC (3.8-10.6) k/uL Plt Count (150-450) k/uL Lymphocytes # (Manual) (1.0-4.8) k/uL Metamyelocytes # (Man) (0) k/uL Myelocytes # (Manual) (0) k/uL APTT (22.0-30.0) sec ABG pH 7.29 L (7.35-7.45) ABG pCO2 (35-45) mmHg ABG pO2 72 L (83-108) mmHg ABG Total CO2 (19-24) mmol/L ABG O2 Saturation (94-97) % ABG Lactic Acid (0.5-1.6) mmol/L Sodium (137-145) mmol/L Potassium (3.5-5.1) mmol/L Carbon Dioxide (22-30) mmol/L BUN (7-17) mg/dL Creatinine (0.52-1.04) mg/dL Glucose (74-99) mg/dL POC Glucose (mg/dL) 197 H 191 H (70-110) mg/dL Hemoglobin A1c (<=6.0) % Plasma Lactic Acid Tyson (0.7-2.0) mmol/L Calcium (8.4-10.2) mg/dL Troponin I (0.000-0.034) ng/mL Total Protein (6.3-8.2) g/dL Albumin (3.5-5.0) g/dL Procalcitonin (0.02-0.09) ng/mL Cortisol (3.1-22.4) UG/DL Fluid Appearance (Clear) 09/18/23 09/18/23 Range/Units 07:06 07:50 WBC (3.8-10.6) k/uL Plt Count (150-450) k/uL Lymphocytes # (Manual) (1.0-4.8) k/uL Metamyelocytes # (Man) (0) k/uL Myelocytes # (Manual) (0) k/uL APTT (22.0-30.0) sec ABG pH (7.35-7.45) ABG pCO2 (35-45) mmHg ABG pO2 (83-108) mmHg ABG Total CO2 (19-24) mmol/L ABG O2 Saturation (94-97) % ABG Lactic Acid (0.5-1.6) mmol/L Sodium (137-145) mmol/L Potassium (3.5-5.1) mmol/L Carbon Dioxide (22-30) mmol/L BUN (7-17) mg/dL Creatinine (0.52-1.04) mg/dL Glucose (74-99) mg/dL POC Glucose (mg/dL) 186 H 184 H (70-110) mg/dL Hemoglobin A1c (<=6.0) % Plasma Lactic Acid Tyson (0.7-2.0) mmol/L Calcium (8.4-10.2) mg/dL Troponin I (0.000-0.034) ng/mL Total Protein (6.3-8.2) g/dL Albumin (3.5-5.0) g/dL Procalcitonin (0.02-0.09) ng/mL Cortisol (3.1-22.4) UG/DL Fluid Appearance (Clear) Microbiology - Last 24 Hours (Table) 09/17/23 06:54 Gram Stain - Preliminary Sputum Assessment and Plan Plan: Acute hypoxic respiratory failure, secondary to an extensive bilateral pneumonia. The patient has extensive left lung consolidation and new filtration is also seen on the right. Currently intubated on mechanical ventilator. The patient has adequate oxygenation and ventilation for now. Bronchoscopy on the left lower lobe bronchial lavage was done. Bronchial lavage cultures is pending. Blood cultures are still pending. Acute hypercapnic respiratory failure secondary to above, currently intubated on mechanical ventilator Septic shock, likely bacterial in nature. Procalcitonin level is significantly greater than 99. Currently on a combination of norepinephrine and vasopressin and the patient is also on a combination of antibiotics including Rocephin and Zithromax and vancomycin. Acute influenza A infection, on Tamiflu Episodic fever Leukopenia, induced by septic shock. The patient's absolute neutrophil count is at 1.3 New onset A-fib with RVR currently converted to sinus rhythm and the patient is sinus tachycardia Acute kidney injury, creatinine is up to 1.8 and the patient remains oliguric. Adequately sustained with IV fluids with a total of 7 L of fluid positivity and the patient has a CVP of 13. Anion gap metabolic acidosis, mild lactic acidosis Coronary artery disease with previous PCI involving the LAD and stenting. History of CHF, impaired LV function with systolic heart failure systolic heart failure with an ejection fraction of 20 to 25% Ventricular apical thrombus currently on IV heparin Hypertension history of Hyperlipidemia history of Diabetes mellitus insulin-dependent History of smoking Psoriasis Hypothyroidism History of breast cancer Plan Continue ventilator support, no change on mechanical ventilator for today Adequate fluid resuscitation with 7 L fluid positivity and a CVP of 13 Continue bicarb infusion Check lactic acid level, the levels needs to be monitored Check procalcitonin level, currently at 99 Propofol for sedation Continue pressors and titrate for mean arterial pressure above 60, the patient is currently on a combination norepinephrine and vasopressin physiologic dose Monitor renal function, no hydronephrosis on ultrasound of the kidneys Continue IV heparin Awaiting the results of the bone and blood cultures Antibiotic coverage will include a combination of Zosyn and Zithromax and vancomycin, Rocephin will be dropped Continue Tamiflu IV insulin for blood sugar control Initiate tube feeds for enteral feeding and nutritional support Condition is critical and will continue to follow make further recommendation based on his progress. This is a critical care evaluation that was done more than 30 minutes. Time with Patient: Greater than 30
[2023-09-18 11:05] LABS: Glucose,Whole Blood 141 mg/dL (70-110)
[2023-09-18 12:18] LABS: Glucose,Whole Blood 126 mg/dL (70-110)
[2023-09-18] MEDS: PANTOPRAZOLE 40 MG/10 ML VIAL IVP SCH (12:23)
[2023-09-18 13:26] LABS: Glucose,Whole Blood 138 mg/dL (70-110)
[2023-09-18 14:56] LABS: Glucose,Whole Blood 167 mg/dL (70-110)
[2023-09-18] MEDS: ACETAMINOPHEN IV (For NPO) 1,000 MG in EMPTY BAG 1 BAG IVPB PRN (15:14)
--- NOTE | 2023-09-18 15:15 | P.PN ---
Subjective The patient is a 63-year-old female patient who is known to our service from before with a past medical history significant for coronary artery disease with prior stenting of the LAD in the setting of acute coronary syndrome with subsequent echocardiogram showing an ejection fraction between 25 to 30% at that point as well as history of smoking and hypertension and dyslipidemia and multiple comorbid conditions. The patient was brought to the hospital by her who is brought in medic. Apparently for the last few days she has been experiencing progressive cough associated with shortness of breath and congestion and also low-grade fever exceeding 100 Fahrenheit. No symptoms of any chest pain or chest discomfort and no dizziness or lightheadedness and no presyncope or syncope. She was brought to the hospital where chest x-ray showed what is seems to be underlying pneumonia involving the left lung and the patient was initially admitted to the floor. We consulted to see the patient because of atrial fibrillation with rapid ventricular response and initially the patient was stable hemodynamically and started on Cardizem IV. Subsequently the patient deteriorated over the next few hours. Her shortness of breath has progressed and she became more congested and for that reason she was transferred to the intensive care unit and she was intubated and placed on mechanical ventilation. Because her pressure has been soft the Cardizem IV was stopped and she was started on amiodarone IV. Currently she is in atrial fibrillation with overall controlled heart rate and heart rate around 110 bpm. She is also on heparin IV. Beside that she underwent further workup including hemoglobin which came to be stable and creatinine at 1.53 with low potassium and normal sodium. The chest x-ray showed large left-sided pneumonia. Currently the patient is in what is seems to be septic shock. She received 3 L of IV fluid with the pressure being low and currently she is unstable requiring norepinephrine to support her blood pressure. She underwent stenting of the LAD in 2020 and she underwent an echo last in 2020 showing an EF between 25 to 30%. For some reasons reviewing her home medication she continues to be on dual antiplatelet therapy for unknown reason at this point. No history of atrial fibrillation in the past and. 09/17 Patient seen and examined. Patient remains intubated on ventilator. FiO2 50%. Echocardiogram from yesterday shows EF 20-25% with apical akinesis as well as left ventricular apical thrombus. She did go into A. fib with RVR with heart rates up into the 180s and was placed on amiodarone. She converted and has been sinus tachycardia with heart rates from the 120s to 130s. She is tachypnic on ventilator despite increased sedation with propofol. She is receiving IV fluids with bicarbonate drip at 100 mL per hour. She had received approximate 7 L with very minimal urine output. Creatinine has been increasing up to 1.9 this morning. PHYSICAL EXAMINATION Vital signs reviewed. CONSTITUTIONAL: Ill appearing, on vent HEENT: Head is normocephalic. Pupils are equal, round. Sclerae anicteric. Mucous membranes of the mouth are moist. No JVD. No carotid bruit. CHEST EXAMINATION: Lungs are clear to auscultation. No chest wall tenderness is noted on palpation or with deep breathing. HEART EXAMINATION: tachycardic rate and rhythm. S1, S2 heard. No murmurs, gallops or rub. ABDOMEN: Soft, nontender. Positive bowel sounds. EXTREMITIES: 2+ peripheral pulses, no lower extremity edema and no calf tenderness. NEUROLOGIC EXAMINATION: Patient is sedated on vent Assessment Pneumonia/sepsis, Influenza A Septic shock New onset atrial fibrillation, currently sinus rhythm History of cardiomyopathy Coronary artery disease with prior stenting of the LAD History of smoking Electrolytes imbalance Acute renal failure likely ATN from sepsis Apical LV thrombus Sinus tachycardia, appears reactive to severe sepsis Plan Continue with amiodarone. Patient with worsening kidney function without much urine output. She appears volume resuscitated with CVP reading 11-12. Check repeat kidney function however if worsening creatinine, likely decrease or discontinue IV fluids with high risk of becoming overloaded. If kidney function worsening likely consult nephrology. Check TSH given continued tachycardia however this appears sinus tachycardia. Continue with amiodarone and remainder of supportive care. Continue anticoagulation for her LV thrombus as well as A. fib. Prognosis guarded. Objective - Vital Signs Vital signs: Vital Signs Temp 102.3 F H 09/18/23 12:00 Pulse 126 H 09/18/23 13:15 Resp 32 H 09/18/23 13:15 BP 91/53 09/17/23 06:45 Pulse Ox 92 L 09/18/23 13:15 FiO2 50 09/18/23 13:00 Intake & Output 09/17/23 09/18/23 09/18/23 18:59 06:59 18:59 Intake Total 4136.542 4166.731 1676.032 Output Total 335 880 125 Balance 3801.542 3286.731 1551.032 Weight 85.2 kg 85.2 kg Intake: IV 3327 3019 1352 Albumin Human 5% 500 ml 500 In Empty Bag 1 bag @ 500 mls/hr IVPB ONCE STA Rx#: [id number] Azithromycin 500 mg In 250 Sodium Chloride 0.9% 250 ml @ 250 mls/hr IVPB Q24H [facility] Rx#:[id number] Dextrose 5% in Water 1, 1000 1200 700 000 ml @ 100 mls/hr IV . Q40F26H [facility] with Sodium Bicarb (1 Meq/ml) 150 ml Rx#:[id number] Magnesium Sulfate-D5w Pmx 100 1 gm In Dextrose/Water 1 100ml.bag @ 100 mls/hr IVPB ONCE ONE Rx#: [id number] Magnesium Sulfate-D5w Pmx 200 1 gm In Dextrose/Water 1 100ml.bag @ 100 mls/hr IVPB Q1H [facility] Rx#: [id number] Potassium Chloride 10 meq 200 200 In Water For Injection 1 100ml.bag @ 100 mls/hr IVPB Q1HR [facility] Rx#: [id number] Pressure Bag (0.9 sodium 27 69 42 chloride) Sodium Chloride 0.9% 1, 400 100 110 000 ml @ 20 mls/hr IV . Q24H [facility] Rx#:[id number] Sodium Chloride 0.9% 1, 1000 000 ml @ 999 mls/hr IV . Q1H1M [facility] Rx#:[id number] Vancomycin 1,500 mg In 500 500 500 Sodium Chloride 0.9% 500 ml 500 ml @ 167 mls/hr IVPB ONCE ONE Rx#: [id number] cefTRIAXone 2 gm In 100 Sodium Chloride 0.9% 50 ml @ 100 mls/hr IVPB Q24H [facility] Rx#:[id number] Intake, IV Titration 634.302 3882.731 279.032 Amount Amiodarone 450 mg In 250 Dextrose 5% in Water 250 ml @ 0.5 MG/MIN 16.667 mls/hr IV .Q15H [facility] Rx#: [id number] Heparin Sod,Pork in 0.45% 66.516 164.287 NaCl 25,000 unit In 0.45 % NaCl 1 250ml.bag @ 12 UNITS/KG/HR 9.525 mls/hr IV .Q24H [facility] Rx#: [id number] Insulin Regular 100 unit 115.125 92.308 67.109 In Sodium Chloride 0.9% 100 ml @ Titrate IV .Q0M [facility] Rx#:[id number] Norepinephrine 32 mg In 67.471 87.355 Sodium Chloride 0.9% 218 ml @ 0.03 MCG/KG/MIN 1. 116 mls/hr IV .Q24H [facility] Rx#:[id number] Norepinephrine 4 mg In 455.666 225.112 Sodium Chloride 0.9% 250 ml @ 0.03 MCG/KG/MIN 9. 073 mls/hr IV .Q24H [facility] Rx#:[id number] Vasopressin 20 unit In 27.004 Sodium Chloride 0.9% 50 ml @ 0.03 UNITS/MIN 4.59 mls/hr IV .Q11H7M [facility] Rx# :[id number] propofoL 1,000 mg In 172.235 Empty Bag 1 bag @ 15 MCG/ KG/MIN 7.144 mls/hr IV . Q14H [facility] Rx#:[id number] propofoL 1,000 mg In 231.549 124.568 Empty Bag 1 bag @ 15 MCG/ KG/MIN 7.144 mls/hr IV . Q14H [facility] Rx#:[id number] Tube Feeding 15 Other 90 30 Output: Gastric Drainage 700 Urine 335 180 125 Other: Voiding Method Indwelling Catheter Indwelling Catheter Indwelling Catheter ABP, PAP, CO, CI - Last Documented Arterial Blood Pressure 110/50 - Labs CBC & Chem 7: 09/18/23 03:25 09/18/23 03:25 Labs: Abnormal Lab Results - Last 24 Hours (Table) 09/17/23 09/17/23 09/17/23 Range/Units 03:43 03:43 08:30 WBC (3.8-10.6) k/uL Plt Count (150-450) k/uL Lymphocytes # (Manual) (1.0-4.8) k/uL Metamyelocytes # (Man) (0) k/uL Myelocytes # (Manual) (0) k/uL APTT (22.0-30.0) sec ABG pH (7.35-7.45) ABG pO2 (83-108) mmHg ABG Lactic Acid (0.5-1.6) mmol/L Sodium (137-145) mmol/L Potassium (3.5-5.1) mmol/L Carbon Dioxide (22-30) mmol/L BUN (7-17) mg/dL Creatinine (0.52-1.04) mg/dL Glucose (74-99) mg/dL POC Glucose (mg/dL) (70-110) mg/dL Plasma Lactic Acid Tyson (0.7-2.0) mmol/L Calcium (8.4-10.2) mg/dL Troponin I (0.000-0.034) ng/mL Total Protein (6.3-8.2) g/dL Albumin (3.5-5.0) g/dL Procalcitonin 99.90 H (0.02-0.09) ng/mL Cortisol 151.0 H (3.1-22.4) UG/DL Fluid Appearance Grossly Bloody A (Clear) Fluid RBC 9600 H (0-2000) /uL Influenza Type A (PCR) (Not detected) 09/17/23 09/17/23 09/17/23 Range/Units 08:30 15:15 15:19 WBC (3.8-10.6) k/uL Plt Count (150-450) k/uL Lymphocytes # (Manual) (1.0-4.8) k/uL Metamyelocytes # (Man) (0) k/uL Myelocytes # (Manual) (0) k/uL APTT 54.1 H (22.0-30.0) sec ABG pH (7.35-7.45) ABG pO2 (83-108) mmHg ABG Lactic Acid (0.5-1.6) mmol/L Sodium (137-145) mmol/L Potassium (3.5-5.1) mmol/L Carbon Dioxide (22-30) mmol/L BUN (7-17) mg/dL Creatinine (0.52-1.04) mg/dL Glucose (74-99) mg/dL POC Glucose (mg/dL) 201 H (70-110) mg/dL Plasma Lactic Acid Tyson (0.7-2.0) mmol/L Calcium (8.4-10.2) mg/dL Troponin I (0.000-0.034) ng/mL Total Protein (6.3-8.2) g/dL Albumin (3.5-5.0) g/dL Procalcitonin (0.02-0.09) ng/mL Cortisol (3.1-22.4) UG/DL Fluid Appearance (Clear) Fluid RBC (0-2000) /uL Influenza Type A (PCR) DETECTED A (Not detected) 09/17/23 09/17/23 09/17/23 Range/Units 16:19 17:15 17:15 WBC (3.8-10.6) k/uL Plt Count (150-450) k/uL Lymphocytes # (Manual) (1.0-4.8) k/uL Metamyelocytes # (Man) (0) k/uL Myelocytes # (Manual) (0) k/uL APTT (22.0-30.0) sec ABG pH (7.35-7.45) ABG pO2 (83-108) mmHg ABG Lactic Acid (0.5-1.6) mmol/L Sodium (137-145) mmol/L Potassium 3.2 L (3.5-5.1) mmol/L Carbon Dioxide (22-30) mmol/L BUN (7-17) mg/dL Creatinine (0.52-1.04) mg/dL Glucose (74-99) mg/dL POC Glucose (mg/dL) 187 H (70-110) mg/dL Plasma Lactic Acid Tyson (0.7-2.0) mmol/L Calcium (8.4-10.2) mg/dL Troponin I 0.102 H* (0.000-0.034) ng/mL Total Protein (6.3-8.2) g/dL Albumin (3.5-5.0) g/dL Procalcitonin (0.02-0.09) ng/mL Cortisol (3.1-22.4) UG/DL Fluid Appearance (Clear) Fluid RBC (0-2000) /uL Influenza Type A (PCR) (Not detected) 09/17/23 09/17/23 09/17/23 Range/Units 17:20 17:30 18:10 WBC (3.8-10.6) k/uL Plt Count (150-450) k/uL Lymphocytes # (Manual) (1.0-4.8) k/uL Metamyelocytes # (Man) (0) k/uL Myelocytes # (Manual) (0) k/uL APTT (22.0-30.0) sec ABG pH (7.35-7.45) ABG pO2 (83-108) mmHg ABG Lactic Acid 3.9 H* (0.5-1.6) mmol/L Sodium (137-145) mmol/L Potassium (3.5-5.1) mmol/L Carbon Dioxide (22-30) mmol/L BUN (7-17) mg/dL Creatinine (0.52-1.04) mg/dL Glucose (74-99) mg/dL POC Glucose (mg/dL) 238 H 225 H (70-110) mg/dL Plasma Lactic Acid Tyson (0.7-2.0) mmol/L Calcium (8.4-10.2) mg/dL Troponin I (0.000-0.034) ng/mL Total Protein (6.3-8.2) g/dL Albumin (3.5-5.0) g/dL Procalcitonin (0.02-0.09) ng/mL Cortisol (3.1-22.4) UG/DL Fluid Appearance (Clear) Fluid RBC (0-2000) /uL Influenza Type A (PCR) (Not detected) 09/17/23 09/17/23 09/17/23 Range/Units 19:07 20:02 20:31 WBC (3.8-10.6) k/uL Plt Count (150-450) k/uL Lymphocytes # (Manual) (1.0-4.8) k/uL Metamyelocytes # (Man) (0) k/uL Myelocytes # (Manual) (0) k/uL APTT (22.0-30.0) sec ABG pH (7.35-7.45) ABG pO2 (83-108) mmHg ABG Lactic Acid (0.5-1.6) mmol/L Sodium (137-145) mmol/L Potassium (3.5-5.1) mmol/L Carbon Dioxide (22-30) mmol/L BUN (7-17) mg/dL Creatinine (0.52-1.04) mg/dL Glucose (74-99) mg/dL POC Glucose (mg/dL) 236 H 171 H (70-110) mg/dL Plasma Lactic Acid Tyson 5.0 H* (0.7-2.0) mmol/L Calcium (8.4-10.2) mg/dL Troponin I (0.000-0.034) ng/mL Total Protein (6.3-8.2) g/dL Albumin (3.5-5.0) g/dL Procalcitonin (0.02-0.09) ng/mL Cortisol (3.1-22.4) UG/DL Fluid Appearance (Clear) Fluid RBC (0-2000) /uL Influenza Type A (PCR) (Not detected) 09/17/23 09/17/23 09/17/23 Range/Units 21:13 22:04 23:13 WBC (3.8-10.6) k/uL Plt Count (150-450) k/uL Lymphocytes # (Manual) (1.0-4.8) k/uL Metamyelocytes # (Man) (0) k/uL Myelocytes # (Manual) (0) k/uL APTT (22.0-30.0) sec ABG pH (7.35-7.45) ABG pO2 (83-108) mmHg ABG Lactic Acid (0.5-1.6) mmol/L Sodium (137-145) mmol/L Potassium (3.5-5.1) mmol/L Carbon Dioxide (22-30) mmol/L BUN (7-17) mg/dL Creatinine (0.52-1.04) mg/dL Glucose (74-99) mg/dL POC Glucose (mg/dL) 168 H 173 H 192 H (70-110) mg/dL Plasma Lactic Acid Tyson (0.7-2.0) mmol/L Calcium (8.4-10.2) mg/dL Troponin I (0.000-0.034) ng/mL Total Protein (6.3-8.2) g/dL Albumin (3.5-5.0) g/dL Procalcitonin (0.02-0.09) ng/mL Cortisol (3.1-22.4) UG/DL Fluid Appearance (Clear) Fluid RBC (0-2000) /uL Influenza Type A (PCR) (Not detected) 09/17/23 09/18/23 09/18/23 Range/Units 23:15 00:08 01:06 WBC (3.8-10.6) k/uL Plt Count (150-450) k/uL Lymphocytes # (Manual) (1.0-4.8) k/uL Metamyelocytes # (Man) (0) k/uL Myelocytes # (Manual) (0) k/uL APTT (22.0-30.0) sec ABG pH (7.35-7.45) ABG pO2 (83-108) mmHg ABG Lactic Acid (0.5-1.6) mmol/L Sodium (137-145) mmol/L Potassium 3.2 L (3.5-5.1) mmol/L Carbon Dioxide (22-30) mmol/L BUN (7-17) mg/dL Creatinine (0.52-1.04) mg/dL Glucose (74-99) mg/dL POC Glucose (mg/dL) 196 H 182 H (70-110) mg/dL Plasma Lactic Acid Tyson (0.7-2.0) mmol/L Calcium (8.4-10.2) mg/dL Troponin I (0.000-0.034) ng/mL Total Protein (6.3-8.2) g/dL Albumin (3.5-5.0) g/dL Procalcitonin (0.02-0.09) ng/mL Cortisol (3.1-22.4) UG/DL Fluid Appearance (Clear) Fluid RBC (0-2000) /uL Influenza Type A (PCR) (Not detected) 09/18/23 09/18/23 09/18/23 Range/Units 02:19 02:37 03:24 WBC (3.8-10.6) k/uL Plt Count (150-450) k/uL Lymphocytes # (Manual) (1.0-4.8) k/uL Metamyelocytes # (Man) (0) k/uL Myelocytes # (Manual) (0) k/uL APTT (22.0-30.0) sec ABG pH (7.35-7.45) ABG pO2 (83-108) mmHg ABG Lactic Acid (0.5-1.6) mmol/L Sodium (137-145) mmol/L Potassium (3.5-5.1) mmol/L Carbon Dioxide (22-30) mmol/L BUN (7-17) mg/dL Creatinine (0.52-1.04) mg/dL Glucose (74-99) mg/dL POC Glucose (mg/dL) 200 H 209 H 203 H (70-110) mg/dL Plasma Lactic Acid Tyson (0.7-2.0) mmol/L Calcium (8.4-10.2) mg/dL Troponin I (0.000-0.034) ng/mL Total Protein (6.3-8.2) g/dL Albumin (3.5-5.0) g/dL Procalcitonin (0.02-0.09) ng/mL Cortisol (3.1-22.4) UG/DL Fluid Appearance (Clear) Fluid RBC (0-2000) /uL Influenza Type A (PCR) (Not detected) 09/18/23 09/18/23 09/18/23 Range/Units 03:25 03:25 04:20 WBC 2.2 L (3.8-10.6) k/uL Plt Count 122 L (150-450) k/uL Lymphocytes # (Manual) 0.33 L (1.0-4.8) k/uL Metamyelocytes # (Man) 0.31 H (0) k/uL Myelocytes # (Manual) 0.04 H (0) k/uL APTT (22.0-30.0) sec ABG pH (7.35-7.45) ABG pO2 (83-108) mmHg ABG Lactic Acid (0.5-1.6) mmol/L Sodium 134 L (137-145) mmol/L Potassium (3.5-5.1) mmol/L Carbon Dioxide 19 L (22-30) mmol/L BUN 32 H (7-17) mg/dL Creatinine 1.88 H (0.52-1.04) mg/dL Glucose 200 H (74-99) mg/dL POC Glucose (mg/dL) 224 H (70-110) mg/dL Plasma Lactic Acid Tyson (0.7-2.0) mmol/L Calcium 7.0 L (8.4-10.2) mg/dL Troponin I (0.000-0.034) ng/mL Total Protein 5.8 L (6.3-8.2) g/dL Albumin 2.7 L (3.5-5.0) g/dL Procalcitonin (0.02-0.09) ng/mL Cortisol (3.1-22.4) UG/DL Fluid Appearance (Clear) Fluid RBC (0-2000) /uL Influenza Type A (PCR) (Not detected) 09/18/23 09/18/23 09/18/23 Range/Units 05:22 05:55 06:21 WBC (3.8-10.6) k/uL Plt Count (150-450) k/uL Lymphocytes # (Manual) (1.0-4.8) k/uL Metamyelocytes # (Man) (0) k/uL Myelocytes # (Manual) (0) k/uL APTT (22.0-30.0) sec ABG pH 7.29 L (7.35-7.45) ABG pO2 72 L (83-108) mmHg ABG Lactic Acid (0.5-1.6) mmol/L Sodium (137-145) mmol/L Potassium (3.5-5.1) mmol/L Carbon Dioxide (22-30) mmol/L BUN (7-17) mg/dL Creatinine (0.52-1.04) mg/dL Glucose (74-99) mg/dL POC Glucose (mg/dL) 197 H 191 H (70-110) mg/dL Plasma Lactic Acid Tyson (0.7-2.0) mmol/L Calcium (8.4-10.2) mg/dL Troponin I (0.000-0.034) ng/mL Total Protein (6.3-8.2) g/dL Albumin (3.5-5.0) g/dL Procalcitonin (0.02-0.09) ng/mL Cortisol (3.1-22.4) UG/DL Fluid Appearance (Clear) Fluid RBC (0-2000) /uL Influenza Type A (PCR) (Not detected) 09/18/23 09/18/23 09/18/23 Range/Units 07:06 07:50 09:15 WBC (3.8-10.6) k/uL Plt Count (150-450) k/uL Lymphocytes # (Manual) (1.0-4.8) k/uL Metamyelocytes # (Man) (0) k/uL Myelocytes # (Manual) (0) k/uL APTT (22.0-30.0) sec ABG pH (7.35-7.45) ABG pO2 (83-108) mmHg ABG Lactic Acid (0.5-1.6) mmol/L Sodium (137-145) mmol/L Potassium (3.5-5.1) mmol/L Carbon Dioxide (22-30) mmol/L BUN (7-17) mg/dL Creatinine (0.52-1.04) mg/dL Glucose (74-99) mg/dL POC Glucose (mg/dL) 186 H 184 H 156 H (70-110) mg/dL Plasma Lactic Acid Tyson (0.7-2.0) mmol/L Calcium (8.4-10.2) mg/dL Troponin I (0.000-0.034) ng/mL Total Protein (6.3-8.2) g/dL Albumin (3.5-5.0) g/dL Procalcitonin (0.02-0.09) ng/mL Cortisol (3.1-22.4) UG/DL Fluid Appearance (Clear) Fluid RBC (0-2000) /uL Influenza Type A (PCR) (Not detected) 09/18/23 09/18/23 09/18/23 Range/Units 10:21 11:04 12:17 WBC (3.8-10.6) k/uL Plt Count (150-450) k/uL Lymphocytes # (Manual) (1.0-4.8) k/uL Metamyelocytes # (Man) (0) k/uL Myelocytes # (Manual) (0) k/uL APTT (22.0-30.0) sec ABG pH (7.35-7.45) ABG pO2 (83-108) mmHg ABG Lactic Acid (0.5-1.6) mmol/L Sodium (137-145) mmol/L Potassium (3.5-5.1) mmol/L Carbon Dioxide (22-30) mmol/L BUN (7-17) mg/dL Creatinine (0.52-1.04) mg/dL Glucose (74-99) mg/dL POC Glucose (mg/dL) 144 H 141 H 126 H (70-110) mg/dL Plasma Lactic Acid Tyson (0.7-2.0) mmol/L Calcium (8.4-10.2) mg/dL Troponin I (0.000-0.034) ng/mL Total Protein (6.3-8.2) g/dL Albumin (3.5-5.0) g/dL Procalcitonin (0.02-0.09) ng/mL Cortisol (3.1-22.4) UG/DL Fluid Appearance (Clear) Fluid RBC (0-2000) /uL Influenza Type A (PCR) (Not detected) 09/18/23 09/18/23 Range/Units 13:25 14:53 WBC (3.8-10.6) k/uL Plt Count (150-450) k/uL Lymphocytes # (Manual) (1.0-4.8) k/uL Metamyelocytes # (Man) (0) k/uL Myelocytes # (Manual) (0) k/uL APTT (22.0-30.0) sec ABG pH (7.35-7.45) ABG pO2 (83-108) mmHg ABG Lactic Acid (0.5-1.6) mmol/L Sodium (137-145) mmol/L Potassium (3.5-5.1) mmol/L Carbon Dioxide (22-30) mmol/L BUN (7-17) mg/dL Creatinine (0.52-1.04) mg/dL Glucose (74-99) mg/dL POC Glucose (mg/dL) 138 H 167 H (70-110) mg/dL Plasma Lactic Acid Tyson (0.7-2.0) mmol/L Calcium (8.4-10.2) mg/dL Troponin I (0.000-0.034) ng/mL Total Protein (6.3-8.2) g/dL Albumin (3.5-5.0) g/dL Procalcitonin (0.02-0.09) ng/mL Cortisol (3.1-22.4) UG/DL Fluid Appearance (Clear) Fluid RBC (0-2000) /uL Influenza Type A (PCR) (Not detected) Microbiology - Last 24 Hours (Table) 09/17/23 01:56 Blood Culture - Preliminary Blood 09/17/23 01:56 Blood Culture - Preliminary Blood 09/17/23 06:54 Gram Stain - Preliminary Sputum Sputum Culture - Preliminary Presumptive Staph aureus 09/17/23 08:30 Gram Stain - Preliminary Bronchoalviolar Lavage - Left Bronchial Washings Culture - Preliminary Presumptive Staph aureus
[2023-09-18 15:21] LABS: Glucose,Whole Blood 190 mg/dL (70-110)
[2023-09-18 16:02] LABS: African American GFR (CKD) 24 (>60 ml/min/1.73 sqM); Anion Gap 14 mmol/L; Blood Urea Nitrogen 35 mg/dL (7-17); Carbon Dioxide 18 mmol/L (22-30); Chloride 101 mmol/L (98-107); Glucose 183 mg/dL (74-99); Non-African American GFR(CKD) 21 (>60 ml/min/1.73 sqM); Potassium 3.7 mmol/L (3.5-5.1); Sodium 133 mmol/L (137-145)
[2023-09-18 16:08] LABS: Calcium 6.4 mg/dL (8.4-10.2)
[2023-09-18] MEDS ORDERED: Potassium Replacement Protocol 1 EACH MISC MISCELLANE PRN (16:34)
[2023-09-18] MEDS: POTASSIUM BICARBONATE/CIT AC 20 MEQ TABLET.EFF NG-TUBE SCH (16:56)
[2023-09-18 17:18] LABS: Glucose,Whole Blood 210 mg/dL (70-110)
[2023-09-18] MEDS: CALCIUM GLUCONATE IN NACL 1 GM in SALINE 1 100ML.BAG IVPB ONE (17:40)
[2023-09-18 18:14] LABS: Glucose,Whole Blood 200 mg/dL (70-110)
[2023-09-18 19:16] LABS: Glucose,Whole Blood 205 mg/dL (70-110)
[2023-09-18] MEDS: CLINDAMYCIN 900 MG in DEXTROSE 5% IN WATER 50 ML IVPB SCH (20:16)
[2023-09-18 21:07] LABS: Glucose,Whole Blood 183 mg/dL (70-110)
[2023-09-18] MEDS: IMMUNE GLOBULIN (GAMMAGARD) 10 GM in EMPTY BAG 1 BAG IV ONE (22:05)
[2023-09-18] MEDS: IMMUNE GLOBULIN (GAMMAGARD) 30 GM in EMPTY BAG 1 BAG IV ONE (23:02)
[2023-09-18 23:09] LABS: Glucose,Whole Blood 139 mg/dL (70-110)
[2023-09-18 23:58] LABS: Glucose,Whole Blood 152 mg/dL (70-110)
--- NOTE | 2023-09-19 | P.PN ---
Subjective Progress Note Date: 09/18/23 Patient is a 63-year-old female with a known history of coronary artery disease status post stent placement, chronic CHF, hypertension, diabetes type 2, history of left breast cancer due to lumpectomy and radiation, hypothyroidism and osteoarthritis and prior history of smoking, quit in 2018 presents to ER with complaints of shortness of breath, cough, congestion and generalized weakness since last week. She was also complaining of nasal congestion and sore throat. Cough is mainly nonproductive. Patient's was treated for bronchitis recently. On admission patient was Febrile with Tmax 100.3 and tachycardic and tachypneic admission on admission. She was requiring 4 L oxygen via nasal can nula. Laboratory data showed WBC 10.9 hemoglobin 16.6 and platelets 179, sodium 133 potassium 3.9 chloride 102 bicarb is 17, BUN 17 and creatinine 0.54 and blood sugar 326 procalcitonin level was 5.65 Urinalysis showed cloudy with increased physical gravity and 2+ protein and 4+ glucose and 1+ ketones and negative for leukocyte esterase. Patient is tested positive for influenza A. Patient decompensated and was sent to ER due to hypoxic respiratory failure. Patient was placed on BiPAP initially and is eventually intubated and currently on mechanical ventilator. Chest x-ray showed findings most consistent with a left-sided acute focal pneumonia. 09/18/2023 Patient is currently in the MICU. Sedated and is on mechanical ventilator. Patient underwent bronchoscopy yesterday and bronchodilators. Lavage fluid showed present to Staph aureus. Patient is still on pressor support with Levophed and vasopressin. Also on IV heparin. Otherwise patient is in sinus tachycardia with heart rate 120s. Amiodarone drip has been discontinued and changed to p.o. 2D echocardiogram showed left ventricular systolic dysfunction ejection fraction 20 to 25% and also found to have left ventricular apical thrombus and apical/periapical akinesis and mild MR. Patient is being continued on antibiotics vancomycin and Zosyn. Blood cultures negative so far. Laboratory data showed WBC 2.2 hemoglobin 14.2 and platelets 122 Sodium 134 potassium 4.1 chloride 104 bicarb is 19 BUN 32 and creatinine increased to 1.88 and blood sugar 200. Patient is on insulin drip. Also on bicarb drip. Current medications reviewed. Objective - Vital Signs Vital signs: Vital Signs Temp 101 F H 09/18/23 20:00 Pulse 128 H 09/18/23 21:00 Resp 28 H 09/18/23 21:00 BP 91/53 09/17/23 06:45 Pulse Ox 91 L 09/18/23 21:00 FiO2 60 09/18/23 20:39 Intake & Output 09/18/23 09/18/23 09/19/23 06:59 18:59 06:59 Intake Total 4166.731 2660.918 770.278 Output Total 880 185 0 Balance 3286.731 2475.918 770.278 Weight 85.2 kg 85.2 kg Intake: IV 3019 1962 408 Albumin Human 5% 500 ml 500 In Empty Bag 1 bag @ 500 mls/hr IVPB ONCE STA Rx#: [id number] Azithromycin 500 mg In 250 Sodium Chloride 0.9% 250 ml @ 250 mls/hr IVPB Q24H [facility] Rx#:[id number] Clindamycin 900 mg In 50 Dextrose 5% in Water 50 ml @ 50 mls/hr IVPB Q8H [facility] Rx#:[id number] Dextrose 5% in Water 1, 1200 1200 300 000 ml @ 100 mls/hr IV . [id number] [facility] with Sodium Bicarb (1 Meq/ml) 150 ml Rx#:[id number] Magnesium Sulfate-D5w Pmx 100 1 gm In Dextrose/Water 1 100ml.bag @ 100 mls/hr IVPB ONCE ONE Rx#: [id number] Potassium Chloride 10 meq 200 In Water For Injection 1 100ml.bag @ 100 mls/hr IVPB Q1HR [facility] Rx#: [id number] Pressure Bag (0.9 sodium 69 72 18 chloride) Sodium Chloride 0.9% 1, 100 190 40 000 ml @ 20 mls/hr IV . Q24H [facility] Rx#:[id number] Vancomycin 1,500 mg In 500 500 Sodium Chloride 0.9% 500 ml 500 ml @ 167 mls/hr IVPB ONCE ONE Rx#: [id number] cefTRIAXone 2 gm In 100 Sodium Chloride 0.9% 50 ml @ 100 mls/hr IVPB Q24H [facility] Rx#:[id number] Intake, IV Titration 1057.731 603.918 272.278 Amount Amiodarone 450 mg In 250 Dextrose 5% in Water 250 ml @ 0.5 MG/MIN 16.667 mls/hr IV .Q15H [facility] Rx#: [id number] Heparin Sod,Pork in 0.45% 164.287 229.113 NaCl 25,000 unit In 0.45 % NaCl 1 250ml.bag @ 12 UNITS/KG/HR 9.525 mls/hr IV .Q24H [facility] Rx#: [id number] Insulin Regular 100 unit 92.308 82.734 5.554 In Sodium Chloride 0.9% 100 ml @ Titrate IV .Q0M [facility] Rx#:[id number] Norepinephrine 32 mg In 67.471 147.415 Sodium Chloride 0.9% 218 ml @ 0.03 MCG/KG/MIN 1. 116 mls/hr IV .Q24H [facility] Rx#:[id number] Norepinephrine 4 mg In 225.112 Sodium Chloride 0.9% 250 ml @ 0.03 MCG/KG/MIN 9. 073 mls/hr IV .Q24H [facility] Rx#:[id number] Piperacillin-Tazobactam 3 100 .375 gm In Sodium Chloride 0.9% 100 ml @ 25 mls/hr IVPB Q8HR [facility] Rx# :[id number] Vasopressin 20 unit In 27.004 73.491 24.276 Sodium Chloride 0.9% 50 ml @ 0.03 UNITS/MIN 4.59 mls/hr IV .Q11H7M [facility] Rx# :[id number] propofoL 1,000 mg In 231.549 200.278 13.335 Empty Bag 1 bag @ 15 MCG/ KG/MIN 7.144 mls/hr IV . Q14H [facility] Rx#:[id number] Tube Feeding 65 30 Other 90 30 60 Output: Gastric Drainage 700 Urine 180 185 0 Other: Voiding Method Indwelling Catheter Indwelling Catheter ABP, PAP, CO, CI - Last Documented Arterial Blood Pressure 99/48 - Exam PHYSICAL EXAMINATION: Patient is sedated and on mechanical ventilator... HEENT: Normocephalic. Neck is supple. Pupils reactive. Nostrils clear. Oral cavity is moist. Neck reveals no JVD, carotid bruits, or thyromegaly. CHEST EXAMINATION: Trachea is central. Symmetrical expansion. Bibasilar diminis hed sounds and scattered coarse sounds on the left side.. CARDIAC: Normal S1, S2 with no gallops. No murmurs ABDOMEN: Soft. Bowel sounds present. No organomegaly. No abdominal bruits. Extremities: reveal no edema. No clubbing or cyanosis Neurologically patient is sedated and intubated. No gross focal deficits noted Skin: No rash or skin lesions. Psychiatric: Could not be assessed Musculoskeletal: No joint swelling or deformity. - Labs CBC & Chem 7: 09/18/23 03:25 09/18/23 15:17 Labs: Abnormal Lab Results - Last 24 Hours (Table) 09/17/23 09/17/23 09/17/23 Range/Units 08:30 08:30 23:13 WBC (3.8-10.6) k/uL Plt Count (150-450) k/uL Lymphocytes # (Manual) (1.0-4.8) k/uL Metamyelocytes # (Man) (0) k/uL Myelocytes # (Manual) (0) k/uL ABG pH (7.35-7.45) ABG pO2 (83-108) mmHg Sodium (137-145) mmol/L Potassium (3.5-5.1) mmol/L Carbon Dioxide (22-30) mmol/L BUN (7-17) mg/dL Creatinine (0.52-1.04) mg/dL Glucose (74-99) mg/dL POC Glucose (mg/dL) 192 H (70-110) mg/dL Calcium (8.4-10.2) mg/dL Total Protein (6.3-8.2) g/dL Albumin (3.5-5.0) g/dL Fluid RBC 9600 H (0-2000) /uL Influenza Type A (PCR) DETECTED A (Not detected) 09/17/23 09/18/23 09/18/23 Range/Units 23:15 00:08 01:06 WBC (3.8-10.6) k/uL Plt Count (150-450) k/uL Lymphocytes # (Manual) (1.0-4.8) k/uL Metamyelocytes # (Man) (0) k/uL Myelocytes # (Manual) (0) k/uL ABG pH (7.35-7.45) ABG pO2 (83-108) mmHg Sodium (137-145) mmol/L Potassium 3.2 L (3.5-5.1) mmol/L Carbon Dioxide (22-30) mmol/L BUN (7-17) mg/dL Creatinine (0.52-1.04) mg/dL Glucose (74-99) mg/dL POC Glucose (mg/dL) 196 H 182 H (70-110) mg/dL Calcium (8.4-10.2) mg/dL Total Protein (6.3-8.2) g/dL Albumin (3.5-5.0) g/dL Fluid RBC (0-2000) /uL Influenza Type A (PCR) (Not detected) 09/18/23 09/18/23 09/18/23 Range/Units 02:19 02:37 03:24 WBC (3.8-10.6) k/uL Plt Count (150-450) k/uL Lymphocytes # (Manual) (1.0-4.8) k/uL Metamyelocytes # (Man) (0) k/uL Myelocytes # (Manual) (0) k/uL ABG pH (7.35-7.45) ABG pO2 (83-108) mmHg Sodium (137-145) mmol/L Potassium (3.5-5.1) mmol/L Carbon Dioxide (22-30) mmol/L BUN (7-17) mg/dL Creatinine (0.52-1.04) mg/dL Glucose (74-99) mg/dL POC Glucose (mg/dL) 200 H 209 H 203 H (70-110) mg/dL Calcium (8.4-10.2) mg/dL Total Protein (6.3-8.2) g/dL Albumin (3.5-5.0) g/dL Fluid RBC (0-2000) /uL Influenza Type A (PCR) (Not detected) 09/18/23 09/18/23 09/18/23 Range/Units 03:25 03:25 04:20 WBC 2.2 L (3.8-10.6) k/uL Plt Count 122 L (150-450) k/uL Lymphocytes # (Manual) 0.33 L (1.0-4.8) k/uL Metamyelocytes # (Man) 0.31 H (0) k/uL Myelocytes # (Manual) 0.04 H (0) k/uL ABG pH (7.35-7.45) ABG pO2 (83-108) mmHg Sodium 134 L (137-145) mmol/L Potassium (3.5-5.1) mmol/L Carbon Dioxide 19 L (22-30) mmol/L BUN 32 H (7-17) mg/dL Creatinine 1.88 H (0.52-1.04) mg/dL Glucose 200 H (74-99) mg/dL POC Glucose (mg/dL) 224 H (70-110) mg/dL Calcium 7.0 L (8.4-10.2) mg/dL Total Protein 5.8 L (6.3-8.2) g/dL Albumin 2.7 L (3.5-5.0) g/dL Fluid RBC (0-2000) /uL Influenza Type A (PCR) (Not detected) 09/18/23 09/18/23 09/18/23 Range/Units 05:22 05:55 06:21 WBC (3.8-10.6) k/uL Plt Count (150-450) k/uL Lymphocytes # (Manual) (1.0-4.8) k/uL Metamyelocytes # (Man) (0) k/uL Myelocytes # (Manual) (0) k/uL ABG pH 7.29 L (7.35-7.45) ABG pO2 72 L (83-108) mmHg Sodium (137-145) mmol/L Potassium (3.5-5.1) mmol/L Carbon Dioxide (22-30) mmol/L BUN (7-17) mg/dL Creatinine (0.52-1.04) mg/dL Glucose (74-99) mg/dL POC Glucose (mg/dL) 197 H 191 H (70-110) mg/dL Calcium (8.4-10.2) mg/dL Total Protein (6.3-8.2) g/dL Albumin (3.5-5.0) g/dL Fluid RBC (0-2000) /uL Influenza Type A (PCR) (Not detected) 09/18/23 09/18/23 09/18/23 Range/Units 07:06 07:50 09:15 WBC (3.8-10.6) k/uL Plt Count (150-450) k/uL Lymphocytes # (Manual) (1.0-4.8) k/uL Metamyelocytes # (Man) (0) k/uL Myelocytes # (Manual) (0) k/uL ABG pH (7.35-7.45) ABG pO2 (83-108) mmHg Sodium (137-145) mmol/L Potassium (3.5-5.1) mmol/L Carbon Dioxide (22-30) mmol/L BUN (7-17) mg/dL Creatinine (0.52-1.04) mg/dL Glucose (74-99) mg/dL POC Glucose (mg/dL) 186 H 184 H 156 H (70-110) mg/dL Calcium (8.4-10.2) mg/dL Total Protein (6.3-8.2) g/dL Albumin (3.5-5.0) g/dL Fluid RBC (0-2000) /uL Influenza Type A (PCR) (Not detected) 09/18/23 09/18/23 09/18/23 Range/Units 10:21 11:04 12:17 WBC (3.8-10.6) k/uL Plt Count (150-450) k/uL Lymphocytes # (Manual) (1.0-4.8) k/uL Metamyelocytes # (Man) (0) k/uL Myelocytes # (Manual) (0) k/uL ABG pH (7.35-7.45) ABG pO2 (83-108) mmHg Sodium (137-145) mmol/L Potassium (3.5-5.1) mmol/L Carbon Dioxide (22-30) mmol/L BUN (7-17) mg/dL Creatinine (0.52-1.04) mg/dL Glucose (74-99) mg/dL POC Glucose (mg/dL) 144 H 141 H 126 H (70-110) mg/dL Calcium (8.4-10.2) mg/dL Total Protein (6.3-8.2) g/dL Albumin (3.5-5.0) g/dL Fluid RBC (0-2000) /uL Influenza Type A (PCR) (Not detected) 09/18/23 09/18/23 09/18/23 Range/Units 13:25 14:53 15:17 WBC (3.8-10.6) k/uL Plt Count (150-450) k/uL Lymphocytes # (Manual) (1.0-4.8) k/uL Metamyelocytes # (Man) (0) k/uL Myelocytes # (Manual) (0) k/uL ABG pH (7.35-7.45) ABG pO2 (83-108) mmHg Sodium 133 L (137-145) mmol/L Potassium (3.5-5.1) mmol/L Carbon Dioxide 18 L (22-30) mmol/L BUN 35 H (7-17) mg/dL Creatinine 2.42 H (0.52-1.04) mg/dL Glucose 183 H (74-99) mg/dL POC Glucose (mg/dL) 138 H 167 H (70-110) mg/dL Calcium 6.4 L* (8.4-10.2) mg/dL Total Protein (6.3-8.2) g/dL Albumin (3.5-5.0) g/dL Fluid RBC (0-2000) /uL Influenza Type A (PCR) (Not detected) 09/18/23 09/18/23 09/18/23 Range/Units 15:20 17:17 18:13 WBC (3.8-10.6) k/uL Plt Count (150-450) k/uL Lymphocytes # (Manual) (1.0-4.8) k/uL Metamyelocytes # (Man) (0) k/uL Myelocytes # (Manual) (0) k/uL ABG pH (7.35-7.45) ABG pO2 (83-108) mmHg Sodium (137-145) mmol/L Potassium (3.5-5.1) mmol/L Carbon Dioxide (22-30) mmol/L BUN (7-17) mg/dL Creatinine (0.52-1.04) mg/dL Glucose (74-99) mg/dL POC Glucose (mg/dL) 190 H 210 H 200 H (70-110) mg/dL Calcium (8.4-10.2) mg/dL Total Protein (6.3-8.2) g/dL Albumin (3.5-5.0) g/dL Fluid RBC (0-2000) /uL Influenza Type A (PCR) (Not detected) 09/18/23 09/18/23 Range/Units 19:04 21:05 WBC (3.8-10.6) k/uL Plt Count (150-450) k/uL Lymphocytes # (Manual) (1.0-4.8) k/uL Metamyelocytes # (Man) (0) k/uL Myelocytes # (Manual) (0) k/uL ABG pH (7.35-7.45) ABG pO2 (83-108) mmHg Sodium (137-145) mmol/L Potassium (3.5-5.1) mmol/L Carbon Dioxide (22-30) mmol/L BUN (7-17) mg/dL Creatinine (0.52-1.04) mg/dL Glucose (74-99) mg/dL POC Glucose (mg/dL) 205 H 183 H (70-110) mg/dL Calcium (8.4-10.2) mg/dL Total Protein (6.3-8.2) g/dL Albumin (3.5-5.0) g/dL Fluid RBC (0-2000) /uL Influenza Type A (PCR) (Not detected) Microbiology - Last 24 Hours (Table) 09/17/23 08:30 Acid Fast Bacilli Smear - Preliminary Bronchoalviolar Lavage - Left 09/17/23 01:56 Blood Culture - Preliminary Blood 09/17/23 01:56 Blood Culture - Preliminary Blood 09/17/23 06:54 Gram Stain - Preliminary Sputum Sputum Culture - Preliminary Presumptive Staph aureus 09/17/23 08:30 Gram Stain - Preliminary Bronchoalviolar Lavage - Left Bronchial Washings Culture - Preliminary Presumptive Staph aureus Assessment and Plan Assessment: Acute hypoxemic respiratory failure requiring mechanical ventilator. Acute influenza A infection Left-sided acute focal bacterial pneumonia. Status post bronchoscopy on 09/17/2023, bronchial lavage culture showed presumptive Staph aureus. Sepsis/septic shock requiring pressor x 2 support secondary to above New onset atrial fibrillation with rapid ventricular rate. Converted to sinus rhythm Hyperglycemia is uncontrolled diabetes type 2 Acute kidney injury possibly ATN Coronary artery history of stent placement to LAD Chronic CHF with systolic dysfunction/ischemic cardiomyopathy Hyperlipidemia Hypertension Hypothyroidism History of breast cancer status post lumpectomy and radiation Previous history of smoking DVT prophylaxis patient is on heparin drip currently Plan: Patient is on mechanical ventilator and is on sedation. Patient will be continued on antibiotics vancomycin and Zosyn. Follow-up blood cultures and bronchial lavage final culture. Patient to be continued on telemetry. Continue with heparin drip. Amiodarone drip has been discontinued, changed to p.o.. Patient is also on pressor support with norepinephrine and vasopressin. Was started on Tamiflu Continue with home medications including aspirin Plavix and statins. Patient is on insulin drip for better blood sugar control. Follow-up repeat lactic acid level. Follow-up renal function. Critical care team and cardiology is on board. Prognosis is guarded at this time. Time with Patient: Greater than 30
[2023-09-19 00:56] LABS: Glucose,Whole Blood 172 mg/dL (70-110)
[2023-09-19] MEDS: IMMUNE GLOBULIN (GAMMAGARD) 30 GM in EMPTY BAG 1 BAG IV ONE (01:40)
[2023-09-19 02:04] LABS: Glucose,Whole Blood 168 mg/dL (70-110)
[2023-09-19 03:11] LABS: Glucose,Whole Blood 161 mg/dL (70-110)
[2023-09-19 04:02] LABS: Glucose,Whole Blood 166 mg/dL (70-110)
[2023-09-19 04:37] LABS: HCT 38.9 % (34.0-46.0); HGB 13.4 gm/dL (11.4-16.0); MCHC 34.3 g/dL (31.0-37.0); MCV 90.3 fL (80.0-100.0); Mean Platelet Volume 11.5; RBC 4.31 m/uL (3.80-5.40); WBC 9.4 k/uL (3.8-10.6)
[2023-09-19 04:46] LABS: Platelet Count 62 k/uL (150-450)
[2023-09-19 04:59] LABS: Blood Urea Nitrogen 43 mg/dL (7-17); Carbon Dioxide 18 mmol/L (22-30); Chloride 97 mmol/L (98-107); Glucose 157 mg/dL (74-99); Magnesium 1.7 mg/dL (1.6-2.3)
[2023-09-19 05:04] LABS: Vancomycin,Random 20.2 ug/mL
[2023-09-19 05:11] LABS: Glucose,Whole Blood 158 mg/dL (70-110)
[2023-09-19 05:20] LABS: African American GFR (CKD) 17 (>60 ml/min/1.73 sqM); Non-African American GFR(CKD) 15 (>60 ml/min/1.73 sqM); Sodium 131 mmol/L (137-145)
[2023-09-19 05:31] LABS: Calcium 6.1 mg/dL (8.4-10.2)
[2023-09-19 05:39] LABS: Potassium 3.5 mmol/L (3.5-5.1)
[2023-09-19 05:46] LABS: Anion Gap 16 mmol/L
[2023-09-19 05:51] LABS: ABG Base Excess -2.4 mmol/L; ABG HCO3 24 mmol/L (21-25); ABG Oxygen Saturation 93.5 % (94-97); ABG PCO2 48 mmHg (35-45); ABG PH 7.31 (7.35-7.45); ABG PO2 65 mmHg (83-108); ABG TCO2 25 mmol/L (19-24)
[2023-09-19] MEDS: MAGNESIUM SULFATE-D5W PMX 1 GM in DEXTROSE/WATER 1 100ML.BAG IVPB ONE ×2 (05:56→06:06)
[2023-09-19] MEDS: POTASSIUM BICARBONATE/CIT AC 20 MEQ TABLET.EFF NG-TUBE SCH (05:57)
[2023-09-19 06:18] LABS: Glucose,Whole Blood 137 mg/dL (70-110)
[2023-09-19 06:24] LABS: Band Neutrophils % 38 %; Lymphocytes # (M) 0.75 k/uL (1.0-4.8); Metamyelocytes # (M) 1.41 k/uL (0); Metamyelocytes % 15 %; Monocytes # (M) 0.19 k/uL (0-1.0); Myelocytes # (M) 0.47 k/uL (0); Myelocytes % 5 %; Neutrophils % (M) 32 %; Nucleated Red Blood Cells 0 /100 WBC (0-0); RBC Morphology Normal; Total Cells Counted 100
[2023-09-19 06:58] LABS: Glucose,Whole Blood 151 mg/dL (70-110)
--- NOTE | 2023-09-19 07:34 | XR ---
EXAMINATION TYPE: XR chest 1V portable DATE OF EXAM: 09/19/2023 5:09 AM CLINICAL INDICATION:Female, 63 years old with history of Tube placement; [facility] COMPARISON: Chest radiographs from 09/18/2023. TECHNIQUE: XR chest 1V portable Frontal view of the chest. FINDINGS: Lungs/Pleura: There is no evidence of pleural effusion, focal consolidation, or pneumothorax. Pulmonary vascularity: Unremarkable. Heart/mediastinum: Cardiomediastinal silhouette is unremarkable. Musculoskeletal: No acute osseous pathology. Other findings: None Lines/Tubes: Endotracheal tube with distal tip 2.6 cm above the becca. Nasogastric tube with its distal tip and side-port projecting under the diaphragm. Left central venous catheter with distal tip at the cavoatrial junction. IMPRESSION: Lower lung volumes on today's exam, persistent right lower lobe and left middle lobe airspace disease .
[2023-09-19] MEDS: CALCIUM GLUCONATE IN NACL 2 GM in SALINE 1 100ML.BAG IVPB ONE (08:22)
[2023-09-19] MEDS: OSELTAMIVIR 30 MG CAP PO SCH (08:29)
[2023-09-19 08:35] LABS: Glucose,Whole Blood 153 mg/dL (70-110)
[2023-09-19] MEDS: FUROSEMIDE 10 MG/ML 10 ML VIAL IV SCH (09:06)
[2023-09-19 09:07] LABS: Glucose,Whole Blood 145 mg/dL (70-110)
[2023-09-19] MEDS: HYDROmorphone 0.5 MG/0.5 ML SYRINGE IVP PRN (09:24)
[2023-09-19 09:55] LABS: INR 1.1 (<1.2); Prothrombin Time 11.5 sec (10.0-12.5)
[2023-09-19 10:11] LABS: Glucose,Whole Blood 176 mg/dL (70-110)
[2023-09-19] MEDS: AMIODARONE 360 MG in DEXTROSE 5% IN WATER 200 ML IV ONE (10:39)
[2023-09-19] MEDS: DEXTROSE 5% IN WATER 100 ML with AMIODARONE 150 MG IV ONE (10:39)
[2023-09-19 11:04] LABS: Glucose,Whole Blood 220 mg/dL (70-110)
[2023-09-19 11:14] LABS: HCT 36.7 % (34.0-46.0); HGB 12.9 gm/dL (11.4-16.0); MCH 31.5 pg (25.0-35.0); MCHC 35.1 g/dL (31.0-37.0); MCV 89.5 fL (80.0-100.0); Mean Platelet Volume 12.5; RDW 14.2 % (11.5-15.5)
--- NOTE | 2023-09-19 11:16 | P.NPCON ---
History of Present Illness - Reason for Consult acute renal failure - History of Present Illness Patient is a 63-year-old female with history of coronary artery disease, CHF, type 2 diabetes and history of left breast cancer status post lumpectomy and radiation therapy. Patient is admitted to the hospital with complaints of increased weakness, shortness of breath cough and congestion. Patient tested positive for influenza A. Respiratory status deteriorated on the floor and patient was brought into the ICU. She was intubated. Currently hypotensive and maintained on pressors. Urine output noted to be 0-5 mL per hour for about 24 hours now with no response to 80 mg of IV Lasix. Status post 7 L of fluid bolus for fluid resuscitation. Currently maintained on bicarb drip. Patient Chest x-ray shows left-sided pneumonia. Patient is maintained on vancomycin. Vancomycin level was 20 today. Review of Systems As per HPI Past Medical History Past Medical History: Coronary Artery Disease (CAD), Cancer, Heart Failure, Diabetes Mellitus, Hypertension, Myocardial Infarction (HI), Osteoarthritis (OA), Skin Disorder, Thyroid Disorder Additional Past Medical History / Comment(s): L breast cancer with lumpectomy and radiation, IDDM type II, psoriasis, arthritis in neck, hypothyroid, sinus problems, past elevated LFT but pt was told not to worry about that. Last Myocardial Infarction Date:: 12/23/17 History of Any Multi-Drug Resistant Organisms: MRSA Date of last positivie culture/infection: 2012; MDRO Source:: groin Past Surgical History: Heart Catheterization With Stent Additional Past Surgical History / Comment(s): lumpectomy left breast with lymph nodes removed, bladder suspension 20 years ago, colonoscopy Past Anesthesia/Blood Transfusion Reactions: No Reported Reaction Date of Last Stent Placement:: 12/23/17 Past Psychological History: No Psychological Hx Reported Additional Psychological History / Comment(s): Pt has clausterphobia. Pt re sides with her spouse. She is independent. Smoking Status: Never smoker Past Alcohol Use History: None Reported Additional Past Alcohol Use History / Comment(s): Pt started smoking in 1974 and quit in 11/2017 Past Drug Use History: None Reported - Past Family History Father Family Medical History: Cancer, Diabetes Mellitus, Hypertension Additional Family Medical History / Comment(s): Father of lymphoma at the age of 54yrs. Mother Additional Family Medical History / Comment(s): Mother has heart problems and is almost 80yrs old Medications and Allergies Home Medications Medication Instructions Recorded Confirmed Type Aspirin 81 mg PO DAILY #30 chew 12/26/17 09/16/23 Rx Anastrozole [Arimidex] 1 mg PO DAILY 10/13/18 09/16/23 History Clopidogrel [Plavix] 75 mg PO DAILY 30 Days #30 tab 01/11/21 09/16/23 Rx Losartan [Cozaar] 50 mg PO HS 30 Days #30 tab 01/11/21 09/16/23 Rx Spironolactone [Aldactone] 25 mg PO DAILY 30 Days #30 tab 01/12/21 09/16/23 Rx Fluocinolone 0.01% Oil 1 applic TOPICAL DIRECTED 09/16/23 09/16/23 History Insulin NPH Hum/Reg Insulin Hm 45 unit SQ DAILY 09/16/23 09/16/23 History [NovoLIN 70-30 100 Unit/ml Vial] Levothyroxine Sodium [Synthroid] 150 mcg PO DAILY 09/16/23 09/16/23 History Metoprolol Succinate (ER) [Toprol 75 mg PO BID 09/16/23 09/16/23 History Xl] Rosuvastatin [Crestor] 20 mg PO HS 09/16/23 09/16/23 History Venlafaxine HCl [Effexor XR] 150 mg PO DAILY 09/16/23 09/16/23 History Allergies Allergy/AdvReac Type Severity Reaction Status Date / Time Sulfa (Sulfonamide Allergy Unknown Verified 09/16/23 18:02 Antibiotics) Physical Exam Vitals: Vital Signs Temp Pulse Pulse Resp Pulse Ox FiO2 09/19/23 10:45 133 H 26 H 94 L 09/19/23 10:30 135 H 27 H 96 09/19/23 10:15 142 H 28 H 89 L 09/19/23 10:00 131 H 28 H 89 L 09/19/23 09:45 140 H 28 H 90 L 09/19/23 09:30 124 H 30 H 90 L 09/19/23 09:15 125 H 28 H 91 L 09/19/23 09:00 121 H 28 H 91 L 09/19/23 08:45 120 H 24 92 L 09/19/23 08:30 116 H 28 H 92 L 09/19/23 08:15 115 H 28 H 92 L 09/19/23 08:11 115 H 09/19/23 08:00 114 H 31 H 92 L 60 09/19/23 07:56 60 09/19/23 07:45 113 H 28 H 92 L 09/19/23 07:30 112 H 24 92 L 09/19/23 07:15 110 H 28 H 91 L 09/19/23 07:00 111 H 28 H 91 L 09/19/23 06:45 112 H 28 H 91 L 09/19/23 06:30 112 H 28 H 91 L 09/19/23 06:15 114 H 28 H 91 L 09/19/23 06:00 116 H 29 H 91 L 09/19/23 05:45 120 H 36 H 91 L 09/19/23 05:30 122 H 28 H 92 L 09/19/23 05:15 121 H 28 H 92 L 09/19/23 05:00 121 H 28 H 92 L 09/19/23 04:45 122 H 28 H 92 L 09/19/23 04:30 122 H 28 H 92 L 09/19/23 04:15 121 H 28 H 91 L 09/19/23 04:00 99 F 118 H 28 H 91 L 60 09/19/23 03:59 122 H 09/19/23 03:55 60 09/19/23 03:45 118 H 28 H 91 L 09/19/23 03:30 120 H 28 H 91 L 09/19/23 03:15 121 H 28 H 90 L 09/19/23 03:00 122 H 28 H 90 L 09/19/23 02:45 124 H 28 H 90 L 09/19/23 02:30 125 H 28 H 91 L 09/19/23 02:15 121 H 28 H 90 L 09/19/23 02:00 126 H 28 H 90 L 09/19/23 01:45 128 H 28 H 90 L 09/19/23 01:30 126 H 28 H 90 L 09/19/23 01:15 125 H 28 H 90 L 09/19/23 01:00 123 H 28 H 91 L 09/19/23 00:45 123 H 28 H 91 L 09/19/23 00:30 121 H 28 H 91 L 09/19/23 00:28 121 H 09/19/23 00:18 121 H 09/19/23 00:16 60 09/19/23 00:15 120 H 28 H 91 L 09/19/23 00:09 121 H 28 H 91 L 09/19/23 00:00 100.7 F H 123 H 28 H 91 L 60 09/18/23 23:45 122 H 28 H 91 L 09/18/23 23:30 125 H 28 H 91 L 09/18/23 23:15 124 H 28 H 90 L 09/18/23 23:00 126 H 28 H 91 L 09/18/23 22:45 124 H 34 H 90 L 09/18/23 22:30 124 H 28 H 90 L 09/18/23 22:15 126 H 31 H 91 L 09/18/23 22:00 126 H 29 H 91 L 09/18/23 21:45 128 H 29 H 91 L 09/18/23 21:30 126 H 28 H 91 L 09/18/23 21:15 128 H 28 H 91 L 09/18/23 21:00 128 H 28 H 91 L 09/18/23 20:45 125 H 28 H 91 L 09/18/23 20:44 123 H 09/18/23 20:39 60 09/18/23 20:37 128 H 09/18/23 20:30 125 H 28 H 91 L 09/18/23 20:15 123 H 28 H 91 L 09/18/23 20:00 101 F H 126 H 28 H 91 L 60 09/18/23 19:45 124 H 28 H 91 L 09/18/23 19:30 125 H 28 H 91 L 09/18/23 19:15 125 H 28 H 91 L 09/18/23 19:00 126 H 28 H 91 L 09/18/23 18:45 101.1 F H 126 H 29 H 92 L 09/18/23 18:30 126 H 28 H 92 L 09/18/23 18:15 126 H 28 H 91 L 09/18/23 18:00 102.2 F H 128 H 28 H 91 L 09/18/23 17:45 129 H 30 H 90 L 09/18/23 17:30 102.7 F H 130 H 31 H 90 L 09/18/23 17:15 131 H 29 H 91 L 09/18/23 17:00 133 H 30 H 90 L 09/18/23 16:48 60 09/18/23 16:45 133 H 30 H 89 L 09/18/23 16:30 133 H 123 H 30 H 90 L 09/18/23 16:15 133 H 30 H 90 L 09/18/23 16:00 103.1 F H 133 H 31 H 90 L 50 09/18/23 15:49 133 H 09/18/23 15:45 131 H 31 H 90 L 09/18/23 15:41 50 09/18/23 15:40 129 H 09/18/23 15:30 131 H 17 90 L 09/18/23 15:15 133 H 30 H 90 L 09/18/23 15:00 133 H 32 H 90 L 09/18/23 14:45 131 H 32 H 90 L 09/18/23 14:30 130 H 30 H 90 L 09/18/23 14:15 131 H 30 H 91 L 09/18/23 14:00 128 H 31 H 92 L 50 09/18/23 13:45 126 H 31 H 92 L 09/18/23 13:30 125 H 27 H 92 L 09/18/23 13:15 126 H 32 H 92 L 09/18/23 13:00 126 H 29 H 92 L 50 09/18/23 12:45 124 H 28 H 92 L 09/18/23 12:30 124 H 28 H 92 L 09/18/23 12:15 126 H 29 H 92 L 09/18/23 12:04 124 H 09/18/23 12:00 102.3 F H 124 H 28 H 92 L 50 09/18/23 11:55 50 09/18/23 11:54 124 H 09/18/23 11:45 125 H 28 H 91 L 09/18/23 11:38 123 H 28 H 09/18/23 11:30 125 H 28 H 91 L 09/18/23 11:15 126 H 28 H 91 L Intake and Output 09/18/23 09/19/23 09/19/23 22:59 06:59 14:59 Intake Total 3594.745 4180.254 934.940 Output Total 40 5 0 Balance 6395.821 2006.254 934.940 Intake: IV 1018 1384 628 Clindamycin 900 mg In 50 50 150 Dextrose 5% in Water 50 ml @ 50 mls/hr IVPB Q8H REPLACED BY [facility] Rx#:[id number] Dextrose 5% in Water 1, 800 900 300 000 ml @ 100 mls/hr IV . [id number] LAURE with Sodium Bicarb (1 Meq/ml) 150 ml Rx#:[id number] Magnesium Sulfate-D5w Pmx 100 1 gm In Dextrose/Water 1 100ml.bag @ 100 mls/hr IVPB ONCE ONE Rx#: [id number] Piperacillin-Tazobactam 3 100 100 .375 gm In Sodium Chloride 0.9% 100 ml @ 25 mls/hr IVPB Q8HR REPLACED BY [facility] Rx# :[id number] Pressure Bag (0.9 sodium 48 54 18 chloride) Sodium Chloride 0.9% 1, 120 180 60 000 ml @ 20 mls/hr IV . Q24H REPLACED BY [facility] Rx#:[id number] Intake, IV Titration 516.196 279.254 306.940 Amount Calcium Gluconate in NaCl 100 2 gm In Saline 1 100ml. bag @ 100 mls/hr IVPB ONCE ONE Rx#:[id number] Heparin Sod,Pork in 0.45% 229.113 117.427 NaCl 25,000 unit In 0.45 % NaCl 1 250ml.bag @ 12 UNITS/KG/HR 9.525 mls/hr IV .Q24H REPLACED BY [facility] Rx#: [id number] Insulin Regular 100 unit 21.179 84.292 In Sodium Chloride 0.9% 100 ml @ Titrate IV .Q0M REPLACED BY [facility] Rx#:[id number] Norepinephrine 32 mg In 82.306 89.513 Sodium Chloride 0.9% 218 ml @ 0.03 MCG/KG/MIN 1. 116 mls/hr IV .Q24H REPLACED BY [facility] Rx#:[id number] Piperacillin-Tazobactam 3 100 .375 gm In Sodium Chloride 0.9% 100 ml @ 25 mls/hr IVPB Q8HR REPLACED BY [facility] Rx# :[id number] Vasopressin 20 unit In 46.767 46.92 Sodium Chloride 0.9% 50 ml @ 0.03 UNITS/MIN 4.59 mls/hr IV .Q11H7M REPLACED BY [facility] Rx# :[id number] propofoL 1,000 mg In 36.831 148.042 Empty Bag 1 bag @ 15 MCG/ KG/MIN 7.144 mls/hr IV . Q14H REPLACED BY [facility] Rx#:[id number] Tube Feeding 80 170 Other 60 60 Output: Urine 40 5 0 Other: Voiding Method Indwelling Catheter Indwelling Catheter Indwelling Catheter Weight 87.6 kg ABP, PAP, CO, CI - Last 8 Hours Arterial Blood Pressure 94/45 Arterial Blood Pressure 86/46 Arterial Blood Pressure 86/46 Arterial Blood Pressure 89/46 Arterial Blood Pressure 85/46 Arterial Blood Pressure 112/46 Arterial Blood Pressure 124/54 Arterial Blood Pressure 118/53 Arterial Blood Pressure 143/52 Arterial Blood Pressure 127/52 Arterial Blood Pressure 118/51 Arterial Blood Pressure 118/51 Arterial Blood Pressure 129/52 Arterial Blood Pressure 115/50 Arterial Blood Pressure 105/48 Arterial Blood Pressure 103/46 Arterial Blood Pressure 98/46 Arterial Blood Pressure 92/44 Arterial Blood Pressure 91/44 Arterial Blood Pressure 90/44 Arterial Blood Pressure 107/47 Arterial Blood Pressure 115/50 Arterial Blood Pressure 116/50 Arterial Blood Pressure 124/53 Arterial Blood Pressure 122/51 Arterial Blood Pressure 120/52 Arterial Blood Pressure 118/50 Arterial Blood Pressure 46/46 Arterial Blood Pressure 105/46 Arterial Blood Pressure 103/46 Arterial Blood Pressure 107/46 Patient is currently intubated he did she is on the vent Examination of the heart S1 and S2 Examination of the lungs bilateral breath sounds are heard Abdomen is soft nontender with decreased bowel sounds Examination of lower extremity shows no edema. Psoriatic rash is noted Results - Lab Results Most recent lab results ABG pH 7.31 (7.35-7.45) L 09/19/23 05:43 ABG pCO2 48 mmHg (35-45) H 09/19/23 05:43 ABG pO2 65 mmHg (83-108) L 09/19/23 05:43 ABG HCO3 24 mmol/L (21-25) 09/19/23 05:43 ABG O2 Saturation 93.5 % (94-97) L 09/19/23 05:43 Calcium 6.1 mg/dL (8.4-10.2) L* 09/19/23 03:54 Magnesium 1.7 mg/dL (1.6-2.3) 09/19/23 03:54 09/19/23 03:54 09/19/23 03:54 Assessment and Plan Assessment: 1. Acute kidney injury, oliguric ATN secondary to sepsis and hypotension. Continue with fluids. Ultrasound shows no evidence of obstructive uropathy. UA shows 2+ protein and small blood, WBCs 2. Vancomycin level 20 2. Acute hypoxic respiratory failure currently on the vent 3. Acute left lung pneumonia maintained on vancomycin and Zosyn along with clindamycin 4. Anion gap metabolic acidosis associated with acute kidney injury, lactic acidosis 5. A. fib with RVR Plan: Continue with bicarb drip Continue to avoid nephrotoxic agents. Closely monitor vancomycin levels. Amina ent may need renal replacement therapy if urine output does not improve. We will continue to assess on a daily basis. Thank you for the consultation. We will continue to follow the patient with you during her hospitalization.
[2023-09-19 11:17] LABS: Platelet Count 49 k/uL (150-450)
--- NOTE | 2023-09-19 11:25 | P.PN ---
Subjective Progress Note Date: 09/19/23 63-year-old female patient currently intubated on mechanical ventilator due to extensive left lung pneumonia. The patient is known to have coronary artery disease with previous coronary stenting x 3 involving the LAD in addition to history of congestive heart failure/ischemic cardiomyopathy, breast cancer, hypertension hyperlipidemia and she is a chronic smoker. The patient started getting sick sometime last week and she was having cough and congestion and fever with a temperature of 102 along with myalgias without any emesis. She came into the hospital and she tested positive for influenza A and within 12 hours she decompensated and the patient was brought into the intensive care unit with hypoxic respiratory failure. She was briefly placed placed on the BiPAP and she failed BiPAP therapy. Subsequently, the patient was intubated and placed on the mechanical ventilator. During the course, the patient also developed A-fib with RVR. At this point in time, the patient is in septic shock , hypotensive, intubated on mechanical ventilator. Her ventilator setting including assist-control mode with rate of 20, tidal volume of 400, FiO2 of 60% and a PEEP of 5. Preintubation blood gas shows 0.13 with a pCO2 of 55 and FiO2 of 40% with a pO2 of 101. This was done on the BiPAP. The patient's chest x- ray showed an extensive left lung consolidation that developed. ET tube is in a good location post intubation. Patient was given IV Eliquis patient received a total of 2 L 2 L of normal saline and currently she is on pressors with norepinephrine running at 0.13 mcg/kg/min. Her mean arterial pressures of 57. She is also in A-fib RVR, amiodarone drip is running at 1 mg/min and the patient is also on IV heparin. She is on propofol running at 3035 mcg/kg/min and IV fluids are in the order of bicarb infusion at rate of 100 cc an hour. White cell count is at 3.3 with a hemoglobin of 16 and a platelet count of 194. The BUN is at 30 with a creatinine of 1.5 and a serum bicarb is at 15 with a sodium level of 134 and a potassium level of 3.1. The troponins were negative. The re st of the viral panel is also negative with exception of influenza a. She was started on Tamiflu. She is on a combination of Rocephin and Zithromax. The patient is also on insulin drip at 13 units an hour for blood sugar control. On 09/18/2023, the patient is being seen for a follow-up. The patient was in septic shock related to a extensive left lung pneumonia. The patient is post intubation mechanical ventilation. She also underwent a bronchoscopy yesterday endobronchial lavage of the left lung was done and the cultures are still pending for now. This morning, the patient remains intubated on mechanical ventilator. He is currently on propofol running at 45 mcg/kg/min. She is on a assist-control mode at the rate of 28, tidal volume of 400, FiO2 of 50% with a PEEP of 5. Peak airway pressures around 38 with a static airway pressure of around 25. CVP is at 13. The patient remains on a bicarb infusion running at 100 cc an hour. Cardiac rhythm has converted to sinus and the patient completed amiodarone loading. She is hypotensive with a low urine output of 10 to 20 cc an hour. Norepinephrine is running at 0.26 mcg/kg/min and the patient is also on vasopressin, physiologic dose. She remains on IV heparin. Echocardiogram was completed yesterday and the patient was found to have impaired LV function with a left ventricular ejection fraction of 20 to 25%. At the same time, the patient was found to have a left ventricular apical thrombus and apical/periapical akinesis and mild mitral regurgitation. The patient remains on IV heparin. As mentioned, the patient has converted to normal sinus rhythm. In terms of the blood work, the repeat procalcitonin level was quite elevated at 99. Blood cultures are negative. The patient has sustained acute kidney injury with a creatinine of 1.88 with a BUN of 32. Sodium is at 134. Potassium is at 4.1. Bicarb level is up to 19. The patient's white cell count is at 2.2 with a hemoglobin 14.2 and a platelet count of 122. Lactic acid level has been fluctuating and the highest level was at 6.5 dropped down to 5.0. In terms of antibiotic coverage, the patient on Rocephin and Zithromax and vancomycin. The patient is also completing course of Tamiflu. The patient is currently in sinus tachycardia. Tmax was one 1.6. On 09/19/2023, seen the patient for a follow-up. The patient remains critically ill with a staphylococcal pneumonia and multisystem organ failure. The patient had a bronchoscopy endobronchial lavage of the left lower lobe showed Staph aureus which is probably MSSA and the patient has been and severe septic shock with multisystem organ failure. The patient initially started off with influenza A infection and subsequently she developed multilobar pneumonia and septic shock. She continued to have episodes of fever. She has a diffuse body rash which is probably related to her psoriasis. However the possibility of toxic shock syndrome cannot be completely eliminated. Based on her ongoing issues with hemodynamic instability and fever and sepsis, I added clindamycin to her regimen and I gave her a dose of IVIG 1 mg/kg. The patient is currently on a combination of Zosyn, vancomycin and clindamycin. The chest x-ray from today showing persistent right lower lobe consolidation and extensive consolidation involving the lingula and the left lower lobe. The patient remains sedated on p ropofol and this morning she is on 25 mcg/kg/min. She is adequately sedated. She is on assist-control mode at a rate of 28, tidal volume of 400, FiO2 of 60% with a PEEP of 5. Peak airway pressures around 39. CVP is around 12. The patient remains on vasopressin 0.04 units and norepinephrine running at 0.0 44 mcg/kg/min. Fluid balance is +1.7 L over the past 24 hours. The patient is developing progressive worsening renal function and the patient is also in acute kidney failure. Based on today's blood work, the white cell count is improved and the patient's white cell comes up to 9.2 and the patient's hemoglobin of 12.9 with a platelet count of 62 which is a drop compared to yesterday. Coagulation profile is showing some mild elevation of the PTT. PT/INR is within normal limits. The blood gas shows a pH of 7.31 with a pCO2 of 48 and pO2 of 65. BUN is at 43 with a creatinine of 3.22 and a sodium levels at 131. Lactic acid level remains elevated at 6.1. She has severe cardiomyopathy with an ejection fraction of 20 to 25%. She was unable to tolerate enteral feeding. As such, the tube feeds placed on hold. The cardiac rhythm is sinus tachycardia the patient remains on the amiodarone orally. She is also on IV heparin. Objective - Vital Signs Vital signs: Vital Signs Temp 99 F 09/19/23 04:00 Pulse 133 H 09/19/23 10:45 Resp 26 H 09/19/23 10:45 BP 91/53 09/17/23 06:45 Pulse Ox 94 L 09/19/23 10:45 FiO2 60 09/19/23 08:00 Intake & Output 09/18/23 09/19/23 09/19/23 18:59 06:59 18:59 Intake Total 2660.918 2834.646 934.940 Output Total 185 5 0 Balance 2475.918 2829.646 934.940 Weight 85.2 kg 87.6 kg Intake: IV 1961 1918 628 Clindamycin 900 mg In 100 150 Dextrose 5% in Water 50 ml @ 50 mls/hr IVPB Q8H [facility] Rx#:[id number] Dextrose 5% in Water 1, 1200 1300 300 000 ml @ 100 mls/hr IV . [id number] [facility] with Sodium Bicarb (1 Meq/ml) 150 ml Rx#:[id number] Magnesium Sulfate-D5w Pmx 100 1 gm In Dextrose/Water 1 100ml.bag @ 100 mls/hr IVPB ONCE ONE Rx#: [id number] Piperacillin-Tazobactam 3 100 100 .375 gm In Sodium Chloride 0.9% 100 ml @ 25 mls/hr IVPB Q8HR [facility] Rx# :[id number] Pressure Bag (0.9 sodium 72 78 18 chloride) Sodium Chloride 0.9% 1, 190 240 60 000 ml @ 20 mls/hr IV . Q24H [facility] Rx#:[id number] Vancomycin 1,500 mg In 500 Sodium Chloride 0.9% 500 ml 500 ml @ 167 mls/hr IVPB ONCE ONE Rx#: [id number] Intake, IV Titration 603.918 586.646 306.940 Amount Calcium Gluconate in NaCl 100 2 gm In Saline 1 100ml. bag @ 100 mls/hr IVPB ONCE ONE Rx#:[id number] Heparin Sod,Pork in 0.45% 229.113 117.427 NaCl 25,000 unit In 0.45 % NaCl 1 250ml.bag @ 12 UNITS/KG/HR 9.525 mls/hr IV .Q24H [facility] Rx#: [id number] Insulin Regular 100 unit 82.734 89.846 In Sodium Chloride 0.9% 100 ml @ Titrate IV .Q0M [facility] Rx#:[id number] Norepinephrine 32 mg In 147.415 35.114 89.513 Sodium Chloride 0.9% 218 ml @ 0.03 MCG/KG/MIN 1. 116 mls/hr IV .Q24H [facility] Rx#:[id number] Piperacillin-Tazobactam 3 100 .375 gm In Sodium Chloride 0.9% 100 ml @ 25 mls/hr IVPB Q8HR [facility] Rx# :[id number] Vasopressin 20 unit In 73.491 71.196 Sodium Chloride 0.9% 50 ml @ 0.03 UNITS/MIN 4.59 mls/hr IV .Q11H7M [facility] Rx# :[id number] propofoL 1,000 mg In 200.278 161.377 Empty Bag 1 bag @ 15 MCG/ KG/MIN 7.144 mls/hr IV . Q14H [facility] Rx#:[id number] Tube Feeding 65 210 Other 30 120 Output: Urine 185 5 0 Other: Voiding Method Indwelling Catheter Indwelling Catheter Indwelling Catheter ABP, PAP, CO, CI - Last Documented Arterial Blood Pressure 94/45 - Exam GENERAL EXAM: Patient is Sedated, intubated on mechanical ventilator on assist control mode mechanical ventilation. The patient has an orogastric and orotracheal tube are both in place. HEAD: Normocephalic and atraumatic EYES: Normal reaction of pupils, equal size. NOSE: Clear with pink turbinates. THROAT: No erythema or exudates. NECK: No masses, no JVD. CHEST: No chest wall deformity. LUNGS: Equal air entry with diffuse rhonchi. Diffuse rhonchi heard throughout the lung irizarry bilaterally CVS: S1 and S2 normal with no audible murmur, irregular rhythm. No extra heart sounds. ABDOMEN: No hepatosplenomegaly, active bowel sounds, no guarding or rigidity. SPINE: No scoliosis or deformity SKIN: Diffuse erythema and plaquing on all 4 extremities, the patient has psoriatic patches throughout her body more so in the lower extremities bilaterally. CENTRAL NERVOUS SYSTEM: No focal deficits, tone is normal in all 4 extremities. The patient is currently sedated on propofol EXTREMITIES: There is no peripheral edema, clubbing, or cyanosis. Peripheral pulses are intact. - Labs CBC & Chem 7: 09/19/23 10:44 09/19/23 03:54 Labs: Abnormal Lab Results - Last 24 Hours (Table) 09/17/23 09/18/23 09/18/23 Range/Units 08:30 12:17 13:25 Plt Count (150-450) k/uL Lymphocytes # (Manual) (1.0-4.8) k/uL Metamyelocytes # (Man) (0) k/uL Myelocytes # (Manual) (0) k/uL APTT (22.0-30.0) sec Fibrinogen (200-500) mg/dL ABG pH (7.35-7.45) ABG pCO2 (35-45) mmHg ABG pO2 (83-108) mmHg ABG Total CO2 (19-24) mmol/L ABG O2 Saturation (94-97) % Sodium (137-145) mmol/L Chloride (98-107) mmol/L Carbon Dioxide (22-30) mmol/L BUN (7-17) mg/dL Creatinine (0.52-1.04) mg/dL Glucose (74-99) mg/dL POC Glucose (mg/dL) 126 H 138 H (70-110) mg/dL Calcium (8.4-10.2) mg/dL Influenza Type A (PCR) DETECTED A (Not detected) 09/18/23 09/18/23 09/18/23 Range/Units 14:53 15:17 15:20 Plt Count (150-450) k/uL Lymphocytes # (Manual) (1.0-4.8) k/uL Metamyelocytes # (Man) (0) k/uL Myelocytes # (Manual) (0) k/uL APTT (22.0-30.0) sec Fibrinogen (200-500) mg/dL ABG pH (7.35-7.45) ABG pCO2 (35-45) mmHg ABG pO2 (83-108) mmHg ABG Total CO2 (19-24) mmol/L ABG O2 Saturation (94-97) % Sodium 133 L (137-145) mmol/L Chloride (98-107) mmol/L Carbon Dioxide 18 L (22-30) mmol/L BUN 35 H (7-17) mg/dL Creatinine 2.42 H (0.52-1.04) mg/dL Glucose 183 H (74-99) mg/dL POC Glucose (mg/dL) 167 H 190 H (70-110) mg/dL Calcium 6.4 L* (8.4-10.2) mg/dL Influenza Type A (PCR) (Not detected) 09/18/23 09/18/23 09/18/23 Range/Units 17:17 18:13 19:04 Plt Count (150-450) k/uL Lymphocytes # (Manual) (1.0-4.8) k/uL Metamyelocytes # (Man) (0) k/uL Myelocytes # (Manual) (0) k/uL APTT (22.0-30.0) sec Fibrinogen (200-500) mg/dL ABG pH (7.35-7.45) ABG pCO2 (35-45) mmHg ABG pO2 (83-108) mmHg ABG Total CO2 (19-24) mmol/L ABG O2 Saturation (94-97) % Sodium (137-145) mmol/L Chloride (98-107) mmol/L Carbon Dioxide (22-30) mmol/L BUN (7-17) mg/dL Creatinine (0.52-1.04) mg/dL Glucose (74-99) mg/dL POC Glucose (mg/dL) 210 H 200 H 205 H (70-110) mg/dL Calcium (8.4-10.2) mg/dL Influenza Type A (PCR) (Not detected) 09/18/23 09/18/23 09/18/23 Range/Units 21:05 23:08 23:57 Plt Count (150-450) k/uL Lymphocytes # (Manual) (1.0-4.8) k/uL Metamyelocytes # (Man) (0) k/uL Myelocytes # (Manual) (0) k/uL APTT (22.0-30.0) sec Fibrinogen (200-500) mg/dL ABG pH (7.35-7.45) ABG pCO2 (35-45) mmHg ABG pO2 (83-108) mmHg ABG Total CO2 (19-24) mmol/L ABG O2 Saturation (94-97) % Sodium (137-145) mmol/L Chloride (98-107) mmol/L Carbon Dioxide (22-30) mmol/L BUN (7-17) mg/dL Creatinine (0.52-1.04) mg/dL Glucose (74-99) mg/dL POC Glucose (mg/dL) 183 H 139 H 152 H (70-110) mg/dL Calcium (8.4-10.2) mg/dL Influenza Type A (PCR) (Not detected) 09/19/23 09/19/23 09/19/23 Range/Units 00:55 02:02 03:09 Plt Count (150-450) k/uL Lymphocytes # (Manual) (1.0-4.8) k/uL Metamyelocytes # (Man) (0) k/uL Myelocytes # (Manual) (0) k/uL APTT (22.0-30.0) sec Fibrinogen (200-500) mg/dL ABG pH (7.35-7.45) ABG pCO2 (35-45) mmHg ABG pO2 (83-108) mmHg ABG Total CO2 (19-24) mmol/L ABG O2 Saturation (94-97) % Sodium (137-145) mmol/L Chloride (98-107) mmol/L Carbon Dioxide (22-30) mmol/L BUN (7-17) mg/dL Creatinine (0.52-1.04) mg/dL Glucose (74-99) mg/dL POC Glucose (mg/dL) 172 H 168 H 161 H (70-110) mg/dL Calcium (8.4-10.2) mg/dL Influenza Type A (PCR) (Not detected) 09/19/23 09/19/23 09/19/23 Range/Units 03:54 03:54 03:54 Plt Count 62 L (150-450) k/uL Lymphocytes # (Manual) 0.75 L (1.0-4.8) k/uL Metamyelocytes # (Man) 1.41 H (0) k/uL Myelocytes # (Manual) 0.47 H (0) k/uL APTT 30.6 H (22.0-30.0) sec Fibrinogen (200-500) mg/dL ABG pH (7.35-7.45) ABG pCO2 (35-45) mmHg ABG pO2 (83-108) mmHg ABG Total CO2 (19-24) mmol/L ABG O2 Saturation (94-97) % Sodium 131 L (137-145) mmol/L Chloride 97 L (98-107) mmol/L Carbon Dioxide 18 L (22-30) mmol/L BUN 43 H (7-17) mg/dL Creatinine 3.22 H (0.52-1.04) mg/dL Glucose 157 H (74-99) mg/dL POC Glucose (mg/dL) (70-110) mg/dL Calcium 6.1 L* (8.4-10.2) mg/dL Influenza Type A (PCR) (Not detected) 09/19/23 09/19/23 09/19/23 Range/Units 04:00 05:10 05:43 Plt Count (150-450) k/uL Lymphocytes # (Manual) (1.0-4.8) k/uL Metamyelocytes # (Man) (0) k/uL Myelocytes # (Manual) (0) k/uL APTT (22.0-30.0) sec Fibrinogen (200-500) mg/dL ABG pH 7.31 L (7.35-7.45) ABG pCO2 48 H (35-45) mmHg ABG pO2 65 L (83-108) mmHg ABG Total CO2 25 H (19-24) mmol/L ABG O2 Saturation 93.5 L (94-97) % Sodium (137-145) mmol/L Chloride (98-107) mmol/L Carbon Dioxide (22-30) mmol/L BUN (7-17) mg/dL Creatinine (0.52-1.04) mg/dL Glucose (74-99) mg/dL POC Glucose (mg/dL) 166 H 158 H (70-110) mg/dL Calcium (8.4-10.2) mg/dL Influenza Type A (PCR) (Not detected) 09/19/23 09/19/23 09/19/23 Range/Units 06:17 06:56 08:34 Plt Count (150-450) k/uL Lymphocytes # (Manual) (1.0-4.8) k/uL Metamyelocytes # (Man) (0) k/uL Myelocytes # (Manual) (0) k/uL APTT (22.0-30.0) sec Fibrinogen (200-500) mg/dL ABG pH (7.35-7.45) ABG pCO2 (35-45) mmHg ABG pO2 (83-108) mmHg ABG Total CO2 (19-24) mmol/L ABG O2 Saturation (94-97) % Sodium (137-145) mmol/L Chloride (98-107) mmol/L Carbon Dioxide (22-30) mmol/L BUN (7-17) mg/dL Creatinine (0.52-1.04) mg/dL Glucose (74-99) mg/dL POC Glucose (mg/dL) 137 H 151 H 153 H (70-110) mg/dL Calcium (8.4-10.2) mg/dL Influenza Type A (PCR) (Not detected) 09/19/23 09/19/23 09/19/23 Range/Units 09:05 09:21 10:10 Plt Count (150-450) k/uL Lymphocytes # (Manual) (1.0-4.8) k/uL Metamyelocytes # (Man) (0) k/uL Myelocytes # (Manual) (0) k/uL APTT (22.0-30.0) sec Fibrinogen 727 H (200-500) mg/dL ABG pH (7.35-7.45) ABG pCO2 (35-45) mmHg ABG pO2 (83-108) mmHg ABG Total CO2 (19-24) mmol/L ABG O2 Saturation (94-97) % Sodium (137-145) mmol/L Chloride (98-107) mmol/L Carbon Dioxide (22-30) mmol/L BUN (7-17) mg/dL Creatinine (0.52-1.04) mg/dL Glucose (74-99) mg/dL POC Glucose (mg/dL) 145 H 176 H (70-110) mg/dL Calcium (8.4-10.2) mg/dL Influenza Type A (PCR) (Not detected) 09/19/23 Range/Units 11:02 Plt Count (150-450) k/uL Lymphocytes # (Manual) (1.0-4.8) k/uL Metamyelocytes # (Man) (0) k/uL Myelocytes # (Manual) (0) k/uL APTT (22.0-30.0) sec Fibrinogen (200-500) mg/dL ABG pH (7.35-7.45) ABG pCO2 (35-45) mmHg ABG pO2 (83-108) mmHg ABG Total CO2 (19-24) mmol/L ABG O2 Saturation (94-97) % Sodium (137-145) mmol/L Chloride (98-107) mmol/L Carbon Dioxide (22-30) mmol/L BUN (7-17) mg/dL Creatinine (0.52-1.04) mg/dL Glucose (74-99) mg/dL POC Glucose (mg/dL) 220 H (70-110) mg/dL Calcium (8.4-10.2) mg/dL Influenza Type A (PCR) (Not detected) Microbiology - Last 24 Hours (Table) 09/17/23 08:30 Gram Stain - Final Bronchoalviolar Lavage - Left Bronchial Washings Culture - Final Staphylococcus aureus 09/17/23 06:54 Gram Stain - Final Sputum Sputum Culture - Final Staphylococcus aureus 09/17/23 08:30 Acid Fast Bacilli Smear - Preliminary Bronchoalviolar Lavage - Left 09/17/23 01:56 Blood Culture - Preliminary Blood 09/17/23 01:56 Blood Culture - Preliminary Blood Assessment and Plan Plan: Acute hypoxic respiratory failure, secondary to an extensive bilateral pneumonia. The patient initially had an influenza A infection and subsequently developed a staphylococcal pneumonia and this is most likely an MSSA infection. Final culture sensitivities are not available yet. The bronchial lavage confirmed presence of Staph aureus. The patient remains intubated on the mechanical ventilator. Chest x-ray from today shows extensive left lung consolidation and right lower lobe consolidation and there is evidence of multilobar pneumonia. Acute hypercapnic respiratory failure secondary to above, currently intubated on mechanical ventilator Septic shock, secondary to staphylococcal pneumonia and suspected toxic shock syndrome, clindamycin and given a dose of IVIG yesterday Suspect toxic shock syndrome secondary to staph pneumonia Persistent fever Acute influenza A infection, on Tamiflu Leukopenia, induced by septic shock. The white cell count is improved New onset A-fib with RVR currently converted to sinus rhythm and the patient is sinus tachycardia, the patient remains on oral amiodarone and IV heparin. Acute kidney injury, creatinine is on the rise and the patient will be seen by nephrology. This is sepsis induced ATN. She is oliguric. She will be given a dose of Lasix also. Anion gap metabolic acidosis, mild lactic acidosis, lactic acid remains elevated Coronary artery disease with previous PCI involving the LAD and stenting. 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 apical thrombus currently on IV heparin Hypertension history of Hyperlipidemia history of Diabetes mellitus insulin-dependent, insulin drip at 4 U/hr History of smoking Psoriasis Hypothyroidism History of breast cancer Plan Continue ventilator support, no change on mechanical ventilator for today Continue bicarb infusion Check lactic acid level, the levels needs to be monitored Check procalcitonin level, currently at 99 Propofol for sedation Continue pressors and titrate for mean arterial pressure above 60, the patient is currently on a combination norepinephrine and vasopressin physiologic dose Continue current antibiotic coverage with vancomycin clindamycin and Zosyn. May consider switching this patient to cefazolin or nafcillin if it turns out to be an MSSA infection. Continue clindamycin and the patient was given IVIG. Awaiting ID consultation. Monitor renal function, no hydronephrosis on ultrasound of the kidneys Continue IV heparin, monitor the platelet counts Awaiting the results of the bone and blood cultures Continue Tamiflu Hold tube feeds due to high residuals IV insulin for blood sugar control Condition is critical and will continue to follow make further recommendation based on his progress. This is a critical care evaluation that was done more than 30 minutes. Time with Patient: Greater than 30
[2023-09-19 12:06] LABS: Glucose,Whole Blood 211 mg/dL (70-110)
[2023-09-19 13:12] LABS: Glucose,Whole Blood 208 mg/dL (70-110)
[2023-09-19 14:06] LABS: Band Neutrophils % 26 %; Lymphocytes # (M) 0.46 k/uL (1.0-4.8); Metamyelocytes % 4 %; Myelocytes # (M) 0.09 k/uL (0); Myelocytes % 1 %; Neutrophils % (M) 60 %; Nucleated Red Blood Cells 1 /100 WBC (0-0); Total Cells Counted 100
[2023-09-19 14:08] LABS: Metamyelocytes # (M) 0.36 k/uL (0); Monocytes # (M) 0.36 k/uL (0-1.0); RBC Morphology Normal; Toxic Vacuolation Present; WBC 9.1 k/uL (3.8-10.6)
[2023-09-19 14:59] LABS: Glucose,Whole Blood 195 mg/dL (70-110)
--- NOTE | 2023-09-19 15:22 | P.PN ---
Subjective The patient is a 63-year-old female patient who is known to our service from before with a past medical history significant for coronary artery disease with prior stenting of the LAD in the setting of acute coronary syndrome with subsequent echocardiogram showing an ejection fraction between 25 to 30% at that point as well as history of smoking and hypertension and dyslipidemia and multiple comorbid conditions. The patient was brought to the hospital by her who is brought in medic. Apparently for the last few days she has been experiencing progressive cough associated with shortness of breath and congestion and also low-grade fever exceeding 100 Fahrenheit. No symptoms of any chest pain or chest discomfort and no dizziness or lightheadedness and no presyncope or syncope. She was brought to the hospital where chest x-ray showed what is seems to be underlying pneumonia involving the left lung and the patient was initially admitted to the floor. We consulted to see the patient because of atrial fibrillation with rapid ventricular response and initially the patient was stable hemodynamically and started on Cardizem IV. Subsequently the patient deteriorated over the next few hours. Her shortness of breath has progressed and she became more congested and for that reason she was transferred to the intensive care unit and she was intubated and placed on mechanical ventilation. Because her pressure has been soft the Cardizem IV was stopped and she was started on amiodarone IV. Currently she is in atrial fibrillation with overall controlled heart rate and heart rate around 110 bpm. She is also on heparin IV. Beside that she underwent further workup including hemoglobin which came to be stable and creatinine at 1.53 with low potassium and normal sodium. The chest x-ray showed large left-sided pneumonia. Currently the patient is in what is seems to be septic shock. She received 3 L of IV fluid with the pressure being low and currently she is unstable requiring norepinephrine to support her blood pressure. She underwent stenting of the LAD in 2020 and she underwent an echo last in 2020 showing an EF between 25 to 30%. For some reasons reviewing her home medication she continues to be on dual antiplatelet therapy for unknown reason at this point. No history of atrial fibrillation in the past and. 09/17 Patient seen and examined. Patient remains intubated on ventilator. FiO2 50%. Echocardiogram from yesterday shows EF 20-25% with apical akinesis as well as left ventricular apical thrombus. She did go into A. fib with RVR with heart rates up into the 180s and was placed on amiodarone. She converted and has been sinus tachycardia with heart rates from the 120s to 130s. She is tachypnic on ventilator despite increased sedation with propofol. She is receiving IV fluids with bicarbonate drip at 100 mL per hour. She had received approximate 7 L with very minimal urine output. Creatinine has been increasing up to 1.9 this morning. 09/18 Patient seen and examined. Patient has been requiring increasing vasopressors. Remains on bicarbonate drip. FiO2 was increased up to 60%. Creatinine increasing. Has not been making any urine output. Concern of toxic shock syndrome, staph infection superimposed on influenza. She did go in A. fib with mild RVR with heart rates in the 140s and amiodarone drip was started. With the A. fib she did drop her pressure with increased need for pressor requirement. PHYSICAL EXAMINATION Vital signs reviewed. CONSTITUTIONAL: Ill appearing, on vent HEENT: Head is normocephalic. Pupils are equal, round. Sclerae anicteric. Mucous membranes of the mouth are moist. No JVD. No carotid bruit. CHEST EXAMINATION: Lungs are clear to auscultation. No chest wall tenderness is noted on palpation or with deep breathing. HEART EXAMINATION: tachycardic rate and rhythm. S1, S2 heard. No murmurs, gallops or rub. ABDOMEN: Soft, nontender. Positive bowel sounds. EXTREMITIES: 2+ peripheral pulses, no lower extremity edema and no calf tenderness. NEUROLOGIC EXAMINATION: Patient is sedated on vent Assessment Pneumonia/sepsis, Influenza A Septic shock New onset atrial fibrillation, currently sinus rhythm History of cardiomyopathy Coronary artery disease with prior stenting of the LAD History of smoking Electrolytes imbalance Acute renal failure likely ATN from sepsis Apical LV thrombus Sinus tachycardia, appears reactive to severe sepsis Plan Patient does have increased vasopressor requirements while in A. fib. Majority of presentation related to severe septic shock however given worsened vasopressor needs discussed cardioversion. Patient does have apical left ventricular thrombus however no left atrial appendage thrombus. Therefore would be reasonable to proceed. Proceed with TABBY and cardioversion. Risks and benefits discussed with family. Prognosis guarded. Objective - Vital Signs Vital signs: Vital Signs Temp 99.1 F 09/19/23 12:00 Pulse 121 H 09/19/23 15:00 Resp 27 H 09/19/23 15:00 BP 91/53 03/18/24 06:45 Pulse Ox 95 09/19/23 15:00 FiO2 60 09/19/23 15:01 Intake & Output 09/18/23 09/19/23 09/19/23 18:59 06:59 18:59 Intake Total 2660.918 2834.646 1998.818 Output Total 185 5 1003 Balance 2475.918 2829.646 995.818 Weight 85.2 kg 87.6 kg Intake: IV 1961 1917 1438 Clindamycin 900 mg In 100 300 Dextrose 5% in Water 50 ml @ 50 mls/hr IVPB Q8H [facility] Rx#:[id number] Dextrose 5% in Water 1, 1200 1300 800 000 ml @ 100 mls/hr IV . [id number] [facility] with Sodium Bicarb (1 Meq/ml) 150 ml Rx#:[id number] Magnesium Sulfate-D5w Pmx 100 1 gm In Dextrose/Water 1 100ml.bag @ 100 mls/hr IVPB ONCE ONE Rx#: [id number] Piperacillin-Tazobactam 3 100 100 .375 gm In Sodium Chloride 0.9% 100 ml @ 25 mls/hr IVPB Q8HR [facility] Rx# :[id number] Pressure Bag (0.9 sodium 72 78 48 chloride) Sodium Chloride 0.9% 1, 190 240 190 000 ml @ 20 mls/hr IV . Q24H [facility] Rx#:[id number] Vancomycin 1,500 mg In 500 Sodium Chloride 0.9% 500 ml 500 ml @ 167 mls/hr IVPB ONCE ONE Rx#: [id number] Intake, IV Titration 603.918 586.646 560.818 Amount Calcium Gluconate in NaCl 100 2 gm In Saline 1 100ml. bag @ 100 mls/hr IVPB ONCE ONE Rx#:[id number] Heparin Sod,Pork in 0.45% 229.113 117.427 NaCl 25,000 unit In 0.45 % NaCl 1 250ml.bag @ 12 UNITS/KG/HR 9.525 mls/hr IV .Q24H [facility] Rx#: [id number] Insulin Regular 100 unit 82.734 89.846 16.85 In Sodium Chloride 0.9% 100 ml @ Titrate IV .Q0M [facility] Rx#:[id number] Norepinephrine 32 mg In 147.415 35.114 175.541 Sodium Chloride 0.9% 218 ml @ 0.03 MCG/KG/MIN 1. 116 mls/hr IV .Q24H [facility] Rx#:[id number] Piperacillin-Tazobactam 3 100 .375 gm In Sodium Chloride 0.9% 100 ml @ 25 mls/hr IVPB Q8HR [facility] Rx# :[id number] Vasopressin 20 unit In 73.491 71.196 51 Sodium Chloride 0.9% 50 ml @ 0.03 UNITS/MIN 4.59 mls/hr IV .Q11H7M [facility] Rx# :[id number] propofoL 1,000 mg In 200.278 161.377 100 Empty Bag 1 bag @ 15 MCG/ KG/MIN 7.144 mls/hr IV . Q14H [facility] Rx#:[id number] Tube Feeding 65 210 Other 30 120 Output: Gastric Drainage 1000 Urine 185 5 3 Other: Voiding Method Indwelling Catheter Indwelling Catheter Indwelling Catheter ABP, PAP, CO, CI - Last Documented Arterial Blood Pressure 78/46 - Labs CBC & Chem 7: 09/19/23 10:44 09/19/23 03:54 Labs: Abnormal Lab Results - Last 24 Hours (Table) 09/18/23 09/18/23 09/18/23 Range/Units 15:17 15:20 17:17 Plt Count (150-450) k/uL Neutrophils # (Manual) (1.3-7.7) k/uL Lymphocytes # (Manual) (1.0-4.8) k/uL Metamyelocytes # (Man) (0) k/uL Myelocytes # (Manual) (0) k/uL Nucleated RBCs (0-0) /100 WBC APTT (22.0-30.0) sec Fibrinogen (200-500) mg/dL ABG pH (7.35-7.45) ABG pCO2 (35-45) mmHg ABG pO2 (83-108) mmHg ABG Total CO2 (19-24) mmol/L ABG O2 Saturation (94-97) % Sodium 133 L (137-145) mmol/L Chloride (98-107) mmol/L Carbon Dioxide 18 L (22-30) mmol/L BUN 35 H (7-17) mg/dL Creatinine 2.42 H (0.52-1.04) mg/dL Glucose 183 H (74-99) mg/dL POC Glucose (mg/dL) 190 H 210 H (70-110) mg/dL Calcium 6.4 L* (8.4-10.2) mg/dL 09/18/23 09/18/23 09/18/23 Range/Units 18:13 19:04 21:05 Plt Count (150-450) k/uL Neutrophils # (Manual) (1.3-7.7) k/uL Lymphocytes # (Manual) (1.0-4.8) k/uL Metamyelocytes # (Man) (0) k/uL Myelocytes # (Manual) (0) k/uL Nucleated RBCs (0-0) /100 WBC APTT (22.0-30.0) sec Fibrinogen (200-500) mg/dL ABG pH (7.35-7.45) ABG pCO2 (35-45) mmHg ABG pO2 (83-108) mmHg ABG Total CO2 (19-24) mmol/L ABG O2 Saturation (94-97) % Sodium (137-145) mmol/L Chloride (98-107) mmol/L Carbon Dioxide (22-30) mmol/L BUN (7-17) mg/dL Creatinine (0.52-1.04) mg/dL Glucose (74-99) mg/dL POC Glucose (mg/dL) 200 H 205 H 183 H (70-110) mg/dL Calcium (8.4-10.2) mg/dL 09/18/23 09/18/23 09/19/23 Range/Units 23:08 23:57 00:55 Plt Count (150-450) k/uL Neutrophils # (Manual) (1.3-7.7) k/uL Lymphocytes # (Manual) (1.0-4.8) k/uL Metamyelocytes # (Man) (0) k/uL Myelocytes # (Manual) (0) k/uL Nucleated RBCs (0-0) /100 WBC APTT (22.0-30.0) sec Fibrinogen (200-500) mg/dL ABG pH (7.35-7.45) ABG pCO2 (35-45) mmHg ABG pO2 (83-108) mmHg ABG Total CO2 (19-24) mmol/L ABG O2 Saturation (94-97) % Sodium (137-145) mmol/L Chloride (98-107) mmol/L Carbon Dioxide (22-30) mmol/L BUN (7-17) mg/dL Creatinine (0.52-1.04) mg/dL Glucose (74-99) mg/dL POC Glucose (mg/dL) 139 H 152 H 172 H (70-110) mg/dL Calcium (8.4-10.2) mg/dL 09/19/23 09/19/23 09/19/23 Range/Units 02:02 03:09 03:54 Plt Count (150-450) k/uL Neutrophils # (Manual) (1.3-7.7) k/uL Lymphocytes # (Manual) (1.0-4.8) k/uL Metamyelocytes # (Man) (0) k/uL Myelocytes # (Manual) (0) k/uL Nucleated RBCs (0-0) /100 WBC APTT (22.0-30.0) sec Fibrinogen (200-500) mg/dL ABG pH (7.35-7.45) ABG pCO2 (35-45) mmHg ABG pO2 (83-108) mmHg ABG Total CO2 (19-24) mmol/L ABG O2 Saturation (94-97) % Sodium 131 L (137-145) mmol/L Chloride 97 L (98-107) mmol/L Carbon Dioxide 18 L (22-30) mmol/L BUN 43 H (7-17) mg/dL Creatinine 3.22 H (0.52-1.04) mg/dL Glucose 157 H (74-99) mg/dL POC Glucose (mg/dL) 168 H 161 H (70-110) mg/dL Calcium 6.1 L* (8.4-10.2) mg/dL 09/19/23 09/19/23 09/19/23 Range/Units 03:54 03:54 04:00 Plt Count 62 L (150-450) k/uL Neutrophils # (Manual) (1.3-7.7) k/uL Lymphocytes # (Manual) 0.75 L (1.0-4.8) k/uL Metamyelocytes # (Man) 1.41 H (0) k/uL Myelocytes # (Manual) 0.47 H (0) k/uL Nucleated RBCs (0-0) /100 WBC APTT 30.6 H (22.0-30.0) sec Fibrinogen (200-500) mg/dL ABG pH (7.35-7.45) ABG pCO2 (35-45) mmHg ABG pO2 (83-108) mmHg ABG Total CO2 (19-24) mmol/L ABG O2 Saturation (94-97) % Sodium (137-145) mmol/L Chloride (98-107) mmol/L Carbon Dioxide (22-30) mmol/L BUN (7-17) mg/dL Creatinine (0.52-1.04) mg/dL Glucose (74-99) mg/dL POC Glucose (mg/dL) 166 H (70-110) mg/dL Calcium (8.4-10.2) mg/dL 09/19/23 09/19/23 09/19/23 Range/Units 05:10 05:43 06:17 Plt Count (150-450) k/uL Neutrophils # (Manual) (1.3-7.7) k/uL Lymphocytes # (Manual) (1.0-4.8) k/uL Metamyelocytes # (Man) (0) k/uL Myelocytes # (Manual) (0) k/uL Nucleated RBCs (0-0) /100 WBC APTT (22.0-30.0) sec Fibrinogen (200-500) mg/dL ABG pH 7.31 L (7.35-7.45) ABG pCO2 48 H (35-45) mmHg ABG pO2 65 L (83-108) mmHg ABG Total CO2 25 H (19-24) mmol/L ABG O2 Saturation 93.5 L (94-97) % Sodium (137-145) mmol/L Chloride (98-107) mmol/L Carbon Dioxide (22-30) mmol/L BUN (7-17) mg/dL Creatinine (0.52-1.04) mg/dL Glucose (74-99) mg/dL POC Glucose (mg/dL) 158 H 137 H (70-110) mg/dL Calcium (8.4-10.2) mg/dL 09/19/23 09/19/23 09/19/23 Range/Units 06:56 08:34 09:05 Plt Count (150-450) k/uL Neutrophils # (Manual) (1.3-7.7) k/uL Lymphocytes # (Manual) (1.0-4.8) k/uL Metamyelocytes # (Man) (0) k/uL Myelocytes # (Manual) (0) k/uL Nucleated RBCs (0-0) /100 WBC APTT (22.0-30.0) sec Fibrinogen (200-500) mg/dL ABG pH (7.35-7.45) ABG pCO2 (35-45) mmHg ABG pO2 (83-108) mmHg ABG Total CO2 (19-24) mmol/L ABG O2 Saturation (94-97) % Sodium (137-145) mmol/L Chloride (98-107) mmol/L Carbon Dioxide (22-30) mmol/L BUN (7-17) mg/dL Creatinine (0.52-1.04) mg/dL Glucose (74-99) mg/dL POC Glucose (mg/dL) 151 H 153 H 145 H (70-110) mg/dL Calcium (8.4-10.2) mg/dL 09/19/23 09/19/23 09/19/23 Range/Units 09:21 10:10 10:44 Plt Count 49 L (150-450) k/uL Neutrophils # (Manual) 7.80 H (1.3-7.7) k/uL Lymphocytes # (Manual) 0.46 L (1.0-4.8) k/uL Metamyelocytes # (Man) 0.36 H (0) k/uL Myelocytes # (Manual) 0.09 H (0) k/uL Nucleated RBCs 1 H (0-0) /100 WBC APTT (22.0-30.0) sec Fibrinogen 727 H (200-500) mg/dL ABG pH (7.35-7.45) ABG pCO2 (35-45) mmHg ABG pO2 (83-108) mmHg ABG Total CO2 (19-24) mmol/L ABG O2 Saturation (94-97) % Sodium (137-145) mmol/L Chloride (98-107) mmol/L Carbon Dioxide (22-30) mmol/L BUN (7-17) mg/dL Creatinine (0.52-1.04) mg/dL Glucose (74-99) mg/dL POC Glucose (mg/dL) 176 H (70-110) mg/dL Calcium (8.4-10.2) mg/dL 03/20/24 03/20/24 03/20/24 Range/Units 11:02 12:03 13:09 Plt Count (150-450) k/uL Neutrophils # (Manual) (1.3-7.7) k/uL Lymphocytes # (Manual) (1.0-4.8) k/uL Metamyelocytes # (Man) (0) k/uL Myelocytes # (Manual) (0) k/uL Nucleated RBCs (0-0) /100 WBC APTT (22.0-30.0) sec Fibrinogen (200-500) mg/dL ABG pH (7.35-7.45) ABG pCO2 (35-45) mmHg ABG pO2 (83-108) mmHg ABG Total CO2 (19-24) mmol/L ABG O2 Saturation (94-97) % Sodium (137-145) mmol/L Chloride (98-107) mmol/L Carbon Dioxide (22-30) mmol/L BUN (7-17) mg/dL Creatinine (0.52-1.04) mg/dL Glucose (74-99) mg/dL POC Glucose (mg/dL) 220 H 211 H 208 H (70-110) mg/dL Calcium (8.4-10.2) mg/dL 09/19/23 Range/Units 14:57 Plt Count (150-450) k/uL Neutrophils # (Manual) (1.3-7.7) k/uL Lymphocytes # (Manual) (1.0-4.8) k/uL Metamyelocytes # (Man) (0) k/uL Myelocytes # (Manual) (0) k/uL Nucleated RBCs (0-0) /100 WBC APTT (22.0-30.0) sec Fibrinogen (200-500) mg/dL ABG pH (7.35-7.45) ABG pCO2 (35-45) mmHg ABG pO2 (83-108) mmHg ABG Total CO2 (19-24) mmol/L ABG O2 Saturation (94-97) % Sodium (137-145) mmol/L Chloride (98-107) mmol/L Carbon Dioxide (22-30) mmol/L BUN (7-17) mg/dL Creatinine (0.52-1.04) mg/dL Glucose (74-99) mg/dL POC Glucose (mg/dL) 195 H (70-110) mg/dL Calcium (8.4-10.2) mg/dL Microbiology - Last 24 Hours (Table) 09/17/23 01:56 Blood Culture - Preliminary Blood 09/17/23 01:56 Blood Culture - Preliminary Blood 09/17/23 08:30 Gram Stain - Final Bronchoalviolar Lavage - Left Bronchial Washings Culture - Final Staphylococcus aureus 09/17/23 06:54 Gram Stain - Final Sputum Sputum Culture - Final Staphylococcus aureus 09/17/23 08:30 Acid Fast Bacilli Smear - Preliminary Bronchoalviolar Lavage - Left
--- NOTE | 2023-09-19 15:57 | P.PN ---
Subjective Progress Note Date: 09/19/23 Patient is a 63-year-old female with a known history of coronary artery disease status post stent placement, chronic CHF, hypertension, diabetes type 2, history of left breast cancer due to lumpectomy and radiation, hypothyroidism and osteoarthritis and prior history of smoking, quit in 2018 presents to ER with complaints of shortness of breath, cough, congestion and generalized weakness since last week. She was also complaining of nasal congestion and sore throat. Cough is mainly nonproductive. Patient's was treated for bronchitis recently. On admission patient was Febrile with Tmax 100.3 and tachycardic and tachypneic admission on admission. She was requiring 4 L oxygen via nasal cannula. Laboratory data showed WBC 10.9 hemoglobin 16.6 and platelets 179, sodium 133 potassium 3.9 chloride 102 bicarb is 17, BUN 17 and creatinine 0.54 and blood sugar 326 procalcitonin level was 5.65 Urinalysis showed cloudy with increased physical gravity and 2+ protein and 4+ glucose and 1+ ketones and negative for leukocyte esterase. Patient is tested positive for influenza A. Patient decompensated and was sent to ER due to hypoxic respiratory failure. Patient was placed on BiPAP initially and is eventually intubated and currently on mechanical ventilator. Chest x-ray showed findings most consistent with a left-sided acute focal pneumonia. 09/18/2023 Patient is currently in the MICU. Sedated and is on mechanical ventilator. Patient underwent bronchoscopy yesterday and bronchodilators. Lavage fluid showed present to Staph aureus. Patient is still on pressor support with Levophed and vasopressin. Also on IV heparin. Otherwise patient is in sinus tachycardia with heart rate 120s. Amiodarone drip has been discontinued and changed to p.o. 2D echocardiogram showed left ventricular systolic dysfunction ejection fraction 20 to 25% and also found to have left ventricular apical thrombus and apical/periapical akinesis and mild MR. Patient is being continued on antibiotics vancomycin and Zosyn. Blood cultures negative so far. Laboratory data showed WBC 2.2 hemoglobin 14.2 and platelets 122 Sodium 134 potassium 4.1 chloride 104 bicarb is 19 BUN 32 and creatinine increased to 1.88 and blood sugar 200. Patient is on insulin drip. Also on bicarb drip. Current medications reviewed. 09/19/2023 Patient is seen in follow-up continues to be in the ICU with multiple medical consultations following including cardiology and pulmonary data entry clerk. Patient remains on mechanical ventilation with 60% FiO2 and PEEP is 5. Continues on pressor support including IV amiodarone, IV heparin, IV antibiotics as well as Tamiflu. Patient also continues on sodium bicarb drip as well as IV Lasix daily. Cardiology following the patient recommending TABBY with cardioversion as patient is new onset atrial fibrillation and echo revealed left apical ventricular thrombus with no left atrial appendage thrombus noted. Family wishes for patient to remain full code and willing to proceed with this intervention. Kidney functions worsening as well currently 3.2 to creatinine with a BUN of 43 and sodium is 131. Calcium remains critically low at 6.1 and magnesium is 1.7. Procalcitonin extremely elevated at 99.9. Gram stain from bronchoscopy showing Staph aureus and is continued on cefazolin along with IV clindamycin. Overall prognosis is extremely guarded at this time. Review of systems: Unable to obtain as patient is on sedation and mechanical ventilation Active Medications Albuterol/Ipratropium (Ipratropium-Albuterol 3 Ml Neb) 3 ml INHALATION RT-Q4H [facility] Last Admin: 09/19/23 08:00 Dose: 3 ml Amiodarone HCl (Amiodarone 200 Mg Tab) 400 mg PO BID [facility] Last Admin: 09/19/23 08:29 Dose: 400 mg Aspirin (Aspirin 81 Mg) 81 mg PO DAILY [facility] Last Admin: 09/19/23 08:29 Dose: 81 mg Atorvastatin Calcium (Atorvastatin 40 Mg Tab) 40 mg PO HS [facility] Last Admin: 09/18/23 21:23 Dose: 40 mg Chlorhexidine Gluconate (Chlorhexidine Gluconate 15 Ml Cup) 15 ml MUCOUS MEM BID [facility] Last Admin: 09/19/23 08:29 Dose: 15 ml Clopidogrel Bisulfate (Clopidogrel 75 Mg Tab) 75 mg PO DAILY [facility] Last Admin: 09/19/23 08:29 Dose: 75 mg Dextrose/Water (Dextrose 50% Syringe 50 Ml) 25 ml IVP PER PROTOCOL PRN; Protocol PRN Reason: Hypoglycemia Dextrose/Water (Dextrose 50% Syringe 50 Ml) 50 ml IVP PER PROTOCOL PRN; Protocol PRN Reason: Hypoglycemia Furosemide (Furosemide 10 Mg/Ml 10 Ml Vial) 80 mg IV DAILY [facility] Last Admin: 09/19/23 09:06 Dose: 80 mg Heparin Sodium (Porcine) (Heparin Sodium 1,000 Un/Ml (10ml Vl)) 0 unit IV PER PROTOCOL PRN; Protocol PRN Reason: Low PTT Last Admin: 09/17/23 09:58 Dose: 1,984 unit Sodium Chloride (Saline 0.9%) 1,000 mls @ 20 mls/hr IV .Q24H [facility] Last Admin: 09/18/23 20:19 Dose: 20 mls/hr Heparin Sodium/Sodium Chloride (25,000 unit/ Sodium Chloride) 250 mls @ 9.525 mls/hr IV .Q24H [facility]; Protocol Last Admin: 09/18/23 20:26 Dose: 14 units/kg/hr, 11.113 mls/hr Insulin Human Regular 100 unit (/ Sodium Chloride) 100 mls @ 0 mls/hr IV .Q0M [facility]; Protocol Last Titration: 09/19/23 06:20 Dose: 0 units/hr, 0 mls/hr Sodium Bicarbonate 150 ml/ (Dextrose/Water) 1,150 mls @ 100 mls/hr IV .[id number] [facility] Last Admin: 09/19/23 03:04 Dose: 100 mls/hr Propofol 1,000 mg/ IV Solution 100 mls @ 7.144 mls/hr IV .Q14H [facility]; Protocol Last Admin: 09/19/23 06:23 Dose: 35 mcg/kg/min, 16.67 mls/hr Vasopressin 20 unit/ Sodium (Chloride) 51 mls @ 4.59 mls/hr IV .Q11H7M [facility]; Protocol Last Admin: 09/19/23 05:47 Dose: 0.04 units/min, 6.12 mls/hr Norepinephrine Bitartrate 32 (mg/ Sodium Chloride) 250 mls @ 1.116 mls/hr IV .Q24H [facility]; Protocol Last Titration: 09/19/23 09:02 Dose: 0.43 mcg/kg/min, 16 mls/hr Piperacillin Sod/Tazobactam (Sod 3.375 gm/ Sodium Chloride) 100 mls @ 25 mls/hr IVPB Q8HR [facility]; Protocol Last Admin: 09/19/23 08:30 Dose: 25 mls/hr Acetaminophen 1,000 mg/ IV (Solution) 100 mls @ 400 mls/hr IVPB Q6HR PRN PRN Reason: Fever Stop: 09/19/23 12:01 Last Admin: 09/18/23 15:14 Dose: 400 mls/hr Clindamycin Phosphate 900 mg/ (Dextrose/Water) 56 mls @ 50 mls/hr IVPB Q8H [facility]; Protocol Last Admin: 09/19/23 04:12 Dose: 50 mls/hr Levothyroxine Sodium (Levothyroxine 75 Mcg Tab) 150 mcg PO 0630 [facility] Last Admin: 09/19/23 05:57 Dose: 150 mcg Miscellaneous Information (Magnesium Replacement Protocol 1 Each Mis) 1 each MISCELLANE DAILY PRN; Protocol PRN Reason: Per Protocol Miscellaneous Information (Vancomycin Iv Per Pharmacy 1 Each [facility]) 1 each MISCELLANE DIRECTED PRN; Protocol PRN Reason: Per Protocol Miscellaneous Information (Potassium Replacement Protocol 1 Each [facility]) 1 each MISCELLANE DAILY PRN; Protocol PRN Reason: Per Protocol Miscellaneous Information (Potassium Replacement Protocol 1 Each [facility]) 1 each MISCELLANE DAILY PRN; Protocol PRN Reason: Per Protocol Naloxone HCl (Naloxone 0.4 Mg/Ml 1 Ml Vial) 0.2 mg IV Q2M PRN PRN Reason: Opioid Reversal Oseltamivir Phosphate (Oseltamivir 30 Mg Cap) 30 mg PO Q24HR [facility]; Protocol Stop: 09/21/23 09:01 Last Admin: 09/19/23 08:29 Dose: 30 mg Pantoprazole Sodium (Pantoprazole 40 Mg/10 Ml Vial) 40 mg IVP DAILY [facility] Last Admin: 09/19/23 08:29 Dose: 40 mg PHYSICAL EXAMINATION: Patient is sedated and on mechanical ventilator... FiO2 is 60% and PEEP is 5, appears elderly, ill-appearing, obese HEENT: Normocephalic. Neck is supple. Pupils reactive. Nostrils clear. Oral cavity is moist. Neck reveals no JVD, carotid bruits, or thyromegaly. CHEST EXAMINATION: Trachea is central. Symmetrical expansion. Bibasilar diminished sounds and scattered coarse sounds on the left side.. CARDIAC: S1, S2 muffled, irregular ABDOMEN: Soft. Obese. Bowel sounds present. No organomegaly. No abdominal bruits. Extremities: reveal no edema. No clubbing or cyanosis Neurologically patient is sedated and intubated. No gross focal deficits noted Skin: No rash or skin lesions. Psychiatric: Could not be assessed Musculoskeletal: No joint swelling or deformity. Assessment: Acute hypoxemic respiratory failure requiring mechanical ventilator secondary to acute influenza A infection as well as bacterial pneumonia, culture showing Staph aureus. Acute influenza A infection currently maintained on Tamiflu Left-sided acute focal bacterial pneumonia. Status post bronchoscopy on 09/17/2023, bronchial lavage culture showed presumptive Staph aureus. Sepsis/septic shock requiring pressor x 2 support secondary to above New onset atrial fibrillation with rapid ventricular rate. Plans for TABBY per cardiology Hyperglycemia is uncontrolled diabetes type 2 Acute kidney injury possibly ATN, worsening kidney functions Coronary artery history of stent placement to LAD Chronic CHF with systolic dysfunction/ischemic cardiomyopathy Hyperlipidemia Hypertension History of plaque psoriasis Hypothyroidism History of breast cancer status post lumpectomy and radiation Previous history of smoking Obesity with a BMI of 30.2 DVT prophylaxis patient is on heparin drip currently GI prophylaxis Full code Plan: Patient is on mechanical ventilator and is on sedation. Patient will be continued on antibiotics vancomycin and Zosyn. Follow-up blood cultures and bronchial lavage final culture. MSSA Patient to be continued on telemetry. Continue with heparin drip. Amiodarone drip Patient is also on pressor support with norepinephrine and vasopressin requiring increased pressor support and cardiology following discussing TABBY. Continue Tamiflu for influenza A infection Continue with home medications including aspirin Plavix and statins. Patient is on insulin drip for better blood sugar control. Follow-up repeat lactic acid level. Kidney functions worsening and nephrology consulted patient being placed on bicarb drip Critical care team and cardiology is on board. Prognosis is extremely guarded at this time. The impression and plan of care has been dictated by Belkis Friedman, Nurse Practitioner as directed. Dr. Estefania MD I have performed a history and examination and MDM of this patient, discussed the same with the dictator, and agree with the dictator's assessment and plan as written ,documented as a scribe. Based on total visit time, I have performed more than 50% of the visit. Objective - Vital Signs Vital signs: Vital Signs Temp 99 F 09/19/23 04:00 Pulse 115 H 09/19/23 08:11 Resp 28 H 09/19/23 07:00 BP 91/53 09/17/23 06:45 Pulse Ox 91 L 09/19/23 07:00 FiO2 60 09/19/23 07:56 Intake & Output 09/18/23 09/19/23 09/19/23 18:59 06:59 18:59 Intake Total 2660.918 2834.646 79.95 Output Total 185 5 Balance 2475.918 2829.646 79.95 Weight 85.2 kg 87.6 kg Intake: IV 1961 1917 Clindamycin 900 mg In 100 Dextrose 5% in Water 50 ml @ 50 mls/hr IVPB Q8H [facility] Rx#:[id number] Dextrose 5% in Water 1, 1200 1300 000 ml @ 100 mls/hr IV . [id number] [facility] with Sodium Bicarb (1 Meq/ml) 150 ml Rx#:[id number] Magnesium Sulfate-D5w Pmx 100 1 gm In Dextrose/Water 1 100ml.bag @ 100 mls/hr IVPB ONCE ONE Rx#: [id number] Piperacillin-Tazobactam 3 100 .375 gm In Sodium Chloride 0.9% 100 ml @ 25 mls/hr IVPB Q8HR [facility] Rx# :[id number] Pressure Bag (0.9 sodium 72 78 chloride) Sodium Chloride 0.9% 1, 190 240 000 ml @ 20 mls/hr IV . Q24H [facility] Rx#:[id number] Vancomycin 1,500 mg In 500 Sodium Chloride 0.9% 500 ml 500 ml @ 167 mls/hr IVPB ONCE ONE Rx#: [id number] Intake, IV Titration 603.918 586.646 79.95 Amount Heparin Sod,Pork in 0.45% 229.113 NaCl 25,000 unit In 0.45 % NaCl 1 250ml.bag @ 12 UNITS/KG/HR 9.525 mls/hr IV .Q24H [facility] Rx#: [id number] Insulin Regular 100 unit 82.734 89.846 In Sodium Chloride 0.9% 100 ml @ Titrate IV .Q0M [facility] Rx#:[id number] Norepinephrine 32 mg In 147.415 35.114 79.95 Sodium Chloride 0.9% 218 ml @ 0.03 MCG/KG/MIN 1. 116 mls/hr IV .Q24H [facility] Rx#:[id number] Piperacillin-Tazobactam 3 100 .375 gm In Sodium Chloride 0.9% 100 ml @ 25 mls/hr IVPB Q8HR [facility] Rx# :[id number] Vasopressin 20 unit In 73.491 71.196 Sodium Chloride 0.9% 50 ml @ 0.03 UNITS/MIN 4.59 mls/hr IV .Q11H7M [facility] Rx# :[id number] propofoL 1,000 mg In 200.278 161.377 Empty Bag 1 bag @ 15 MCG/ KG/MIN 7.144 mls/hr IV . Q14H [facility] Rx#:[id number] Tube Feeding 65 210 Other 30 120 Output: Urine 185 5 Other: Voiding Method Indwelling Catheter Indwelling Catheter ABP, PAP, CO, CI - Last Documented Arterial Blood Pressure 103/46 - Labs CBC & Chem 7: 09/19/23 10:44 09/19/23 03:54 Labs: Abnormal Lab Results - Last 24 Hours (Table) 09/17/23 09/18/23 09/18/23 Range/Units 08:30 09:15 10:21 Plt Count (150-450) k/uL Lymphocytes # (Manual) (1.0-4.8) k/uL Metamyelocytes # (Man) (0) k/uL Myelocytes # (Manual) (0) k/uL APTT (22.0-30.0) sec ABG pH (7.35-7.45) ABG pCO2 (35-45) mmHg ABG pO2 (83-108) mmHg ABG Total CO2 (19-24) mmol/L ABG O2 Saturation (94-97) % Sodium (137-145) mmol/L Chloride (98-107) mmol/L Carbon Dioxide (22-30) mmol/L BUN (7-17) mg/dL Creatinine (0.52-1.04) mg/dL Glucose (74-99) mg/dL POC Glucose (mg/dL) 156 H 144 H (70-110) mg/dL Calcium (8.4-10.2) mg/dL Influenza Type A (PCR) DETECTED A (Not detected) 09/18/23 09/18/23 09/18/23 Range/Units 11:04 12:17 13:25 Plt Count (150-450) k/uL Lymphocytes # (Manual) (1.0-4.8) k/uL Metamyelocytes # (Man) (0) k/uL Myelocytes # (Manual) (0) k/uL APTT (22.0-30.0) sec ABG pH (7.35-7.45) ABG pCO2 (35-45) mmHg ABG pO2 (83-108) mmHg ABG Total CO2 (19-24) mmol/L ABG O2 Saturation (94-97) % Sodium (137-145) mmol/L Chloride (98-107) mmol/L Carbon Dioxide (22-30) mmol/L BUN (7-17) mg/dL Creatinine (0.52-1.04) mg/dL Glucose (74-99) mg/dL POC Glucose (mg/dL) 141 H 126 H 138 H (70-110) mg/dL Calcium (8.4-10.2) mg/dL Influenza Type A (PCR) (Not detected) 09/18/23 09/18/23 09/18/23 Range/Units 14:53 15:17 15:20 Plt Count (150-450) k/uL Lymphocytes # (Manual) (1.0-4.8) k/uL Metamyelocytes # (Man) (0) k/uL Myelocytes # (Manual) (0) k/uL APTT (22.0-30.0) sec ABG pH (7.35-7.45) ABG pCO2 (35-45) mmHg ABG pO2 (83-108) mmHg ABG Total CO2 (19-24) mmol/L ABG O2 Saturation (94-97) % Sodium 133 L (137-145) mmol/L Chloride (98-107) mmol/L Carbon Dioxide 18 L (22-30) mmol/L BUN 35 H (7-17) mg/dL Creatinine 2.42 H (0.52-1.04) mg/dL Glucose 183 H (74-99) mg/dL POC Glucose (mg/dL) 167 H 190 H (70-110) mg/dL Calcium 6.4 L* (8.4-10.2) mg/dL Influenza Type A (PCR) (Not detected) 09/18/23 09/18/23 09/18/23 Range/Units 17:17 18:13 19:04 Plt Count (150-450) k/uL Lymphocytes # (Manual) (1.0-4.8) k/uL Metamyelocytes # (Man) (0) k/uL Myelocytes # (Manual) (0) k/uL APTT (22.0-30.0) sec ABG pH (7.35-7.45) ABG pCO2 (35-45) mmHg ABG pO2 (83-108) mmHg ABG Total CO2 (19-24) mmol/L ABG O2 Saturation (94-97) % Sodium (137-145) mmol/L Chloride (98-107) mmol/L Carbon Dioxide (22-30) mmol/L BUN (7-17) mg/dL Creatinine (0.52-1.04) mg/dL Glucose (74-99) mg/dL POC Glucose (mg/dL) 210 H 200 H 205 H (70-110) mg/dL Calcium (8.4-10.2) mg/dL Influenza Type A (PCR) (Not detected) 09/18/23 09/18/23 09/18/23 Range/Units 21:05 23:08 23:57 Plt Count (150-450) k/uL Lymphocytes # (Manual) (1.0-4.8) k/uL Metamyelocytes # (Man) (0) k/uL Myelocytes # (Manual) (0) k/uL APTT (22.0-30.0) sec ABG pH (7.35-7.45) ABG pCO2 (35-45) mmHg ABG pO2 (83-108) mmHg ABG Total CO2 (19-24) mmol/L ABG O2 Saturation (94-97) % Sodium (137-145) mmol/L Chloride (98-107) mmol/L Carbon Dioxide (22-30) mmol/L BUN (7-17) mg/dL Creatinine (0.52-1.04) mg/dL Glucose (74-99) mg/dL POC Glucose (mg/dL) 183 H 139 H 152 H (70-110) mg/dL Calcium (8.4-10.2) mg/dL Influenza Type A (PCR) (Not detected) 09/19/23 09/19/23 09/19/23 Range/Units 00:55 02:02 03:09 Plt Count (150-450) k/uL Lymphocytes # (Manual) (1.0-4.8) k/uL Metamyelocytes # (Man) (0) k/uL Myelocytes # (Manual) (0) k/uL APTT (22.0-30.0) sec ABG pH (7.35-7.45) ABG pCO2 (35-45) mmHg ABG pO2 (83-108) mmHg ABG Total CO2 (19-24) mmol/L ABG O2 Saturation (94-97) % Sodium (137-145) mmol/L Chloride (98-107) mmol/L Carbon Dioxide (22-30) mmol/L BUN (7-17) mg/dL Creatinine (0.52-1.04) mg/dL Glucose (74-99) mg/dL POC Glucose (mg/dL) 172 H 168 H 161 H (70-110) mg/dL Calcium (8.4-10.2) mg/dL Influenza Type A (PCR) (Not detected) 09/19/23 09/19/23 09/19/23 Range/Units 03:54 03:54 03:54 Plt Count 62 L (150-450) k/uL Lymphocytes # (Manual) 0.75 L (1.0-4.8) k/uL Metamyelocytes # (Man) 1.41 H (0) k/uL Myelocytes # (Manual) 0.47 H (0) k/uL APTT 30.6 H (22.0-30.0) sec ABG pH (7.35-7.45) ABG pCO2 (35-45) mmHg ABG pO2 (83-108) mmHg ABG Total CO2 (19-24) mmol/L ABG O2 Saturation (94-97) % Sodium 131 L (137-145) mmol/L Chloride 97 L (98-107) mmol/L Carbon Dioxide 18 L (22-30) mmol/L BUN 43 H (7-17) mg/dL Creatinine 3.22 H (0.52-1.04) mg/dL Glucose 157 H (74-99) mg/dL POC Glucose (mg/dL) (70-110) mg/dL Calcium 6.1 L* (8.4-10.2) mg/dL Influenza Type A (PCR) (Not detected) 09/19/23 09/19/23 09/19/23 Range/Units 04:00 05:10 05:43 Plt Count (150-450) k/uL Lymphocytes # (Manual) (1.0-4.8) k/uL Metamyelocytes # (Man) (0) k/uL Myelocytes # (Manual) (0) k/uL APTT (22.0-30.0) sec ABG pH 7.31 L (7.35-7.45) ABG pCO2 48 H (35-45) mmHg ABG pO2 65 L (83-108) mmHg ABG Total CO2 25 H (19-24) mmol/L ABG O2 Saturation 93.5 L (94-97) % Sodium (137-145) mmol/L Chloride (98-107) mmol/L Carbon Dioxide (22-30) mmol/L BUN (7-17) mg/dL Creatinine (0.52-1.04) mg/dL Glucose (74-99) mg/dL POC Glucose (mg/dL) 166 H 158 H (70-110) mg/dL Calcium (8.4-10.2) mg/dL Influenza Type A (PCR) (Not detected) 09/19/23 09/19/23 09/19/23 Range/Units 06:17 06:56 08:34 Plt Count (150-450) k/uL Lymphocytes # (Manual) (1.0-4.8) k/uL Metamyelocytes # (Man) (0) k/uL Myelocytes # (Manual) (0) k/uL APTT (22.0-30.0) sec ABG pH (7.35-7.45) ABG pCO2 (35-45) mmHg ABG pO2 (83-108) mmHg ABG Total CO2 (19-24) mmol/L ABG O2 Saturation (94-97) % Sodium (137-145) mmol/L Chloride (98-107) mmol/L Carbon Dioxide (22-30) mmol/L BUN (7-17) mg/dL Creatinine (0.52-1.04) mg/dL Glucose (74-99) mg/dL POC Glucose (mg/dL) 137 H 151 H 153 H (70-110) mg/dL Calcium (8.4-10.2) mg/dL Influenza Type A (PCR) (Not detected) 09/19/23 Range/Units 09:05 Plt Count (150-450) k/uL Lymphocytes # (Manual) (1.0-4.8) k/uL Metamyelocytes # (Man) (0) k/uL Myelocytes # (Manual) (0) k/uL APTT (22.0-30.0) sec ABG pH (7.35-7.45) ABG pCO2 (35-45) mmHg ABG pO2 (83-108) mmHg ABG Total CO2 (19-24) mmol/L ABG O2 Saturation (94-97) % Sodium (137-145) mmol/L Chloride (98-107) mmol/L Carbon Dioxide (22-30) mmol/L BUN (7-17) mg/dL Creatinine (0.52-1.04) mg/dL Glucose (74-99) mg/dL POC Glucose (mg/dL) 145 H (70-110) mg/dL Calcium (8.4-10.2) mg/dL Influenza Type A (PCR) (Not detected) Microbiology - Last 24 Hours (Table) 09/17/23 08:30 Acid Fast Bacilli Smear - Preliminary Bronchoalviolar Lavage - Left 09/17/23 01:56 Blood Culture - Preliminary Blood 09/17/23 01:56 Blood Culture - Preliminary Blood 09/17/23 06:54 Gram Stain - Preliminary Sputum Sputum Culture - Preliminary Presumptive Staph aureus 09/17/23 08:30 Gram Stain - Preliminary Bronchoalviolar Lavage - Left Bronchial Washings Culture - Preliminary Presumptive Staph aureus
[2023-09-19] MEDS: AMIODARONE 450 MG in DEXTROSE 5% IN WATER 250 ML IV SCH (16:22)
[2023-09-19 16:23] LABS: Glucose,Whole Blood 190 mg/dL (70-110)
[2023-09-19] MEDS: propofoL 100 ML IV ONE ×3 (16:57)
[2023-09-19] MEDS: HYDROmorphone 0.5 MG/0.5 ML SYRINGE ONE (16:57)
[2023-09-19 17:08] LABS: Glucose,Whole Blood 187 mg/dL (70-110)
--- NOTE | 2023-09-19 17:28 | P.CONS ---
History of Present Illness - Reason for Consult Consult date: 09/19/23 thrombocytopenia Requesting physician: Zia Eisenberg - Chief Complaint flu A, resp failure - History of Present Illness Pt sedated and ventilated. Info taken from chart and RN Patient is a 63-year-old female, looks much older than her chronological age, documented history of CAD with stent placement, CHF, HTN, DM 2, history of left breast cancer with lumpectomy and radiation, psoriasis, hypothyroidism, OA who we have been asked to see because of progressive thrombocytopenia. She presented to the ER with complaints of shortness of breath, cough and congestion. This was associated with weakness, sore throat. She was febrile, tachycardic, tachypneic. Platelets were 179,000 on admit. She tested positive for flu A. She decompensated, she was placed on BiPAP, progressed to hypoxic respiratory failure, now intubated and mechanically ventilated, mgmt by Critical Care team/Pulmonary. She has been seen by Cardiology, ID, Nephrology. 1 incident of low plt seen on chart review. No oozing from lines or drains per nursing. Review of Systems ROS unobtainable: due to endotracheal tube Past Medical History Past Medical History: Coronary Artery Disease (CAD), Cancer, Heart Failure, Diabetes Mellitus, Hypertension, Myocardial Infarction (IA), Osteoarthritis (OA), Skin Disorder, Thyroid Disorder Additional Past Medical History / Comment(s): L breast cancer with lumpectomy and radiation, IDDM type II, psoriasis, arthritis in neck, hypothyroid, sinus pr oblems, past elevated LFT but pt was told not to worry about that. Last Myocardial Infarction Date:: 12/23/17 History of Any Multi-Drug Resistant Organisms: MRSA Year Discovered:: 2012; MDRO Source:: groin Past Surgical History: Heart Catheterization With Stent Additional Past Surgical History / Comment(s): lumpectomy left breast with lymph nodes removed, bladder suspension 20 years ago, colonoscopy Past Anesthesia/Blood Transfusion Reactions: No Reported Reaction Date of Last Stent Placement:: 12/23/17 Past Psychological History: No Psychological Hx Reported Additional Psychological History / Comment(s): Pt has clausterphobia. Pt resides with her spouse. She is independent. Smoking Status: Former smoker Past Alcohol Use History: None Reported Additional Past Alcohol Use History / Comment(s): Pt started smoking in 1974 and quit in 11/2017 Past Drug Use History: None Reported - Past Family History Father Family Medical History: Cancer, Diabetes Mellitus, Hypertension Additional Family Medical History / Comment(s): Father of lymphoma at the age of 54yrs. Mother Additional Family Medical History / Comment(s): Mother has heart problems and is almost 80yrs old Medications and Allergies Home Medications Medication Instructions Recorded Confirmed Type Aspirin 81 mg PO DAILY #30 chew 12/26/17 09/16/23 Rx Anastrozole [Arimidex] 1 mg PO DAILY 10/13/18 09/16/23 History Clopidogrel [Plavix] 75 mg PO DAILY 30 Days #30 tab 01/11/21 09/16/23 Rx Losartan [Cozaar] 50 mg PO HS 30 Days #30 tab 01/11/21 09/16/23 Rx Spironolactone [Aldactone] 25 mg PO DAILY 30 Days #30 tab 01/12/21 09/16/23 Rx Fluocinolone 0.01% Oil 1 applic TOPICAL DIRECTED 09/16/23 09/16/23 History Insulin NPH Hum/Reg Insulin Hm 45 unit SQ DAILY 09/16/23 09/16/23 History [NovoLIN 70-30 100 Unit/ml Vial] Levothyroxine Sodium [Synthroid] 150 mcg PO DAILY 09/16/23 09/16/23 History Metoprolol Succinate (ER) [Toprol 75 mg PO BID 09/16/23 09/16/23 History Xl] Rosuvastatin [Crestor] 20 mg PO HS 09/16/23 09/16/23 History Venlafaxine HCl [Effexor XR] 150 mg PO DAILY 09/16/23 09/16/23 History Allergies Allergy/AdvReac Type Severity Reaction Status Date / Time Sulfa (Sulfonamide Allergy Unknown Verified 09/16/23 18:02 Antibiotics) Physical Exam Vitals: Vital Signs Temp Pulse Pulse Resp Pulse Ox FiO2 09/19/23 12:45 144 H 30 H 92 L 09/19/23 12:30 128 H 30 H 90 L 09/19/23 12:15 123 H 32 H 09/19/23 12:00 99.1 F 128 H 29 H 92 L 60 09/19/23 11:45 133 H 30 H 95 09/19/23 11:30 135 H 30 H 94 L 09/19/23 11:20 126 H 09/19/23 11:19 60 09/19/23 11:15 128 H 29 H 96 09/19/23 11:00 137 H 30 H 93 L 09/19/23 10:45 133 H 26 H 94 L 09/19/23 10:30 135 H 27 H 96 09/19/23 10:15 142 H 28 H 89 L 09/19/23 10:00 131 H 28 H 89 L 09/19/23 09:45 140 H 28 H 90 L 09/19/23 09:30 124 H 30 H 90 L 09/19/23 09:15 125 H 28 H 91 L 09/19/23 09:00 121 H 28 H 91 L 09/19/23 08:45 120 H 24 92 L 09/19/23 08:30 116 H 28 H 92 L 09/19/23 08:15 115 H 28 H 92 L 09/19/23 08:11 115 H 09/19/23 08:00 114 H 31 H 92 L 60 09/19/23 07:56 60 09/19/23 07:45 113 H 28 H 92 L 09/19/23 07:30 112 H 24 92 L 09/19/23 07:15 110 H 28 H 91 L 09/19/23 07:00 111 H 28 H 91 L 09/19/23 06:45 112 H 28 H 91 L 09/19/23 06:30 112 H 28 H 91 L 09/19/23 06:15 114 H 28 H 91 L 09/19/23 06:00 116 H 29 H 91 L 09/19/23 05:45 120 H 36 H 91 L 09/19/23 05:30 122 H 28 H 92 L 09/19/23 05:15 121 H 28 H 92 L 09/19/23 05:00 121 H 28 H 92 L 09/19/23 04:45 122 H 28 H 92 L 09/19/23 04:30 122 H 28 H 92 L 09/19/23 04:15 121 H 28 H 91 L 09/19/23 04:00 99 F 118 H 28 H 91 L 60 09/19/23 03:59 122 H 09/19/23 03:55 60 09/19/23 03:45 118 H 28 H 91 L 09/19/23 03:30 120 H 28 H 91 L 09/19/23 03:15 121 H 28 H 90 L 09/19/23 03:00 122 H 28 H 90 L 09/19/23 02:45 124 H 28 H 90 L 09/19/23 02:30 125 H 28 H 91 L 09/19/23 02:15 121 H 28 H 90 L 09/19/23 02:00 126 H 28 H 90 L 09/19/23 01:45 128 H 28 H 90 L 09/19/23 01:30 126 H 28 H 90 L 09/19/23 01:15 125 H 28 H 90 L 09/19/23 01:00 123 H 28 H 91 L 09/19/23 00:45 123 H 28 H 91 L 09/19/23 00:30 121 H 28 H 91 L 09/19/23 00:28 121 H 09/19/23 00:18 121 H 09/19/23 00:16 60 09/19/23 00:15 120 H 28 H 91 L 09/19/23 00:09 121 H 28 H 91 L 09/19/23 00:00 100.7 F H 123 H 28 H 91 L 60 09/18/23 23:45 122 H 28 H 91 L 09/18/23 23:30 125 H 28 H 91 L 09/18/23 23:15 124 H 28 H 90 L 09/18/23 23:00 126 H 28 H 91 L 09/18/23 22:45 124 H 34 H 90 L 09/18/23 22:30 124 H 28 H 90 L 09/18/23 22:15 126 H 31 H 91 L 09/18/23 22:00 126 H 29 H 91 L 09/18/23 21:45 128 H 29 H 91 L 09/18/23 21:30 126 H 28 H 91 L 09/18/23 21:15 128 H 28 H 91 L 09/18/23 21:00 128 H 28 H 91 L 09/18/23 20:45 125 H 28 H 91 L 09/18/23 20:44 123 H 09/18/23 20:39 60 09/18/23 20:37 128 H 09/18/23 20:30 125 H 28 H 91 L 09/18/23 20:15 123 H 28 H 91 L 09/18/23 20:00 101 F H 126 H 28 H 91 L 60 09/18/23 19:45 124 H 28 H 91 L 09/18/23 19:30 125 H 28 H 91 L 09/18/23 19:15 125 H 28 H 91 L 09/18/23 19:00 126 H 28 H 91 L 09/18/23 18:45 101.1 F H 126 H 29 H 92 L 09/18/23 18:30 126 H 28 H 92 L 09/18/23 18:15 126 H 28 H 91 L 09/18/23 18:00 102.2 F H 128 H 28 H 91 L 09/18/23 17:45 129 H 30 H 90 L 09/18/23 17:30 102.7 F H 130 H 31 H 90 L 09/18/23 17:15 131 H 29 H 91 L 09/18/23 17:00 133 H 30 H 90 L 09/18/23 16:48 60 09/18/23 16:45 133 H 30 H 89 L 09/18/23 16:30 133 H 123 H 30 H 90 L 09/18/23 16:15 133 H 30 H 90 L 09/18/23 16:00 103.1 F H 133 H 31 H 90 L 50 09/18/23 15:49 133 H 09/18/23 15:45 131 H 31 H 90 L 09/18/23 15:41 50 09/18/23 15:40 129 H 09/18/23 15:30 131 H 17 90 L 09/18/23 15:15 133 H 30 H 90 L 09/18/23 15:00 133 H 32 H 90 L 09/18/23 14:45 131 H 32 H 90 L 09/18/23 14:30 130 H 30 H 90 L 09/18/23 14:15 131 H 30 H 91 L 09/18/23 14:00 128 H 31 H 92 L 50 09/18/23 13:45 126 H 31 H 92 L 09/18/23 13:30 125 H 27 H 92 L Intake and Output 09/18/23 09/19/23 09/19/23 22:59 06:59 14:59 Intake Total 6869.974 4351.254 1389.540 Output Total 40 5 3 Balance 5999.426 7705.254 1386.540 Intake: IV 1018 1384 980 Clindamycin 900 mg In 50 50 250 Dextrose 5% in Water 50 ml @ 50 mls/hr IVPB Q8H [facility] Rx#:[id number] Dextrose 5% in Water 1, 800 900 500 000 ml @ 100 mls/hr IV . [id number] LAURE with Sodium Bicarb (1 Meq/ml) 150 ml Rx#:[id number] Magnesium Sulfate-D5w Pmx 100 1 gm In Dextrose/Water 1 100ml.bag @ 100 mls/hr IVPB ONCE ONE Rx#: [id number] Piperacillin-Tazobactam 3 100 100 .375 gm In Sodium Chloride 0.9% 100 ml @ 25 mls/hr IVPB Q8HR [facility] Rx# :[id number] Pressure Bag (0.9 sodium 48 54 30 chloride) Sodium Chloride 0.9% 1, 120 180 100 000 ml @ 20 mls/hr IV . Q24H [facility] Rx#:[id number] Intake, IV Titration 516.196 279.254 409.540 Amount Calcium Gluconate in NaCl 100 2 gm In Saline 1 100ml. bag @ 100 mls/hr IVPB ONCE ONE Rx#:[id number] Heparin Sod,Pork in 0.45% 229.113 117.427 NaCl 25,000 unit In 0.45 % NaCl 1 250ml.bag @ 12 UNITS/KG/HR 9.525 mls/hr IV .Q24H [facility] Rx#: [id number] Insulin Regular 100 unit 21.179 84.292 2.6 In Sodium Chloride 0.9% 100 ml @ Titrate IV .Q0M [facility] Rx#:[id number] Norepinephrine 32 mg In 82.306 89.513 Sodium Chloride 0.9% 218 ml @ 0.03 MCG/KG/MIN 1. 116 mls/hr IV .Q24H [facility] Rx#:[id number] Piperacillin-Tazobactam 3 100 .375 gm In Sodium Chloride 0.9% 100 ml @ 25 mls/hr IVPB Q8HR [facility] Rx# :[id number] Vasopressin 20 unit In 46.767 46.92 Sodium Chloride 0.9% 50 ml @ 0.03 UNITS/MIN 4.59 mls/hr IV .Q11H7M [facility] Rx# :[id number] propofoL 1,000 mg In 36.831 148.042 100 Empty Bag 1 bag @ 15 MCG/ KG/MIN 7.144 mls/hr IV . Q14H [facility] Rx#:[id number] Tube Feeding 80 170 Other 60 60 Output: Urine 40 5 3 Other: Voiding Method Indwelling Catheter Indwelling Catheter Indwelling Catheter Weight 87.6 kg ABP, PAP, CO, CI - Last 8 Hours Arterial Blood Pressure 87/47 Arterial Blood Pressure 85/46 Arterial Blood Pressure 80/45 Arterial Blood Pressure 93/48 Arterial Blood Pressure 94/45 Arterial Blood Pressure 94/47 Arterial Blood Pressure 100/49 Arterial Blood Pressure 104/50 Arterial Blood Pressure 94/45 Arterial Blood Pressure 86/46 Arterial Blood Pressure 86/46 Arterial Blood Pressure 89/46 Arterial Blood Pressure 85/46 Arterial Blood Pressure 112/46 Arterial Blood Pressure 124/54 Arterial Blood Pressure 118/53 Arterial Blood Pressure 143/52 Arterial Blood Pressure 127/52 Arterial Blood Pressure 118/51 Arterial Blood Pressure 118/51 Arterial Blood Pressure 129/52 Arterial Blood Pressure 115/50 Arterial Blood Pressure 105/48 Arterial Blood Pressure 103/46 Arterial Blood Pressure 98/46 Arterial Blood Pressure 92/44 Arterial Blood Pressure 91/44 Arterial Blood Pressure 90/44 Arterial Blood Pressure 107/47 Arterial Blood Pressure 115/50 - Constitutional General appearance: no acute distress, obese - Respiratory vent - Cardiovascular tachycardia - Integumentary psoriasis plaques - Musculoskeletal Musculoskeletal: no gait normal, no generalized weakness, no strength equal bilaterally, no right sided weakness, no left sided weakness - Psychiatric Psychiatric: no A&O x's 3, no appropriate affect, no intact judgment & insight Results CBC & Chem 7: 09/19/23 10:44 09/19/23 03:54 Labs: Abnormal Lab Results - Last 24 Hours (Table) 09/17/23 09/18/23 09/18/23 Range/Units 08:30 13:25 14:53 Plt Count (150-450) k/uL Lymphocytes # (Manual) (1.0-4.8) k/uL Metamyelocytes # (Man) (0) k/uL Myelocytes # (Manual) (0) k/uL APTT (22.0-30.0) sec Fibrinogen (200-500) mg/dL ABG pH (7.35-7.45) ABG pCO2 (35-45) mmHg ABG pO2 (83-108) mmHg ABG Total CO2 (19-24) mmol/L ABG O2 Saturation (94-97) % Sodium (137-145) mmol/L Chloride (98-107) mmol/L Carbon Dioxide (22-30) mmol/L BUN (7-17) mg/dL Creatinine (0.52-1.04) mg/dL Glucose (74-99) mg/dL POC Glucose (mg/dL) 138 H 167 H (70-110) mg/dL Calcium (8.4-10.2) mg/dL Influenza Type A (PCR) DETECTED A (Not detected) 09/18/23 09/18/23 09/18/23 Range/Units 15:17 15:20 17:17 Plt Count (150-450) k/uL Lymphocytes # (Manual) (1.0-4.8) k/uL Metamyelocytes # (Man) (0) k/uL Myelocytes # (Manual) (0) k/uL APTT (22.0-30.0) sec Fibrinogen (200-500) mg/dL ABG pH (7.35-7.45) ABG pCO2 (35-45) mmHg ABG pO2 (83-108) mmHg ABG Total CO2 (19-24) mmol/L ABG O2 Saturation (94-97) % Sodium 133 L (137-145) mmol/L Chloride (98-107) mmol/L Carbon Dioxide 18 L (22-30) mmol/L BUN 35 H (7-17) mg/dL Creatinine 2.42 H (0.52-1.04) mg/dL Glucose 183 H (74-99) mg/dL POC Glucose (mg/dL) 190 H 210 H (70-110) mg/dL Calcium 6.4 L* (8.4-10.2) mg/dL Influenza Type A (PCR) (Not detected) 09/18/23 09/18/23 09/18/23 Range/Units 18:13 19:04 21:05 Plt Count (150-450) k/uL Lymphocytes # (Manual) (1.0-4.8) k/uL Metamyelocytes # (Man) (0) k/uL Myelocytes # (Manual) (0) k/uL APTT (22.0-30.0) sec Fibrinogen (200-500) mg/dL ABG pH (7.35-7.45) ABG pCO2 (35-45) mmHg ABG pO2 (83-108) mmHg ABG Total CO2 (19-24) mmol/L ABG O2 Saturation (94-97) % Sodium (137-145) mmol/L Chloride (98-107) mmol/L Carbon Dioxide (22-30) mmol/L BUN (7-17) mg/dL Creatinine (0.52-1.04) mg/dL Glucose (74-99) mg/dL POC Glucose (mg/dL) 200 H 205 H 183 H (70-110) mg/dL Calcium (8.4-10.2) mg/dL Influenza Type A (PCR) (Not detected) 09/18/23 09/18/23 09/19/23 Range/Units 23:08 23:57 00:55 Plt Count (150-450) k/uL Lymphocytes # (Manual) (1.0-4.8) k/uL Metamyelocytes # (Man) (0) k/uL Myelocytes # (Manual) (0) k/uL APTT (22.0-30.0) sec Fibrinogen (200-500) mg/dL ABG pH (7.35-7.45) ABG pCO2 (35-45) mmHg ABG pO2 (83-108) mmHg ABG Total CO2 (19-24) mmol/L ABG O2 Saturation (94-97) % Sodium (137-145) mmol/L Chloride (98-107) mmol/L Carbon Dioxide (22-30) mmol/L BUN (7-17) mg/dL Creatinine (0.52-1.04) mg/dL Glucose (74-99) mg/dL POC Glucose (mg/dL) 139 H 152 H 172 H (70-110) mg/dL Calcium (8.4-10.2) mg/dL Influenza Type A (PCR) (Not detected) 09/19/23 09/19/23 09/19/23 Range/Units 02:02 03:09 03:54 Plt Count (150-450) k/uL Lymphocytes # (Manual) (1.0-4.8) k/uL Metamyelocytes # (Man) (0) k/uL Myelocytes # (Manual) (0) k/uL APTT (22.0-30.0) sec Fibrinogen (200-500) mg/dL ABG pH (7.35-7.45) ABG pCO2 (35-45) mmHg ABG pO2 (83-108) mmHg ABG Total CO2 (19-24) mmol/L ABG O2 Saturation (94-97) % Sodium 131 L (137-145) mmol/L Chloride 97 L (98-107) mmol/L Carbon Dioxide 18 L (22-30) mmol/L BUN 43 H (7-17) mg/dL Creatinine 3.22 H (0.52-1.04) mg/dL Glucose 157 H (74-99) mg/dL POC Glucose (mg/dL) 168 H 161 H (70-110) mg/dL Calcium 6.1 L* (8.4-10.2) mg/dL Influenza Type A (PCR) (Not detected) 09/19/23 09/19/23 09/19/23 Range/Units 03:54 03:54 04:00 Plt Count 62 L (150-450) k/uL Lymphocytes # (Manual) 0.75 L (1.0-4.8) k/uL Metamyelocytes # (Man) 1.41 H (0) k/uL Myelocytes # (Manual) 0.47 H (0) k/uL APTT 30.6 H (22.0-30.0) sec Fibrinogen (200-500) mg/dL ABG pH (7.35-7.45) ABG pCO2 (35-45) mmHg ABG pO2 (83-108) mmHg ABG Total CO2 (19-24) mmol/L ABG O2 Saturation (94-97) % Sodium (137-145) mmol/L Chloride (98-107) mmol/L Carbon Dioxide (22-30) mmol/L BUN (7-17) mg/dL Creatinine (0.52-1.04) mg/dL Glucose (74-99) mg/dL POC Glucose (mg/dL) 166 H (70-110) mg/dL Calcium (8.4-10.2) mg/dL Influenza Type A (PCR) (Not detected) 09/19/23 09/19/23 09/19/23 Range/Units 05:10 05:43 06:17 Plt Count (150-450) k/uL Lymphocytes # (Manual) (1.0-4.8) k/uL Metamyelocytes # (Man) (0) k/uL Myelocytes # (Manual) (0) k/uL APTT (22.0-30.0) sec Fibrinogen (200-500) mg/dL ABG pH 7.31 L (7.35-7.45) ABG pCO2 48 H (35-45) mmHg ABG pO2 65 L (83-108) mmHg ABG Total CO2 25 H (19-24) mmol/L ABG O2 Saturation 93.5 L (94-97) % Sodium (137-145) mmol/L Chloride (98-107) mmol/L Carbon Dioxide (22-30) mmol/L BUN (7-17) mg/dL Creatinine (0.52-1.04) mg/dL Glucose (74-99) mg/dL POC Glucose (mg/dL) 158 H 137 H (70-110) mg/dL Calcium (8.4-10.2) mg/dL Influenza Type A (PCR) (Not detected) 09/19/23 09/19/23 09/19/23 Range/Units 06:56 08:34 09:05 Plt Count (150-450) k/uL Lymphocytes # (Manual) (1.0-4.8) k/uL Metamyelocytes # (Man) (0) k/uL Myelocytes # (Manual) (0) k/uL APTT (22.0-30.0) sec Fibrinogen (200-500) mg/dL ABG pH (7.35-7.45) ABG pCO2 (35-45) mmHg ABG pO2 (83-108) mmHg ABG Total CO2 (19-24) mmol/L ABG O2 Saturation (94-97) % Sodium (137-145) mmol/L Chloride (98-107) mmol/L Carbon Dioxide (22-30) mmol/L BUN (7-17) mg/dL Creatinine (0.52-1.04) mg/dL Glucose (74-99) mg/dL POC Glucose (mg/dL) 151 H 153 H 145 H (70-110) mg/dL Calcium (8.4-10.2) mg/dL Influenza Type A (PCR) (Not detected) 09/19/23 09/19/23 09/19/23 Range/Units 09:21 10:10 11:02 Plt Count (150-450) k/uL Lymphocytes # (Manual) (1.0-4.8) k/uL Metamyelocytes # (Man) (0) k/uL Myelocytes # (Manual) (0) k/uL APTT (22.0-30.0) sec Fibrinogen 727 H (200-500) mg/dL ABG pH (7.35-7.45) ABG pCO2 (35-45) mmHg ABG pO2 (83-108) mmHg ABG Total CO2 (19-24) mmol/L ABG O2 Saturation (94-97) % Sodium (137-145) mmol/L Chloride (98-107) mmol/L Carbon Dioxide (22-30) mmol/L BUN (7-17) mg/dL Creatinine (0.52-1.04) mg/dL Glucose (74-99) mg/dL POC Glucose (mg/dL) 176 H 220 H (70-110) mg/dL Calcium (8.4-10.2) mg/dL Influenza Type A (PCR) (Not detected) 09/19/23 09/19/23 Range/Units 12:03 13:09 Plt Count (150-450) k/uL Lymphocytes # (Manual) (1.0-4.8) k/uL Metamyelocytes # (Man) (0) k/uL Myelocytes # (Manual) (0) k/uL APTT (22.0-30.0) sec Fibrinogen (200-500) mg/dL ABG pH (7.35-7.45) ABG pCO2 (35-45) mmHg ABG pO2 (83-108) mmHg ABG Total CO2 (19-24) mmol/L ABG O2 Saturation (94-97) % Sodium (137-145) mmol/L Chloride (98-107) mmol/L Carbon Dioxide (22-30) mmol/L BUN (7-17) mg/dL Creatinine (0.52-1.04) mg/dL Glucose (74-99) mg/dL POC Glucose (mg/dL) 211 H 208 H (70-110) mg/dL Calcium (8.4-10.2) mg/dL Influenza Type A (PCR) (Not detected) Microbiology - Last 24 Hours (Table) 09/17/23 01:56 Blood Culture - Preliminary Blood 09/17/23 01:56 Blood Culture - Preliminary Blood 09/17/23 08:30 Gram Stain - Final Bronchoalviolar Lavage - Left Bronchial Washings Culture - Final Staphylococcus aureus 09/17/23 06:54 Gram Stain - Final Sputum Sputum Culture - Final Staphylococcus aureus 09/17/23 08:30 Acid Fast Bacilli Smear - Preliminary Bronchoalviolar Lavage - Left Chest x-ray: report reviewed Assessment and Plan (1) Thrombocytopenia Current Visit: Yes Status: Acute Priority: High Code(s): D69.6 - THROMBOCYTOPENIA, UNSPECIFIED SNOMED Code(s): 266094079 Plan: Thrombocytopenia -DIC labs ordered-fibrinogen elevated, coags slightly elevated, no evidence of the same at this time. Cont to monitor while acutely ill -Basic thrombocytopenia lab work up ordered -No documentation or reports of recent hospitalizations. Not high suspicion for recent heparin administration, therefore low suspicions for HIT at this time. Will keep in differential. Labs daily while in ICU -Acute illness, flu A Doctor attests: I performed a history and physical examination of this patient, developed impression and plan of care. Discussed with dictator. I agree with dictators note, documented as a scribe.
[2023-09-19 18:20] LABS: Glucose,Whole Blood 178 mg/dL (70-110)
[2023-09-19 19:03] LABS: Glucose,Whole Blood 168 mg/dL (70-110)
[2023-09-19 20:22] LABS: Glucose,Whole Blood 151 mg/dL (70-110)
[2023-09-19 21:08] LABS: Glucose,Whole Blood 140 mg/dL (70-110)
[2023-09-19 23:01] LABS: Glucose,Whole Blood 131 mg/dL (70-110)
--- NOTE | 2023-09-19 23:01 | P.CONS ---
History of Present Illness - Reason for Consult Consult date: 09/19/23 Antibodies, positive sputum culture Requesting physician: Lonnie Palacios - Chief Complaint Increasing cough and chest congestion x 3 days - History of Present Illness Patient is a 63-year-old female with a past medical history significant for diabetes mellitus hypertension [place] osteoarthritis coronary artery disease patient was brought into the hospital 3 days ago for evaluation of increasing cough and chest congestion symptom has been going on for about 3 days before the patient was brought into the hospital and apparently symptoms started initially with a mild nasal congestion and sore throat subsequently started having a cough moderate intensity but not bring up any sputum no clear history of any nausea vomiting or diarrhea has reported by her who provided most of the history patient on presentation to the hospital did have low-grade fever of 100.3 F however the patient subsequently spiked a fever as high as 102.2 on 09/17/2023 and 100.1 on 09/18/2023 and did have a fever of 100.7 at midnight patient was also tachycardic and hypotensive requiring pressor support, patient did have a worsening of respiratory status and the patient ended up getting intubated on the morning of 09/17/2023 patient FiO2 is currently down to 60%, patient did have a white count of 10.9 on admission she did have normal BUN and creatinine on admission however creatinine is up to 3.22 today patient did have a procalcitonin of 99.90 urine was negative white count was 20.2 tested positive for influenza a patient sputum as well as blood culture positive for MSSA patient has been noted combination of vancomycin Zosyn and clindamycin infectious disease was consulted today for further management of antibiotic therapy patient did have a chest x-ray on admission left-sided focal pneumonia with a chest x-ray this morning lower lung volumes on today exam persistent right lower lobe and left middle lobe airspace disease, all information has been obtained after discussion with the at the bedside and with the nursing staff and the patient is currently intubated on the vent and cannot provide any history Review of Systems Positive points has been mentioned in HPI complete review could not be obtained because of his underlying mental status Past Medical History Past Medical History: Coronary Artery Disease (CAD), Cancer, Heart Failure, Diabetes Mellitus, Hypertension, Myocardial Infarction ([place]), Osteoarthritis (OA), Skin Disorder, Thyroid Disorder Additional Past Medical History / Comment(s): L breast cancer with lumpectomy and radiation, IDDM type II, psoriasis, arthritis in neck, hypothyroid, sinus problems, past elevated LFT but pt was told not to worry about that. Last Myocardial Infarction Date:: 12/23/17 History of Any Multi-Drug Resistant Organisms: MRSA Year Discovered:: 2012; MDRO Source:: groin Past Surgical History: Heart Catheterization With Stent Additional Past Surgical History / Comment(s): lumpectomy left breast with lymph nodes removed, bladder suspension 20 years ago, colonoscopy Past Anesthesia/Blood Transfusion Reactions: No Reported Reaction Date of Last Stent Placement:: 12/23/17 Past Psychological History: No Psychological Hx Reported Additional Psychological History / Comment(s): Pt has clausterphobia. Pt resides with her spouse. She is independent. Smoking Status: Never smoker Past Alcohol Use History: None Reported Additional Past Alcohol Use History / Comment(s): Pt started smoking in 1974 and quit in 11/2017 Past Drug Use History: None Reported - Past Family History Father Family Medical History: Cancer, Diabetes Mellitus, Hypertension Additional Family Medical History / Comment(s): Father of lymphoma at the age of 54yrs. Mother Additional Family Medical History / Comment(s): Mother has heart problems and is almost 80yrs old Medications and Allergies Home Medications Medication Instructions Recorded Confirmed Type Aspirin 81 mg PO DAILY #30 chew 12/26/17 09/16/23 Rx Anastrozole [Arimidex] 1 mg PO DAILY 10/13/18 09/16/23 History Clopidogrel [Plavix] 75 mg PO DAILY 30 Days #30 tab 01/11/21 09/16/23 Rx Losartan [Cozaar] 50 mg PO HS 30 Days #30 tab 01/11/21 09/16/23 Rx Spironolactone [Aldactone] 25 mg PO DAILY 30 Days #30 tab 01/12/21 09/16/23 Rx Fluocinolone 0.01% Oil 1 applic TOPICAL DIRECTED 09/16/23 09/16/23 History Insulin NPH Hum/Reg Insulin Hm 45 unit SQ DAILY 09/16/23 09/16/23 History [NovoLIN 70-30 100 Unit/ml Vial] Levothyroxine Sodium [Synthroid] 150 mcg PO DAILY 09/16/23 09/16/23 History Metoprolol Succinate (ER) [Toprol 75 mg PO BID 09/16/23 09/16/23 History Xl] Rosuvastatin [Crestor] 20 mg PO HS 09/16/23 09/16/23 History Venlafaxine HCl [Effexor XR] 150 mg PO DAILY 09/16/23 09/16/23 History Allergies Allergy/AdvReac Type Severity Reaction Status Date / Time Sulfa (Sulfonamide Allergy Unknown Verified 09/16/23 18:02 Antibiotics) Physical Exam Vitals: Vital Signs Temp Pulse Pulse Resp Pulse Ox FiO2 09/19/23 12:00 60 09/19/23 11:30 135 H 30 H 94 L 09/19/23 11:20 126 H 09/19/23 11:19 60 09/19/23 11:15 128 H 29 H 96 09/19/23 11:00 137 H 30 H 93 L 09/19/23 10:45 133 H 26 H 94 L 09/19/23 10:30 135 H 27 H 96 09/19/23 10:15 142 H 28 H 89 L 09/19/23 10:00 131 H 28 H 89 L 09/19/23 09:45 140 H 28 H 90 L 09/19/23 09:30 124 H 30 H 90 L 09/19/23 09:15 125 H 28 H 91 L 09/19/23 09:00 121 H 28 H 91 L 09/19/23 08:45 120 H 24 92 L 09/19/23 08:30 116 H 28 H 92 L 09/19/23 08:15 115 H 28 H 92 L 09/19/23 08:11 115 H 09/19/23 08:00 114 H 31 H 92 L 60 09/19/23 07:56 60 09/19/23 07:45 113 H 28 H 92 L 09/19/23 07:30 112 H 24 92 L 09/19/23 07:15 110 H 28 H 91 L 09/19/23 07:00 111 H 28 H 91 L 09/19/23 06:45 112 H 28 H 91 L 09/19/23 06:30 112 H 28 H 91 L 09/19/23 06:15 114 H 28 H 91 L 09/19/23 06:00 116 H 29 H 91 L 09/19/23 05:45 120 H 36 H 91 L 09/19/23 05:30 122 H 28 H 92 L 09/19/23 05:15 121 H 28 H 92 L 09/19/23 05:00 121 H 28 H 92 L 09/19/23 04:45 122 H 28 H 92 L 09/19/23 04:30 122 H 28 H 92 L 09/19/23 04:15 121 H 28 H 91 L 09/19/23 04:00 99 F 118 H 28 H 91 L 60 09/19/23 03:59 122 H 09/19/23 03:55 60 09/19/23 03:45 118 H 28 H 91 L 09/19/23 03:30 120 H 28 H 91 L 09/19/23 03:15 121 H 28 H 90 L 09/19/23 03:00 122 H 28 H 90 L 09/19/23 02:45 124 H 28 H 90 L 09/19/23 02:30 125 H 28 H 91 L 09/19/23 02:15 121 H 28 H 90 L 09/19/23 02:00 126 H 28 H 90 L 09/19/23 01:45 128 H 28 H 90 L 09/19/23 01:30 126 H 28 H 90 L 09/19/23 01:15 125 H 28 H 90 L 09/19/23 01:00 123 H 28 H 91 L 09/19/23 00:45 123 H 28 H 91 L 09/19/23 00:30 121 H 28 H 91 L 09/19/23 00:28 121 H 09/19/23 00:18 121 H 09/19/23 00:16 60 09/19/23 00:15 120 H 28 H 91 L 09/19/23 00:09 121 H 28 H 91 L 09/19/23 00:00 100.7 F H 123 H 28 H 91 L 60 09/18/23 23:45 122 H 28 H 91 L 09/18/23 23:30 125 H 28 H 91 L 09/18/23 23:15 124 H 28 H 90 L 09/18/23 23:00 126 H 28 H 91 L 09/18/23 22:45 124 H 34 H 90 L 09/18/23 22:30 124 H 28 H 90 L 09/18/23 22:15 126 H 31 H 91 L 09/18/23 22:00 126 H 29 H 91 L 09/18/23 21:45 128 H 29 H 91 L 09/18/23 21:30 126 H 28 H 91 L 09/18/23 21:15 128 H 28 H 91 L 09/18/23 21:00 128 H 28 H 91 L 09/18/23 20:45 125 H 28 H 91 L 09/18/23 20:44 123 H 09/18/23 20:39 60 09/18/23 20:37 128 H 09/18/23 20:30 125 H 28 H 91 L 09/18/23 20:15 123 H 28 H 91 L 09/18/23 20:00 101 F H 126 H 28 H 91 L 60 09/18/23 19:45 124 H 28 H 91 L 09/18/23 19:30 125 H 28 H 91 L 09/18/23 19:15 125 H 28 H 91 L 09/18/23 19:00 126 H 28 H 91 L 09/18/23 18:45 101.1 F H 126 H 29 H 92 L 09/18/23 18:30 126 H 28 H 92 L 09/18/23 18:15 126 H 28 H 91 L 09/18/23 18:00 102.2 F H 128 H 28 H 91 L 09/18/23 17:45 129 H 30 H 90 L 09/18/23 17:30 102.7 F H 130 H 31 H 90 L 09/18/23 17:15 131 H 29 H 91 L 09/18/23 17:00 133 H 30 H 90 L 09/18/23 16:48 60 09/18/23 16:45 133 H 30 H 89 L 09/18/23 16:30 133 H 123 H 30 H 90 L 09/18/23 16:15 133 H 30 H 90 L 09/18/23 16:00 103.1 F H 133 H 31 H 90 L 50 09/18/23 15:49 133 H 09/18/23 15:45 131 H 31 H 90 L 09/18/23 15:41 50 09/18/23 15:40 129 H 09/18/23 15:30 131 H 17 90 L 09/18/23 15:15 133 H 30 H 90 L 09/18/23 15:00 133 H 32 H 90 L 09/18/23 14:45 131 H 32 H 90 L 09/18/23 14:30 130 H 30 H 90 L 09/18/23 14:15 131 H 30 H 91 L 09/18/23 14:00 128 H 31 H 92 L 50 09/18/23 13:45 126 H 31 H 92 L 09/18/23 13:30 125 H 27 H 92 L 09/18/23 13:15 126 H 32 H 92 L 09/18/23 13:00 126 H 29 H 92 L 50 Intake and Output 09/18/23 09/19/23 09/19/23 22:59 06:59 14:59 Intake Total 6534.676 8808.254 1389.540 Output Total 40 5 3 Balance 0393.777 7764.254 1386.540 Intake: IV 1018 1384 980 Clindamycin 900 mg In 50 50 250 Dextrose 5% in Water 50 ml @ 50 mls/hr IVPB Q8H [facility] Rx#:[id number] Dextrose 5% in Water 1, 800 900 500 000 ml @ 100 mls/hr IV . [id number] [facility] with Sodium Bicarb (1 Meq/ml) 150 ml Rx#:[id number] Magnesium Sulfate-D5w Pmx 100 1 gm In Dextrose/Water 1 100ml.bag @ 100 mls/hr IVPB ONCE ONE Rx#: [id number] Piperacillin-Tazobactam 3 100 100 .375 gm In Sodium Chloride 0.9% 100 ml @ 25 mls/hr IVPB Q8HR [facility] Rx# :[id number] Pressure Bag (0.9 sodium 48 54 30 chloride) Sodium Chloride 0.9% 1, 120 180 100 000 ml @ 20 mls/hr IV . Q24H [facility] Rx#:[id number] Intake, IV Titration 516.196 279.254 409.540 Amount Calcium Gluconate in NaCl 100 2 gm In Saline 1 100ml. bag @ 100 mls/hr IVPB ONCE ONE Rx#:[id number] Heparin Sod,Pork in 0.45% 229.113 117.427 NaCl 25,000 unit In 0.45 % NaCl 1 250ml.bag @ 12 UNITS/KG/HR 9.525 mls/hr IV .Q24H [facility] Rx#: [id number] Insulin Regular 100 unit 21.179 84.292 2.6 In Sodium Chloride 0.9% 100 ml @ Titrate IV .Q0M [facility] Rx#:[id number] Norepinephrine 32 mg In 82.306 89.513 Sodium Chloride 0.9% 218 ml @ 0.03 MCG/KG/MIN 1. 116 mls/hr IV .Q24H [facility] Rx#:[id number] Piperacillin-Tazobactam 3 100 .375 gm In Sodium Chloride 0.9% 100 ml @ 25 mls/hr IVPB Q8HR [facility] Rx# :[id number] Vasopressin 20 unit In 46.767 46.92 Sodium Chloride 0.9% 50 ml @ 0.03 UNITS/MIN 4.59 mls/hr IV .Q11H7M [facility] Rx# :[id number] propofoL 1,000 mg In 36.831 148.042 100 Empty Bag 1 bag @ 15 MCG/ KG/MIN 7.144 mls/hr IV . Q14H [facility] Rx#:[id number] Tube Feeding 80 170 Other 60 60 Output: Urine 40 5 3 Other: Voiding Method Indwelling Catheter Indwelling Catheter Indwelling Catheter Weight 87.6 kg ABP, PAP, CO, CI - Last 8 Hours Arterial Blood Pressure 94/47 Arterial Blood Pressure 100/49 Arterial Blood Pressure 104/50 Arterial Blood Pressure 94/45 Arterial Blood Pressure 86/46 Arterial Blood Pressure 86/46 Arterial Blood Pressure 89/46 Arterial Blood Pressure 85/46 Arterial Blood Pressure 112/46 Arterial Blood Pressure 124/54 Arterial Blood Pressure 118/53 Arterial Blood Pressure 143/52 Arterial Blood Pressure 127/52 Arterial Blood Pressure 118/51 Arterial Blood Pressure 118/51 Arterial Blood Pressure 129/52 Arterial Blood Pressure 115/50 Arterial Blood Pressure 105/48 Arterial Blood Pressure 103/46 Arterial Blood Pressure 98/46 Arterial Blood Pressure 92/44 Arterial Blood Pressure 91/44 Arterial Blood Pressure 90/44 Arterial Blood Pressure 107/47 Arterial Blood Pressure 115/50 Arterial Blood Pressure 116/50 Arterial Blood Pressure 124/53 GENERAL DESCRIPTION: Middle-aged female intubated on the vent HEENT: Shows Pallor , no scleral icterus. Oral mucous membrane is dry. NECK: Trachea central, no thyromegaly. LUNGS: Unlabored breathing. Coarse breath sounds bilaterally HEART: S1, S2, regular rate and rhythm. No loud murmur ABDOMEN: Soft, no tenderness , guarding or rigidity, no organomegaly EXTREMITIES: No edema of feet. SKIN: No rash, no masses palpable. NEUROLOGICAL: The patient is sedated on the vent Results CBC & Chem 7: 09/21/23 16:54 09/21/23 04:30 Labs: Abnormal Lab Results - Last 24 Hours (Table) 09/17/23 09/18/23 09/18/23 Range/Units 08:30 13:25 14:53 Plt Count (150-450) k/uL Lymphocytes # (Manual) (1.0-4.8) k/uL Metamyelocytes # (Man) (0) k/uL Myelocytes # (Manual) (0) k/uL APTT (22.0-30.0) sec Fibrinogen (200-500) mg/dL ABG pH (7.35-7.45) ABG pCO2 (35-45) mmHg ABG pO2 (83-108) mmHg ABG Total CO2 (19-24) mmol/L ABG O2 Saturation (94-97) % Sodium (137-145) mmol/L Chloride (98-107) mmol/L Carbon Dioxide (22-30) mmol/L BUN (7-17) mg/dL Creatinine (0.52-1.04) mg/dL Glucose (74-99) mg/dL POC Glucose (mg/dL) 138 H 167 H (70-110) mg/dL Calcium (8.4-10.2) mg/dL Influenza Type A (PCR) DETECTED A (Not detected) 09/18/23 09/18/23 09/18/23 Range/Units 15:17 15:20 17:17 Plt Count (150-450) k/uL Lymphocytes # (Manual) (1.0-4.8) k/uL Metamyelocytes # (Man) (0) k/uL Myelocytes # (Manual) (0) k/uL APTT (22.0-30.0) sec Fibrinogen (200-500) mg/dL ABG pH (7.35-7.45) ABG pCO2 (35-45) mmHg ABG pO2 (83-108) mmHg ABG Total CO2 (19-24) mmol/L ABG O2 Saturation (94-97) % Sodium 133 L (137-145) mmol/L Chloride (98-107) mmol/L Carbon Dioxide 18 L (22-30) mmol/L BUN 35 H (7-17) mg/dL Creatinine 2.42 H (0.52-1.04) mg/dL Glucose 183 H (74-99) mg/dL POC Glucose (mg/dL) 190 H 210 H (70-110) mg/dL Calcium 6.4 L* (8.4-10.2) mg/dL Influenza Type A (PCR) (Not detected) 09/18/23 09/18/23 09/18/23 Range/Units 18:13 19:04 21:05 Plt Count (150-450) k/uL Lymphocytes # (Manual) (1.0-4.8) k/uL Metamyelocytes # (Man) (0) k/uL Myelocytes # (Manual) (0) k/uL APTT (22.0-30.0) sec Fibrinogen (200-500) mg/dL ABG pH (7.35-7.45) ABG pCO2 (35-45) mmHg ABG pO2 (83-108) mmHg ABG Total CO2 (19-24) mmol/L ABG O2 Saturation (94-97) % Sodium (137-145) mmol/L Chloride (98-107) mmol/L Carbon Dioxide (22-30) mmol/L BUN (7-17) mg/dL Creatinine (0.52-1.04) mg/dL Glucose (74-99) mg/dL POC Glucose (mg/dL) 200 H 205 H 183 H (70-110) mg/dL Calcium (8.4-10.2) mg/dL Influenza Type A (PCR) (Not detected) 09/18/23 09/18/23 09/19/23 Range/Units 23:08 23:57 00:55 Plt Count (150-450) k/uL Lymphocytes # (Manual) (1.0-4.8) k/uL Metamyelocytes # (Man) (0) k/uL Myelocytes # (Manual) (0) k/uL APTT (22.0-30.0) sec Fibrinogen (200-500) mg/dL ABG pH (7.35-7.45) ABG pCO2 (35-45) mmHg ABG pO2 (83-108) mmHg ABG Total CO2 (19-24) mmol/L ABG O2 Saturation (94-97) % Sodium (137-145) mmol/L Chloride (98-107) mmol/L Carbon Dioxide (22-30) mmol/L BUN (7-17) mg/dL Creatinine (0.52-1.04) mg/dL Glucose (74-99) mg/dL POC Glucose (mg/dL) 139 H 152 H 172 H (70-110) mg/dL Calcium (8.4-10.2) mg/dL Influenza Type A (PCR) (Not detected) 09/19/23 09/19/23 09/19/23 Range/Units 02:02 03:09 03:54 Plt Count (150-450) k/uL Lymphocytes # (Manual) (1.0-4.8) k/uL Metamyelocytes # (Man) (0) k/uL Myelocytes # (Manual) (0) k/uL APTT (22.0-30.0) sec Fibrinogen (200-500) mg/dL ABG pH (7.35-7.45) ABG pCO2 (35-45) mmHg ABG pO2 (83-108) mmHg ABG Total CO2 (19-24) mmol/L ABG O2 Saturation (94-97) % Sodium 131 L (137-145) mmol/L Chloride 97 L (98-107) mmol/L Carbon Dioxide 18 L (22-30) mmol/L BUN 43 H (7-17) mg/dL Creatinine 3.22 H (0.52-1.04) mg/dL Glucose 157 H (74-99) mg/dL POC Glucose (mg/dL) 168 H 161 H (70-110) mg/dL Calcium 6.1 L* (8.4-10.2) mg/dL Influenza Type A (PCR) (Not detected) 09/19/23 09/19/23 09/19/23 Range/Units 03:54 03:54 04:00 Plt Count 62 L (150-450) k/uL Lymphocytes # (Manual) 0.75 L (1.0-4.8) k/uL Metamyelocytes # (Man) 1.41 H (0) k/uL Myelocytes # (Manual) 0.47 H (0) k/uL APTT 30.6 H (22.0-30.0) sec Fibrinogen (200-500) mg/dL ABG pH (7.35-7.45) ABG pCO2 (35-45) mmHg ABG pO2 (83-108) mmHg ABG Total CO2 (19-24) mmol/L ABG O2 Saturation (94-97) % Sodium (137-145) mmol/L Chloride (98-107) mmol/L Carbon Dioxide (22-30) mmol/L BUN (7-17) mg/dL Creatinine (0.52-1.04) mg/dL Glucose (74-99) mg/dL POC Glucose (mg/dL) 166 H (70-110) mg/dL Calcium (8.4-10.2) mg/dL Influenza Type A (PCR) (Not detected) 09/19/23 09/19/23 09/19/23 Range/Units 05:10 05:43 06:17 Plt Count (150-450) k/uL Lymphocytes # (Manual) (1.0-4.8) k/uL Metamyelocytes # (Man) (0) k/uL Myelocytes # (Manual) (0) k/uL APTT (22.0-30.0) sec Fibrinogen (200-500) mg/dL ABG pH 7.31 L (7.35-7.45) ABG pCO2 48 H (35-45) mmHg ABG pO2 65 L (83-108) mmHg ABG Total CO2 25 H (19-24) mmol/L ABG O2 Saturation 93.5 L (94-97) % Sodium (137-145) mmol/L Chloride (98-107) mmol/L Carbon Dioxide (22-30) mmol/L BUN (7-17) mg/dL Creatinine (0.52-1.04) mg/dL Glucose (74-99) mg/dL POC Glucose (mg/dL) 158 H 137 H (70-110) mg/dL Calcium (8.4-10.2) mg/dL Influenza Type A (PCR) (Not detected) 09/19/23 09/19/23 09/19/23 Range/Units 06:56 08:34 09:05 Plt Count (150-450) k/uL Lymphocytes # (Manual) (1.0-4.8) k/uL Metamyelocytes # (Man) (0) k/uL Myelocytes # (Manual) (0) k/uL APTT (22.0-30.0) sec Fibrinogen (200-500) mg/dL ABG pH (7.35-7.45) ABG pCO2 (35-45) mmHg ABG pO2 (83-108) mmHg ABG Total CO2 (19-24) mmol/L ABG O2 Saturation (94-97) % Sodium (137-145) mmol/L Chloride (98-107) mmol/L Carbon Dioxide (22-30) mmol/L BUN (7-17) mg/dL Creatinine (0.52-1.04) mg/dL Glucose (74-99) mg/dL POC Glucose (mg/dL) 151 H 153 H 145 H (70-110) mg/dL Calcium (8.4-10.2) mg/dL Influenza Type A (PCR) (Not detected) 09/19/23 09/19/23 09/19/23 Range/Units 09:21 10:10 11:02 Plt Count (150-450) k/uL Lymphocytes # (Manual) (1.0-4.8) k/uL Metamyelocytes # (Man) (0) k/uL Myelocytes # (Manual) (0) k/uL APTT (22.0-30.0) sec Fibrinogen 727 H (200-500) mg/dL ABG pH (7.35-7.45) ABG pCO2 (35-45) mmHg ABG pO2 (83-108) mmHg ABG Total CO2 (19-24) mmol/L ABG O2 Saturation (94-97) % Sodium (137-145) mmol/L Chloride (98-107) mmol/L Carbon Dioxide (22-30) mmol/L BUN (7-17) mg/dL Creatinine (0.52-1.04) mg/dL Glucose (74-99) mg/dL POC Glucose (mg/dL) 176 H 220 H (70-110) mg/dL Calcium (8.4-10.2) mg/dL Influenza Type A (PCR) (Not detected) 09/19/23 Range/Units 12:03 Plt Count (150-450) k/uL Lymphocytes # (Manual) (1.0-4.8) k/uL Metamyelocytes # (Man) (0) k/uL Myelocytes # (Manual) (0) k/uL APTT (22.0-30.0) sec Fibrinogen (200-500) mg/dL ABG pH (7.35-7.45) ABG pCO2 (35-45) mmHg ABG pO2 (83-108) mmHg ABG Total CO2 (19-24) mmol/L ABG O2 Saturation (94-97) % Sodium (137-145) mmol/L Chloride (98-107) mmol/L Carbon Dioxide (22-30) mmol/L BUN (7-17) mg/dL Creatinine (0.52-1.04) mg/dL Glucose (74-99) mg/dL POC Glucose (mg/dL) 211 H (70-110) mg/dL Calcium (8.4-10.2) mg/dL Influenza Type A (PCR) (Not detected) Microbiology - Last 24 Hours (Table) 09/17/23 08:30 Gram Stain - Final Bronchoalviolar Lavage - Left Bronchial Washings Culture - Final Staphylococcus aureus 09/17/23 06:54 Gram Stain - Final Sputum Sputum Culture - Final Staphylococcus aureus 09/17/23 08:30 Acid Fast Bacilli Smear - Preliminary Bronchoalviolar Lavage - Left 09/17/23 01:56 Blood Culture - Preliminary Blood 09/17/23 01:56 Blood Culture - Preliminary Blood Assessment and Plan (1) MSSA (methicillin susceptible Staphylococcus aureus) infection Status: Acute Code(s): A49.01 - METHICILLIN SUSCEP STAPH INFECTION, UNSP SITE SNOMED Code(s): 390480874 (2) MSSA (methicillin susceptible Staphylococcus aureus) pneumonia Status: Acute Code(s): J15.211 - PNEUMONIA DUE TO METHICILLIN SUSCEP STAPH SNOMED Code(s): 549406626006315 (3) Pneumonia Status: Acute Code(s): J18.9 - PNEUMONIA, UNSPECIFIED ORGANISM SNOMED Code(s): 565657276 (4) Sepsis Status: Acute Code(s): A41.9 - SEPSIS, UNSPECIFIED ORGANISM SNOMED Code(s): 86795380 Plan: 1patient with sepsis/septic shock source likely post influenza pneumonia secondary to Staphylococcus aureus in this patient with acute respiratory failure requiring intubation 2-patient also have a worsening renal failure and high risk of nephrotoxicity from vancomycin 3-we will discontinue vancomycin and Zosyn, continue patient on clindamycin add cefazolin for MSSA pneumonia 4-continue with respiratory and pressor support per remote inpatient coder at the bedside multiple questions answered We will follow on clinical condition and cultures to further adjust medication if needed Thank you for this consultation we will follow the patient along with you Dictation was produced using dragon dictation software. please excuse any grammatical, word or spelling errors. Time with Patient: Greater than 30
[2023-09-19 23:03] LABS: Glucose,Whole Blood 131 mg/dL (70-110)
[2023-09-20 00:10] LABS: Glucose,Whole Blood 150 mg/dL (70-110)
[2023-09-20 01:07] LABS: Glucose,Whole Blood 166 mg/dL (70-110)
[2023-09-20 02:17] LABS: Glucose,Whole Blood 174 mg/dL (70-110)
[2023-09-20] MEDS: NOREPINEPHRINE 32 MG in SODIUM CHLORIDE 0.9% 218 ML IV SCH (02:33)
[2023-09-20 03:23] LABS: Glucose,Whole Blood 192 mg/dL (70-110)
[2023-09-20 04:20] LABS: Basophils % (A) 0 %; Eosinophils % (A) 0 %; HCT 37.4 % (34.0-46.0); HGB 12.9 gm/dL (11.4-16.0); Lymphocytes # (A) 0.6 k/uL (1.0-4.8); Lymphocytes % (A) 6 %; MCH 30.8 pg (25.0-35.0); MCHC 34.5 g/dL (31.0-37.0); MCV 89.4 fL (80.0-100.0); Mean Platelet Volume 12.9; Monocytes # (A) 0.5 k/uL (0-1.0); Monocytes % (A) 5 %; Neutrophils # (A) 9.1 k/uL (1.3-7.7); Neutrophils % (A) 88 %; RBC 4.19 m/uL (3.80-5.40); WBC 10.3 k/uL (3.8-10.6)
[2023-09-20 04:21] LABS: Glucose,Whole Blood 173 mg/dL (70-110)
[2023-09-20 04:22] LABS: Platelet Count 44 k/uL (150-450)
[2023-09-20 04:28] LABS: Anion Gap 18 mmol/L; Blood Urea Nitrogen 55 mg/dL (7-17); Carbon Dioxide 22 mmol/L (22-30); Chloride 89 mmol/L (98-107); Glucose 191 mg/dL (74-99); Potassium 3.8 mmol/L (3.5-5.1); Sodium 129 mmol/L (137-145)
[2023-09-20 05:15] LABS: African American GFR (CKD) 13 (>60 ml/min/1.73 sqM); Non-African American GFR(CKD) 12 (>60 ml/min/1.73 sqM)
[2023-09-20] MEDS: SODIUM CHLORIDE 0.9% 500 ML 500 ML IV ONE (05:20)
[2023-09-20 05:45] LABS: ABG Base Excess -0.3 mmol/L; ABG HCO3 26 mmol/L (21-25); ABG PCO2 49 mmHg (35-45); ABG PH 7.33 (7.35-7.45); ABG TCO2 27 mmol/L (19-24); Allen Test Performed? Yes
[2023-09-20 05:48] LABS: Large Platelets Present
[2023-09-20 05:50] LABS: ABG PO2 59 mmHg (83-108)
[2023-09-20 06:10] LABS: Glucose,Whole Blood 149 mg/dL (70-110)
[2023-09-20] MEDS: CALCIUM GLUCONATE IN NACL 1 GM in SALINE 1 100ML.BAG IVPB ONE (07:02)
[2023-09-20 07:12] LABS: Glucose,Whole Blood 136 mg/dL (70-110)
[2023-09-20 07:58] LABS: Glucose,Whole Blood 151 mg/dL (70-110)
--- NOTE | 2023-09-20 08:23 | XR ---
EXAM: XR chest 1V portable CLINICAL INDICATION:Female, 63 years old with history of Tube placement; [facility] COMPARISON: 09/19/2023 and before TECHNIQUE: Chest single view. FINDINGS: Lines/tubes/devices: ET tube appears in satisfactory position about 4 cm above the becca. Left subcl humaira central line with tip over the upper to mid SVC. NG tube traverses the mediastinum and extends below the diaphragm towards the left with its tip beyond the field of view but the side port appears to project over the expected GE junction. Monitor leads and other extraneous densities over the chest . Cardiomediastinum: CM margins are obscured, heart size indeterminate. Vasculature: No increased pulmonary vasculature. Lungs/pleura: Slight interval worsening of dense bilateral consolidative opacities in the mid to lower lungs, left greater than right, and the left costophrenic angle is again obscured. Any possible nodules or masses can be obscured in this setting. Right costophrenic angle is relatively sharp. No visible pneumothor ax. Bones/soft tissues: Bony thorax appears grossly unchanged as seen. Regional soft tissues appear unremarkable. IMPRESSION: 1. Lines and tubes in place, as above. NG tube should be advanced several centimeters followed by nyla singletary. 2. Slight interval worsening of dense bilateral consolidative opacities in the mid to lower lungs, le ft greater than right, and suspected moderate to large left pleural effusion. 3. Recommend continued correlation and follow-up. CT at some point may be of benefit.
[2023-09-20 09:24] LABS: Glucose,Whole Blood 155 mg/dL (70-110)
--- NOTE | 2023-09-20 09:59 | P.PN ---
Subjective Patient is seen for follow-up for acute kidney injury. Patient remains on the vent. Sedated She remains on the pressors as well including levo fed and vasopressin. Bicarb drip is running as well. Maintained on amiodarone drip for A. fib with RVR. Urine output at 0-5 mL an hour. Objective - Vital Signs Vital signs: Vital Signs Temp 98.6 F 09/20/23 08:00 Pulse 111 H 09/20/23 08:04 Resp 29 H 09/20/23 08:00 BP 91/53 09/17/23 06:45 Pulse Ox 94 L 09/20/23 08:00 FiO2 60 09/20/23 08:00 Intake & Output 09/19/23 09/20/23 09/20/23 18:59 06:59 18:59 Intake Total 2517.271 3083.949 383.512 Output Total 1013 225 0 Balance 1386.716 5144.949 383.512 Weight 90.6 kg Intake: IV 1786 2188 302 Amiodarone 450 mg In 176 Dextrose 5% in Water 250 ml @ 0.5 MG/MIN 16.667 mls/hr IV .Q15H [facility] Rx#: [id number] Calcium Gluconate in NaCl 100 1 gm In Saline 1 100ml. bag @ 100 mls/hr IVPB ONCE ONE Rx#:[id number] Clindamycin 900 mg In 300 100 50 Dextrose 5% in Water 50 ml @ 50 mls/hr IVPB Q8H [facility] Rx#:[id number] Dextrose 5% in Water 1, 1100 1100 100 000 ml @ 100 mls/hr IV . [id number] [facility] with Sodium Bicarb (1 Meq/ml) 150 ml Rx#:[id number] Piperacillin-Tazobactam 3 100 .375 gm In Sodium Chloride 0.9% 100 ml @ 25 mls/hr IVPB Q8HR [facility] Rx# :[id number] Pressure Bag (0.9 sodium 66 72 12 chloride) Sodium Chloride 0.9% 1, 220 240 40 000 ml @ 20 mls/hr IV . Q24H [facility] Rx#:[id number] Sodium Chloride 0.9% 500 500 ml 500 ml @ 999 mls/hr IV .Q31M [facility] Rx#:[id number] Intake, IV Titration 731.271 845.949 31.512 Amount Amiodarone 450 mg In 220.282 Dextrose 5% in Water 250 ml @ 0.5 MG/MIN 16.667 mls/hr IV .Q15H [facility] Rx#: [id number] Calcium Gluconate in NaCl 100 2 gm In Saline 1 100ml. bag @ 100 mls/hr IVPB ONCE ONE Rx#:[id number] Heparin Sod,Pork in 0.45% 117.427 132.573 NaCl 25,000 unit In 0.45 % NaCl 1 250ml.bag @ 12 UNITS/KG/HR 9.525 mls/hr IV .Q24H [facility] Rx#: [id number] Insulin Regular 100 unit 30.25 41.733 30.8 In Sodium Chloride 0.9% 100 ml @ Titrate IV .Q0M [facility] Rx#:[id number] Norepinephrine 32 mg In 232.594 176.207 Sodium Chloride 0.9% 218 ml @ 0.03 MCG/KG/MIN 1. 116 mls/hr IV .Q24H [facility] Rx#:[id number] Norepinephrine 32 mg In 0.712 Sodium Chloride 0.9% 218 ml @ 0.03 MCG/KG/MIN 1. 232 mls/hr IV .Q24H [facility] Rx#:[id number] Vasopressin 20 unit In 51 94.86 Sodium Chloride 0.9% 50 ml @ 0.03 UNITS/MIN 4.59 mls/hr IV .Q11H7M [facility] Rx# :[id number] propofoL 1,000 mg In 200 180.294 Empty Bag 1 bag @ 15 MCG/ KG/MIN 7.144 mls/hr IV . Q14H [facility] Rx#:[id number] Lipid 50 50 ceFAZolin 2 gm In Sodium 50 50 Chloride 0.9% 50 ml @ 100 mls/hr IVPB Q12H [facility] Rx# :[id number] Output: Gastric Drainage 1000 220 Urine 13 5 0 Other: Voiding Method Indwelling Catheter Indwelling Catheter ABP, PAP, CO, CI - Last Documented Arterial Blood Pressure 111/56 - Exam Patient is currently intubated he did she is on the vent Examination of the heart S1 and S2 Examination of the lungs bilateral breath sounds are heard Abdomen is soft nontender with decreased bowel sounds Examination of lower extremity shows no edema. Psoriatic rash is noted - Labs CBC & Chem 7: 09/20/23 03:23 09/20/23 03:23 Labs: Abnormal Lab Results - Last 24 Hours (Table) 09/19/23 09/19/23 09/19/23 Range/Units 09:21 10:10 10:44 Plt Count 49 L (150-450) k/uL Neutrophils # (1.3-7.7) k/uL Neutrophils # (Manual) 7.80 H (1.3-7.7) k/uL Lymphocytes # (1.0-4.8) k/uL Lymphocytes # (Manual) 0.46 L (1.0-4.8) k/uL Metamyelocytes # (Man) 0.36 H (0) k/uL Myelocytes # (Manual) 0.09 H (0) k/uL Nucleated RBCs 1 H (0-0) /100 WBC APTT (22.0-30.0) sec Fibrinogen 727 H (200-500) mg/dL ABG pH (7.35-7.45) ABG pCO2 (35-45) mmHg ABG pO2 (83-108) mmHg ABG HCO3 (21-25) mmol/L ABG Total CO2 (19-24) mmol/L ABG O2 Saturation (94-97) % Sodium (137-145) mmol/L Chloride (98-107) mmol/L BUN (7-17) mg/dL Creatinine (0.52-1.04) mg/dL Glucose (74-99) mg/dL POC Glucose (mg/dL) 176 H (70-110) mg/dL 09/19/23 09/19/23 09/19/23 Range/Units 11:02 12:03 13:09 Plt Count (150-450) k/uL Neutrophils # (1.3-7.7) k/uL Neutrophils # (Manual) (1.3-7.7) k/uL Lymphocytes # (1.0-4.8) k/uL Lymphocytes # (Manual) (1.0-4.8) k/uL Metamyelocytes # (Man) (0) k/uL Myelocytes # (Manual) (0) k/uL Nucleated RBCs (0-0) /100 WBC APTT (22.0-30.0) sec Fibrinogen (200-500) mg/dL ABG pH (7.35-7.45) ABG pCO2 (35-45) mmHg ABG pO2 (83-108) mmHg ABG HCO3 (21-25) mmol/L ABG Total CO2 (19-24) mmol/L ABG O2 Saturation (94-97) % Sodium (137-145) mmol/L Chloride (98-107) mmol/L BUN (7-17) mg/dL Creatinine (0.52-1.04) mg/dL Glucose (74-99) mg/dL POC Glucose (mg/dL) 220 H 211 H 208 H (70-110) mg/dL 09/19/23 09/19/23 09/19/23 Range/Units 14:57 16:12 17:06 Plt Count (150-450) k/uL Neutrophils # (1.3-7.7) k/uL Neutrophils # (Manual) (1.3-7.7) k/uL Lymphocytes # (1.0-4.8) k/uL Lymphocytes # (Manual) (1.0-4.8) k/uL Metamyelocytes # (Man) (0) k/uL Myelocytes # (Manual) (0) k/uL Nucleated RBCs (0-0) /100 WBC APTT (22.0-30.0) sec Fibrinogen (200-500) mg/dL ABG pH (7.35-7.45) ABG pCO2 (35-45) mmHg ABG pO2 (83-108) mmHg ABG HCO3 (21-25) mmol/L ABG Total CO2 (19-24) mmol/L ABG O2 Saturation (94-97) % Sodium (137-145) mmol/L Chloride (98-107) mmol/L BUN (7-17) mg/dL Creatinine (0.52-1.04) mg/dL Glucose (74-99) mg/dL POC Glucose (mg/dL) 195 H 190 H 187 H (70-110) mg/dL 09/19/23 09/19/23 09/19/23 Range/Units 18:09 18:28 19:02 Plt Count (150-450) k/uL Neutrophils # (1.3-7.7) k/uL Neutrophils # (Manual) (1.3-7.7) k/uL Lymphocytes # (1.0-4.8) k/uL Lymphocytes # (Manual) (1.0-4.8) k/uL Metamyelocytes # (Man) (0) k/uL Myelocytes # (Manual) (0) k/uL Nucleated RBCs (0-0) /100 WBC APTT 94.7 H (22.0-30.0) sec Fibrinogen (200-500) mg/dL ABG pH (7.35-7.45) ABG pCO2 (35-45) mmHg ABG pO2 (83-108) mmHg ABG HCO3 (21-25) mmol/L ABG Total CO2 (19-24) mmol/L ABG O2 Saturation (94-97) % Sodium (137-145) mmol/L Chloride (98-107) mmol/L BUN (7-17) mg/dL Creatinine (0.52-1.04) mg/dL Glucose (74-99) mg/dL POC Glucose (mg/dL) 178 H 168 H (70-110) mg/dL 09/19/23 09/19/23 09/19/23 Range/Units 20:21 21:06 22:19 Plt Count (150-450) k/uL Neutrophils # (1.3-7.7) k/uL Neutrophils # (Manual) (1.3-7.7) k/uL Lymphocytes # (1.0-4.8) k/uL Lymphocytes # (Manual) (1.0-4.8) k/uL Metamyelocytes # (Man) (0) k/uL Myelocytes # (Manual) (0) k/uL Nucleated RBCs (0-0) /100 WBC APTT (22.0-30.0) sec Fibrinogen (200-500) mg/dL ABG pH (7.35-7.45) ABG pCO2 (35-45) mmHg ABG pO2 (83-108) mmHg ABG HCO3 (21-25) mmol/L ABG Total CO2 (19-24) mmol/L ABG O2 Saturation (94-97) % Sodium (137-145) mmol/L Chloride (98-107) mmol/L BUN (7-17) mg/dL Creatinine (0.52-1.04) mg/dL Glucose (74-99) mg/dL POC Glucose (mg/dL) 151 H 140 H 131 H (70-110) mg/dL 09/19/23 09/20/23 09/20/23 Range/Units 23:02 00:09 01:05 Plt Count (150-450) k/uL Neutrophils # (1.3-7.7) k/uL Neutrophils # (Manual) (1.3-7.7) k/uL Lymphocytes # (1.0-4.8) k/uL Lymphocytes # (Manual) (1.0-4.8) k/uL Metamyelocytes # (Man) (0) k/uL Myelocytes # (Manual) (0) k/uL Nucleated RBCs (0-0) /100 WBC APTT (22.0-30.0) sec Fibrinogen (200-500) mg/dL ABG pH (7.35-7.45) ABG pCO2 (35-45) mmHg ABG pO2 (83-108) mmHg ABG HCO3 (21-25) mmol/L ABG Total CO2 (19-24) mmol/L ABG O2 Saturation (94-97) % Sodium (137-145) mmol/L Chloride (98-107) mmol/L BUN (7-17) mg/dL Creatinine (0.52-1.04) mg/dL Glucose (74-99) mg/dL POC Glucose (mg/dL) 131 H 150 H 166 H (70-110) mg/dL 09/20/23 09/20/23 09/20/23 Range/Units 02:16 03:22 03:23 Plt Count (150-450) k/uL Neutrophils # (1.3-7.7) k/uL Neutrophils # (Manual) (1.3-7.7) k/uL Lymphocytes # (1.0-4.8) k/uL Lymphocytes # (Manual) (1.0-4.8) k/uL Metamyelocytes # (Man) (0) k/uL Myelocytes # (Manual) (0) k/uL Nucleated RBCs (0-0) /100 WBC APTT (22.0-30.0) sec Fibrinogen (200-500) mg/dL ABG pH (7.35-7.45) ABG pCO2 (35-45) mmHg ABG pO2 (83-108) mmHg ABG HCO3 (21-25) mmol/L ABG Total CO2 (19-24) mmol/L ABG O2 Saturation (94-97) % Sodium 129 L (137-145) mmol/L Chloride 89 L (98-107) mmol/L BUN 55 H (7-17) mg/dL Creatinine 3.89 H (0.52-1.04) mg/dL Glucose 191 H (74-99) mg/dL POC Glucose (mg/dL) 174 H 192 H (70-110) mg/dL 09/20/23 09/20/23 09/20/23 Range/Units 03:23 04:18 05:41 Plt Count 44 L (150-450) k/uL Neutrophils # 9.1 H (1.3-7.7) k/uL Neutrophils # (Manual) (1.3-7.7) k/uL Lymphocytes # 0.6 L (1.0-4.8) k/uL Lymphocytes # (Manual) (1.0-4.8) k/uL Metamyelocytes # (Man) (0) k/uL Myelocytes # (Manual) (0) k/uL Nucleated RBCs (0-0) /100 WBC APTT (22.0-30.0) sec Fibrinogen (200-500) mg/dL ABG pH 7.33 L (7.35-7.45) ABG pCO2 49 H (35-45) mmHg ABG pO2 59 L* (83-108) mmHg ABG HCO3 26 H (21-25) mmol/L ABG Total CO2 27 H (19-24) mmol/L ABG O2 Saturation 91.0 L (94-97) % Sodium (137-145) mmol/L Chloride (98-107) mmol/L BUN (7-17) mg/dL Creatinine (0.52-1.04) mg/dL Glucose (74-99) mg/dL POC Glucose (mg/dL) 173 H (70-110) mg/dL 09/20/23 09/20/23 09/20/23 Range/Units 06:08 07:11 07:56 Plt Count (150-450) k/uL Neutrophils # (1.3-7.7) k/uL Neutrophils # (Manual) (1.3-7.7) k/uL Lymphocytes # (1.0-4.8) k/uL Lymphocytes # (Manual) (1.0-4.8) k/uL Metamyelocytes # (Man) (0) k/uL Myelocytes # (Manual) (0) k/uL Nucleated RBCs (0-0) /100 WBC APTT (22.0-30.0) sec Fibrinogen (200-500) mg/dL ABG pH (7.35-7.45) ABG pCO2 (35-45) mmHg ABG pO2 (83-108) mmHg ABG HCO3 (21-25) mmol/L ABG Total CO2 (19-24) mmol/L ABG O2 Saturation (94-97) % Sodium (137-145) mmol/L Chloride (98-107) mmol/L BUN (7-17) mg/dL Creatinine (0.52-1.04) mg/dL Glucose (74-99) mg/dL POC Glucose (mg/dL) 149 H 136 H 151 H (70-110) mg/dL 09/20/23 Range/Units 09:23 Plt Count (150-450) k/uL Neutrophils # (1.3-7.7) k/uL Neutrophils # (Manual) (1.3-7.7) k/uL Lymphocytes # (1.0-4.8) k/uL Lymphocytes # (Manual) (1.0-4.8) k/uL Metamyelocytes # (Man) (0) k/uL Myelocytes # (Manual) (0) k/uL Nucleated RBCs (0-0) /100 WBC APTT (22.0-30.0) sec Fibrinogen (200-500) mg/dL ABG pH (7.35-7.45) ABG pCO2 (35-45) mmHg ABG pO2 (83-108) mmHg ABG HCO3 (21-25) mmol/L ABG Total CO2 (19-24) mmol/L ABG O2 Saturation (94-97) % Sodium (137-145) mmol/L Chloride (98-107) mmol/L BUN (7-17) mg/dL Creatinine (0.52-1.04) mg/dL Glucose (74-99) mg/dL POC Glucose (mg/dL) 155 H (70-110) mg/dL Microbiology - Last 24 Hours (Table) 09/17/23 01:56 Blood Culture - Preliminary Blood 09/17/23 01:56 Blood Culture - Preliminary Blood 09/17/23 08:30 Gram Stain - Final Bronchoalviolar Lavage - Left Bronchial Washings Culture - Final Staphylococcus aureus 09/17/23 06:54 Gram Stain - Final Sputum Sputum Culture - Final Staphylococcus aureus Assessment and Plan Assessment: 1. Acute kidney injury, oliguric ATN secondary to sepsis and hypotension. Continue with fluids. Ultrasound shows no evidence of obstructive uropathy. UA shows 2+ protein and small blood, WBCs 2. Vancomycin level 20. Vancomycin discontinued 2. Acute hypoxic respiratory failure currently on the vent 3. Acute left lung pneumonia maintained on vancomycin and Zosyn along with clindamycin. Sputum cultures are growing MSSA. Influenza A+ 4. Anion gap metabolic acidosis associated with acute kidney injury, lactic acidosis 5. A. fib with RVR 6. Thrombocytopenia secondary to sepsis, toxic shock syndrome Plan: Continue with bicarb drip. Change composition to half-normal saline with 150 mEq of sodium bicarb Patient will need renal replacement therapy. We will continue to assess on a daily basis. No indication for dialysis today. Since platelet count is dropping we will likely proceed with dialysis catheter placement in the next 24-48 hours. Blood cultures negative thus far
[2023-09-20 10:01] LABS: Vitamin B12 >1800.0 pg/mL (200.0-944.0)
[2023-09-20 10:05] LABS: Glucose,Whole Blood 165 mg/dL (70-110)
[2023-09-20 11:06] LABS: Glucose,Whole Blood 181 mg/dL (70-110)
[2023-09-20] MEDS: SODIUM CHLORIDE 0.45% 1,000 ML with SODIUM BICARB (1 MEQ/ML) 150 ML IV SCH (11:41)
[2023-09-20 12:09] LABS: Glucose,Whole Blood 173 mg/dL (70-110)
[2023-09-20 13:30] LABS: Glucose,Whole Blood 163 mg/dL (70-110)
--- NOTE | 2023-09-20 14:20 | P.PN ---
Subjective The patient is a 63-year-old female patient who is known to our service from before with a past medical history significant for coronary artery disease with prior stenting of the LAD in the setting of acute coronary syndrome with subsequent echocardiogram showing an ejection fraction between 25 to 30% at that point as well as history of smoking and hypertension and dyslipidemia and multiple comorbid conditions. The patient was brought to the hospital by her who is brought in medic. Apparently for the last few days she has been experiencing progressive cough associated with shortness of breath and congestion and also low-grade fever exceeding 100 Fahrenheit. No symptoms of any chest pain or chest discomfort and no dizziness or lightheadedness and no presyncope or syncope. She was brought to the hospital where chest x-ray showed what is seems to be underlying pneumonia involving the left lung and the patient was initially admitted to the floor. We consulted to see the patient because of atrial fibrillation with rapid ventricular response and initially the patient was stable hemodynamically and started on Cardizem IV. Subsequently the patient deteriorated over the next few hours. Her shortness of breath has progressed and she became more congested and for that reason she was transferred to the intensive care unit and she was intubated and placed on mechanical ventilation. Because her pressure has been soft the Cardizem IV was stopped and she was started on amiodarone IV. Currently she is in atrial fibrillation with overall controlled heart rate and heart rate around 110 bpm. She is also on heparin IV. Beside that she underwent further workup including hemoglobin which came to be stable and creatinine at 1.53 with low potassium and normal sodium. The chest x-ray showed large left-sided pneumonia. Currently the patient is in what is seems to be septic shock. She received 3 L of IV fluid with the pressure being low and currently she is unstable requiring norepinephrine to support her blood pressure. She underwent stenting of the LAD in 2020 and she underwent an echo last in 2020 showing an EF between 25 to 30%. For some reasons reviewing her home medication she continues to be on dual antiplatelet therapy for unknown reason at this point. No history of atrial fibrillation in the past and. 09/17 Patient seen and examined. Patient remains intubated on ventilator. FiO2 50%. Echocardiogram from yesterday shows EF 20-25% with apical akinesis as well as left ventricular apical thrombus. She did go into A. fib with RVR with heart rates up into the 180s and was placed on amiodarone. She converted and has been sinus tachycardia with heart rates from the 120s to 130s. She is tachypnic on ventilator despite increased sedation with propofol. She is receiving IV fluids with bicarbonate drip at 100 mL per hour. She had received approximate 7 L with very minimal urine output. Creatinine has been increasing up to 1.9 this morning. 09/18 Patient seen and examined. Patient has been requiring increasing vasopressors. Remains on bicarbonate drip. FiO2 was increased up to 60%. Creatinine increasing. Has not been making any urine output. Concern of toxic shock syndrome, staph infection superimposed on influenza. She did go in A. fib with mild RVR with heart rates in the 140s and amiodarone drip was started. With the A. fib she did drop her pressure with increased need for pressor requirement. 09/19 Patient seen and examined. Her platelets have continued to decrease down to 44. No active bleeding. Heparin drip was discontinued this morning and we sent a HIT panel. Has been in and out of Afib and amio drip had been discontinued last night. Predominantly sinus rhythm in the 90s to 100s and A. fib with heart rates 120s. Maintained on IV fluids, half-normal saline at 100 mL per hour. Sodium has decreased down to 129, likely related to volume overload. She is significantly edematous. She is maintained on FiO2 60% with a PEEP of 10. PHYSICAL EXAMINATION Vital signs reviewed. CONSTITUTIONAL: Ill appearing, on vent HEENT: Head is normocephalic. Pupils are equal, round. Sclerae anicteric. Mucous membranes of the mouth are moist. No JVD. No carotid bruit. CHEST EXAMINATION: Lungs are clear to auscultation. No chest wall tenderness is noted on palpation or with deep breathing. HEART EXAMINATION: tachycardic rate and rhythm. S1, S2 heard. No murmurs, gallops or rub. ABDOMEN: Soft, nontender. Positive bowel sounds. EXTREMITIES: 2+ peripheral pulses, no lower extremity edema and no calf tenderness. NEUROLOGIC EXAMINATION: Patient is sedated on vent Assessment Pneumonia/sepsis, Influenza A Septic shock New onset atrial fibrillation, currently sinus rhythm History of cardiomyopathy Coronary artery disease with prior stenting of the LAD History of smoking Electrolytes imbalance Acute renal failure likely ATN from sepsis Apical LV thrombus Sinus tachycardia, appears reactive to severe sepsis Plan Patient has been in and out of atrial fibrillation. Likely will continue to go in and out however continue with amiodarone and monitor response. Hold heparin for now however recheck CBC and antiplatelets stable, not dropping significantly likely start Arixtra, awaiting HIT panel. Thrombocytopenia may be related to overwhelming sepsis. Nephrology, pulmonology recommendations regarding sepsis. Appears volume resuscitated. Objective - Vital Signs Vital signs: Vital Signs Temp 98.8 F 09/20/23 12:00 Pulse 112 H 09/20/23 13:30 Resp 28 H 09/20/23 13:30 BP 91/53 09/17/23 06:45 Pulse Ox 89 L 09/20/23 13:30 FiO2 60 09/20/23 12:00 Intake & Output 09/19/23 09/20/23 09/20/23 18:59 06:59 18:59 Intake Total 2517.271 3083.949 1078.120 Output Total 1013 225 0 Balance 8708.751 9654.949 1078.120 Weight 90.6 kg Intake: IV 1786 2188 714 Amiodarone 450 mg In 176 Dextrose 5% in Water 250 ml @ 0.5 MG/MIN 16.667 mls/hr IV .Q15H [facility] Rx#: [id number] Calcium Gluconate in NaCl 100 1 gm In Saline 1 100ml. bag @ 100 mls/hr IVPB ONCE ONE Rx#:[id number] Clindamycin 900 mg In 300 100 50 Dextrose 5% in Water 50 ml @ 50 mls/hr IVPB Q8H [facility] Rx#:[id number] Dextrose 5% in Water 1, 1100 1100 400 000 ml @ 100 mls/hr IV . [id number] [facility] with Sodium Bicarb (1 Meq/ml) 150 ml Rx#:[id number] Piperacillin-Tazobactam 3 100 .375 gm In Sodium Chloride 0.9% 100 ml @ 25 mls/hr IVPB Q8HR [facility] Rx# :[id number] Pressure Bag (0.9 sodium 66 72 24 chloride) Sodium Chloride 0.9% 1, 220 240 140 000 ml @ 20 mls/hr IV . Q24H [facility] Rx#:[id number] Sodium Chloride 0.9% 500 500 ml 500 ml @ 999 mls/hr IV .Q31M [facility] Rx#:[id number] Intake, IV Titration 731.271 845.949 314.120 Amount Amiodarone 450 mg In 220.282 Dextrose 5% in Water 250 ml @ 0.5 MG/MIN 16.667 mls/hr IV .Q15H [facility] Rx#: [id number] Calcium Gluconate in NaCl 100 2 gm In Saline 1 100ml. bag @ 100 mls/hr IVPB ONCE ONE Rx#:[id number] Heparin Sod,Pork in 0.45% 117.427 132.573 NaCl 25,000 unit In 0.45 % NaCl 1 250ml.bag @ 12 UNITS/KG/HR 9.525 mls/hr IV .Q24H [facility] Rx#: [id number] Insulin Regular 100 unit 30.25 41.733 30.8 In Sodium Chloride 0.9% 100 ml @ Titrate IV .Q0M [facility] Rx#:[id number] Norepinephrine 32 mg In 232.594 176.207 Sodium Chloride 0.9% 218 ml @ 0.03 MCG/KG/MIN 1. 116 mls/hr IV .Q24H [facility] Rx#:[id number] Norepinephrine 32 mg In 2.355 Sodium Chloride 0.9% 218 ml @ 0.03 MCG/KG/MIN 1. 232 mls/hr IV .Q24H [facility] Rx#:[id number] Sodium Chloride 0.45% 1, 200 000 ml @ 100 mls/hr IV . [id number] [facility] with Sodium Bicarb (1 Meq/ml) 150 ml Rx#:[id number] Vasopressin 20 unit In 51 94.86 Sodium Chloride 0.9% 50 ml @ 0.03 UNITS/MIN 4.59 mls/hr IV .Q11H7M [facility] Rx# :[id number] propofoL 1,000 mg In 200 180.294 80.965 Empty Bag 1 bag @ 15 MCG/ KG/MIN 7.144 mls/hr IV . Q14H [facility] Rx#:[id number] Lipid 50 50 ceFAZolin 2 gm In Sodium 50 50 Chloride 0.9% 50 ml @ 100 mls/hr IVPB Q12H [facility] Rx# :[id number] Output: Gastric Drainage 1000 220 Urine 13 5 0 Other: Voiding Method Indwelling Catheter Indwelling Catheter Indwelling Catheter ABP, PAP, CO, CI - Last Documented Arterial Blood Pressure 98/56 - Labs CBC & Chem 7: 09/20/23 03:23 09/20/23 03:23 Labs: Abnormal Lab Results - Last 24 Hours (Table) 09/19/23 09/19/23 09/19/23 Range/Units 14:57 16:12 17:06 Plt Count (150-450) k/uL Neutrophils # (1.3-7.7) k/uL Lymphocytes # (1.0-4.8) k/uL APTT (22.0-30.0) sec ABG pH (7.35-7.45) ABG pCO2 (35-45) mmHg ABG pO2 (83-108) mmHg ABG HCO3 (21-25) mmol/L ABG Total CO2 (19-24) mmol/L ABG O2 Saturation (94-97) % Sodium (137-145) mmol/L Chloride (98-107) mmol/L BUN (7-17) mg/dL Creatinine (0.52-1.04) mg/dL Glucose (74-99) mg/dL POC Glucose (mg/dL) 195 H 190 H 187 H (70-110) mg/dL Vitamin B12 (200.0-944.0) pg/mL 09/19/23 09/19/23 09/19/23 Range/Units 18:09 18:28 19:02 Plt Count (150-450) k/uL Neutrophils # (1.3-7.7) k/uL Lymphocytes # (1.0-4.8) k/uL APTT 94.7 H (22.0-30.0) sec ABG pH (7.35-7.45) ABG pCO2 (35-45) mmHg ABG pO2 (83-108) mmHg ABG HCO3 (21-25) mmol/L ABG Total CO2 (19-24) mmol/L ABG O2 Saturation (94-97) % Sodium (137-145) mmol/L Chloride (98-107) mmol/L BUN (7-17) mg/dL Creatinine (0.52-1.04) mg/dL Glucose (74-99) mg/dL POC Glucose (mg/dL) 178 H 168 H (70-110) mg/dL Vitamin B12 (200.0-944.0) pg/mL 09/19/23 09/19/23 09/19/23 Range/Units 20:21 21:06 22:19 Plt Count (150-450) k/uL Neutrophils # (1.3-7.7) k/uL Lymphocytes # (1.0-4.8) k/uL APTT (22.0-30.0) sec ABG pH (7.35-7.45) ABG pCO2 (35-45) mmHg ABG pO2 (83-108) mmHg ABG HCO3 (21-25) mmol/L ABG Total CO2 (19-24) mmol/L ABG O2 Saturation (94-97) % Sodium (137-145) mmol/L Chloride (98-107) mmol/L BUN (7-17) mg/dL Creatinine (0.52-1.04) mg/dL Glucose (74-99) mg/dL POC Glucose (mg/dL) 151 H 140 H 131 H (70-110) mg/dL Vitamin B12 (200.0-944.0) pg/mL 09/19/23 09/20/23 09/20/23 Range/Units 23:02 00:09 01:05 Plt Count (150-450) k/uL Neutrophils # (1.3-7.7) k/uL Lymphocytes # (1.0-4.8) k/uL APTT (22.0-30.0) sec ABG pH (7.35-7.45) ABG pCO2 (35-45) mmHg ABG pO2 (83-108) mmHg ABG HCO3 (21-25) mmol/L ABG Total CO2 (19-24) mmol/L ABG O2 Saturation (94-97) % Sodium (137-145) mmol/L Chloride (98-107) mmol/L BUN (7-17) mg/dL Creatinine (0.52-1.04) mg/dL Glucose (74-99) mg/dL POC Glucose (mg/dL) 131 H 150 H 166 H (70-110) mg/dL Vitamin B12 (200.0-944.0) pg/mL 09/20/23 09/20/23 09/20/23 Range/Units 02:16 03:22 03:23 Plt Count (150-450) k/uL Neutrophils # (1.3-7.7) k/uL Lymphocytes # (1.0-4.8) k/uL APTT (22.0-30.0) sec ABG pH (7.35-7.45) ABG pCO2 (35-45) mmHg ABG pO2 (83-108) mmHg ABG HCO3 (21-25) mmol/L ABG Total CO2 (19-24) mmol/L ABG O2 Saturation (94-97) % Sodium 129 L (137-145) mmol/L Chloride 89 L (98-107) mmol/L BUN 55 H (7-17) mg/dL Creatinine 3.89 H (0.52-1.04) mg/dL Glucose 191 H (74-99) mg/dL POC Glucose (mg/dL) 174 H 192 H (70-110) mg/dL Vitamin B12 >1800.0 H (200.0-944.0) pg/mL 09/20/23 09/20/23 09/20/23 Range/Units 03:23 04:18 05:41 Plt Count 44 L (150-450) k/uL Neutrophils # 9.1 H (1.3-7.7) k/uL Lymphocytes # 0.6 L (1.0-4.8) k/uL APTT (22.0-30.0) sec ABG pH 7.33 L (7.35-7.45) ABG pCO2 49 H (35-45) mmHg ABG pO2 59 L* (83-108) mmHg ABG HCO3 26 H (21-25) mmol/L ABG Total CO2 27 H (19-24) mmol/L ABG O2 Saturation 91.0 L (94-97) % Sodium (137-145) mmol/L Chloride (98-107) mmol/L BUN (7-17) mg/dL Creatinine (0.52-1.04) mg/dL Glucose (74-99) mg/dL POC Glucose (mg/dL) 173 H (70-110) mg/dL Vitamin B12 (200.0-944.0) pg/mL 09/20/23 09/20/23 09/20/23 Range/Units 06:08 07:11 07:56 Plt Count (150-450) k/uL Neutrophils # (1.3-7.7) k/uL Lymphocytes # (1.0-4.8) k/uL APTT (22.0-30.0) sec ABG pH (7.35-7.45) ABG pCO2 (35-45) mmHg ABG pO2 (83-108) mmHg ABG HCO3 (21-25) mmol/L ABG Total CO2 (19-24) mmol/L ABG O2 Saturation (94-97) % Sodium (137-145) mmol/L Chloride (98-107) mmol/L BUN (7-17) mg/dL Creatinine (0.52-1.04) mg/dL Glucose (74-99) mg/dL POC Glucose (mg/dL) 149 H 136 H 151 H (70-110) mg/dL Vitamin B12 (200.0-944.0) pg/mL 09/20/23 09/20/23 09/20/23 Range/Units 09:23 10:01 11:05 Plt Count (150-450) k/uL Neutrophils # (1.3-7.7) k/uL Lymphocytes # (1.0-4.8) k/uL APTT (22.0-30.0) sec ABG pH (7.35-7.45) ABG pCO2 (35-45) mmHg ABG pO2 (83-108) mmHg ABG HCO3 (21-25) mmol/L ABG Total CO2 (19-24) mmol/L ABG O2 Saturation (94-97) % Sodium (137-145) mmol/L Chloride (98-107) mmol/L BUN (7-17) mg/dL Creatinine (0.52-1.04) mg/dL Glucose (74-99) mg/dL POC Glucose (mg/dL) 155 H 165 H 181 H (70-110) mg/dL Vitamin B12 (200.0-944.0) pg/mL 09/20/23 09/20/23 Range/Units 12:07 13:28 Plt Count (150-450) k/uL Neutrophils # (1.3-7.7) k/uL Lymphocytes # (1.0-4.8) k/uL APTT (22.0-30.0) sec ABG pH (7.35-7.45) ABG pCO2 (35-45) mmHg ABG pO2 (83-108) mmHg ABG HCO3 (21-25) mmol/L ABG Total CO2 (19-24) mmol/L ABG O2 Saturation (94-97) % Sodium (137-145) mmol/L Chloride (98-107) mmol/L BUN (7-17) mg/dL Creatinine (0.52-1.04) mg/dL Glucose (74-99) mg/dL POC Glucose (mg/dL) 173 H 163 H (70-110) mg/dL Vitamin B12 (200.0-944.0) pg/mL Microbiology - Last 24 Hours (Table) 09/17/23 01:56 Blood Culture - Preliminary Blood 09/17/23 01:56 Blood Culture - Preliminary Blood 09/17/23 08:30 Gram Stain - Final Bronchoalviolar Lavage - Left Bronchial Washings Culture - Final Staphylococcus aureus 09/17/23 06:54 Gram Stain - Final Sputum Sputum Culture - Final Staphylococcus aureus
[2023-09-20 14:32] LABS: Glucose,Whole Blood 147 mg/dL (70-110)
[2023-09-20 14:38] LABS: HCT 37.7 % (34.0-46.0); HGB 12.8 gm/dL (11.4-16.0); MCH 30.8 pg (25.0-35.0); MCV 90.6 fL (80.0-100.0); Mean Platelet Volume 11.8; RBC 4.16 m/uL (3.80-5.40)
--- NOTE | 2023-09-20 14:54 | P.PN ---
Subjective Progress Note Date: 09/20/23 Principal diagnosis: thrombocytopenia Sedated and ventilated. No oozing of blood from lines seen Objective - Vital Signs Vital signs: Vital Signs Temp 98.6 F 09/20/23 08:00 Pulse 111 H 09/20/23 08:04 Resp 29 H 09/20/23 08:00 BP 91/53 09/17/23 06:45 Pulse Ox 94 L 09/20/23 08:00 FiO2 60 09/20/23 08:00 Intake & Output 09/19/23 09/20/23 09/20/23 18:59 06:59 18:59 Intake Total 2517.271 3083.949 383.512 Output Total 1013 225 0 Balance 1130.680 9413.949 383.512 Weight 90.6 kg Intake: IV 1786 2188 302 Amiodarone 450 mg In 176 Dextrose 5% in Water 250 ml @ 0.5 MG/MIN 16.667 mls/hr IV .Q15H [facility] Rx#: [id number] Calcium Gluconate in NaCl 100 1 gm In Saline 1 100ml. bag @ 100 mls/hr IVPB ONCE ONE Rx#:[id number] Clindamycin 900 mg In 300 100 50 Dextrose 5% in Water 50 ml @ 50 mls/hr IVPB Q8H [facility] Rx#:[id number] Dextrose 5% in Water 1, 1100 1100 100 000 ml @ 100 mls/hr IV . [id number] [facility] with Sodium Bicarb (1 Meq/ml) 150 ml Rx#:[id number] Piperacillin-Tazobactam 3 100 .375 gm In Sodium Chloride 0.9% 100 ml @ 25 mls/hr IVPB Q8HR [facility] Rx# :[id number] Pressure Bag (0.9 sodium 66 72 12 chloride) Sodium Chloride 0.9% 1, 220 240 40 000 ml @ 20 mls/hr IV . Q24H [facility] Rx#:[id number] Sodium Chloride 0.9% 500 500 ml 500 ml @ 999 mls/hr IV .Q31M [facility] Rx#:[id number] Intake, IV Titration 731.271 845.949 31.512 Amount Amiodarone 450 mg In 220.282 Dextrose 5% in Water 250 ml @ 0.5 MG/MIN 16.667 mls/hr IV .Q15H [facility] Rx#: [id number] Calcium Gluconate in NaCl 100 2 gm In Saline 1 100ml. bag @ 100 mls/hr IVPB ONCE ONE Rx#:[id number] Heparin Sod,Pork in 0.45% 117.427 132.573 NaCl 25,000 unit In 0.45 % NaCl 1 250ml.bag @ 12 UNITS/KG/HR 9.525 mls/hr IV .Q24H [facility] Rx#: [id number] Insulin Regular 100 unit 30.25 41.733 30.8 In Sodium Chloride 0.9% 100 ml @ Titrate IV .Q0M [facility] Rx#:[id number] Norepinephrine 32 mg In 232.594 176.207 Sodium Chloride 0.9% 218 ml @ 0.03 MCG/KG/MIN 1. 116 mls/hr IV .Q24H [facility] Rx#:[id number] Norepinephrine 32 mg In 0.712 Sodium Chloride 0.9% 218 ml @ 0.03 MCG/KG/MIN 1. 232 mls/hr IV .Q24H [facility] Rx#:[id number] Vasopressin 20 unit In 51 94.86 Sodium Chloride 0.9% 50 ml @ 0.03 UNITS/MIN 4.59 mls/hr IV .Q11H7M [facility] Rx# :[id number] propofoL 1,000 mg In 200 180.294 Empty Bag 1 bag @ 15 MCG/ KG/MIN 7.144 mls/hr IV . Q14H [facility] Rx#:[id number] Lipid 50 50 ceFAZolin 2 gm In Sodium 50 50 Chloride 0.9% 50 ml @ 100 mls/hr IVPB Q12H [facility] Rx# :[id number] Output: Gastric Drainage 1000 220 Urine 13 5 0 Other: Voiding Method Indwelling Catheter Indwelling Catheter ABP, PAP, CO, CI - Last Documented Arterial Blood Pressure 111/56 - Constitutional General appearance: Present: no acute distress, obese - Respiratory Details: vent - Cardiovascular Details: tachycardia - Peripheral edema leg Peripheral Edema: bilateral: Trace - Integumentary Integumentary Comment(s): plaques and redness consistent with psoriasis - Neurologic Neurologic: Absent: CNII-XII intact, focal deficits - Musculoskeletal Musculoskeletal: Absent: gait normal, generalized weakness, strength equal bilaterally, right sided weakness, left sided weakness - Psychiatric Psychiatric: Absent: A&O x's 3, appropriate affect, intact judgment & insight - Labs CBC & Chem 7: 09/20/23 03:23 09/20/23 03:23 Labs: Abnormal Lab Results - Last 24 Hours (Table) 09/19/23 09/19/23 09/19/23 Range/Units 10:44 11:02 12:03 Plt Count 49 L (150-450) k/uL Neutrophils # (1.3-7.7) k/uL Neutrophils # (Manual) 7.80 H (1.3-7.7) k/uL Lymphocytes # (1.0-4.8) k/uL Lymphocytes # (Manual) 0.46 L (1.0-4.8) k/uL Metamyelocytes # (Man) 0.36 H (0) k/uL Myelocytes # (Manual) 0.09 H (0) k/uL Nucleated RBCs 1 H (0-0) /100 WBC APTT (22.0-30.0) sec ABG pH (7.35-7.45) ABG pCO2 (35-45) mmHg ABG pO2 (83-108) mmHg ABG HCO3 (21-25) mmol/L ABG Total CO2 (19-24) mmol/L ABG O2 Saturation (94-97) % Sodium (137-145) mmol/L Chloride (98-107) mmol/L BUN (7-17) mg/dL Creatinine (0.52-1.04) mg/dL Glucose (74-99) mg/dL POC Glucose (mg/dL) 220 H 211 H (70-110) mg/dL Vitamin B12 (200.0-944.0) pg/mL 09/19/23 09/19/23 09/19/23 Range/Units 13:09 14:57 16:12 Plt Count (150-450) k/uL Neutrophils # (1.3-7.7) k/uL Neutrophils # (Manual) (1.3-7.7) k/uL Lymphocytes # (1.0-4.8) k/uL Lymphocytes # (Manual) (1.0-4.8) k/uL Metamyelocytes # (Man) (0) k/uL Myelocytes # (Manual) (0) k/uL Nucleated RBCs (0-0) /100 WBC APTT (22.0-30.0) sec ABG pH (7.35-7.45) ABG pCO2 (35-45) mmHg ABG pO2 (83-108) mmHg ABG HCO3 (21-25) mmol/L ABG Total CO2 (19-24) mmol/L ABG O2 Saturation (94-97) % Sodium (137-145) mmol/L Chloride (98-107) mmol/L BUN (7-17) mg/dL Creatinine (0.52-1.04) mg/dL Glucose (74-99) mg/dL POC Glucose (mg/dL) 208 H 195 H 190 H (70-110) mg/dL Vitamin B12 (200.0-944.0) pg/mL 09/19/23 09/19/23 09/19/23 Range/Units 17:06 18:09 18:28 Plt Count (150-450) k/uL Neutrophils # (1.3-7.7) k/uL Neutrophils # (Manual) (1.3-7.7) k/uL Lymphocytes # (1.0-4.8) k/uL Lymphocytes # (Manual) (1.0-4.8) k/uL Metamyelocytes # (Man) (0) k/uL Myelocytes # (Manual) (0) k/uL Nucleated RBCs (0-0) /100 WBC APTT 94.7 H (22.0-30.0) sec ABG pH (7.35-7.45) ABG pCO2 (35-45) mmHg ABG pO2 (83-108) mmHg ABG HCO3 (21-25) mmol/L ABG Total CO2 (19-24) mmol/L ABG O2 Saturation (94-97) % Sodium (137-145) mmol/L Chloride (98-107) mmol/L BUN (7-17) mg/dL Creatinine (0.52-1.04) mg/dL Glucose (74-99) mg/dL POC Glucose (mg/dL) 187 H 178 H (70-110) mg/dL Vitamin B12 (200.0-944.0) pg/mL 09/19/23 09/19/23 09/19/23 Range/Units 19:02 20:21 21:06 Plt Count (150-450) k/uL Neutrophils # (1.3-7.7) k/uL Neutrophils # (Manual) (1.3-7.7) k/uL Lymphocytes # (1.0-4.8) k/uL Lymphocytes # (Manual) (1.0-4.8) k/uL Metamyelocytes # (Man) (0) k/uL Myelocytes # (Manual) (0) k/uL Nucleated RBCs (0-0) /100 WBC APTT (22.0-30.0) sec ABG pH (7.35-7.45) ABG pCO2 (35-45) mmHg ABG pO2 (83-108) mmHg ABG HCO3 (21-25) mmol/L ABG Total CO2 (19-24) mmol/L ABG O2 Saturation (94-97) % Sodium (137-145) mmol/L Chloride (98-107) mmol/L BUN (7-17) mg/dL Creatinine (0.52-1.04) mg/dL Glucose (74-99) mg/dL POC Glucose (mg/dL) 168 H 151 H 140 H (70-110) mg/dL Vitamin B12 (200.0-944.0) pg/mL 09/19/23 09/19/23 09/20/23 Range/Units 22:19 23:02 00:09 Plt Count (150-450) k/uL Neutrophils # (1.3-7.7) k/uL Neutrophils # (Manual) (1.3-7.7) k/uL Lymphocytes # (1.0-4.8) k/uL Lymphocytes # (Manual) (1.0-4.8) k/uL Metamyelocytes # (Man) (0) k/uL Myelocytes # (Manual) (0) k/uL Nucleated RBCs (0-0) /100 WBC APTT (22.0-30.0) sec ABG pH (7.35-7.45) ABG pCO2 (35-45) mmHg ABG pO2 (83-108) mmHg ABG HCO3 (21-25) mmol/L ABG Total CO2 (19-24) mmol/L ABG O2 Saturation (94-97) % Sodium (137-145) mmol/L Chloride (98-107) mmol/L BUN (7-17) mg/dL Creatinine (0.52-1.04) mg/dL Glucose (74-99) mg/dL POC Glucose (mg/dL) 131 H 131 H 150 H (70-110) mg/dL Vitamin B12 (200.0-944.0) pg/mL 09/20/23 09/20/23 09/20/23 Range/Units 01:05 02:16 03:22 Plt Count (150-450) k/uL Neutrophils # (1.3-7.7) k/uL Neutrophils # (Manual) (1.3-7.7) k/uL Lymphocytes # (1.0-4.8) k/uL Lymphocytes # (Manual) (1.0-4.8) k/uL Metamyelocytes # (Man) (0) k/uL Myelocytes # (Manual) (0) k/uL Nucleated RBCs (0-0) /100 WBC APTT (22.0-30.0) sec ABG pH (7.35-7.45) ABG pCO2 (35-45) mmHg ABG pO2 (83-108) mmHg ABG HCO3 (21-25) mmol/L ABG Total CO2 (19-24) mmol/L ABG O2 Saturation (94-97) % Sodium (137-145) mmol/L Chloride (98-107) mmol/L BUN (7-17) mg/dL Creatinine (0.52-1.04) mg/dL Glucose (74-99) mg/dL POC Glucose (mg/dL) 166 H 174 H 192 H (70-110) mg/dL Vitamin B12 (200.0-944.0) pg/mL 09/20/23 09/20/23 09/20/23 Range/Units 03:23 03:23 04:18 Plt Count 44 L (150-450) k/uL Neutrophils # 9.1 H (1.3-7.7) k/uL Neutrophils # (Manual) (1.3-7.7) k/uL Lymphocytes # 0.6 L (1.0-4.8) k/uL Lymphocytes # (Manual) (1.0-4.8) k/uL Metamyelocytes # (Man) (0) k/uL Myelocytes # (Manual) (0) k/uL Nucleated RBCs (0-0) /100 WBC APTT (22.0-30.0) sec ABG pH (7.35-7.45) ABG pCO2 (35-45) mmHg ABG pO2 (83-108) mmHg ABG HCO3 (21-25) mmol/L ABG Total CO2 (19-24) mmol/L ABG O2 Saturation (94-97) % Sodium 129 L (137-145) mmol/L Chloride 89 L (98-107) mmol/L BUN 55 H (7-17) mg/dL Creatinine 3.89 H (0.52-1.04) mg/dL Glucose 191 H (74-99) mg/dL POC Glucose (mg/dL) 173 H (70-110) mg/dL Vitamin B12 >1800.0 H (200.0-944.0) pg/mL 09/20/23 09/20/23 09/20/23 Range/Units 05:41 06:08 07:11 Plt Count (150-450) k/uL Neutrophils # (1.3-7.7) k/uL Neutrophils # (Manual) (1.3-7.7) k/uL Lymphocytes # (1.0-4.8) k/uL Lymphocytes # (Manual) (1.0-4.8) k/uL Metamyelocytes # (Man) (0) k/uL Myelocytes # (Manual) (0) k/uL Nucleated RBCs (0-0) /100 WBC APTT (22.0-30.0) sec ABG pH 7.33 L (7.35-7.45) ABG pCO2 49 H (35-45) mmHg ABG pO2 59 L* (83-108) mmHg ABG HCO3 26 H (21-25) mmol/L ABG Total CO2 27 H (19-24) mmol/L ABG O2 Saturation 91.0 L (94-97) % Sodium (137-145) mmol/L Chloride (98-107) mmol/L BUN (7-17) mg/dL Creatinine (0.52-1.04) mg/dL Glucose (74-99) mg/dL POC Glucose (mg/dL) 149 H 136 H (70-110) mg/dL Vitamin B12 (200.0-944.0) pg/mL 09/20/23 09/20/23 09/20/23 Range/Units 07:56 09:23 10:01 Plt Count (150-450) k/uL Neutrophils # (1.3-7.7) k/uL Neutrophils # (Manual) (1.3-7.7) k/uL Lymphocytes # (1.0-4.8) k/uL Lymphocytes # (Manual) (1.0-4.8) k/uL Metamyelocytes # (Man) (0) k/uL Myelocytes # (Manual) (0) k/uL Nucleated RBCs (0-0) /100 WBC APTT (22.0-30.0) sec ABG pH (7.35-7.45) ABG pCO2 (35-45) mmHg ABG pO2 (83-108) mmHg ABG HCO3 (21-25) mmol/L ABG Total CO2 (19-24) mmol/L ABG O2 Saturation (94-97) % Sodium (137-145) mmol/L Chloride (98-107) mmol/L BUN (7-17) mg/dL Creatinine (0.52-1.04) mg/dL Glucose (74-99) mg/dL POC Glucose (mg/dL) 151 H 155 H 165 H (70-110) mg/dL Vitamin B12 (200.0-944.0) pg/mL Microbiology - Last 24 Hours (Table) 09/17/23 01:56 Blood Culture - Preliminary Blood 09/17/23 01:56 Blood Culture - Preliminary Blood 09/17/23 08:30 Gram Stain - Final Bronchoalviolar Lavage - Left Bronchial Washings Culture - Final Staphylococcus aureus 09/17/23 06:54 Gram Stain - Final Sputum Sputum Culture - Final Staphylococcus aureus - Imaging and Cardiology Chest x-ray: report reviewed Assessment and Plan (1) Thrombocytopenia Current Visit: Yes Status: Acute Priority: High Code(s): D69.6 - THROMBOCYTOPENIA, UNSPECIFIED SNOMED Code(s): 003004691 Plan: Thrombocytopenia -DIC labs were neg. recheck PRN -Basic thrombocytopenia lab work up ordered-no specific deficiencies noted. Copper pending. -Heparin drip stopped due to plt<50,000. Pt cont on asa and plavix for now per Cardiology. Not high suspicion for recent heparin administration therefore, low suspicions for HIT at this time. HIT ab was ordered today -Acute illness, flu A. Rodman to be contributing to low plt counts. Transfuse for plt less then 10,000, unless symptomatic. Doctor attests: I performed a history and physical examination of this patient, developed impression and plan of care. Discussed with dictator. I agree with dictators note, documented as a scribe.
[2023-09-20 15:00] LABS: Platelet Count 42 k/uL (150-450)
[2023-09-20 15:24] LABS: Glucose,Whole Blood 140 mg/dL (70-110)
[2023-09-20 15:27] LABS: Band Neutrophils % 9 %; Metamyelocytes # (M) 0.29 k/uL (0); Metamyelocytes % 2 %; Neutrophils % (M) 79 %; Nucleated Red Blood Cells 1 /100 WBC (0-0); Total Cells Counted 200
[2023-09-20 15:28] LABS: Eosinophils # (M) 0.14 k/uL (0-0.7); Lymphocytes # (M) 0.72 k/uL (1.0-4.8); Monocytes # (M) 0.72 k/uL (0-1.0); Toxic Granulation Present; Toxic Vacuolation Present; WBC 14.4 k/uL (3.8-10.6)
[2023-09-20 15:29] LABS: Poikilocytosis (M) Present
[2023-09-20] MEDS: MAGNESIUM SULFATE-D5W PMX 1 GM in DEXTROSE/WATER 1 100ML.BAG IVPB ONE (16:09)
[2023-09-20 16:14] LABS: Glucose,Whole Blood 143 mg/dL (70-110)
--- NOTE | 2023-09-20 16:25 | P.PN ---
Subjective Progress Note Date: 09/20/23 63-year-old female patient currently intubated on mechanical ventilator due to extensive left lung pneumonia. The patient is known to have coronary artery disease with previous coronary stenting x 3 involving the LAD in addition to history of congestive heart failure/ischemic cardiomyopathy, breast cancer, hypertension hyperlipidemia and she is a chronic smoker. The patient started getting sick sometime last week and she was having cough and congestion and fever with a temperature of 102 along with myalgias without any emesis. She came into the hospital and she tested positive for influenza A and within 12 hours she decompensated and the patient was brought into the intensive care unit with hypoxic respiratory failure. She was briefly placed placed on the BiPAP and she failed BiPAP therapy. Subsequently, the patient was intubated and placed on the mechanical ventilator. During the course, the patient also developed A-fib with RVR. At this point in time, the patient is in septic shock , hypotensive, intubated on mechanical ventilator. Her ventilator setting including assist-control mode with rate of 20, tidal volume of 400, FiO2 of 60% and a PEEP of 5. Preintubation blood gas shows 0.13 with a pCO2 of 55 and FiO2 of 40% with a pO2 of 101. This was done on the BiPAP. The patient's chest x- ray showed an extensive left lung consolidation that developed. ET tube is in a good location post intubation. Patient was given IV Eliquis patient received a total of 2 L 2 L of normal saline and currently she is on pressors with norepinephrine running at 0.13 mcg/kg/min. Her mean arterial pressures of 57. She is also in A-fib RVR, amiodarone drip is running at 1 mg/min and the patient is also on IV heparin. She is on propofol running at 3035 mcg/kg/min and IV fluids are in the order of bicarb infusion at rate of 100 cc an hour. White cell count is at 3.3 with a hemoglobin of 16 and a platelet count of 194. The BUN is at 30 with a creatinine of 1.5 and a serum bicarb is at 15 with a sodium level of 134 and a potassium level of 3.1. The troponins were negative. The re st of the viral panel is also negative with exception of influenza a. She was started on Tamiflu. She is on a combination of Rocephin and Zithromax. The patient is also on insulin drip at 13 units an hour for blood sugar control. On 09/18/2023, the patient is being seen for a follow-up. The patient was in septic shock related to a extensive left lung pneumonia. The patient is post intubation mechanical ventilation. She also underwent a bronchoscopy yesterday endobronchial lavage of the left lung was done and the cultures are still pending for now. This morning, the patient remains intubated on mechanical ventilator. He is currently on propofol running at 45 mcg/kg/min. She is on a assist-control mode at the rate of 28, tidal volume of 400, FiO2 of 50% with a PEEP of 5. Peak airway pressures around 38 with a static airway pressure of around 25. CVP is at 13. The patient remains on a bicarb infusion running at 100 cc an hour. Cardiac rhythm has converted to sinus and the patient completed amiodarone loading. She is hypotensive with a low urine output of 10 to 20 cc an hour. Norepinephrine is running at 0.26 mcg/kg/min and the patient is also on vasopressin, physiologic dose. She remains on IV heparin. Echocardiogram was completed yesterday and the patient was found to have impaired LV function with a left ventricular ejection fraction of 20 to 25%. At the same time, the patient was found to have a left ventricular apical thrombus and apical/periapical akinesis and mild mitral regurgitation. The patient remains on IV heparin. As mentioned, the patient has converted to normal sinus rhythm. In terms of the blood work, the repeat procalcitonin level was quite elevated at 99. Blood cultures are negative. The patient has sustained acute kidney injury with a creatinine of 1.88 with a BUN of 32. Sodium is at 134. Potassium is at 4.1. Bicarb level is up to 19. The patient's white cell count is at 2.2 with a hemoglobin 14.2 and a platelet count of 122. Lactic acid level has been fluctuating and the highest level was at 6.5 dropped down to 5.0. In terms of antibiotic coverage, the patient on Rocephin and Zithromax and vancomycin. The patient is also completing course of Tamiflu. The patient is currently in sinus tachycardia. Tmax was one 1.6. On 09/19/2023, seen the patient for a follow-up. The patient remains critically ill with a staphylococcal pneumonia and multisystem organ failure. The patient had a bronchoscopy endobronchial lavage of the left lower lobe showed Staph aureus which is probably MSSA and the patient has been and severe septic shock with multisystem organ failure. The patient initially started off with influenza A infection and subsequently she developed multilobar pneumonia and septic shock. She continued to have episodes of fever. She has a diffuse body rash which is probably related to her psoriasis. However the possibility of toxic shock syndrome cannot be completely eliminated. Based on her ongoing issues with hemodynamic instability and fever and sepsis, I added clindamycin to her regimen and I gave her a dose of IVIG 1 mg/kg. The patient is currently on a combination of Zosyn, vancomycin and clindamycin. The chest x-ray from today showing persistent right lower lobe consolidation and extensive consolidation involving the lingula and the left lower lobe. The patient remains sedated on p ropofol and this morning she is on 25 mcg/kg/min. She is adequately sedated. She is on assist-control mode at a rate of 28, tidal volume of 400, FiO2 of 60% with a PEEP of 5. Peak airway pressures around 39. CVP is around 12. The patient remains on vasopressin 0.04 units and norepinephrine running at 0.0 44 mcg/kg/min. Fluid balance is +1.7 L over the past 24 hours. The patient is developing progressive worsening renal function and the patient is also in acute kidney failure. Based on today's blood work, the white cell count is improved and the patient's white cell comes up to 9.2 and the patient's hemoglobin of 12.9 with a platelet count of 62 which is a drop compared to yesterday. Coagulation profile is showing some mild elevation of the PTT. PT/INR is within normal limits. The blood gas shows a pH of 7.31 with a pCO2 of 48 and pO2 of 65. BUN is at 43 with a creatinine of 3.22 and a sodium levels at 131. Lactic acid level remains elevated at 6.1. She has severe cardiomyopathy with an ejection fraction of 20 to 25%. She was unable to tolerate enteral feeding. As such, the tube feeds placed on hold. The cardiac rhythm is sinus tachycardia the patient remains on the amiodarone orally. She is also on IV heparin. On today's evaluation of 09/20/2023, the patient remains critically ill, sedated, intubated on mechanical ventilator. This morning, the patient remains on propofol which is running at 30 mcg/kg/min. She is on assist-control mode of mechanical ventilation with rate of 28, tidal volume of 400 and the PEEP has been brought up to 10 with an FiO2 of 60%. The chest x-ray from today shows worsening of the bilateral consolidation in the mid and lower lung irizarry bilaterally left more than right. Orotracheal tube is in a good location. Blood gas from today showed a pH of 7.33 with a pCO2 of 49 and a pO2 of 59 and based on that the PEEP was brought up to 10. Her oxygenation is stable right now and her pulse ox is above 90%. Hemodynamically, the patient is not producing any urine output. She remains on pressors. Norepinephrine is running at 0.4 mcg/kg/min and the patient is also on vasopressin at physiologic dose. She is having episodes of atrial fibrillation with RVR. Her current cardiac rhythm is sinus. She remains on amiodarone infusion at 0.5 mg/min. The patient remains on IV cefazolin and clindamycin and she is also on Tamiflu. White cell count is 14.4 with a hemoglobin 12.8 and a platelet count of 42. The sodium is at 129, BUN is at 55 with a creatinine of 3.8 and a potassium level is at 3.8. Serum bicarb is at 22. Currently afebrile. Remains on i bicarb infusion at rate of 100 cc an hour. IV heparin has been discontinued based on development of thrombocytopenia. Objective - Vital Signs Vital signs: Vital Signs Temp 98.6 F 09/20/23 08:00 Pulse 111 H 09/20/23 08:04 Resp 29 H 09/20/23 08:00 BP 91/53 09/17/23 06:45 Pulse Ox 94 L 09/20/23 08:00 FiO2 60 09/20/23 08:00 Intake & Output 09/19/23 09/20/23 09/20/23 18:59 06:59 18:59 Intake Total 2517.271 3083.949 383.512 Output Total 1013 225 0 Balance 5994.860 7108.949 383.512 Weight 90.6 kg Intake: IV 1786 2188 302 Amiodarone 450 mg In 176 Dextrose 5% in Water 250 ml @ 0.5 MG/MIN 16.667 mls/hr IV .Q15H [facility] Rx#: [id number] Calcium Gluconate in NaCl 100 1 gm In Saline 1 100ml. bag @ 100 mls/hr IVPB ONCE ONE Rx#:[id number] Clindamycin 900 mg In 300 100 50 Dextrose 5% in Water 50 ml @ 50 mls/hr IVPB Q8H [facility] Rx#:[id number] Dextrose 5% in Water 1, 1100 1100 100 000 ml @ 100 mls/hr IV . [id number] [facility] with Sodium Bicarb (1 Meq/ml) 150 ml Rx#:[id number] Piperacillin-Tazobactam 3 100 .375 gm In Sodium Chloride 0.9% 100 ml @ 25 mls/hr IVPB Q8HR [facility] Rx# :[id number] Pressure Bag (0.9 sodium 66 72 12 chloride) Sodium Chloride 0.9% 1, 220 240 40 000 ml @ 20 mls/hr IV . Q24H [facility] Rx#:[id number] Sodium Chloride 0.9% 500 500 ml 500 ml @ 999 mls/hr IV .Q31M [facility] Rx#:[id number] Intake, IV Titration 731.271 845.949 31.512 Amount Amiodarone 450 mg In 220.282 Dextrose 5% in Water 250 ml @ 0.5 MG/MIN 16.667 mls/hr IV .Q15H [facility] Rx#: [id number] Calcium Gluconate in NaCl 100 2 gm In Saline 1 100ml. bag @ 100 mls/hr IVPB ONCE ONE Rx#:[id number] Heparin Sod,Pork in 0.45% 117.427 132.573 NaCl 25,000 unit In 0.45 % NaCl 1 250ml.bag @ 12 UNITS/KG/HR 9.525 mls/hr IV .Q24H [facility] Rx#: [id number] Insulin Regular 100 unit 30.25 41.733 30.8 In Sodium Chloride 0.9% 100 ml @ Titrate IV .Q0M [facility] Rx#:[id number] Norepinephrine 32 mg In 232.594 176.207 Sodium Chloride 0.9% 218 ml @ 0.03 MCG/KG/MIN 1. 116 mls/hr IV .Q24H [facility] Rx#:[id number] Norepinephrine 32 mg In 0.712 Sodium Chloride 0.9% 218 ml @ 0.03 MCG/KG/MIN 1. 232 mls/hr IV .Q24H [facility] Rx#:[id number] Vasopressin 20 unit In 51 94.86 Sodium Chloride 0.9% 50 ml @ 0.03 UNITS/MIN 4.59 mls/hr IV .Q11H7M [facility] Rx# :[id number] propofoL 1,000 mg In 200 180.294 Empty Bag 1 bag @ 15 MCG/ KG/MIN 7.144 mls/hr IV . Q14H [facility] Rx#:[id number] Lipid 50 50 ceFAZolin 2 gm In Sodium 50 50 Chloride 0.9% 50 ml @ 100 mls/hr IVPB Q12H [facility] Rx# :[id number] Output: Gastric Drainage 1000 220 Urine 13 5 0 Other: Voiding Method Indwelling Catheter Indwelling Catheter ABP, PAP, CO, CI - Last Documented Arterial Blood Pressure 111/56 - Exam GENERAL EXAM: Patient is Sedated, intubated on mechanical ventilator on assist control mode mechanical ventilation. The patient has an orogastric and orotracheal tube are both in place. HEAD: Normocephalic and atraumatic EYES: Normal reaction of pupils, equal size. NOSE: Clear with pink turbinates. THROAT: No erythema or exudates. NECK: No masses, no JVD. CHEST: No chest wall deformity. LUNGS: Equal air entry with diffuse rhonchi. Diffuse rhonchi heard throughout the lung irizarry bilaterally CVS: S1 and S2 normal with no audible murmur, irregular rhythm. No extra heart sounds. ABDOMEN: No hepatosplenomegaly, active bowel sounds, no guarding or rigidity. SPINE: No scoliosis or deformity SKIN: Diffuse erythema and plaquing on all 4 extremities, the patient has psoria tic patches throughout her body more so in the lower extremities bilaterally. CENTRAL NERVOUS SYSTEM: No focal deficits, tone is normal in all 4 extremities. The patient is currently sedated on propofol EXTREMITIES: There is no peripheral edema, clubbing, or cyanosis. Peripheral pulses are intact. - Labs CBC & Chem 7: 09/20/23 14:30 09/20/23 03:23 Labs: Abnormal Lab Results - Last 24 Hours (Table) 09/19/23 09/19/23 09/19/23 Range/Units 09:21 10:10 10:44 Plt Count 49 L (150-450) k/uL Neutrophils # (1.3-7.7) k/uL Neutrophils # (Manual) 7.80 H (1.3-7.7) k/uL Lymphocytes # (1.0-4.8) k/uL Lymphocytes # (Manual) 0.46 L (1.0-4.8) k/uL Metamyelocytes # (Man) 0.36 H (0) k/uL Myelocytes # (Manual) 0.09 H (0) k/uL Nucleated RBCs 1 H (0-0) /100 WBC APTT (22.0-30.0) sec Fibrinogen 727 H (200-500) mg/dL ABG pH (7.35-7.45) ABG pCO2 (35-45) mmHg ABG pO2 (83-108) mmHg ABG HCO3 (21-25) mmol/L ABG Total CO2 (19-24) mmol/L ABG O2 Saturation (94-97) % Sodium (137-145) mmol/L Chloride (98-107) mmol/L BUN (7-17) mg/dL Creatinine (0.52-1.04) mg/dL Glucose (74-99) mg/dL POC Glucose (mg/dL) 176 H (70-110) mg/dL 09/19/23 09/19/23 09/19/23 Range/Units 11:02 12:03 13:09 Plt Count (150-450) k/uL Neutrophils # (1.3-7.7) k/uL Neutrophils # (Manual) (1.3-7.7) k/uL Lymphocytes # (1.0-4.8) k/uL Lymphocytes # (Manual) (1.0-4.8) k/uL Metamyelocytes # (Man) (0) k/uL Myelocytes # (Manual) (0) k/uL Nucleated RBCs (0-0) /100 WBC APTT (22.0-30.0) sec Fibrinogen (200-500) mg/dL ABG pH (7.35-7.45) ABG pCO2 (35-45) mmHg ABG pO2 (83-108) mmHg ABG HCO3 (21-25) mmol/L ABG Total CO2 (19-24) mmol/L ABG O2 Saturation (94-97) % Sodium (137-145) mmol/L Chloride (98-107) mmol/L BUN (7-17) mg/dL Creatinine (0.52-1.04) mg/dL Glucose (74-99) mg/dL POC Glucose (mg/dL) 220 H 211 H 208 H (70-110) mg/dL 09/19/23 09/19/23 09/19/23 Range/Units 14:57 16:12 17:06 Plt Count (150-450) k/uL Neutrophils # (1.3-7.7) k/uL Neutrophils # (Manual) (1.3-7.7) k/uL Lymphocytes # (1.0-4.8) k/uL Lymphocytes # (Manual) (1.0-4.8) k/uL Metamyelocytes # (Man) (0) k/uL Myelocytes # (Manual) (0) k/uL Nucleated RBCs (0-0) /100 WBC APTT (22.0-30.0) sec Fibrinogen (200-500) mg/dL ABG pH (7.35-7.45) ABG pCO2 (35-45) mmHg ABG pO2 (83-108) mmHg ABG HCO3 (21-25) mmol/L ABG Total CO2 (19-24) mmol/L ABG O2 Saturation (94-97) % Sodium (137-145) mmol/L Chloride (98-107) mmol/L BUN (7-17) mg/dL Creatinine (0.52-1.04) mg/dL Glucose (74-99) mg/dL POC Glucose (mg/dL) 195 H 190 H 187 H (70-110) mg/dL 09/19/23 09/19/23 09/19/23 Range/Units 18:09 18:28 19:02 Plt Count (150-450) k/uL Neutrophils # (1.3-7.7) k/uL Neutrophils # (Manual) (1.3-7.7) k/uL Lymphocytes # (1.0-4.8) k/uL Lymphocytes # (Manual) (1.0-4.8) k/uL Metamyelocytes # (Man) (0) k/uL Myelocytes # (Manual) (0) k/uL Nucleated RBCs (0-0) /100 WBC APTT 94.7 H (22.0-30.0) sec Fibrinogen (200-500) mg/dL ABG pH (7.35-7.45) ABG pCO2 (35-45) mmHg ABG pO2 (83-108) mmHg ABG HCO3 (21-25) mmol/L ABG Total CO2 (19-24) mmol/L ABG O2 Saturation (94-97) % Sodium (137-145) mmol/L Chloride (98-107) mmol/L BUN (7-17) mg/dL Creatinine (0.52-1.04) mg/dL Glucose (74-99) mg/dL POC Glucose (mg/dL) 178 H 168 H (70-110) mg/dL 09/19/23 09/19/23 09/19/23 Range/Units 20:21 21:06 22:19 Plt Count (150-450) k/uL Neutrophils # (1.3-7.7) k/uL Neutrophils # (Manual) (1.3-7.7) k/uL Lymphocytes # (1.0-4.8) k/uL Lymphocytes # (Manual) (1.0-4.8) k/uL Metamyelocytes # (Man) (0) k/uL Myelocytes # (Manual) (0) k/uL Nucleated RBCs (0-0) /100 WBC APTT (22.0-30.0) sec Fibrinogen (200-500) mg/dL ABG pH (7.35-7.45) ABG pCO2 (35-45) mmHg ABG pO2 (83-108) mmHg ABG HCO3 (21-25) mmol/L ABG Total CO2 (19-24) mmol/L ABG O2 Saturation (94-97) % Sodium (137-145) mmol/L Chloride (98-107) mmol/L BUN (7-17) mg/dL Creatinine (0.52-1.04) mg/dL Glucose (74-99) mg/dL POC Glucose (mg/dL) 151 H 140 H 131 H (70-110) mg/dL 09/19/23 09/20/23 09/20/23 Range/Units 23:02 00:09 01:05 Plt Count (150-450) k/uL Neutrophils # (1.3-7.7) k/uL Neutrophils # (Manual) (1.3-7.7) k/uL Lymphocytes # (1.0-4.8) k/uL Lymphocytes # (Manual) (1.0-4.8) k/uL Metamyelocytes # (Man) (0) k/uL Myelocytes # (Manual) (0) k/uL Nucleated RBCs (0-0) /100 WBC APTT (22.0-30.0) sec Fibrinogen (200-500) mg/dL ABG pH (7.35-7.45) ABG pCO2 (35-45) mmHg ABG pO2 (83-108) mmHg ABG HCO3 (21-25) mmol/L ABG Total CO2 (19-24) mmol/L ABG O2 Saturation (94-97) % Sodium (137-145) mmol/L Chloride (98-107) mmol/L BUN (7-17) mg/dL Creatinine (0.52-1.04) mg/dL Glucose (74-99) mg/dL POC Glucose (mg/dL) 131 H 150 H 166 H (70-110) mg/dL 09/20/23 09/20/23 09/20/23 Range/Units 02:16 03:22 03:23 Plt Count (150-450) k/uL Neutrophils # (1.3-7.7) k/uL Neutrophils # (Manual) (1.3-7.7) k/uL Lymphocytes # (1.0-4.8) k/uL Lymphocytes # (Manual) (1.0-4.8) k/uL Metamyelocytes # (Man) (0) k/uL Myelocytes # (Manual) (0) k/uL Nucleated RBCs (0-0) /100 WBC APTT (22.0-30.0) sec Fibrinogen (200-500) mg/dL ABG pH (7.35-7.45) ABG pCO2 (35-45) mmHg ABG pO2 (83-108) mmHg ABG HCO3 (21-25) mmol/L ABG Total CO2 (19-24) mmol/L ABG O2 Saturation (94-97) % Sodium 129 L (137-145) mmol/L Chloride 89 L (98-107) mmol/L BUN 55 H (7-17) mg/dL Creatinine 3.89 H (0.52-1.04) mg/dL Glucose 191 H (74-99) mg/dL POC Glucose (mg/dL) 174 H 192 H (70-110) mg/dL 09/20/23 09/20/23 09/20/23 Range/Units 03:23 04:18 05:41 Plt Count 44 L (150-450) k/uL Neutrophils # 9.1 H (1.3-7.7) k/uL Neutrophils # (Manual) (1.3-7.7) k/uL Lymphocytes # 0.6 L (1.0-4.8) k/uL Lymphocytes # (Manual) (1.0-4.8) k/uL Metamyelocytes # (Man) (0) k/uL Myelocytes # (Manual) (0) k/uL Nucleated RBCs (0-0) /100 WBC APTT (22.0-30.0) sec Fibrinogen (200-500) mg/dL ABG pH 7.33 L (7.35-7.45) ABG pCO2 49 H (35-45) mmHg ABG pO2 59 L* (83-108) mmHg ABG HCO3 26 H (21-25) mmol/L ABG Total CO2 27 H (19-24) mmol/L ABG O2 Saturation 91.0 L (94-97) % Sodium (137-145) mmol/L Chloride (98-107) mmol/L BUN (7-17) mg/dL Creatinine (0.52-1.04) mg/dL Glucose (74-99) mg/dL POC Glucose (mg/dL) 173 H (70-110) mg/dL 09/20/23 09/20/23 09/20/23 Range/Units 06:08 07:11 07:56 Plt Count (150-450) k/uL Neutrophils # (1.3-7.7) k/uL Neutrophils # (Manual) (1.3-7.7) k/uL Lymphocytes # (1.0-4.8) k/uL Lymphocytes # (Manual) (1.0-4.8) k/uL Metamyelocytes # (Man) (0) k/uL Myelocytes # (Manual) (0) k/uL Nucleated RBCs (0-0) /100 WBC APTT (22.0-30.0) sec Fibrinogen (200-500) mg/dL ABG pH (7.35-7.45) ABG pCO2 (35-45) mmHg ABG pO2 (83-108) mmHg ABG HCO3 (21-25) mmol/L ABG Total CO2 (19-24) mmol/L ABG O2 Saturation (94-97) % Sodium (137-145) mmol/L Chloride (98-107) mmol/L BUN (7-17) mg/dL Creatinine (0.52-1.04) mg/dL Glucose (74-99) mg/dL POC Glucose (mg/dL) 149 H 136 H 151 H (70-110) mg/dL 09/20/23 Range/Units 09:23 Plt Count (150-450) k/uL Neutrophils # (1.3-7.7) k/uL Neutrophils # (Manual) (1.3-7.7) k/uL Lymphocytes # (1.0-4.8) k/uL Lymphocytes # (Manual) (1.0-4.8) k/uL Metamyelocytes # (Man) (0) k/uL Myelocytes # (Manual) (0) k/uL Nucleated RBCs (0-0) /100 WBC APTT (22.0-30.0) sec Fibrinogen (200-500) mg/dL ABG pH (7.35-7.45) ABG pCO2 (35-45) mmHg ABG pO2 (83-108) mmHg ABG HCO3 (21-25) mmol/L ABG Total CO2 (19-24) mmol/L ABG O2 Saturation (94-97) % Sodium (137-145) mmol/L Chloride (98-107) mmol/L BUN (7-17) mg/dL Creatinine (0.52-1.04) mg/dL Glucose (74-99) mg/dL POC Glucose (mg/dL) 155 H (70-110) mg/dL Microbiology - Last 24 Hours (Table) 09/17/23 01:56 Blood Culture - Preliminary Blood 09/17/23 01:56 Blood Culture - Preliminary Blood 09/17/23 08:30 Gram Stain - Final Bronchoalviolar Lavage - Left Bronchial Washings Culture - Final Staphylococcus aureus 09/17/23 06:54 Gram Stain - Final Sputum Sputum Culture - Final Staphylococcus aureus Assessment and Plan Plan: Acute hypoxic respiratory failure, secondary to an extensive bilateral pneumonia. The patient initially had an influenza A infection and subsequently developed a staphylococcal pneumonia and this is most likely an MSSA infection. Final culture sensitivities are not available yet. The bronchial lavage confirmed presence of Staph aureus. The patient remains intubated on the [facility] anical ventilator. Chest x-ray from today shows extensive left lung consolidation and right lower lobe consolidation and there is evidence of multilobar pneumonia. The patient has dense consolidation of the mid and lower lung irizarry bilaterally left more than right. No significant change in the c hest x-ray finding the patient remains on a combination of cefazolin and clindamycin. Acute hypercapnic respiratory failure secondary to above, currently intubated on mechanical ventilator, secondary to above Septic shock, secondary to staphylococcal pneumonia and suspected toxic shock syndrome, cefazolin clindamycin and given a dose of IVIG was also given. Currently still pressor dependent and the patient remains on high-dose norepinephrine and vasopressin physiologic dose. Suspect toxic shock syndrome secondary to staph pneumonia Persistent fever, currently afebrile Acute influenza A infection, on Tamiflu Leukopenia, induced by septic shock. The white cell count is improved N episodes of paroxysmal atrial fibrillation with RVR, current rhythm is sinus Acute kidney injury, creatinine is on the rise and the patient will be seen by nephrology. This is sepsis induced ATN. She is anuric at this point in time nephrology on the case and contemplating dialysis within the next 24 hours. Anion gap metabolic acidosis, mild lactic acidosis, lactic acid remains elevated Coronary artery disease with previous PCI involving the LAD and stenting. 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 apical thrombus currently on IV heparin Hypertension history of Hyperlipidemia history of Diabetes mellitus insulin-dependent, insulin drip for blood sugar control History of smoking Psoriasis Hypothyroidism History of breast cancer Plan Continue ventilator support, the PEEP has been brought up to 10 Continue bicarb infusion Consider hemodialysis with the next 24 hours Check lactic acid level, the levels needs to be monitored Check procalcitonin level, currently at 99 Propofol for sedation Continue pressors and titrate for mean arterial pressure above 60, the patient is currently on a combination norepinephrine and vasopressin physiologic dose Continue cefazolin and clindamycin MSSA infection. Monitor renal function, no hydronephrosis on ultrasound of the kidneys IV heparin has been discontinued and HIT antibodies have been sent Continue Tamiflu Give another trial of enteral feeding for nutritional support IV insulin for blood sugar control Condition is critical and will continue to follow make further recommendation based on his progress. This is a critical care evaluation that was done more than 30 minutes. Time with Patient: Greater than 30
[2023-09-20 17:22] LABS: Glucose,Whole Blood 157 mg/dL (70-110)
[2023-09-20 18:58] LABS: Glucose,Whole Blood 165 mg/dL (70-110)
[2023-09-20 20:13] LABS: Glucose,Whole Blood 132 mg/dL (70-110)
[2023-09-20 22:21] LABS: Glucose,Whole Blood 156 mg/dL (70-110)
[2023-09-20 23:15] LABS: Glucose,Whole Blood 152 mg/dL (70-110)
[2023-09-21 00:29] LABS: Glucose,Whole Blood 156 mg/dL (70-110)
[2023-09-21 01:18] LABS: Glucose,Whole Blood 155 mg/dL (70-110)
[2023-09-21 02:18] LABS: Glucose,Whole Blood 126 mg/dL (70-110)
[2023-09-21 03:13] LABS: Glucose,Whole Blood 151 mg/dL (70-110)
[2023-09-21 04:31] LABS: Glucose,Whole Blood 169 mg/dL (70-110)
[2023-09-21 04:40] LABS: HCT 35.9 % (34.0-46.0); HGB 13.1 gm/dL (11.4-16.0); MCH 32.4 pg (25.0-35.0); MCHC 36.6 g/dL (31.0-37.0); MCV 88.6 fL (80.0-100.0); RBC 4.05 m/uL (3.80-5.40); RDW 14.6 % (11.5-15.5); WBC 16.1 k/uL (3.8-10.6)
[2023-09-21 05:03] LABS: Anion Gap 19 mmol/L; Blood Urea Nitrogen 65 mg/dL (7-17); Carbon Dioxide 22 mmol/L (22-30); Chloride 88 mmol/L (98-107); Glucose 162 mg/dL (74-99); Potassium 4.3 mmol/L (3.5-5.1); Sodium 129 mmol/L (137-145)
[2023-09-21 05:08] LABS: African American GFR (CKD) 12 (>60 ml/min/1.73 sqM); Non-African American GFR(CKD) 10 (>60 ml/min/1.73 sqM)
[2023-09-21 05:12] LABS: Calcium 5.5 mg/dL (8.4-10.2)
[2023-09-21 05:32] LABS: Glucose,Whole Blood 170 mg/dL (70-110)
[2023-09-21 05:45] LABS: Platelet Count 54 k/uL (150-450)
--- NOTE | 2023-09-21 06:10 | P.PN ---
Subjective Progress Note Date: 09/20/23 Patient is a 63-year-old female with a known history of coronary artery disease status post stent placement, chronic CHF, hypertension, diabetes type 2, history of left breast cancer due to lumpectomy and radiation, hypothyroidism and osteoarthritis and prior history of smoking, quit in 2018 presents to ER with complaints of shortness of breath, cough, congestion and generalized weakness since last week. She was also complaining of nasal congestion and sore throat. Cough is mainly nonproductive. Patient's was treated for bronchitis recently. On admission patient was Febrile with Tmax 100.3 and tachycardic and tachypneic admission on admission. She was requiring 4 L oxygen via nasal cannula. Laboratory data showed WBC 10.9 hemoglobin 16.6 and platelets 179, sodium 133 potassium 3.9 chloride 102 bicarb is 17, BUN 17 and creatinine 0.54 and blood sugar 326 procalcitonin level was 5.65 Urinalysis showed cloudy with increased physical gravity and 2+ protein and 4+ glucose and 1+ ketones and negative for leukocyte esterase. Patient is tested positive for influenza A. Patient decompensated and was sent to ER due to hypoxic respiratory failure. Patient was placed on BiPAP initially and is eventually intubated and currently on mechanical ventilator. Chest x-ray showed findings most consistent with a left-sided acute focal pneumonia. 09/18/2023 Patient is currently in the MICU. Sedated and is on mechanical ventilator. Patient underwent bronchoscopy yesterday and bronchodilators. Lavage fluid showed present to Staph aureus. Patient is still on pressor support with Levophed and vasopressin. Also on IV heparin. Otherwise patient is in sinus tachycardia with heart rate 120s. Amiodarone drip has been discontinued and changed to p.o. 2D echocardiogram showed left ventricular systolic dysfunction ejection fraction 20 to 25% and also found to have left ventricular apical thrombus and apical/periapical akinesis and mild MR. Patient is being continued on antibiotics vancomycin and Zosyn. Blood cultures negative so far. Laboratory data showed WBC 2.2 hemoglobin 14.2 and platelets 122 Sodium 134 potassium 4.1 chloride 104 bicarb is 19 BUN 32 and creatinine increased to 1.88 and blood sugar 200. Patient is on insulin drip. Also on bicarb drip. Current medications reviewed. 09/19/2023 Patient is seen in follow-up continues to be in the ICU with multiple medical consultations following including cardiology and pulmonary dresser tender. Patient remains on mechanical ventilation with 60% FiO2 and PEEP is 5. Continues on pressor support including IV amiodarone, IV heparin, IV antibiotics as well as Tamiflu. Patient also continues on sodium bicarb drip as well as IV Lasix daily. Cardiology following the patient recommending TABBY with cardioversion as patient is new onset atrial fibrillation and echo revealed left apical ventricular thrombus with no left atrial appendage thrombus noted. Family wishes for patient to remain full code and willing to proceed with this intervention. Kidney functions worsening as well currently 3.2 to creatinine with a BUN of 43 and sodium is 131. Calcium remains critically low at 6.1 and magnesium is 1.7. Procalcitonin extremely elevated at 99.9. Gram stain from bronchoscopy showing Staph aureus and is continued on cefazolin along with IV clindamycin. Overall prognosis is extremely guarded at this time. 09/20/2023 Patient is seen and evaluated in the ICU with multiple medical consultations following. Patient remains on mechanical vent with an FiO2 of 60% and PEEP is 10. Patient continues to require pressor support with cardiology following patient on heparin drip. Platelets are low and heparin drip on hold and HIT panel was ordered and pending. Hematology following as well. Kidney functions continue to worsen with very minimal output recommending renal replacement although no immediate plans for today. Will likely require dialysis catheter placement for emergent dialysis in the next day or so. Patient continues on bicarb drip along with IV hydration. Discussed with at the bedside rega rding overall prognosis and wishes for patient to remain full code at this time. Review of systems: Unable to obtain as patient is on sedation and mechanical ventilation Active Medications Albuterol/Ipratropium (Ipratropium-Albuterol 3 Ml Neb) 3 ml INHALATION RT-Q4H [facility] Last Admin: 09/21/23 03:26 Dose: 3 ml Aspirin (Aspirin 81 Mg) 81 mg PO DAILY [facility] Last Admin: 09/20/23 08:22 Dose: 81 mg Atorvastatin Calcium (Atorvastatin 40 Mg Tab) 40 mg PO HS [facility] Last Admin: 09/20/23 23:10 Dose: 40 mg Chlorhexidine Gluconate (Chlorhexidine Gluconate 15 Ml Cup) 15 ml MUCOUS MEM BID [facility] Last Admin: 09/20/23 23:10 Dose: 15 ml Clopidogrel Bisulfate (Clopidogrel 75 Mg Tab) 75 mg PO DAILY [facility] Last Admin: 09/20/23 08:22 Dose: 75 mg Dextrose/Water (Dextrose 50% Syringe 50 Ml) 25 ml IVP PER PROTOCOL PRN; Protocol PRN Reason: Hypoglycemia Dextrose/Water (Dextrose 50% Syringe 50 Ml) 50 ml IVP PER PROTOCOL PRN; Protocol PRN Reason: Hypoglycemia Furosemide (Furosemide 10 Mg/Ml 10 Ml Vial) 80 mg IV DAILY [facility] Last Admin: 09/20/23 08:22 Dose: 80 mg Hydromorphone HCl (Hydromorphone 0.5 Mg/0.5 Ml Syringe) 0.5 mg IVP Q4HR PRN PRN Reason: Pain Last Admin: 09/19/23 09:24 Dose: 0.5 mg Sodium Chloride (Saline 0.9%) 1,000 mls @ 20 mls/hr IV .Q24H [facility] Last Admin: 09/20/23 23:09 Dose: 20 mls/hr Insulin Human Regular 100 unit (/ Sodium Chloride) 100 mls @ 0 mls/hr IV .Q0M [facility]; Protocol Last Titration: 09/20/23 20:18 Dose: 0 units/hr, 0 mls/hr Propofol 1,000 mg/ IV Solution 100 mls @ 7.144 mls/hr IV .Q14H [facility]; Protocol Last Admin: 09/21/23 00:38 Dose: 30 mcg/kg/min, 14.288 mls/hr Vasopressin 20 unit/ Sodium (Chloride) 51 mls @ 4.59 mls/hr IV .Q11H7M [facility]; Protocol Last Admin: 09/21/23 02:00 Dose: 0.04 units/min, 6.12 mls/hr Clindamycin Phosphate 900 mg/ (Dextrose/Water) 56 mls @ 50 mls/hr IVPB Q8H [facility]; Protocol Last Admin: 09/21/23 04:18 Dose: 50 mls/hr Amiodarone HCl 450 mg/ (Dextrose/Water) 250 mls @ 16.667 mls/hr IV .Q15H [facility]; Protocol Last Admin: 09/20/23 19:37 Dose: 0.5 mg/min, 16.667 mls/hr Cefazolin Sodium 2 gm/ Sodium (Chloride) 50 mls @ 100 mls/hr IVPB Q12H [facility]; Protocol Last Admin: 09/21/23 03:05 Dose: 100 mls/hr Norepinephrine Bitartrate 32 (mg/ Sodium Chloride) 250 mls @ 1.232 mls/hr IV . Q24H [facility]; Protocol Last Admin: 09/21/23 00:14 Dose: 0.5 mcg/kg/min, 20.531 mls/hr Sodium Bicarbonate 150 ml/ (Sodium Chloride) 1,150 mls @ 100 mls/hr IV .[id number] [facility] Last Admin: 09/20/23 23:10 Dose: 100 mls/hr Levothyroxine Sodium (Levothyroxine 75 Mcg Tab) 150 mcg PO 0630 [facility] Last Admin: 09/20/23 06:47 Dose: 150 mcg Miscellaneous Information (Magnesium Replacement Protocol 1 Each Misc) 1 each MISCELLANE DAILY PRN; Protocol PRN Reason: Per Protocol Miscellaneous Information (Potassium Replacement Protocol 1 Each Misc) 1 each MISCELLANE DAILY PRN; Protocol PRN Reason: Per Protocol Miscellaneous Information (Potassium Replacement Protocol 1 Each Misc) 1 each MISCELLANE DAILY PRN; Protocol PRN Reason: Per Protocol Naloxone HCl (Naloxone 0.4 Mg/Ml 1 Ml Vial) 0.2 mg IV Q2M PRN PRN Reason: Opioid Reversal Oseltamivir Phosphate (Oseltamivir 30 Mg Cap) 30 mg PO Q24HR [facility]; Protocol Stop: 09/21/23 09:01 Last Admin: 09/20/23 08:22 Dose: 30 mg Pantoprazole Sodium (Pantoprazole 40 Mg/10 Ml Vial) 40 mg IVP DAILY [facility] Last Admin: 09/20/23 08:22 Dose: 40 mg PHYSICAL EXAMINATION: Patient is sedated and on mechanical ventilator... FiO2 is 60% and PEEP is 10, appears elderly, ill-appearing, obese HEENT: Normocephalic. Neck is supple. Pupils reactive. Nostrils clear. Oral cavity is moist. Neck reveals no JVD, carotid bruits, or thyromegaly. CHEST EXAMINATION: Trachea is central. Symmetrical expansion. Bibasilar diminished sounds and scattered coarse sounds on the left side.. CARDIAC: S1, S2 muffled, irregular ABDOMEN: Soft. Obese. Bowel sounds present. No organomegaly. No abdominal bruits. Extremities: reveal no edema. No clubbing or cyanosis Neurologically patient is sedated and intubated. No gross focal deficits noted Skin: No rash, multiple psoriatic lesions noted on upper and lower extremities Psychiatric: Could not be assessed Musculoskeletal: No joint swelling or deformity. Assessment: Acute hypoxemic respiratory failure requiring mechanical ventilator secondary to acute influenza A infection as well as bacterial pneumonia, culture showing Staph aureus. Acute influenza A infection currently maintained on Tamiflu Left-sided acute focal bacterial pneumonia. Status post bronchoscopy on 09/17/2023, bronchial lavage culture showed presumptive Staph aureus. Sepsis/septic shock requiring pressor x 2 support secondary to above New onset atrial fibrillation with rapid ventricular rate. Plans for TABBY per cardiology Thrombocytopenia Hyperglycemia is uncontrolled diabetes type 2 insulin-dependent, extremely noncompliant outpatient per Acute kidney injury possibly ATN, worsening kidney functions Coronary artery history of stent placement to LAD Chronic CHF with systolic dysfunction/ischemic cardiomyopathy Hyperlipidemia Hypertension History of plaque psoriasis Hypothyroidism History of breast cancer status post lumpectomy and radiation Continued ongoing nicotine dependence Obesity with a BMI of 30.2 DVT prophylaxis patient is on heparin drip currently being held due to low platelets GI prophylaxis Full code Plan: Patient is on mechanical ventilator and is on sedation. FiO2 is 60% with a PEEP of 10 Patient will be continued on antibiotics in the form of Zosyn. Follow-up blood cultures and bronchial lavage final culture. MSSA. Vanco discontinued with worsening kidney functions Patient to be continued on telemetry. Patient was continued on heparin drip per cardiology although having low platelets. Heparin held and HIT panel ordered. Amiodarone drip Patient is also on pressor support with norepinephrine and vasopressin requiring increased pressor support and cardiology following discussing TABBY. Continue Tamiflu for influenza A infection Continue with home medications including aspirin Plavix and statins. Patient is on insulin drip for better blood sugar control. Per at home patient is extremely noncompliant with medications and monitoring blood sugars and is insulin-dependent Kidney functions continue to worsen with nephrology following and patient remains on bicarb drip and discussing renal replacement therapy. Possible plans for dialysis catheter placement in the next 24 hours. Patient is not making much urine at all and nursing staff reported to 5 cc of urine over the last 8 hours Prognosis is extremely guarded at this time. CODE STATUS was addressed with at the bedside who wishes to remain full code at this time The impression and plan of care has been dictated by Belkis Friedman, Nurse Practitioner as directed. Dr. Estefania MD I have performed a history and examination and MDM of this patient, discussed the same with the dictator, and agree with the dictator's assessment and plan as written ,documented as a scribe. Based on total visit time, I have performed more than 50% of the visit. Objective - Vital Signs Vital signs: Vital Signs Temp 100.3 F H 09/21/23 04:00 Pulse 120 H 09/21/23 05:00 Resp 32 H 09/21/23 05:00 BP 91/53 09/17/23 06:45 Pulse Ox 88 L 09/21/23 05:00 FiO2 60 09/21/23 04:00 Intake & Output 09/20/23 09/20/23 09/21/23 06:59 18:59 06:59 Intake Total 3083.949 0930.272 1838.167 Output Total 225 0 5 Balance 2858.949 4999.145 2342.167 Weight 90.6 kg 97.6 kg Intake: IV 2188 859 73 Amiodarone 450 mg In 176 Dextrose 5% in Water 250 ml @ 0.5 MG/MIN 16.667 mls/hr IV .Q15H [facility] Rx#: [id number] Calcium Gluconate in NaCl 100 1 gm In Saline 1 100ml. bag @ 100 mls/hr IVPB ONCE ONE Rx#:[id number] Clindamycin 900 mg In 100 100 Dextrose 5% in Water 50 ml @ 50 mls/hr IVPB Q8H [facility] Rx#:[id number] Dextrose 5% in Water 1, 1100 400 000 ml @ 100 mls/hr IV . [id number] [facility] with Sodium Bicarb (1 Meq/ml) 150 ml Rx#:[id number] Pressure Bag (0.9 sodium 72 39 33 chloride) Sodium Chloride 0.9% 1, 240 220 40 000 ml @ 20 mls/hr IV . Q24H [facility] Rx#:[id number] Sodium Chloride 0.9% 500 500 ml 500 ml @ 999 mls/hr IV .Q31M [facility] Rx#:[id number] Intake, IV Titration 817.905 3259.275 1541.167 Amount Amiodarone 450 mg In 220.282 233.894 Dextrose 5% in Water 250 ml @ 0.5 MG/MIN 16.667 mls/hr IV .Q15H [facility] Rx#: [id number] Heparin Sod,Pork in 0.45% 132.573 NaCl 25,000 unit In 0.45 % NaCl 1 250ml.bag @ 12 UNITS/KG/HR 9.525 mls/hr IV .Q24H [facility] Rx#: [id number] Insulin Regular 100 unit 41.733 30.8 37.2 In Sodium Chloride 0.9% 100 ml @ Titrate IV .Q0M [facility] Rx#:[id number] Magnesium Sulfate-D5w Pmx 100 1 gm In Dextrose/Water 1 100ml.bag @ 100 mls/hr IVPB ONCE ONE Rx#: [id number] Norepinephrine 32 mg In 176.207 Sodium Chloride 0.9% 218 ml @ 0.03 MCG/KG/MIN 1. 116 mls/hr IV .Q24H [facility] Rx#:[id number] Norepinephrine 32 mg In 2.355 22.153 Sodium Chloride 0.9% 218 ml @ 0.03 MCG/KG/MIN 1. 232 mls/hr IV .Q24H [facility] Rx#:[id number] Sodium Chloride 0.45% 1, 700 1100 000 ml @ 100 mls/hr IV . [id number] [facility] with Sodium Bicarb (1 Meq/ml) 150 ml Rx#:[id number] Vasopressin 20 unit In 94.86 51 51 Sodium Chloride 0.9% 50 ml @ 0.03 UNITS/MIN 4.59 mls/hr IV .Q11H7M [facility] Rx# :[id number] propofoL 1,000 mg In 180.294 158.120 96.92 Empty Bag 1 bag @ 15 MCG/ KG/MIN 7.144 mls/hr IV . Q14H [facility] Rx#:[id number] Lipid 50 50 ceFAZolin 2 gm In Sodium 50 50 Chloride 0.9% 50 ml @ 100 mls/hr IVPB Q12H [facility] Rx# :[id number] Output: Gastric Drainage 220 Urine 5 0 5 Other: Voiding Method Indwelling Catheter Indwelling Catheter Indwelling Catheter ABP, PAP, CO, CI - Last Documented Arterial Blood Pressure 90/51 - Labs CBC & Chem 7: 09/21/23 04:30 09/21/23 04:30 Labs: Abnormal Lab Results - Last 24 Hours (Table) 09/20/23 09/20/23 09/20/23 Range/Units 03:23 06:08 07:11 WBC (3.8-10.6) k/uL Plt Count (150-450) k/uL Neutrophils # (Manual) (1.3-7.7) k/uL Lymphocytes # (Manual) (1.0-4.8) k/uL Metamyelocytes # (Man) (0) k/uL Nucleated RBCs (0-0) /100 WBC Sodium (137-145) mmol/L Chloride (98-107) mmol/L BUN (7-17) mg/dL Creatinine (0.52-1.04) mg/dL Glucose (74-99) mg/dL POC Glucose (mg/dL) 149 H 136 H (70-110) mg/dL Calcium (8.4-10.2) mg/dL Vitamin B12 >1800.0 H (200.0-944.0) pg/mL 09/20/23 09/20/23 09/20/23 Range/Units 07:56 09:23 10:01 WBC (3.8-10.6) k/uL Plt Count (150-450) k/uL Neutrophils # (Manual) (1.3-7.7) k/uL Lymphocytes # (Manual) (1.0-4.8) k/uL Metamyelocytes # (Man) (0) k/uL Nucleated RBCs (0-0) /100 WBC Sodium (137-145) mmol/L Chloride (98-107) mmol/L BUN (7-17) mg/dL Creatinine (0.52-1.04) mg/dL Glucose (74-99) mg/dL POC Glucose (mg/dL) 151 H 155 H 165 H (70-110) mg/dL Calcium (8.4-10.2) mg/dL Vitamin B12 (200.0-944.0) pg/mL 09/20/23 09/20/23 09/20/23 Range/Units 11:05 12:07 13:28 WBC (3.8-10.6) k/uL Plt Count (150-450) k/uL Neutrophils # (Manual) (1.3-7.7) k/uL Lymphocytes # (Manual) (1.0-4.8) k/uL Metamyelocytes # (Man) (0) k/uL Nucleated RBCs (0-0) /100 WBC Sodium (137-145) mmol/L Chloride (98-107) mmol/L BUN (7-17) mg/dL Creatinine (0.52-1.04) mg/dL Glucose (74-99) mg/dL POC Glucose (mg/dL) 181 H 173 H 163 H (70-110) mg/dL Calcium (8.4-10.2) mg/dL Vitamin B12 (200.0-944.0) pg/mL 09/20/23 09/20/23 09/20/23 Range/Units 14:28 14:30 15:21 WBC 14.4 H (3.8-10.6) k/uL Plt Count 42 L (150-450) k/uL Neutrophils # (Manual) 12.60 H (1.3-7.7) k/uL Lymphocytes # (Manual) 0.72 L (1.0-4.8) k/uL Metamyelocytes # (Man) 0.29 H (0) k/uL Nucleated RBCs 1 H (0-0) /100 WBC Sodium (137-145) mmol/L Chloride (98-107) mmol/L BUN (7-17) mg/dL Creatinine (0.52-1.04) mg/dL Glucose (74-99) mg/dL POC Glucose (mg/dL) 147 H 140 H (70-110) mg/dL Calcium (8.4-10.2) mg/dL Vitamin B12 (200.0-944.0) pg/mL 09/20/23 09/20/23 09/20/23 Range/Units 16:12 17:20 18:54 WBC (3.8-10.6) k/uL Plt Count (150-450) k/uL Neutrophils # (Manual) (1.3-7.7) k/uL Lymphocytes # (Manual) (1.0-4.8) k/uL Metamyelocytes # (Man) (0) k/uL Nucleated RBCs (0-0) /100 WBC Sodium (137-145) mmol/L Chloride (98-107) mmol/L BUN (7-17) mg/dL Creatinine (0.52-1.04) mg/dL Glucose (74-99) mg/dL POC Glucose (mg/dL) 143 H 157 H 165 H (70-110) mg/dL Calcium (8.4-10.2) mg/dL Vitamin B12 (200.0-944.0) pg/mL 09/20/23 09/20/23 09/20/23 Range/Units 20:11 22:20 23:14 WBC (3.8-10.6) k/uL Plt Count (150-450) k/uL Neutrophils # (Manual) (1.3-7.7) k/uL Lymphocytes # (Manual) (1.0-4.8) k/uL Metamyelocytes # (Man) (0) k/uL Nucleated RBCs (0-0) /100 WBC Sodium (137-145) mmol/L Chloride (98-107) mmol/L BUN (7-17) mg/dL Creatinine (0.52-1.04) mg/dL Glucose (74-99) mg/dL POC Glucose (mg/dL) 132 H 156 H 152 H (70-110) mg/dL Calcium (8.4-10.2) mg/dL Vitamin B12 (200.0-944.0) pg/mL 09/21/23 09/21/23 09/21/23 Range/Units 00:28 01:16 02:17 WBC (3.8-10.6) k/uL Plt Count (150-450) k/uL Neutrophils # (Manual) (1.3-7.7) k/uL Lymphocytes # (Manual) (1.0-4.8) k/uL Metamyelocytes # (Man) (0) k/uL Nucleated RBCs (0-0) /100 WBC Sodium (137-145) mmol/L Chloride (98-107) mmol/L BUN (7-17) mg/dL Creatinine (0.52-1.04) mg/dL Glucose (74-99) mg/dL POC Glucose (mg/dL) 156 H 155 H 126 H (70-110) mg/dL Calcium (8.4-10.2) mg/dL Vitamin B12 (200.0-944.0) pg/mL 09/21/23 09/21/23 09/21/23 Range/Units 03:12 04:29 04:30 WBC 16.1 H (3.8-10.6) k/uL Plt Count 54 L (150-450) k/uL Neutrophils # (Manual) (1.3-7.7) k/uL Lymphocytes # (Manual) (1.0-4.8) k/uL Metamyelocytes # (Man) (0) k/uL Nucleated RBCs (0-0) /100 WBC Sodium (137-145) mmol/L Chloride (98-107) mmol/L BUN (7-17) mg/dL Creatinine (0.52-1.04) mg/dL Glucose (74-99) mg/dL POC Glucose (mg/dL) 151 H 169 H (70-110) mg/dL Calcium (8.4-10.2) mg/dL Vitamin B12 (200.0-944.0) pg/mL 09/21/23 09/21/23 Range/Units 04:30 05:30 WBC (3.8-10.6) k/uL Plt Count (150-450) k/uL Neutrophils # (Manual) (1.3-7.7) k/uL Lymphocytes # (Manual) (1.0-4.8) k/uL Metamyelocytes # (Man) (0) k/uL Nucleated RBCs (0-0) /100 WBC Sodium 129 L (137-145) mmol/L Chloride 88 L (98-107) mmol/L BUN 65 H (7-17) mg/dL Creatinine 4.34 H (0.52-1.04) mg/dL Glucose 162 H (74-99) mg/dL POC Glucose (mg/dL) 170 H (70-110) mg/dL Calcium 5.5 L* (8.4-10.2) mg/dL Vitamin B12 (200.0-944.0) pg/mL Microbiology - Last 24 Hours (Table) 09/17/23 01:56 Blood Culture - Preliminary Blood 09/17/23 01:56 Blood Culture - Preliminary Blood
[2023-09-21 06:20] LABS: Glucose,Whole Blood 157 mg/dL (70-110)
[2023-09-21 06:29] LABS: ABG Base Excess -0.3 mmol/L; ABG HCO3 26 mmol/L (21-25); ABG PCO2 49 mmHg (35-45); ABG PH 7.33 (7.35-7.45); ABG TCO2 27 mmol/L (19-24); Allen Test Performed? Yes
[2023-09-21 06:31] LABS: ABG Oxygen Saturation 88.3 % (94-97); ABG PO2 58 mmHg (83-108)
[2023-09-21] MEDS: CALCIUM GLUCONATE IN NACL 2 GM in SALINE 1 100ML.BAG IVPB ONE (06:34)
[2023-09-21 06:40] LABS: Band Neutrophils % 30 %; Lymphocytes # (M) 1.61 k/uL (1.0-4.8); Metamyelocytes # (M) 0.64 k/uL (0); Metamyelocytes % 4 %; Monocytes # (M) 0.64 k/uL (0-1.0); Neutrophils % (M) 54 %; Nucleated Red Blood Cells 0 /100 WBC (0-0); Total Cells Counted 200
[2023-09-21 07:11] LABS: Glucose,Whole Blood 159 mg/dL (70-110)
[2023-09-21 08:05] LABS: Glucose,Whole Blood 178 mg/dL (70-110)
--- NOTE | 2023-09-21 08:26 | XR ---
EXAM: XR chest 1V portable CLINICAL INDICATION:Female, 63 years old with history of mechanical ventilation; [facility] COMPARISON: 09/20/2023 and 09/19/2023 TECHNIQUE: Chest single view. FINDINGS: Lines/tubes/devices: ET tube appears in satisfactory position about 4.1 cm above the becca. Left sub clavian central line with tip over the upper to mid SVC. NG tube traverses the mediastinum and extend s below the diaphragm towards the left but not well seen distally. Monitor leads and other extraneous densities over the chest. Cardiomediastinum: CM margins are obscured, heart size indeterminate. Vasculature: No increased pulmonary vasculature. Lungs/pleura: Similar appearance of dense bilateral consolidative opacities in the mid to lower lungs, left greater than right, and the left costophrenic angle is again obscured. Right costophrenic angle is relativel y sharp. No visible pneumothorax. Bones/soft tissues: Bony thorax appears grossly unchanged as seen. Regional soft tissues appear unremarkable. IMPRESSION: 1. Lines and tubes in place, as above. NG tube not well seen distally and abdominal imaging would be needed to confirm tip position. 2. Similar dense bilateral consolidative opacities in the mid to lower lungs, left greater than right , and suspected moderate to large left pleural effusion.
[2023-09-21 09:08] LABS: Glucose,Whole Blood 182 mg/dL (70-110)
--- NOTE | 2023-09-21 09:57 | P.PN ---
Subjective Patient is seen for follow-up for acute kidney injury. Patient remains on the vent. Sedated She remains on the pressors including levo fed and vasopressin. Bicarb drip is at 100 mL an hour. Maintained on amiodarone drip for A. fib with RVR. Failed attempts to wean pressors. FiO2 increased to 80%, chest x-ray shows pulmonary vascular congestion and pleural effusion present at bedside. I discussed renal replacement therapy. He is agreeable. Urine output at 0-5 mL an hour. Objective - Vital Signs Vital signs: Vital Signs Temp 99.6 F 09/21/23 08:00 Pulse 117 H 09/21/23 09:15 Resp 31 H 09/21/23 09:15 BP 91/53 09/17/23 06:45 Pulse Ox 89 L 09/21/23 09:15 FiO2 80 09/21/23 08:31 Intake & Output 09/20/23 09/21/23 09/21/23 18:59 06:59 18:59 Intake Total 5767.790 5621.129 309 Output Total 0 5 0 Balance 8351.729 1708.129 309 Weight 97.6 kg Intake: IV 859 76 9 Calcium Gluconate in NaCl 100 1 gm In Saline 1 100ml. bag @ 100 mls/hr IVPB ONCE ONE Rx#:[id number] Clindamycin 900 mg In 100 Dextrose 5% in Water 50 ml @ 50 mls/hr IVPB Q8H [facility] Rx#:[id number] Dextrose 5% in Water 1, 400 000 ml @ 100 mls/hr IV . [id number] [facility] with Sodium Bicarb (1 Meq/ml) 150 ml Rx#:[id number] Pressure Bag (0.9 sodium 39 36 9 chloride) Sodium Chloride 0.9% 1, 220 40 000 ml @ 20 mls/hr IV . Q24H [facility] Rx#:[id number] Intake, IV Titration 0520.550 0313.129 300 Amount Amiodarone 450 mg In 233.894 Dextrose 5% in Water 250 ml @ 0.5 MG/MIN 16.667 mls/hr IV .Q15H [facility] Rx#: [id number] Insulin Regular 100 unit 30.8 37.2 0 In Sodium Chloride 0.9% 100 ml @ Titrate IV .Q0M [facility] Rx#:[id number] Magnesium Sulfate-D5w Pmx 100 1 gm In Dextrose/Water 1 100ml.bag @ 100 mls/hr IVPB ONCE ONE Rx#: [id number] Norepinephrine 32 mg In 4.409 25.115 Sodium Chloride 0.9% 218 ml @ 0.03 MCG/KG/MIN 1. 232 mls/hr IV .Q24H [facility] Rx#:[id number] Sodium Chloride 0.45% 1, 700 1200 300 000 ml @ 100 mls/hr IV . [id number] [facility] with Sodium Bicarb (1 Meq/ml) 150 ml Rx#:[id number] Vasopressin 20 unit In 51 51 Sodium Chloride 0.9% 50 ml @ 0.03 UNITS/MIN 4.59 mls/hr IV .Q11H7M [facility] Rx# :[id number] propofoL 1,000 mg In 158.120 96.92 Empty Bag 1 bag @ 15 MCG/ KG/MIN 7.144 mls/hr IV . Q14H [facility] Rx#:[id number] Lipid 50 ceFAZolin 2 gm In Sodium 50 Chloride 0.9% 50 ml @ 100 mls/hr IVPB Q12H [facility] Rx# :[id number] Output: Urine 0 5 0 Other: Voiding Method Indwelling Catheter Indwelling Catheter ABP, PAP, CO, CI - Last Documented Arterial Blood Pressure 85/53 - Exam Patient is currently intubated he did she is on the vent Examination of the heart S1 and S2 Examination of the lungs bilateral breath sounds are heard Abdomen is soft nontender with decreased bowel sounds Examination of lower extremity shows no edema. Psoriatic rash is noted - Labs CBC & Chem 7: 09/21/23 04:30 09/21/23 04:30 Labs: Abnormal Lab Results - Last 24 Hours (Table) 09/20/23 09/20/23 09/20/23 Range/Units 03:23 10:01 11:05 WBC (3.8-10.6) k/uL Plt Count (150-450) k/uL Neutrophils # (Manual) (1.3-7.7) k/uL Lymphocytes # (Manual) (1.0-4.8) k/uL Metamyelocytes # (Man) (0) k/uL Nucleated RBCs (0-0) /100 WBC ABG pH (7.35-7.45) ABG pCO2 (35-45) mmHg ABG pO2 (83-108) mmHg ABG HCO3 (21-25) mmol/L ABG Total CO2 (19-24) mmol/L ABG O2 Saturation (94-97) % Sodium (137-145) mmol/L Chloride (98-107) mmol/L BUN (7-17) mg/dL Creatinine (0.52-1.04) mg/dL Glucose (74-99) mg/dL POC Glucose (mg/dL) 165 H 181 H (70-110) mg/dL Calcium (8.4-10.2) mg/dL Ionized Calcium Silvano (4.5-5.3) mg/dL Vitamin B12 >1800.0 H (200.0-944.0) pg/mL 09/20/23 09/20/23 09/20/23 Range/Units 12:07 13:28 14:28 WBC (3.8-10.6) k/uL Plt Count (150-450) k/uL Neutrophils # (Manual) (1.3-7.7) k/uL Lymphocytes # (Manual) (1.0-4.8) k/uL Metamyelocytes # (Man) (0) k/uL Nucleated RBCs (0-0) /100 WBC ABG pH (7.35-7.45) ABG pCO2 (35-45) mmHg ABG pO2 (83-108) mmHg ABG HCO3 (21-25) mmol/L ABG Total CO2 (19-24) mmol/L ABG O2 Saturation (94-97) % Sodium (137-145) mmol/L Chloride (98-107) mmol/L BUN (7-17) mg/dL Creatinine (0.52-1.04) mg/dL Glucose (74-99) mg/dL POC Glucose (mg/dL) 173 H 163 H 147 H (70-110) mg/dL Calcium (8.4-10.2) mg/dL Ionized Calcium Silvano (4.5-5.3) mg/dL Vitamin B12 (200.0-944.0) pg/mL 09/20/23 09/20/23 09/20/23 Range/Units 14:30 15:21 16:12 WBC 14.4 H (3.8-10.6) k/uL Plt Count 42 L (150-450) k/uL Neutrophils # (Manual) 12.60 H (1.3-7.7) k/uL Lymphocytes # (Manual) 0.72 L (1.0-4.8) k/uL Metamyelocytes # (Man) 0.29 H (0) k/uL Nucleated RBCs 1 H (0-0) /100 WBC ABG pH (7.35-7.45) ABG pCO2 (35-45) mmHg ABG pO2 (83-108) mmHg ABG HCO3 (21-25) mmol/L ABG Total CO2 (19-24) mmol/L ABG O2 Saturation (94-97) % Sodium (137-145) mmol/L Chloride (98-107) mmol/L BUN (7-17) mg/dL Creatinine (0.52-1.04) mg/dL Glucose (74-99) mg/dL POC Glucose (mg/dL) 140 H 143 H (70-110) mg/dL Calcium (8.4-10.2) mg/dL Ionized Calcium Silvano (4.5-5.3) mg/dL Vitamin B12 (200.0-944.0) pg/mL 09/20/23 09/20/23 09/20/23 Range/Units 17:20 18:54 20:11 WBC (3.8-10.6) k/uL Plt Count (150-450) k/uL Neutrophils # (Manual) (1.3-7.7) k/uL Lymphocytes # (Manual) (1.0-4.8) k/uL Metamyelocytes # (Man) (0) k/uL Nucleated RBCs (0-0) /100 WBC ABG pH (7.35-7.45) ABG pCO2 (35-45) mmHg ABG pO2 (83-108) mmHg ABG HCO3 (21-25) mmol/L ABG Total CO2 (19-24) mmol/L ABG O2 Saturation (94-97) % Sodium (137-145) mmol/L Chloride (98-107) mmol/L BUN (7-17) mg/dL Creatinine (0.52-1.04) mg/dL Glucose (74-99) mg/dL POC Glucose (mg/dL) 157 H 165 H 132 H (70-110) mg/dL Calcium (8.4-10.2) mg/dL Ionized Calcium Silvano (4.5-5.3) mg/dL Vitamin B12 (200.0-944.0) pg/mL 09/20/23 09/20/23 09/21/23 Range/Units 22:20 23:14 00:28 WBC (3.8-10.6) k/uL Plt Count (150-450) k/uL Neutrophils # (Manual) (1.3-7.7) k/uL Lymphocytes # (Manual) (1.0-4.8) k/uL Metamyelocytes # (Man) (0) k/uL Nucleated RBCs (0-0) /100 WBC ABG pH (7.35-7.45) ABG pCO2 (35-45) mmHg ABG pO2 (83-108) mmHg ABG HCO3 (21-25) mmol/L ABG Total CO2 (19-24) mmol/L ABG O2 Saturation (94-97) % Sodium (137-145) mmol/L Chloride (98-107) mmol/L BUN (7-17) mg/dL Creatinine (0.52-1.04) mg/dL Glucose (74-99) mg/dL POC Glucose (mg/dL) 156 H 152 H 156 H (70-110) mg/dL Calcium (8.4-10.2) mg/dL Ionized Calcium Silvano (4.5-5.3) mg/dL Vitamin B12 (200.0-944.0) pg/mL 09/21/23 09/21/23 09/21/23 Range/Units 01:16 02:17 03:12 WBC (3.8-10.6) k/uL Plt Count (150-450) k/uL Neutrophils # (Manual) (1.3-7.7) k/uL Lymphocytes # (Manual) (1.0-4.8) k/uL Metamyelocytes # (Man) (0) k/uL Nucleated RBCs (0-0) /100 WBC ABG pH (7.35-7.45) ABG pCO2 (35-45) mmHg ABG pO2 (83-108) mmHg ABG HCO3 (21-25) mmol/L ABG Total CO2 (19-24) mmol/L ABG O2 Saturation (94-97) % Sodium (137-145) mmol/L Chloride (98-107) mmol/L BUN (7-17) mg/dL Creatinine (0.52-1.04) mg/dL Glucose (74-99) mg/dL POC Glucose (mg/dL) 155 H 126 H 151 H (70-110) mg/dL Calcium (8.4-10.2) mg/dL Ionized Calcium Silvano (4.5-5.3) mg/dL Vitamin B12 (200.0-944.0) pg/mL 09/21/23 09/21/23 09/21/23 Range/Units 04:29 04:30 04:30 WBC 16.1 H (3.8-10.6) k/uL Plt Count 54 L (150-450) k/uL Neutrophils # (Manual) 13.50 H (1.3-7.7) k/uL Lymphocytes # (Manual) (1.0-4.8) k/uL Metamyelocytes # (Man) 0.64 H (0) k/uL Nucleated RBCs (0-0) /100 WBC ABG pH (7.35-7.45) ABG pCO2 (35-45) mmHg ABG pO2 (83-108) mmHg ABG HCO3 (21-25) mmol/L ABG Total CO2 (19-24) mmol/L ABG O2 Saturation (94-97) % Sodium 129 L (137-145) mmol/L Chloride 88 L (98-107) mmol/L BUN 65 H (7-17) mg/dL Creatinine 4.34 H (0.52-1.04) mg/dL Glucose 162 H (74-99) mg/dL POC Glucose (mg/dL) 169 H (70-110) mg/dL Calcium 5.5 L* (8.4-10.2) mg/dL Ionized Calcium Silvano (4.5-5.3) mg/dL Vitamin B12 (200.0-944.0) pg/mL 09/21/23 09/21/23 09/21/23 Range/Units 05:30 05:30 06:19 WBC (3.8-10.6) k/uL Plt Count (150-450) k/uL Neutrophils # (Manual) (1.3-7.7) k/uL Lymphocytes # (Manual) (1.0-4.8) k/uL Metamyelocytes # (Man) (0) k/uL Nucleated RBCs (0-0) /100 WBC ABG pH (7.35-7.45) ABG pCO2 (35-45) mmHg ABG pO2 (83-108) mmHg ABG HCO3 (21-25) mmol/L ABG Total CO2 (19-24) mmol/L ABG O2 Saturation (94-97) % Sodium (137-145) mmol/L Chloride (98-107) mmol/L BUN (7-17) mg/dL Creatinine (0.52-1.04) mg/dL Glucose (74-99) mg/dL POC Glucose (mg/dL) 170 H 157 H (70-110) mg/dL Calcium (8.4-10.2) mg/dL Ionized Calcium Silvano 3.2 L* (4.5-5.3) mg/dL Vitamin B12 (200.0-944.0) pg/mL 09/21/23 09/21/23 09/21/23 Range/Units 06:25 07:10 08:02 WBC (3.8-10.6) k/uL Plt Count (150-450) k/uL Neutrophils # (Manual) (1.3-7.7) k/uL Lymphocytes # (Manual) (1.0-4.8) k/uL Metamyelocytes # (Man) (0) k/uL Nucleated RBCs (0-0) /100 WBC ABG pH 7.33 L (7.35-7.45) ABG pCO2 49 H (35-45) mmHg ABG pO2 58 L* (83-108) mmHg ABG HCO3 26 H (21-25) mmol/L ABG Total CO2 27 H (19-24) mmol/L ABG O2 Saturation 88.3 L (94-97) % Sodium (137-145) mmol/L Chloride (98-107) mmol/L BUN (7-17) mg/dL Creatinine (0.52-1.04) mg/dL Glucose (74-99) mg/dL POC Glucose (mg/dL) 159 H 178 H (70-110) mg/dL Calcium (8.4-10.2) mg/dL Ionized Calcium Silvano (4.5-5.3) mg/dL Vitamin B12 (200.0-944.0) pg/mL 09/21/23 Range/Units 09:06 WBC (3.8-10.6) k/uL Plt Count (150-450) k/uL Neutrophils # (Manual) (1.3-7.7) k/uL Lymphocytes # (Manual) (1.0-4.8) k/uL Metamyelocytes # (Man) (0) k/uL Nucleated RBCs (0-0) /100 WBC ABG pH (7.35-7.45) ABG pCO2 (35-45) mmHg ABG pO2 (83-108) mmHg ABG HCO3 (21-25) mmol/L ABG Total CO2 (19-24) mmol/L ABG O2 Saturation (94-97) % Sodium (137-145) mmol/L Chloride (98-107) mmol/L BUN (7-17) mg/dL Creatinine (0.52-1.04) mg/dL Glucose (74-99) mg/dL POC Glucose (mg/dL) 182 H (70-110) mg/dL Calcium (8.4-10.2) mg/dL Ionized Calcium Silvano (4.5-5.3) mg/dL Vitamin B12 (200.0-944.0) pg/mL Microbiology - Last 24 Hours (Table) 09/17/23 01:56 Blood Culture - Preliminary Blood 09/17/23 01:56 Blood Culture - Preliminary Blood Assessment and Plan Assessment: 1. Acute kidney injury, oliguric ATN secondary to sepsis and hypotension. Continue with fluids. Ultrasound shows no evidence of obstructive uropathy. UA shows 2+ protein and small blood, WBCs 2. Vancomycin level 20. Vancomycin discontinued 2. Acute hypoxic respiratory failure currently on the vent 3. Acute left lung pneumonia maintained on vancomycin and Zosyn along with clindamycin. Sputum cultures are growing MSSA. Influenza A+ 4. Anion gap metabolic acidosis associated with acute kidney injury, lactic acidosis 5. A. fib with RVR 6. Thrombocytopenia secondary to sepsis, toxic shock syndrome 7. Volume overload. 8. Toxic shock syndrome Plan: We will attempt renal replacement therapy today. Patient will need sled procedure given the significant hypotension. Decrease bicarb drip to 60 mL an hour and discontinue after hemodialysis today. Overall prognosis is guarded
[2023-09-21 10:14] LABS: Glucose,Whole Blood 198 mg/dL (70-110)
[2023-09-21 11:14] LABS: Glucose,Whole Blood 182 mg/dL (70-110)
[2023-09-21 12:14] LABS: Glucose,Whole Blood 176 mg/dL (70-110)
[2023-09-21 12:32] VITALS: TEMP 98.2
[2023-09-21] MEDS: ALBUMIN HUMAN 25% 50 ML in EMPTY BAG 2 BAG IVPB SCH (13:01)
[2023-09-21 13:17] LABS: Glucose,Whole Blood 172 mg/dL (70-110)
[2023-09-21 14:09] LABS: Glucose,Whole Blood 171 mg/dL (70-110)
[2023-09-21] MEDS: VORICONAZOLE IVPB SCH (14:17)
[2023-09-21] MEDS: SODIUM CHLORIDE 0.9% IVPB SCH (14:17)
--- NOTE | 2023-09-21 14:40 | P.PN ---
Subjective Progress Note Date: 09/21/23 63-year-old female patient currently intubated on mechanical ventilator due to extensive left lung pneumonia. The patient is known to have coronary artery disease with previous coronary stenting x 3 involving the LAD in addition to history of congestive heart failure/ischemic cardiomyopathy, breast cancer, hypertension hyperlipidemia and she is a chronic smoker. The patient started getting sick sometime last week and she was having cough and congestion and fever with a temperature of 102 along with myalgias without any emesis. She came into the hospital and she tested positive for influenza A and within 12 hours she decompensated and the patient was brought into the intensive care unit with hypoxic respiratory failure. She was briefly placed placed on the BiPAP and she failed BiPAP therapy. Subsequently, the patient was intubated and placed on the mechanical ventilator. During the course, the patient also developed A-fib with RVR. At this point in time, the patient is in septic shock , hypotensive, intubated on mechanical ventilator. Her ventilator setting including assist-control mode with rate of 20, tidal volume of 400, FiO2 of 60% and a PEEP of 5. Preintubation blood gas shows 0.13 with a pCO2 of 55 and FiO2 of 40% with a pO2 of 101. This was done on the BiPAP. The patient's chest x- ray showed an extensive left lung consolidation that developed. ET tube is in a good location post intubation. Patient was given IV Eliquis patient received a total of 2 L 2 L of normal saline and currently she is on pressors with norepinephrine running at 0.13 mcg/kg/min. Her mean arterial pressures of 57. She is also in A-fib RVR, amiodarone drip is running at 1 mg/min and the patient is also on IV heparin. She is on propofol running at 3035 mcg/kg/min and IV fluids are in the order of bicarb infusion at rate of 100 cc an hour. White cell count is at 3.3 with a hemoglobin of 16 and a platelet count of 194. The BUN is at 30 with a creatinine of 1.5 and a serum bicarb is at 15 with a sodium level of 134 and a potassium level of 3.1. The troponins were negative. The re st of the viral panel is also negative with exception of influenza a. She was started on Tamiflu. She is on a combination of Rocephin and Zithromax. The patient is also on insulin drip at 13 units an hour for blood sugar control. On 09/18/2023, the patient is being seen for a follow-up. The patient was in septic shock related to a extensive left lung pneumonia. The patient is post intubation mechanical ventilation. She also underwent a bronchoscopy yesterday endobronchial lavage of the left lung was done and the cultures are still pending for now. This morning, the patient remains intubated on mechanical ventilator. He is currently on propofol running at 45 mcg/kg/min. She is on a assist-control mode at the rate of 28, tidal volume of 400, FiO2 of 50% with a PEEP of 5. Peak airway pressures around 38 with a static airway pressure of around 25. CVP is at 13. The patient remains on a bicarb infusion running at 100 cc an hour. Cardiac rhythm has converted to sinus and the patient completed amiodarone loading. She is hypotensive with a low urine output of 10 to 20 cc an hour. Norepinephrine is running at 0.26 mcg/kg/min and the patient is also on vasopressin, physiologic dose. She remains on IV heparin. Echocardiogram was completed yesterday and the patient was found to have impaired LV function with a left ventricular ejection fraction of 20 to 25%. At the same time, the patient was found to have a left ventricular apical thrombus and apical/periapical akinesis and mild mitral regurgitation. The patient remains on IV heparin. As mentioned, the patient has converted to normal sinus rhythm. In terms of the blood work, the repeat procalcitonin level was quite elevated at 99. Blood cultures are negative. The patient has sustained acute kidney injury with a creatinine of 1.88 with a BUN of 32. Sodium is at 134. Potassium is at 4.1. Bicarb level is up to 19. The patient's white cell count is at 2.2 with a hemoglobin 14.2 and a platelet count of 122. Lactic acid level has been fluctuating and the highest level was at 6.5 dropped down to 5.0. In terms of antibiotic coverage, the patient on Rocephin and Zithromax and vancomycin. The patient is also completing course of Tamiflu. The patient is currently in sinus tachycardia. Tmax was one 1.6. On 09/19/2023, seen the patient for a follow-up. The patient remains critically ill with a staphylococcal pneumonia and multisystem organ failure. The patient had a bronchoscopy endobronchial lavage of the left lower lobe showed Staph aureus which is probably MSSA and the patient has been and severe septic shock with multisystem organ failure. The patient initially started off with influenza A infection and subsequently she developed multilobar pneumonia and septic shock. She continued to have episodes of fever. She has a diffuse body rash which is probably related to her psoriasis. However the possibility of toxic shock syndrome cannot be completely eliminated. Based on her ongoing issues with hemodynamic instability and fever and sepsis, I added clindamycin to her regimen and I gave her a dose of IVIG 1 mg/kg. The patient is currently on a combination of Zosyn, vancomycin and clindamycin. The chest x-ray from today showing persistent right lower lobe consolidation and extensive consolidation involving the lingula and the left lower lobe. The patient remains sedated on p ropofol and this morning she is on 25 mcg/kg/min. She is adequately sedated. She is on assist-control mode at a rate of 28, tidal volume of 400, FiO2 of 60% with a PEEP of 5. Peak airway pressures around 39. CVP is around 12. The patient remains on vasopressin 0.04 units and norepinephrine running at 0.0 44 mcg/kg/min. Fluid balance is +1.7 L over the past 24 hours. The patient is developing progressive worsening renal function and the patient is also in acute kidney failure. Based on today's blood work, the white cell count is improved and the patient's white cell comes up to 9.2 and the patient's hemoglobin of 12.9 with a platelet count of 62 which is a drop compared to yesterday. Coagulation profile is showing some mild elevation of the PTT. PT/INR is within normal limits. The blood gas shows a pH of 7.31 with a pCO2 of 48 and pO2 of 65. BUN is at 43 with a creatinine of 3.22 and a sodium levels at 131. Lactic acid level remains elevated at 6.1. She has severe cardiomyopathy with an ejection fraction of 20 to 25%. She was unable to tolerate enteral feeding. As such, the tube feeds placed on hold. The cardiac rhythm is sinus tachycardia the patient remains on the amiodarone orally. She is also on IV heparin. On today's evaluation of 09/20/2023, the patient remains critically ill, sedated, intubated on mechanical ventilator. This morning, the patient remains on propofol which is running at 30 mcg/kg/min. She is on assist-control mode of mechanical ventilation with rate of 28, tidal volume of 400 and the PEEP has been brought up to 10 with an FiO2 of 60%. The chest x-ray from today shows worsening of the bilateral consolidation in the mid and lower lung irizarry bilaterally left more than right. Orotracheal tube is in a good location. Blood gas from today showed a pH of 7.33 with a pCO2 of 49 and a pO2 of 59 and based on that the PEEP was brought up to 10. Her oxygenation is stable right now and her pulse ox is above 90%. Hemodynamically, the patient is not producing any urine output. She remains on pressors. Norepinephrine is running at 0.4 mcg/kg/min and the patient is also on vasopressin at physiologic dose. She is having episodes of atrial fibrillation with RVR. Her current cardiac rhythm is sinus. She remains on amiodarone infusion at 0.5 mg/min. The patient remains on IV cefazolin and clindamycin and she is also on Tamiflu. White cell count is 14.4 with a hemoglobin 12.8 and a platelet count of 42. The sodium is at 129, BUN is at 55 with a creatinine of 3.8 and a potassium level is at 3.8. Serum bicarb is at 22. Currently afebrile. Remains on i bicarb infusion at rate of 100 cc an hour. IV heparin has been discontinued based on development of thrombocytopenia. 09/21/2023, the patient is being seen for a follow-up. There is a critically ill female patient with bilateral pneumonia and multisystem organ failure. She has a staphylococcal pneumonia that followed an acute influenza infection. She remains on broad-spectrum antibiotics and the patient is a combination of cefazolin and clindamycin. On today's evaluation, the patient remains on propofol which is running at 30 mcg/kg/min. She is adequately sedated. She is calm and comfortable in seconds with mechanical ventilator which is running at the rate of 28 assist-control mode with a tidal volume of 400 and the PEEP has been brought up to 12 with an FiO2 of 80%. P the peak airway pressure is 44 in the setting her pressure is 35. The patient had a follow-up chest x-ray today that showed dense consolidation bilaterally involving the mid and lower lobes and it is obviously worse on the left. Orotracheal tube is in a good location. NG tube is in place. No significant other change in terms of the chest x-ray finding. Fluid balance has been extensively positive and over the past 24 hours the patient has developed a +4.3 L and over the past 48 hours the patient is positive for more than 15 L. The patient remains anuric. The patient was given Lasix without any response. The plan is to initiate hemodialysis if possible as long as the patient's hemodynamics permits. The patient remains on norepinephrine which is running at 0.4 mcg/kg/min and vasopressin physiologic dose. The patient was on a bicarb infusion at 350 cc an hour and the infusion was continued and dropped down to 60 cc an hour. The patient remains in atrial fibrillation. The patient is having episodes of A-fib along with sinus rhythm. The patient remains on amiodarone 0.5 mg/min. Insulin drip is running at 2 units an hour. In terms of the blood work, the patient's white cell count is at 16.1 with a hemoglobin 15.1 and a platelet count is stable at 54. Somewhat improved compared to yesterday. Blood gas from this morning showed a pH of 7.33 with a pCO2 of 49 and pO2 of 58 this was on FiO2 of 60%. Sodium levels at 129, potassium is at 4.3, BUN is at 65 and a creatinine of 4.3. Ionized calcium is at 5.2 and the patient was given 2 g of calcium. The bronchoalveolar lavage showed Staph aureus and fungal elements were also identified pending further cultures. Infectious diseases on the case. The patient has been kept on a combination of cefazolin 2 g every 12 hours and the patient is also on clindamycin. She is afebrile for now. She did spike a temperature of 100.3 earlier this morning at around 4 AM. Unable to tolerate enteral feeding due to increased residuals. Condition remains extremely critical. Family including the was updated on her condition. Objective - Vital Signs Vital signs: Vital Signs Temp 98.2 F 09/21/23 12:00 Pulse 115 H 09/21/23 13:30 Resp 38 H 09/21/23 13:30 BP 91/53 09/17/23 06:45 Pulse Ox 87 L 09/21/23 13:30 FiO2 80 09/21/23 12:00 Intake & Output 09/20/23 09/21/23 09/21/23 18:59 06:59 18:59 Intake Total 3448.715 3603.129 1350.660 Output Total 0 5 0 Balance 1449.544 6913.129 1350.660 Weight 97.6 kg Intake: IV 859 76 151 Calcium Gluconate in NaCl 100 1 gm In Saline 1 100ml. bag @ 100 mls/hr IVPB ONCE ONE Rx#:[id number] Clindamycin 900 mg In 100 50 Dextrose 5% in Water 50 ml @ 50 mls/hr IVPB Q8H [facility] Rx#:[id number] Dextrose 5% in Water 1, 400 000 ml @ 100 mls/hr IV . [id number] [facility] with Sodium Bicarb (1 Meq/ml) 150 ml Rx#:[id number] Pressure Bag (0.9 sodium 39 36 21 chloride) Sodium Chloride 0.9% 1, 220 40 80 000 ml @ 20 mls/hr IV . Q24H [facility] Rx#:[id number] Intake, IV Titration 3674.046 9620.129 1199.660 Amount Amiodarone 450 mg In 233.894 250 Dextrose 5% in Water 250 ml @ 0.5 MG/MIN 16.667 mls/hr IV .Q15H [facility] Rx#: [id number] Insulin Regular 100 unit 30.8 37.2 5.0 In Sodium Chloride 0.9% 100 ml @ Titrate IV .Q0M [facility] Rx#:[id number] Magnesium Sulfate-D5w Pmx 100 1 gm In Dextrose/Water 1 100ml.bag @ 100 mls/hr IVPB ONCE ONE Rx#: [id number] Norepinephrine 32 mg In 4.409 25.115 246.714 Sodium Chloride 0.9% 218 ml @ 0.03 MCG/KG/MIN 1. 232 mls/hr IV .Q24H [facility] Rx#:[id number] Sodium Chloride 0.45% 1, 700 1200 540 000 ml @ 60 mls/hr IV . [id number] [facility] with Sodium Bicarb (1 Meq/ml) 150 ml Rx#:[id number] Vasopressin 20 unit In 51 51 51 Sodium Chloride 0.9% 50 ml @ 0.03 UNITS/MIN 4.59 mls/hr IV .Q11H7M [facility] Rx# :[id number] propofoL 1,000 mg In 158.120 96.92 106.946 Empty Bag 1 bag @ 15 MCG/ KG/MIN 7.144 mls/hr IV . Q14H [facility] Rx#:[id number] Lipid 50 ceFAZolin 2 gm In Sodium 50 Chloride 0.9% 50 ml @ 100 mls/hr IVPB Q12H [facility] Rx# :[id number] Output: Urine 0 5 0 Other: Voiding Method Indwelling Catheter Indwelling Catheter Indwelling Catheter ABP, PAP, CO, CI - Last Documented Arterial Blood Pressure 84/49 - Exam GENERAL EXAM: Patient is Sedated, intubated on mechanical ventilator on assist control mode mechanical ventilation. The patient has an orogastric and orotracheal tube are both in place. HEAD: Normocephalic and atraumatic EYES: Normal reaction of pupils, equal size. NOSE: Clear with pink turbinates. THROAT: No erythema or exudates. NECK: No masses, no JVD. CHEST: No chest wall deformity. LUNGS: Equal air entry with diffuse rhonchi. Diffuse rhonchi heard throughout the lung irizarry bilaterally CVS: S1 and S2 normal with no audible murmur, irregular rhythm. No extra heart sounds. ABDOMEN: No hepatosplenomegaly, active bowel sounds, no guarding or rigidity. SPINE: No scoliosis or deformity SKIN: Diffuse erythema and plaquing on all 4 extremities, the patient has psoriatic patches throughout her body more so in the lower extremities bilaterally. CENTRAL NERVOUS SYSTEM: No focal deficits, tone is normal in all 4 extremities. The patient is currently sedated on propofol EXTREMITIES: There is no peripheral edema, clubbing, or cyanosis. Peripheral pulses are intact. - Labs CBC & Chem 7: 09/21/23 04:30 09/21/23 04:30 Labs: Abnormal Lab Results - Last 24 Hours (Table) 09/20/23 09/20/23 09/20/23 Range/Units 14:30 15:21 16:12 WBC 14.4 H (3.8-10.6) k/uL Plt Count 42 L (150-450) k/uL Neutrophils # (Manual) 12.60 H (1.3-7.7) k/uL Lymphocytes # (Manual) 0.72 L (1.0-4.8) k/uL Metamyelocytes # (Man) 0.29 H (0) k/uL Nucleated RBCs 1 H (0-0) /100 WBC ABG pH (7.35-7.45) ABG pCO2 (35-45) mmHg ABG pO2 (83-108) mmHg ABG HCO3 (21-25) mmol/L ABG Total CO2 (19-24) mmol/L ABG O2 Saturation (94-97) % Sodium (137-145) mmol/L Chloride (98-107) mmol/L BUN (7-17) mg/dL Creatinine (0.52-1.04) mg/dL Glucose (74-99) mg/dL POC Glucose (mg/dL) 140 H 143 H (70-110) mg/dL Calcium (8.4-10.2) mg/dL Ionized Calcium Silvano (4.5-5.3) mg/dL 09/20/23 09/20/23 09/20/23 Range/Units 17:20 18:54 20:11 WBC (3.8-10.6) k/uL Plt Count (150-450) k/uL Neutrophils # (Manual) (1.3-7.7) k/uL Lymphocytes # (Manual) (1.0-4.8) k/uL Metamyelocytes # (Man) (0) k/uL Nucleated RBCs (0-0) /100 WBC ABG pH (7.35-7.45) ABG pCO2 (35-45) mmHg ABG pO2 (83-108) mmHg ABG HCO3 (21-25) mmol/L ABG Total CO2 (19-24) mmol/L ABG O2 Saturation (94-97) % Sodium (137-145) mmol/L Chloride (98-107) mmol/L BUN (7-17) mg/dL Creatinine (0.52-1.04) mg/dL Glucose (74-99) mg/dL POC Glucose (mg/dL) 157 H 165 H 132 H (70-110) mg/dL Calcium (8.4-10.2) mg/dL Ionized Calcium Silvano (4.5-5.3) mg/dL 09/20/23 09/20/23 09/21/23 Range/Units 22:20 23:14 00:28 WBC (3.8-10.6) k/uL Plt Count (150-450) k/uL Neutrophils # (Manual) (1.3-7.7) k/uL Lymphocytes # (Manual) (1.0-4.8) k/uL Metamyelocytes # (Man) (0) k/uL Nucleated RBCs (0-0) /100 WBC ABG pH (7.35-7.45) ABG pCO2 (35-45) mmHg ABG pO2 (83-108) mmHg ABG HCO3 (21-25) mmol/L ABG Total CO2 (19-24) mmol/L ABG O2 Saturation (94-97) % Sodium (137-145) mmol/L Chloride (98-107) mmol/L BUN (7-17) mg/dL Creatinine (0.52-1.04) mg/dL Glucose (74-99) mg/dL POC Glucose (mg/dL) 156 H 152 H 156 H (70-110) mg/dL Calcium (8.4-10.2) mg/dL Ionized Calcium Silvano (4.5-5.3) mg/dL 09/21/23 09/21/23 09/21/23 Range/Units 01:16 02:17 03:12 WBC (3.8-10.6) k/uL Plt Count (150-450) k/uL Neutrophils # (Manual) (1.3-7.7) k/uL Lymphocytes # (Manual) (1.0-4.8) k/uL Metamyelocytes # (Man) (0) k/uL Nucleated RBCs (0-0) /100 WBC ABG pH (7.35-7.45) ABG pCO2 (35-45) mmHg ABG pO2 (83-108) mmHg ABG HCO3 (21-25) mmol/L ABG Total CO2 (19-24) mmol/L ABG O2 Saturation (94-97) % Sodium (137-145) mmol/L Chloride (98-107) mmol/L BUN (7-17) mg/dL Creatinine (0.52-1.04) mg/dL Glucose (74-99) mg/dL POC Glucose (mg/dL) 155 H 126 H 151 H (70-110) mg/dL Calcium (8.4-10.2) mg/dL Ionized Calcium Silvano (4.5-5.3) mg/dL 09/21/23 09/21/23 09/21/23 Range/Units 04:29 04:30 04:30 WBC 16.1 H (3.8-10.6) k/uL Plt Count 54 L (150-450) k/uL Neutrophils # (Manual) 13.50 H (1.3-7.7) k/uL Lymphocytes # (Manual) (1.0-4.8) k/uL Metamyelocytes # (Man) 0.64 H (0) k/uL Nucleated RBCs (0-0) /100 WBC ABG pH (7.35-7.45) ABG pCO2 (35-45) mmHg ABG pO2 (83-108) mmHg ABG HCO3 (21-25) mmol/L ABG Total CO2 (19-24) mmol/L ABG O2 Saturation (94-97) % Sodium 129 L (137-145) mmol/L Chloride 88 L (98-107) mmol/L BUN 65 H (7-17) mg/dL Creatinine 4.34 H (0.52-1.04) mg/dL Glucose 162 H (74-99) mg/dL POC Glucose (mg/dL) 169 H (70-110) mg/dL Calcium 5.5 L* (8.4-10.2) mg/dL Ionized Calcium Silvano (4.5-5.3) mg/dL 09/21/23 09/21/23 09/21/23 Range/Units 05:30 05:30 06:19 WBC (3.8-10.6) k/uL Plt Count (150-450) k/uL Neutrophils # (Manual) (1.3-7.7) k/uL Lymphocytes # (Manual) (1.0-4.8) k/uL Metamyelocytes # (Man) (0) k/uL Nucleated RBCs (0-0) /100 WBC ABG pH (7.35-7.45) ABG pCO2 (35-45) mmHg ABG pO2 (83-108) mmHg ABG HCO3 (21-25) mmol/L ABG Total CO2 (19-24) mmol/L ABG O2 Saturation (94-97) % Sodium (137-145) mmol/L Chloride (98-107) mmol/L BUN (7-17) mg/dL Creatinine (0.52-1.04) mg/dL Glucose (74-99) mg/dL POC Glucose (mg/dL) 170 H 157 H (70-110) mg/dL Calcium (8.4-10.2) mg/dL Ionized Calcium Silvano 3.2 L* (4.5-5.3) mg/dL 09/21/23 09/21/23 09/21/23 Range/Units 06:25 07:10 08:02 WBC (3.8-10.6) k/uL Plt Count (150-450) k/uL Neutrophils # (Manual) (1.3-7.7) k/uL Lymphocytes # (Manual) (1.0-4.8) k/uL Metamyelocytes # (Man) (0) k/uL Nucleated RBCs (0-0) /100 WBC ABG pH 7.33 L (7.35-7.45) ABG pCO2 49 H (35-45) mmHg ABG pO2 58 L* (83-108) mmHg ABG HCO3 26 H (21-25) mmol/L ABG Total CO2 27 H (19-24) mmol/L ABG O2 Saturation 88.3 L (94-97) % Sodium (137-145) mmol/L Chloride (98-107) mmol/L BUN (7-17) mg/dL Creatinine (0.52-1.04) mg/dL Glucose (74-99) mg/dL POC Glucose (mg/dL) 159 H 178 H (70-110) mg/dL Calcium (8.4-10.2) mg/dL Ionized Calcium Silvano (4.5-5.3) mg/dL 09/21/23 09/21/23 09/21/23 Range/Units 09:06 10:10 11:11 WBC (3.8-10.6) k/uL Plt Count (150-450) k/uL Neutrophils # (Manual) (1.3-7.7) k/uL Lymphocytes # (Manual) (1.0-4.8) k/uL Metamyelocytes # (Man) (0) k/uL Nucleated RBCs (0-0) /100 WBC ABG pH (7.35-7.45) ABG pCO2 (35-45) mmHg ABG pO2 (83-108) mmHg ABG HCO3 (21-25) mmol/L ABG Total CO2 (19-24) mmol/L ABG O2 Saturation (94-97) % Sodium (137-145) mmol/L Chloride (98-107) mmol/L BUN (7-17) mg/dL Creatinine (0.52-1.04) mg/dL Glucose (74-99) mg/dL POC Glucose (mg/dL) 182 H 198 H 182 H (70-110) mg/dL Calcium (8.4-10.2) mg/dL Ionized Calcium Silvano (4.5-5.3) mg/dL 09/21/23 09/21/23 09/21/23 Range/Units 12:12 13:15 14:07 WBC (3.8-10.6) k/uL Plt Count (150-450) k/uL Neutrophils # (Manual) (1.3-7.7) k/uL Lymphocytes # (Manual) (1.0-4.8) k/uL Metamyelocytes # (Man) (0) k/uL Nucleated RBCs (0-0) /100 WBC ABG pH (7.35-7.45) ABG pCO2 (35-45) mmHg ABG pO2 (83-108) mmHg ABG HCO3 (21-25) mmol/L ABG Total CO2 (19-24) mmol/L ABG O2 Saturation (94-97) % Sodium (137-145) mmol/L Chloride (98-107) mmol/L BUN (7-17) mg/dL Creatinine (0.52-1.04) mg/dL Glucose (74-99) mg/dL POC Glucose (mg/dL) 176 H 172 H 171 H (70-110) mg/dL Calcium (8.4-10.2) mg/dL Ionized Calcium Silvano (4.5-5.3) mg/dL Microbiology - Last 24 Hours (Table) 09/17/23 08:30 Fungal Culture - Preliminary Bronchoalviolar Lavage - Left Fungus Isolated 09/17/23 01:56 Blood Culture - Preliminary Blood 09/17/23 01:56 Blood Culture - Preliminary Blood Assessment and Plan Plan: Acute hypoxic respiratory failure, secondary to an extensive bilateral pneumonia . The patient initially had an influenza A infection and subsequently developed a staphylococcal pneumonia and this is most likely an MSSA infection. Final culture sensitivities are not available yet. The bronchial lavage confirmed presence of Staph aureus. The patient remains intubated on the mechanical ventilator. Chest x-ray from today shows extensive left lung consolidation and right lower lobe consolidation and there is evidence of multilobar pneumonia. The patient has dense consolidation of the mid and lower lung irizarry bilaterally left more than right. No significant change in the chest x-ray finding the patient remains on a combination of cefazolin and clindamycin. No changes in the chest x-ray findings and the patient continues to be in septic shock with multilobar pneumonia. A fungal element has also been cultured and the bronchial lavage, and I am awaiting final cultures. This will be discussed with infectious diseases. Acute hypercapnic respiratory failure secondary to above, currently intubated on mechanical ventilator, secondary to above, and that has been interval worsening oxygenation and PEEP has been brought up to 12 and the patient is currently on FiO2 of 80%. Elevated peak in setting, pressure due to extensive pneumonia and possibly some early ARDS. Septic shock, secondary to staphylococcal pneumonia and suspected toxic shock syndrome, cefazolin clindamycin and given a dose of IVIG was also given. Currently still pressor dependent and the patient remains on high-dose norepinephrine and vasopressin physiologic dose. Suspect toxic shock syndrome secondary to staph pneumonia Persistent fever, currently running a low-grade fever Acute influenza A infection, on Tamiflu Leukopenia, induced by septic shock. The white cell count is improved Paroxysmal episodes of paroxysmal atrial fibrillation with RVR, current on amiodarone drip at 0.5 mg/min maintenance Acute kidney injury, creatinine is on the rise and the patient will be seen by nephrology. This is sepsis induced ATN. She is anuric, discussed the case with nephrology and the patient will be started on hemodialysis today. Dialysis catheter will be established. Anion gap metabolic acidosis, mild lactic acidosis, lactic acid remains elevated, serum bicarb is up to 22 Coronary artery disease with previous PCI involving the LAD and stenting. 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, platelet count is improved compared to yesterday Ventricular apical thrombus currently off IV heparin Hypertension history of Hyperlipidemia history of Diabetes mellitus insulin-dependent, insulin drip for blood sugar control History of smoking Psoriasis Hypothyroidism History of breast cancer Plan Continue ventilator support, the PEEP has been brought up to 12 with an FiO2 of 80% Continue bicarb infusion, drop the rate down to 50 cc an hour Consider hemodialysis and dialysis catheter be established and asked to be performed as long as the patient's blood pressure permits Unable to feed the patient because of increased residuals Propofol for sedation Continue pressors and titrate for mean arterial pressure above 60, the patient is currently on a combination norepinephrine and vasopressin physiologic dose Continue cefazolin and clindamycin MSSA infection. Monitor renal function, no hydronephrosis on ultrasound of the kidneys IV heparin has been discontinued and HIT antibodies have been sent IV insulin for blood sugar control Condition is extremely critical. Unsure if the patient will be able to tolerate hemodialysis. This is a case of severe bilateral pneumonia with multisystem organ failure. The patient has severe baseline cardiomyopathy. She continues to be hypotensive. She continues to have episodes of A-fib with RVR. Prognosis extremely poor. This has been discussed with the family and the . Condition is critical and will continue to follow make further recommendation based on his progress. This is a critical care evaluation that was done more than 30 minutes. Time with Patient: Greater than 30
--- NOTE | 2023-09-21 15:02 | P.PN ---
Subjective Progress Note Date: 09/21/23 Patient is a 63-year-old female with a known history of coronary artery disease status post stent placement, chronic CHF, hypertension, diabetes type 2, history of left breast cancer due to lumpectomy and radiation, hypothyroidism and osteoarthritis and prior history of smoking, quit in 2018 presents to ER with complaints of shortness of breath, cough, congestion and generalized weakness since last week. She was also complaining of nasal congestion and sore throat. Cough is mainly nonproductive. Patient's was treated for bronchitis recently. On admission patient was Febrile with Tmax 100.3 and tachycardic and tachypneic admission on admission. She was requiring 4 L oxygen via nasal cannula. Laboratory data showed WBC 10.9 hemoglobin 16.6 and platelets 179, sodium 133 potassium 3.9 chloride 102 bicarb is 17, BUN 17 and creatinine 0.54 and blood sugar 326 procalcitonin level was 5.65 Urinalysis showed cloudy with increased physical gravity and 2+ protein and 4+ glucose and 1+ ketones and negative for leukocyte esterase. Patient is tested positive for influenza A. Patient decompensated and was sent to ER due to hypoxic respiratory failure. Patient was placed on BiPAP initially and is eventually intubated and currently on mechanical ventilator. Chest x-ray showed findings most consistent with a left-sided acute focal pneumonia. 09/18/2023 Patient is currently in the MICU. Sedated and is on mechanical ventilator. Patient underwent bronchoscopy yesterday and bronchodilators. Lavage fluid showed present to Staph aureus. Patient is still on pressor support with Levophed and vasopressin. Also on IV heparin. Otherwise patient is in sinus tachycardia with heart rate 120s. Amiodarone drip has been discontinued and changed to p.o. 2D echocardiogram showed left ventricular systolic dysfunction ejection fraction 20 to 25% and also found to have left ventricular apical thrombus and apical/periapical akinesis and mild MR. Patient is being continued on antibiotics vancomycin and Zosyn. Blood cultures negative so far. Laboratory data showed WBC 2.2 hemoglobin 14.2 and platelets 122 Sodium 134 potassium 4.1 chloride 104 bicarb is 19 BUN 32 and creatinine increased to 1.88 and blood sugar 200. Patient is on insulin drip. Also on bicarb drip. Current medications reviewed. 09/19/2023 Patient is seen in follow-up continues to be in the ICU with multiple medical consultations following including cardiology and pulmonary patient ambassador. Patient remains on mechanical ventilation with 60% FiO2 and PEEP is 5. Continues on pressor support including IV amiodarone, IV heparin, IV antibiotics as well as Tamiflu. Patient also continues on sodium bicarb drip as well as IV Lasix daily. Cardiology following the patient recommending TABBY with cardioversion as patient is new onset atrial fibrillation and echo revealed left apical ventricular thrombus with no left atrial appendage thrombus noted. Family wishes for patient to remain full code and willing to proceed with this intervention. Kidney functions worsening as well currently 3.2 to creatinine with a BUN of 43 and sodium is 131. Calcium remains critically low at 6.1 and magnesium is 1.7. Procalcitonin extremely elevated at 99.9. Gram stain from bronchoscopy showing Staph aureus and is continued on cefazolin along with IV clindamycin. Overall prognosis is extremely guarded at this time. 09/20/2023 Patient is seen and evaluated in the ICU with multiple medical consultations following. Patient remains on mechanical vent with an FiO2 of 60% and PEEP is 10. Patient continues to require pressor support with cardiology following patient on heparin drip. Platelets are low and heparin drip on hold and HIT panel was ordered and pending. Hematology following as well. Kidney functions continue to worsen with very minimal output recommending renal replacement although no immediate plans for today. Will likely require dialysis catheter placement for emergent dialysis in the next day or so. Patient continues on bicarb drip along with IV hydration. Discussed with at the bedside rega rding overall prognosis and wishes for patient to remain full code at this time. 09/21/2023 Patient is seen and evaluated continues to be in the ICU on mechanical ventilation, FiO2 increased to 80% with a PEEP of 12 and patient is maxed on vasopressor support and continues to have worsening kidney functions. Vascular surgery Dr. Villalba consulted to have a temporary dialysis catheter placed and will undergo hemodialysis. Patient remains on insulin drip for tight glycemic control and blood sugars have well-controlled on this and will continue. Patient noted to have similar dense bilateral consolidative opacities in the mid to lower lungs left greater than right with suspected moderate to large left pleural effusion. Patient has significant edema noted throughout and lung sounds are wet on exam. Patient is receiving IV Lasix and will continue. Platelets improved at 54 today and heparin drip remains on hold. Prognosis is extremely guarded at this time. Review of systems: Unable to obtain as patient is on sedation and mechanical ventilation Active Medications Albuterol/Ipratropium (Ipratropium-Albuterol 3 Ml Neb) 3 ml INHALATION RT-Q4H [facility] Last Admin: 09/21/23 11:40 Dose: 3 ml Aspirin (Aspirin 81 Mg) 81 mg PO DAILY [facility] Last Admin: 09/21/23 08:13 Dose: 81 mg Atorvastatin Calcium (Atorvastatin 40 Mg Tab) 40 mg PO HS [facility] Last Admin: 09/20/23 23:10 Dose: 40 mg Chlorhexidine Gluconate (Chlorhexidine Gluconate 15 Ml Cup) 15 ml MUCOUS MEM BID [facility] Last Admin: 09/21/23 08:13 Dose: 15 ml Clopidogrel Bisulfate (Clopidogrel 75 Mg Tab) 75 mg PO DAILY [facility] Last Admin: 09/21/23 08:13 Dose: 75 mg Dextrose/Water (Dextrose 50% Syringe 50 Ml) 25 ml IVP PER PROTOCOL PRN; Protocol PRN Reason: Hypoglycemia Dextrose/Water (Dextrose 50% Syringe 50 Ml) 50 ml IVP PER PROTOCOL PRN; Protocol PRN Reason: Hypoglycemia Furosemide (Furosemide 10 Mg/Ml 10 Ml Vial) 80 mg IV DAILY [facility] Last Admin: 09/21/23 08:13 Dose: 80 mg Hydromorphone HCl (Hydromorphone 0.5 Mg/0.5 Ml Syringe) 0.5 mg IVP Q4HR PRN PRN Reason: Pain Last Admin: 09/19/23 09:24 Dose: 0.5 mg Sodium Chloride (Saline 0.9%) 1,000 mls @ 20 mls/hr IV .Q24H [facility] Last Admin: 09/20/23 23:09 Dose: 20 mls/hr Insulin Human Regular 100 unit (/ Sodium Chloride) 100 mls @ 0 mls/hr IV .Q0M [facility]; Protocol Last Titration: 09/21/23 11:10 Dose: 4 units/hr, 4 mls/hr Propofol 1,000 mg/ IV Solution 100 mls @ 7.144 mls/hr IV .Q14H [facility]; Protocol Last Titration: 09/21/23 13:45 Dose: 20 mcg/kg/min, 9.525 mls/hr Vasopressin 20 unit/ Sodium (Chloride) 51 mls @ 4.59 mls/hr IV .Q11H7M [facility]; Protocol Last Admin: 09/21/23 11:19 Dose: 0.04 units/min, 6.12 mls/hr Clindamycin Phosphate 900 mg/ (Dextrose/Water) 56 mls @ 50 mls/hr IVPB Q8H [facility]; Protocol Last Admin: 09/21/23 13:00 Dose: 50 mls/hr Amiodarone HCl 450 mg/ (Dextrose/Water) 250 mls @ 16.667 mls/hr IV .Q15H [facility]; Protocol Last Admin: 09/21/23 10:37 Dose: 0.5 mg/min, 16.667 mls/hr Cefazolin Sodium 2 gm/ Sodium (Chloride) 50 mls @ 100 mls/hr IVPB Q12H [facility]; Protocol Last Admin: 09/21/23 03:05 Dose: 100 mls/hr Norepinephrine Bitartrate 32 (mg/ Sodium Chloride) 250 mls @ 1.232 mls/hr IV .Q24H [facility]; Protocol Last Admin: 09/21/23 12:15 Dose: 0.5 mcg/kg/min, 20.531 mls/hr Sodium Bicarbonate 150 ml/ (Sodium Chloride) 1,150 mls @ 60 mls/hr IV .[id number] [facility] Last Admin: 09/21/23 10:44 Dose: 60 mls/hr Albumin Human 50 ml/ IV (Solution) 50 mls @ 50 mls/hr IVPB Q1H [facility] Stop: 09/21/23 14:44 Last Admin: 09/21/23 13:45 Dose: 50 mls/hr Voriconazole 450 mg/ Sodium (Chloride) 100 mls @ 50 mls/hr IVPB Q12HR@0000,1200 [facility] Stop: 09/22/23 01:59 Last Admin: 09/21/23 14:17 Dose: 50 mls/hr Voriconazole 300 mg/ Sodium (Chloride) 100 mls @ 66.667 mls/hr IVPB Q12H [facility] Levothyroxine Sodium (Levothyroxine 75 Mcg Tab) 150 mcg PO 0630 [facility] Last Admin: 09/21/23 06:34 Dose: 150 mcg Miscellaneous Information (Magnesium Replacement Protocol 1 Each Misc) 1 each MISCELLANE DAILY PRN; Protocol PRN Reason: Per Protocol Miscellaneous Information (Potassium Replacement Protocol 1 Each Misc) 1 each MISCELLANE DAILY PRN; Protocol PRN Reason: Per Protocol Miscellaneous Information (Potassium Replacement Protocol 1 Each Misc) 1 each MISCELLANE DAILY PRN; Protocol PRN Reason: Per Protocol Naloxone HCl (Naloxone 0.4 Mg/Ml 1 Ml Vial) 0.2 mg IV Q2M PRN PRN Reason: Opioid Reversal Pantoprazole Sodium (Pantoprazole 40 Mg/10 Ml Vial) 40 mg IVP DAILY [facility] Last Admin: 09/21/23 08:13 Dose: 40 mg PHYSICAL EXAMINATION: Patient is sedated and on mechanical ventilator... FiO2 is 80% and PEEP is 12, appears elderly, ill-appearing, obese HEENT: Normocephalic. Neck is supple. Pupils reactive. Nostrils clear. Oral cavity is moist. Neck reveals no JVD, carotid bruits, or thyromegaly. CHEST EXAMINATION: Trachea is central. Symmetrical expansion. Bibasilar diminished sounds and scattered coarse sounds on the left side.. Crackles noted bilaterally at the bases CARDIAC: S1, S2 muffled, irregular ABDOMEN: Soft. Obese. Bowel sounds present. No organomegaly. No abdominal bruits. Extremities: reveal no edema. No clubbing or cyanosis Neurologically patient is sedated and intubated. No gross focal deficits noted Skin: No rash, multiple psoriatic lesions noted on upper and lower extremities, edematous on upper and lower extremities Psychiatric: Could not be assessed Musculoskeletal: No joint swelling or deformity. Assessment: Acute hypoxemic respiratory failure requiring mechanical ventilator secondary to acute influenza A infection as well as bacterial pneumonia, culture showing Staph aureus. Acute influenza A infection Left-sided acute focal bacterial pneumonia. Status post bronchoscopy on 09/17/2023, bronchial lavage culture showed presumptive Staph aureus. Proca lcitonin is 99.9 Sepsis/septic shock requiring pressor x 2 support secondary to above New onset atrial fibrillation with rapid ventricular rate. Plans for TABBY per cardiology once more stable Thrombocytopenia Hyperglycemia is uncontrolled diabetes type 2 insulin-dependent, extremely noncompliant outpatient per Acute kidney injury possibly ATN, worsening kidney functions, patient will recei ve a dialysis cath today and start hemodialysis Coronary artery history of stent placement to LAD Chronic CHF with systolic dysfunction/ischemic cardiomyopathy Hyperlipidemia Hypertension History of plaque psoriasis Hypothyroidism History of breast cancer status post lumpectomy and radiation Continued ongoing nicotine dependence Obesity with a BMI of 30.2 DVT prophylaxis currently being held due to low platelets GI prophylaxis Full code Plan: Patient is on mechanical ventilator and is on sedation. FiO2 is 80% with a PEEP of 12 Patient will be continued on antibiotics in the form of Zosyn. Follow-up blood cultures and bronchial lavage final culture. MSSA. Vanco discontinued with worsening kidney functions. Procalcitonin extremely elevated at 99.9 Patient to be continued on telemetry. Patient was continued on heparin drip per cardiology although having low platelets. Heparin held and HIT panel ordered. Amiodarone drip continued. Heparin remains on hold and platelets are slightly improved at 54 today. Patient scheduled to receive dialysis catheter and vascular surgery has been consulted. Will initiate hemodialysis today. Patient is also on pressor support with norepinephrine and vasopressin requiring increased pressor support and cardiology following discussing TABBY. Patient is on insulin drip for better blood sugar control. Per at home patient is extremely noncompliant with medications and monitoring blood sugars and is insulin-dependent Kidney functions continue to worsen with nephrology following and patient remains on bicarb drip. There has been no output of urine. Creatinine is 4.34 today with a BUN of 65. Prognosis is extremely guarded at this time. CODE STATUS was addressed with at the bedside who wishes to remain full code at this time The impression and plan of care has been dictated by Belkis Friedman, Nurse Practitioner as directed. Dr. Estefania MD I have performed a history and examination and MDM of this patient, discussed the same with the dictator, and agree with the dictator's assessment and plan as written ,documented as a scribe. Based on total visit time, I have performed more than 50% of the visit. Objective - Vital Signs Vital signs: Vital Signs Temp 98.2 F 09/21/23 12:00 Pulse 115 H 09/21/23 13:30 Resp 38 H 09/21/23 13:30 BP 91/53 09/17/23 06:45 Pulse Ox 87 L 09/21/23 13:30 FiO2 80 09/21/23 12:00 Intake & Output 09/20/23 09/21/23 09/21/23 18:59 06:59 18:59 Intake Total 8426.255 2374.129 1350.660 Output Total 0 5 0 Balance 2157.382 7682.129 1350.660 Weight 97.6 kg Intake: IV 859 76 151 Calcium Gluconate in NaCl 100 1 gm In Saline 1 100ml. bag @ 100 mls/hr IVPB ONCE ONE Rx#:[id number] Clindamycin 900 mg In 100 50 Dextrose 5% in Water 50 ml @ 50 mls/hr IVPB Q8H [facility] Rx#:[id number] Dextrose 5% in Water 1, 400 000 ml @ 100 mls/hr IV . [id number] [facility] with Sodium Bicarb (1 Meq/ml) 150 ml Rx#:[id number] Pressure Bag (0.9 sodium 39 36 21 chloride) Sodium Chloride 0.9% 1, 220 40 80 000 ml @ 20 mls/hr IV . Q24H [facility] Rx#:[id number] Intake, IV Titration 2817.342 8781.129 1199.660 Amount Amiodarone 450 mg In 233.894 250 Dextrose 5% in Water 250 ml @ 0.5 MG/MIN 16.667 mls/hr IV .Q15H [facility] Rx#: [id number] Insulin Regular 100 unit 30.8 37.2 5.0 In Sodium Chloride 0.9% 100 ml @ Titrate IV .Q0M [facility] Rx#:[id number] Magnesium Sulfate-D5w Pmx 100 1 gm In Dextrose/Water 1 100ml.bag @ 100 mls/hr IVPB ONCE ONE Rx#: [id number] Norepinephrine 32 mg In 4.409 25.115 246.714 Sodium Chloride 0.9% 218 ml @ 0.03 MCG/KG/MIN 1. 232 mls/hr IV .Q24H [facility] Rx#:[id number] Sodium Chloride 0.45% 1, 700 1200 540 000 ml @ 60 mls/hr IV . [id number] [facility] with Sodium Bicarb (1 Meq/ml) 150 ml Rx#:[id number] Vasopressin 20 unit In 51 51 51 Sodium Chloride 0.9% 50 ml @ 0.03 UNITS/MIN 4.59 mls/hr IV .Q11H7M [facility] Rx# :[id number] propofoL 1,000 mg In 158.120 96.92 106.946 Empty Bag 1 bag @ 15 MCG/ KG/MIN 7.144 mls/hr IV . Q14H [facility] Rx#:[id number] Lipid 50 ceFAZolin 2 gm In Sodium 50 Chloride 0.9% 50 ml @ 100 mls/hr IVPB Q12H [facility] Rx# :[id number] Output: Urine 0 5 0 Other: Voiding Method Indwelling Catheter Indwelling Catheter Indwelling Catheter ABP, PAP, CO, CI - Last Documented Arterial Blood Pressure 84/49 - Labs CBC & Chem 7: 09/21/23 04:30 09/21/23 04:30 Labs: Abnormal Lab Results - Last 24 Hours (Table) 09/20/23 09/20/23 09/20/23 Range/Units 14:28 14:30 15:21 WBC 14.4 H (3.8-10.6) k/uL Plt Count 42 L (150-450) k/uL Neutrophils # (Manual) 12.60 H (1.3-7.7) k/uL Lymphocytes # (Manual) 0.72 L (1.0-4.8) k/uL Metamyelocytes # (Man) 0.29 H (0) k/uL Nucleated RBCs 1 H (0-0) /100 WBC ABG pH (7.35-7.45) ABG pCO2 (35-45) mmHg ABG pO2 (83-108) mmHg ABG HCO3 (21-25) mmol/L ABG Total CO2 (19-24) mmol/L ABG O2 Saturation (94-97) % Sodium (137-145) mmol/L Chloride (98-107) mmol/L BUN (7-17) mg/dL Creatinine (0.52-1.04) mg/dL Glucose (74-99) mg/dL POC Glucose (mg/dL) 147 H 140 H (70-110) mg/dL Calcium (8.4-10.2) mg/dL Ionized Calcium Silvano (4.5-5.3) mg/dL 09/20/23 09/20/23 09/20/23 Range/Units 16:12 17:20 18:54 WBC (3.8-10.6) k/uL Plt Count (150-450) k/uL Neutrophils # (Manual) (1.3-7.7) k/uL Lymphocytes # (Manual) (1.0-4.8) k/uL Metamyelocytes # (Man) (0) k/uL Nucleated RBCs (0-0) /100 WBC ABG pH (7.35-7.45) ABG pCO2 (35-45) mmHg ABG pO2 (83-108) mmHg ABG HCO3 (21-25) mmol/L ABG Total CO2 (19-24) mmol/L ABG O2 Saturation (94-97) % Sodium (137-145) mmol/L Chloride (98-107) mmol/L BUN (7-17) mg/dL Creatinine (0.52-1.04) mg/dL Glucose (74-99) mg/dL POC Glucose (mg/dL) 143 H 157 H 165 H (70-110) mg/dL Calcium (8.4-10.2) mg/dL Ionized Calcium Silvano (4.5-5.3) mg/dL 09/20/23 09/20/23 09/20/23 Range/Units 20:11 22:20 23:14 WBC (3.8-10.6) k/uL Plt Count (150-450) k/uL Neutrophils # (Manual) (1.3-7.7) k/uL Lymphocytes # (Manual) (1.0-4.8) k/uL Metamyelocytes # (Man) (0) k/uL Nucleated RBCs (0-0) /100 WBC ABG pH (7.35-7.45) ABG pCO2 (35-45) mmHg ABG pO2 (83-108) mmHg ABG HCO3 (21-25) mmol/L ABG Total CO2 (19-24) mmol/L ABG O2 Saturation (94-97) % Sodium (137-145) mmol/L Chloride (98-107) mmol/L BUN (7-17) mg/dL Creatinine (0.52-1.04) mg/dL Glucose (74-99) mg/dL POC Glucose (mg/dL) 132 H 156 H 152 H (70-110) mg/dL Calcium (8.4-10.2) mg/dL Ionized Calcium Silvano (4.5-5.3) mg/dL 09/21/23 09/21/23 09/21/23 Range/Units 00:28 01:16 02:17 WBC (3.8-10.6) k/uL Plt Count (150-450) k/uL Neutrophils # (Manual) (1.3-7.7) k/uL Lymphocytes # (Manual) (1.0-4.8) k/uL Metamyelocytes # (Man) (0) k/uL Nucleated RBCs (0-0) /100 WBC ABG pH (7.35-7.45) ABG pCO2 (35-45) mmHg ABG pO2 (83-108) mmHg ABG HCO3 (21-25) mmol/L ABG Total CO2 (19-24) mmol/L ABG O2 Saturation (94-97) % Sodium (137-145) mmol/L Chloride (98-107) mmol/L BUN (7-17) mg/dL Creatinine (0.52-1.04) mg/dL Glucose (74-99) mg/dL POC Glucose (mg/dL) 156 H 155 H 126 H (70-110) mg/dL Calcium (8.4-10.2) mg/dL Ionized Calcium Silvano (4.5-5.3) mg/dL 09/21/23 09/21/23 09/21/23 Range/Units 03:12 04:29 04:30 WBC 16.1 H (3.8-10.6) k/uL Plt Count 54 L (150-450) k/uL Neutrophils # (Manual) 13.50 H (1.3-7.7) k/uL Lymphocytes # (Manual) (1.0-4.8) k/uL Metamyelocytes # (Man) 0.64 H (0) k/uL Nucleated RBCs (0-0) /100 WBC ABG pH (7.35-7.45) ABG pCO2 (35-45) mmHg ABG pO2 (83-108) mmHg ABG HCO3 (21-25) mmol/L ABG Total CO2 (19-24) mmol/L ABG O2 Saturation (94-97) % Sodium (137-145) mmol/L Chloride (98-107) mmol/L BUN (7-17) mg/dL Creatinine (0.52-1.04) mg/dL Glucose (74-99) mg/dL POC Glucose (mg/dL) 151 H 169 H (70-110) mg/dL Calcium (8.4-10.2) mg/dL Ionized Calcium Silvano (4.5-5.3) mg/dL 09/21/23 09/21/23 09/21/23 Range/Units 04:30 05:30 05:30 WBC (3.8-10.6) k/uL Plt Count (150-450) k/uL Neutrophils # (Manual) (1.3-7.7) k/uL Lymphocytes # (Manual) (1.0-4.8) k/uL Metamyelocytes # (Man) (0) k/uL Nucleated RBCs (0-0) /100 WBC ABG pH (7.35-7.45) ABG pCO2 (35-45) mmHg ABG pO2 (83-108) mmHg ABG HCO3 (21-25) mmol/L ABG Total CO2 (19-24) mmol/L ABG O2 Saturation (94-97) % Sodium 129 L (137-145) mmol/L Chloride 88 L (98-107) mmol/L BUN 65 H (7-17) mg/dL Creatinine 4.34 H (0.52-1.04) mg/dL Glucose 162 H (74-99) mg/dL POC Glucose (mg/dL) 170 H (70-110) mg/dL Calcium 5.5 L* (8.4-10.2) mg/dL Ionized Calcium Silvano 3.2 L* (4.5-5.3) mg/dL 09/21/23 09/21/23 09/21/23 Range/Units 06:19 06:25 07:10 WBC (3.8-10.6) k/uL Plt Count (150-450) k/uL Neutrophils # (Manual) (1.3-7.7) k/uL Lymphocytes # (Manual) (1.0-4.8) k/uL Metamyelocytes # (Man) (0) k/uL Nucleated RBCs (0-0) /100 WBC ABG pH 7.33 L (7.35-7.45) ABG pCO2 49 H (35-45) mmHg ABG pO2 58 L* (83-108) mmHg ABG HCO3 26 H (21-25) mmol/L ABG Total CO2 27 H (19-24) mmol/L ABG O2 Saturation 88.3 L (94-97) % Sodium (137-145) mmol/L Chloride (98-107) mmol/L BUN (7-17) mg/dL Creatinine (0.52-1.04) mg/dL Glucose (74-99) mg/dL POC Glucose (mg/dL) 157 H 159 H (70-110) mg/dL Calcium (8.4-10.2) mg/dL Ionized Calcium Silvano (4.5-5.3) mg/dL 09/21/23 09/21/23 09/21/23 Range/Units 08:02 09:06 10:10 WBC (3.8-10.6) k/uL Plt Count (150-450) k/uL Neutrophils # (Manual) (1.3-7.7) k/uL Lymphocytes # (Manual) (1.0-4.8) k/uL Metamyelocytes # (Man) (0) k/uL Nucleated RBCs (0-0) /100 WBC ABG pH (7.35-7.45) ABG pCO2 (35-45) mmHg ABG pO2 (83-108) mmHg ABG HCO3 (21-25) mmol/L ABG Total CO2 (19-24) mmol/L ABG O2 Saturation (94-97) % Sodium (137-145) mmol/L Chloride (98-107) mmol/L BUN (7-17) mg/dL Creatinine (0.52-1.04) mg/dL Glucose (74-99) mg/dL POC Glucose (mg/dL) 178 H 182 H 198 H (70-110) mg/dL Calcium (8.4-10.2) mg/dL Ionized Calcium Silvano (4.5-5.3) mg/dL 09/21/23 09/21/23 09/21/23 Range/Units 11:11 12:12 13:15 WBC (3.8-10.6) k/uL Plt Count (150-450) k/uL Neutrophils # (Manual) (1.3-7.7) k/uL Lymphocytes # (Manual) (1.0-4.8) k/uL Metamyelocytes # (Man) (0) k/uL Nucleated RBCs (0-0) /100 WBC ABG pH (7.35-7.45) ABG pCO2 (35-45) mmHg ABG pO2 (83-108) mmHg ABG HCO3 (21-25) mmol/L ABG Total CO2 (19-24) mmol/L ABG O2 Saturation (94-97) % Sodium (137-145) mmol/L Chloride (98-107) mmol/L BUN (7-17) mg/dL Creatinine (0.52-1.04) mg/dL Glucose (74-99) mg/dL POC Glucose (mg/dL) 182 H 176 H 172 H (70-110) mg/dL Calcium (8.4-10.2) mg/dL Ionized Calcium Silvano (4.5-5.3) mg/dL 09/21/23 Range/Units 14:07 WBC (3.8-10.6) k/uL Plt Count (150-450) k/uL Neutrophils # (Manual) (1.3-7.7) k/uL Lymphocytes # (Manual) (1.0-4.8) k/uL Metamyelocytes # (Man) (0) k/uL Nucleated RBCs (0-0) /100 WBC ABG pH (7.35-7.45) ABG pCO2 (35-45) mmHg ABG pO2 (83-108) mmHg ABG HCO3 (21-25) mmol/L ABG Total CO2 (19-24) mmol/L ABG O2 Saturation (94-97) % Sodium (137-145) mmol/L Chloride (98-107) mmol/L BUN (7-17) mg/dL Creatinine (0.52-1.04) mg/dL Glucose (74-99) mg/dL POC Glucose (mg/dL) 171 H (70-110) mg/dL Calcium (8.4-10.2) mg/dL Ionized Calcium Silvano (4.5-5.3) mg/dL Microbiology - Last 24 Hours (Table) 09/17/23 08:30 Fungal Culture - Preliminary Bronchoalviolar Lavage - Left Fungus Isolated 09/17/23 01:56 Blood Culture - Preliminary Blood 09/17/23 01:56 Blood Culture - Preliminary Blood
[2023-09-21 15:07] LABS: Glucose,Whole Blood 182 mg/dL (70-110)
--- NOTE | 2023-09-21 15:15 | P.PN ---
Subjective Progress Note Date: 09/20/23 Principal diagnosis: Reason for follow-up is sepsis and pneumonia Patient is a 63-year-old female with a past medical history significant for diabetes mellitus hypertension [place] osteoarthritis coronary artery disease patient was brought into the hospital for evaluation of increasing cough and chest congestion, patient has been diagnosed with pneumonia did have worsening of respiratory status requiring admission to ICU got intubated did have bronchoscopy sputum and bronc culture growing MSSA. On today's evaluation that is 09/20/2023,the patient did have improvement in her fever pattern she did have a temperature 100.6 at 4 AM and afebrile since then patient remains to be intubated on the vent on 60% FiO2 patient is currently on max pressor support, no other changes reported Patient white count is 14.4, creatinine 3.89 Objective - Vital Signs Vital signs: Vital Signs Temp 98.8 F 09/20/23 12:00 Pulse 123 H 09/20/23 14:15 Resp 24 09/20/23 14:15 BP 91/53 09/17/23 06:45 Pulse Ox 90 L 09/20/23 14:15 FiO2 60 09/20/23 12:00 Intake & Output 09/19/23 09/20/23 09/20/23 18:59 06:59 18:59 Intake Total 2517.271 3083.949 1201.120 Output Total 1013 225 0 Balance 4419.226 8622.949 1201.120 Weight 90.6 kg Intake: IV 1786 2188 737 Amiodarone 450 mg In 176 Dextrose 5% in Water 250 ml @ 0.5 MG/MIN 16.667 mls/hr IV .Q15H [facility] Rx#: [id number] Calcium Gluconate in NaCl 100 1 gm In Saline 1 100ml. bag @ 100 mls/hr IVPB ONCE ONE Rx#:[id number] Clindamycin 900 mg In 300 100 50 Dextrose 5% in Water 50 ml @ 50 mls/hr IVPB Q8H [facility] Rx#:[id number] Dextrose 5% in Water 1, 1100 1100 400 000 ml @ 100 mls/hr IV . [id number] [facility] with Sodium Bicarb (1 Meq/ml) 150 ml Rx#:[id number] Piperacillin-Tazobactam 3 100 .375 gm In Sodium Chloride 0.9% 100 ml @ 25 mls/hr IVPB Q8HR [facility] Rx# :[id number] Pressure Bag (0.9 sodium 66 72 27 chloride) Sodium Chloride 0.9% 1, 220 240 160 000 ml @ 20 mls/hr IV . Q24H [facility] Rx#:[id number] Sodium Chloride 0.9% 500 500 ml 500 ml @ 999 mls/hr IV .Q31M [facility] Rx#:[id number] Intake, IV Titration 731.271 845.949 414.120 Amount Amiodarone 450 mg In 220.282 Dextrose 5% in Water 250 ml @ 0.5 MG/MIN 16.667 mls/hr IV .Q15H [facility] Rx#: [id number] Calcium Gluconate in NaCl 100 2 gm In Saline 1 100ml. bag @ 100 mls/hr IVPB ONCE ONE Rx#:[id number] Heparin Sod,Pork in 0.45% 117.427 132.573 NaCl 25,000 unit In 0.45 % NaCl 1 250ml.bag @ 12 UNITS/KG/HR 9.525 mls/hr IV .Q24H [facility] Rx#: [id number] Insulin Regular 100 unit 30.25 41.733 30.8 In Sodium Chloride 0.9% 100 ml @ Titrate IV .Q0M [facility] Rx#:[id number] Norepinephrine 32 mg In 232.594 176.207 Sodium Chloride 0.9% 218 ml @ 0.03 MCG/KG/MIN 1. 116 mls/hr IV .Q24H [facility] Rx#:[id number] Norepinephrine 32 mg In 2.355 Sodium Chloride 0.9% 218 ml @ 0.03 MCG/KG/MIN 1. 232 mls/hr IV .Q24H [facility] Rx#:[id number] Sodium Chloride 0.45% 1, 300 000 ml @ 100 mls/hr IV . [id number] [facility] with Sodium Bicarb (1 Meq/ml) 150 ml Rx#:[id number] Vasopressin 20 unit In 51 94.86 Sodium Chloride 0.9% 50 ml @ 0.03 UNITS/MIN 4.59 mls/hr IV .Q11H7M [facility] Rx# :[id number] propofoL 1,000 mg In 200 180.294 80.965 Empty Bag 1 bag @ 15 MCG/ KG/MIN 7.144 mls/hr IV . Q14H [facility] Rx#:[id number] Lipid 50 50 ceFAZolin 2 gm In Sodium 50 50 Chloride 0.9% 50 ml @ 100 mls/hr IVPB Q12H [facility] Rx# :[id number] Output: Gastric Drainage 1000 220 Urine 13 5 0 Other: Voiding Method Indwelling Catheter Indwelling Catheter Indwelling Catheter ABP, PAP, CO, CI - Last Documented Arterial Blood Pressure 100/60 - Exam GENERAL DESCRIPTION: Middle-aged female intubated on the vent RESPIRATORY SYSTEM: Unlabored breathing , coarse breath sounds bilaterally HEART: S1 S2 regular rate and rhythm , ABDOMEN: Soft , mild distention EXTREMITIES: No edema feet - Labs CBC & Chem 7: 09/21/23 04:30 09/21/23 04:30 Labs: Abnormal Lab Results - Last 24 Hours (Table) 09/19/23 09/19/23 09/19/23 Range/Units 16:12 17:06 18:09 WBC (3.8-10.6) k/uL Plt Count (150-450) k/uL Neutrophils # (1.3-7.7) k/uL Lymphocytes # (1.0-4.8) k/uL APTT (22.0-30.0) sec ABG pH (7.35-7.45) ABG pCO2 (35-45) mmHg ABG pO2 (83-108) mmHg ABG HCO3 (21-25) mmol/L ABG Total CO2 (19-24) mmol/L ABG O2 Saturation (94-97) % Sodium (137-145) mmol/L Chloride (98-107) mmol/L BUN (7-17) mg/dL Creatinine (0.52-1.04) mg/dL Glucose (74-99) mg/dL POC Glucose (mg/dL) 190 H 187 H 178 H (70-110) mg/dL Vitamin B12 (200.0-944.0) pg/mL 09/19/23 09/19/23 09/19/23 Range/Units 18:28 19:02 20:21 WBC (3.8-10.6) k/uL Plt Count (150-450) k/uL Neutrophils # (1.3-7.7) k/uL Lymphocytes # (1.0-4.8) k/uL APTT 94.7 H (22.0-30.0) sec ABG pH (7.35-7.45) ABG pCO2 (35-45) mmHg ABG pO2 (83-108) mmHg ABG HCO3 (21-25) mmol/L ABG Total CO2 (19-24) mmol/L ABG O2 Saturation (94-97) % Sodium (137-145) mmol/L Chloride (98-107) mmol/L BUN (7-17) mg/dL Creatinine (0.52-1.04) mg/dL Glucose (74-99) mg/dL POC Glucose (mg/dL) 168 H 151 H (70-110) mg/dL Vitamin B12 (200.0-944.0) pg/mL 09/19/23 09/19/23 09/19/23 Range/Units 21:06 22:19 23:02 WBC (3.8-10.6) k/uL Plt Count (150-450) k/uL Neutrophils # (1.3-7.7) k/uL Lymphocytes # (1.0-4.8) k/uL APTT (22.0-30.0) sec ABG pH (7.35-7.45) ABG pCO2 (35-45) mmHg ABG pO2 (83-108) mmHg ABG HCO3 (21-25) mmol/L ABG Total CO2 (19-24) mmol/L ABG O2 Saturation (94-97) % Sodium (137-145) mmol/L Chloride (98-107) mmol/L BUN (7-17) mg/dL Creatinine (0.52-1.04) mg/dL Glucose (74-99) mg/dL POC Glucose (mg/dL) 140 H 131 H 131 H (70-110) mg/dL Vitamin B12 (200.0-944.0) pg/mL 09/20/23 09/20/23 09/20/23 Range/Units 00:09 01:05 02:16 WBC (3.8-10.6) k/uL Plt Count (150-450) k/uL Neutrophils # (1.3-7.7) k/uL Lymphocytes # (1.0-4.8) k/uL APTT (22.0-30.0) sec ABG pH (7.35-7.45) ABG pCO2 (35-45) mmHg ABG pO2 (83-108) mmHg ABG HCO3 (21-25) mmol/L ABG Total CO2 (19-24) mmol/L ABG O2 Saturation (94-97) % Sodium (137-145) mmol/L Chloride (98-107) mmol/L BUN (7-17) mg/dL Creatinine (0.52-1.04) mg/dL Glucose (74-99) mg/dL POC Glucose (mg/dL) 150 H 166 H 174 H (70-110) mg/dL Vitamin B12 (200.0-944.0) pg/mL 09/20/23 09/20/23 09/20/23 Range/Units 03:22 03:23 03:23 WBC (3.8-10.6) k/uL Plt Count 44 L (150-450) k/uL Neutrophils # 9.1 H (1.3-7.7) k/uL Lymphocytes # 0.6 L (1.0-4.8) k/uL APTT (22.0-30.0) sec ABG pH (7.35-7.45) ABG pCO2 (35-45) mmHg ABG pO2 (83-108) mmHg ABG HCO3 (21-25) mmol/L ABG Total CO2 (19-24) mmol/L ABG O2 Saturation (94-97) % Sodium 129 L (137-145) mmol/L Chloride 89 L (98-107) mmol/L BUN 55 H (7-17) mg/dL Creatinine 3.89 H (0.52-1.04) mg/dL Glucose 191 H (74-99) mg/dL POC Glucose (mg/dL) 192 H (70-110) mg/dL Vitamin B12 >1800.0 H (200.0-944.0) pg/mL 09/20/23 09/20/23 09/20/23 Range/Units 04:18 05:41 06:08 WBC (3.8-10.6) k/uL Plt Count (150-450) k/uL Neutrophils # (1.3-7.7) k/uL Lymphocytes # (1.0-4.8) k/uL APTT (22.0-30.0) sec ABG pH 7.33 L (7.35-7.45) ABG pCO2 49 H (35-45) mmHg ABG pO2 59 L* (83-108) mmHg ABG HCO3 26 H (21-25) mmol/L ABG Total CO2 27 H (19-24) mmol/L ABG O2 Saturation 91.0 L (94-97) % Sodium (137-145) mmol/L Chloride (98-107) mmol/L BUN (7-17) mg/dL Creatinine (0.52-1.04) mg/dL Glucose (74-99) mg/dL POC Glucose (mg/dL) 173 H 149 H (70-110) mg/dL Vitamin B12 (200.0-944.0) pg/mL 09/20/23 09/20/23 09/20/23 Range/Units 07:11 07:56 09:23 WBC (3.8-10.6) k/uL Plt Count (150-450) k/uL Neutrophils # (1.3-7.7) k/uL Lymphocytes # (1.0-4.8) k/uL APTT (22.0-30.0) sec ABG pH (7.35-7.45) ABG pCO2 (35-45) mmHg ABG pO2 (83-108) mmHg ABG HCO3 (21-25) mmol/L ABG Total CO2 (19-24) mmol/L ABG O2 Saturation (94-97) % Sodium (137-145) mmol/L Chloride (98-107) mmol/L BUN (7-17) mg/dL Creatinine (0.52-1.04) mg/dL Glucose (74-99) mg/dL POC Glucose (mg/dL) 136 H 151 H 155 H (70-110) mg/dL Vitamin B12 (200.0-944.0) pg/mL 09/20/23 09/20/23 09/20/23 Range/Units 10:01 11:05 12:07 WBC (3.8-10.6) k/uL Plt Count (150-450) k/uL Neutrophils # (1.3-7.7) k/uL Lymphocytes # (1.0-4.8) k/uL APTT (22.0-30.0) sec ABG pH (7.35-7.45) ABG pCO2 (35-45) mmHg ABG pO2 (83-108) mmHg ABG HCO3 (21-25) mmol/L ABG Total CO2 (19-24) mmol/L ABG O2 Saturation (94-97) % Sodium (137-145) mmol/L Chloride (98-107) mmol/L BUN (7-17) mg/dL Creatinine (0.52-1.04) mg/dL Glucose (74-99) mg/dL POC Glucose (mg/dL) 165 H 181 H 173 H (70-110) mg/dL Vitamin B12 (200.0-944.0) pg/mL 09/20/23 09/20/23 09/20/23 Range/Units 13:28 14:28 14:30 WBC 14.5 H (3.8-10.6) k/uL Plt Count 42 L (150-450) k/uL Neutrophils # (1.3-7.7) k/uL Lymphocytes # (1.0-4.8) k/uL APTT (22.0-30.0) sec ABG pH (7.35-7.45) ABG pCO2 (35-45) mmHg ABG pO2 (83-108) mmHg ABG HCO3 (21-25) mmol/L ABG Total CO2 (19-24) mmol/L ABG O2 Saturation (94-97) % Sodium (137-145) mmol/L Chloride (98-107) mmol/L BUN (7-17) mg/dL Creatinine (0.52-1.04) mg/dL Glucose (74-99) mg/dL POC Glucose (mg/dL) 163 H 147 H (70-110) mg/dL Vitamin B12 (200.0-944.0) pg/mL Microbiology - Last 24 Hours (Table) 09/17/23 01:56 Blood Culture - Preliminary Blood 09/17/23 01:56 Blood Culture - Preliminary Blood Assessment and Plan (1) Sepsis Current Visit: Yes Status: Acute Code(s): A41.9 - SEPSIS, UNSPECIFIED ORGANISM SNOMED Code(s): 07664550 (2) MSSA (methicillin susceptible Staphylococcus aureus) infection Current Visit: Yes Status: Acute Code(s): A49.01 - METHICILLIN SUSCEP STAPH INFECTION, UNSP SITE SNOMED Code(s): 486943744 (3) MSSA (methicillin susceptible Staphylococcus aureus) pneumonia Current Visit: Yes Status: Acute Code(s): J15.211 - PNEUMONIA DUE TO METHICILLIN SUSCEP STAPH SNOMED Code(s): 479709639854488 (4) Pneumonia Current Visit: Yes Status: Acute Code(s): J18.9 - PNEUMONIA, UNSPECIFIED ORGANISM SNOMED Code(s): 308559987 Plan: 1patient with sepsis/septic shock source likely post influenza pneumonia secondary to Staphylococcus aureus in this patient with acute respiratory failure requiring intubation 2-patient also have a worsening renal failure and high risk of nephrotoxicity from vancomycin 3-patient remains to be critically ill still requiring high pressor support for now continue with the cefazolin and clindamycin and monitor clinical course closely Dictation was produced using [employer] dictation software. please excuse any grammatical, word or spelling errors. Time with Patient: Less than 30
--- NOTE | 2023-09-21 15:17 | P.PN ---
Subjective Progress Note Date: 09/21/23 Principal diagnosis: Reason for follow-up is sepsis and pneumonia Patient is a 63-year-old female with a past medical history significant for diabetes mellitus hypertension [place] osteoarthritis coronary artery disease patient was brought into the hospital for evaluation of increasing cough and chest congestion, patient has been diagnosed with pneumonia did have worsening of respiratory status requiring admission to ICU got intubated did have bronchoscopy sputum and bronc culture growing MSSA. On today's evaluation that is 09/21/2023, patient did have a low-grade fever 100.3 at midnight and 4 AM the patient is afebrile since then patient remains to be debated on the vent requiring more oxygen with FiO2 of 80% patient is on max pressor support for the nursing staff and the blood pressure has been trending low no other changes reported by the nursing staff. Patient white count is 16.1 creatinine is 4.34 bronchoscopy culture also isolate the fungus with ID pending is not a yeast as per discussion with the micro lab Objective - Vital Signs Vital signs: Vital Signs Temp 98.2 F 09/21/23 12:00 Pulse 122 H 09/21/23 12:15 Resp 29 H 09/21/23 12:15 BP 91/53 09/17/23 06:45 Pulse Ox 90 L 09/21/23 12:15 FiO2 80 09/21/23 11:41 Intake & Output 09/20/23 09/21/23 09/21/23 18:59 06:59 18:59 Intake Total 9462.836 0186.129 1127.714 Output Total 0 5 0 Balance 2934.808 2991.129 1127.714 Weight 97.6 kg Intake: IV 859 76 55 Calcium Gluconate in NaCl 100 1 gm In Saline 1 100ml. bag @ 100 mls/hr IVPB ONCE ONE Rx#:[id number] Clindamycin 900 mg In 100 Dextrose 5% in Water 50 ml @ 50 mls/hr IVPB Q8H [facility] Rx#:[id number] Dextrose 5% in Water 1, 400 000 ml @ 100 mls/hr IV . [id number] [facility] with Sodium Bicarb (1 Meq/ml) 150 ml Rx#:[id number] Pressure Bag (0.9 sodium 39 36 15 chloride) Sodium Chloride 0.9% 1, 220 40 40 000 ml @ 20 mls/hr IV . Q24H [facility] Rx#:[id number] Intake, IV Titration 0529.324 0917.129 1072.714 Amount Amiodarone 450 mg In 233.894 250 Dextrose 5% in Water 250 ml @ 0.5 MG/MIN 16.667 mls/hr IV .Q15H [facility] Rx#: [id number] Insulin Regular 100 unit 30.8 37.2 5.0 In Sodium Chloride 0.9% 100 ml @ Titrate IV .Q0M [facility] Rx#:[id number] Magnesium Sulfate-D5w Pmx 100 1 gm In Dextrose/Water 1 100ml.bag @ 100 mls/hr IVPB ONCE ONE Rx#: [id number] Norepinephrine 32 mg In 4.409 25.115 246.714 Sodium Chloride 0.9% 218 ml @ 0.03 MCG/KG/MIN 1. 232 mls/hr IV .Q24H [facility] Rx#:[id number] Sodium Chloride 0.45% 1, 700 1200 420 000 ml @ 60 mls/hr IV . [id number] [facility] with Sodium Bicarb (1 Meq/ml) 150 ml Rx#:[id number] Vasopressin 20 unit In 51 51 51 Sodium Chloride 0.9% 50 ml @ 0.03 UNITS/MIN 4.59 mls/hr IV .Q11H7M [facility] Rx# :[id number] propofoL 1,000 mg In 158.120 96.92 100 Empty Bag 1 bag @ 15 MCG/ KG/MIN 7.144 mls/hr IV . Q14H [facility] Rx#:[id number] Lipid 50 ceFAZolin 2 gm In Sodium 50 Chloride 0.9% 50 ml @ 100 mls/hr IVPB Q12H [facility] Rx# :[id number] Output: Urine 0 5 0 Other: Voiding Method Indwelling Catheter Indwelling Catheter Indwelling Catheter ABP, PAP, CO, CI - Last Documented Arterial Blood Pressure 76/48 - Exam GENERAL DESCRIPTION: Middle-aged female intubated on the vent RESPIRATORY SYSTEM: Unlabored breathing , coarse breath sounds bilaterally HEART: S1 S2 regular rate and rhythm , ABDOMEN: Soft , mild distention EXTREMITIES: No edema feet - Labs CBC & Chem 7: 09/21/23 04:30 09/21/23 04:30 Labs: Abnormal Lab Results - Last 24 Hours (Table) 09/20/23 09/20/23 09/20/23 Range/Units 13:28 14:28 14:30 WBC 14.4 H (3.8-10.6) k/uL Plt Count 42 L (150-450) k/uL Neutrophils # (Manual) 12.60 H (1.3-7.7) k/uL Lymphocytes # (Manual) 0.72 L (1.0-4.8) k/uL Metamyelocytes # (Man) 0.29 H (0) k/uL Nucleated RBCs 1 H (0-0) /100 WBC ABG pH (7.35-7.45) ABG pCO2 (35-45) mmHg ABG pO2 (83-108) mmHg ABG HCO3 (21-25) mmol/L ABG Total CO2 (19-24) mmol/L ABG O2 Saturation (94-97) % Sodium (137-145) mmol/L Chloride (98-107) mmol/L BUN (7-17) mg/dL Creatinine (0.52-1.04) mg/dL Glucose (74-99) mg/dL POC Glucose (mg/dL) 163 H 147 H (70-110) mg/dL Calcium (8.4-10.2) mg/dL Ionized Calcium Silvano (4.5-5.3) mg/dL 09/20/23 09/20/23 09/20/23 Range/Units 15:21 16:12 17:20 WBC (3.8-10.6) k/uL Plt Count (150-450) k/uL Neutrophils # (Manual) (1.3-7.7) k/uL Lymphocytes # (Manual) (1.0-4.8) k/uL Metamyelocytes # (Man) (0) k/uL Nucleated RBCs (0-0) /100 WBC ABG pH (7.35-7.45) ABG pCO2 (35-45) mmHg ABG pO2 (83-108) mmHg ABG HCO3 (21-25) mmol/L ABG Total CO2 (19-24) mmol/L ABG O2 Saturation (94-97) % Sodium (137-145) mmol/L Chloride (98-107) mmol/L BUN (7-17) mg/dL Creatinine (0.52-1.04) mg/dL Glucose (74-99) mg/dL POC Glucose (mg/dL) 140 H 143 H 157 H (70-110) mg/dL Calcium (8.4-10.2) mg/dL Ionized Calcium Silvano (4.5-5.3) mg/dL 09/20/23 09/20/23 09/20/23 Range/Units 18:54 20:11 22:20 WBC (3.8-10.6) k/uL Plt Count (150-450) k/uL Neutrophils # (Manual) (1.3-7.7) k/uL Lymphocytes # (Manual) (1.0-4.8) k/uL Metamyelocytes # (Man) (0) k/uL Nucleated RBCs (0-0) /100 WBC ABG pH (7.35-7.45) ABG pCO2 (35-45) mmHg ABG pO2 (83-108) mmHg ABG HCO3 (21-25) mmol/L ABG Total CO2 (19-24) mmol/L ABG O2 Saturation (94-97) % Sodium (137-145) mmol/L Chloride (98-107) mmol/L BUN (7-17) mg/dL Creatinine (0.52-1.04) mg/dL Glucose (74-99) mg/dL POC Glucose (mg/dL) 165 H 132 H 156 H (70-110) mg/dL Calcium (8.4-10.2) mg/dL Ionized Calcium Silvano (4.5-5.3) mg/dL 09/20/23 09/21/23 09/21/23 Range/Units 23:14 00:28 01:16 WBC (3.8-10.6) k/uL Plt Count (150-450) k/uL Neutrophils # (Manual) (1.3-7.7) k/uL Lymphocytes # (Manual) (1.0-4.8) k/uL Metamyelocytes # (Man) (0) k/uL Nucleated RBCs (0-0) /100 WBC ABG pH (7.35-7.45) ABG pCO2 (35-45) mmHg ABG pO2 (83-108) mmHg ABG HCO3 (21-25) mmol/L ABG Total CO2 (19-24) mmol/L ABG O2 Saturation (94-97) % Sodium (137-145) mmol/L Chloride (98-107) mmol/L BUN (7-17) mg/dL Creatinine (0.52-1.04) mg/dL Glucose (74-99) mg/dL POC Glucose (mg/dL) 152 H 156 H 155 H (70-110) mg/dL Calcium (8.4-10.2) mg/dL Ionized Calcium Silvano (4.5-5.3) mg/dL 09/21/23 09/21/23 09/21/23 Range/Units 02:17 03:12 04:29 WBC (3.8-10.6) k/uL Plt Count (150-450) k/uL Neutrophils # (Manual) (1.3-7.7) k/uL Lymphocytes # (Manual) (1.0-4.8) k/uL Metamyelocytes # (Man) (0) k/uL Nucleated RBCs (0-0) /100 WBC ABG pH (7.35-7.45) ABG pCO2 (35-45) mmHg ABG pO2 (83-108) mmHg ABG HCO3 (21-25) mmol/L ABG Total CO2 (19-24) mmol/L ABG O2 Saturation (94-97) % Sodium (137-145) mmol/L Chloride (98-107) mmol/L BUN (7-17) mg/dL Creatinine (0.52-1.04) mg/dL Glucose (74-99) mg/dL POC Glucose (mg/dL) 126 H 151 H 169 H (70-110) mg/dL Calcium (8.4-10.2) mg/dL Ionized Calcium Silvano (4.5-5.3) mg/dL 09/21/23 09/21/23 09/21/23 Range/Units 04:30 04:30 05:30 WBC 16.1 H (3.8-10.6) k/uL Plt Count 54 L (150-450) k/uL Neutrophils # (Manual) 13.50 H (1.3-7.7) k/uL Lymphocytes # (Manual) (1.0-4.8) k/uL Metamyelocytes # (Man) 0.64 H (0) k/uL Nucleated RBCs (0-0) /100 WBC ABG pH (7.35-7.45) ABG pCO2 (35-45) mmHg ABG pO2 (83-108) mmHg ABG HCO3 (21-25) mmol/L ABG Total CO2 (19-24) mmol/L ABG O2 Saturation (94-97) % Sodium 129 L (137-145) mmol/L Chloride 88 L (98-107) mmol/L BUN 65 H (7-17) mg/dL Creatinine 4.34 H (0.52-1.04) mg/dL Glucose 162 H (74-99) mg/dL POC Glucose (mg/dL) (70-110) mg/dL Calcium 5.5 L* (8.4-10.2) mg/dL Ionized Calcium Silvano 3.2 L* (4.5-5.3) mg/dL 09/21/23 09/21/23 09/21/23 Range/Units 05:30 06:19 06:25 WBC (3.8-10.6) k/uL Plt Count (150-450) k/uL Neutrophils # (Manual) (1.3-7.7) k/uL Lymphocytes # (Manual) (1.0-4.8) k/uL Metamyelocytes # (Man) (0) k/uL Nucleated RBCs (0-0) /100 WBC ABG pH 7.33 L (7.35-7.45) ABG pCO2 49 H (35-45) mmHg ABG pO2 58 L* (83-108) mmHg ABG HCO3 26 H (21-25) mmol/L ABG Total CO2 27 H (19-24) mmol/L ABG O2 Saturation 88.3 L (94-97) % Sodium (137-145) mmol/L Chloride (98-107) mmol/L BUN (7-17) mg/dL Creatinine (0.52-1.04) mg/dL Glucose (74-99) mg/dL POC Glucose (mg/dL) 170 H 157 H (70-110) mg/dL Calcium (8.4-10.2) mg/dL Ionized Calcium Silvano (4.5-5.3) mg/dL 09/21/23 09/21/23 09/21/23 Range/Units 07:10 08:02 09:06 WBC (3.8-10.6) k/uL Plt Count (150-450) k/uL Neutrophils # (Manual) (1.3-7.7) k/uL Lymphocytes # (Manual) (1.0-4.8) k/uL Metamyelocytes # (Man) (0) k/uL Nucleated RBCs (0-0) /100 WBC ABG pH (7.35-7.45) ABG pCO2 (35-45) mmHg ABG pO2 (83-108) mmHg ABG HCO3 (21-25) mmol/L ABG Total CO2 (19-24) mmol/L ABG O2 Saturation (94-97) % Sodium (137-145) mmol/L Chloride (98-107) mmol/L BUN (7-17) mg/dL Creatinine (0.52-1.04) mg/dL Glucose (74-99) mg/dL POC Glucose (mg/dL) 159 H 178 H 182 H (70-110) mg/dL Calcium (8.4-10.2) mg/dL Ionized Calcium Silvano (4.5-5.3) mg/dL 09/21/23 09/21/23 09/21/23 Range/Units 10:10 11:11 12:12 WBC (3.8-10.6) k/uL Plt Count (150-450) k/uL Neutrophils # (Manual) (1.3-7.7) k/uL Lymphocytes # (Manual) (1.0-4.8) k/uL Metamyelocytes # (Man) (0) k/uL Nucleated RBCs (0-0) /100 WBC ABG pH (7.35-7.45) ABG pCO2 (35-45) mmHg ABG pO2 (83-108) mmHg ABG HCO3 (21-25) mmol/L ABG Total CO2 (19-24) mmol/L ABG O2 Saturation (94-97) % Sodium (137-145) mmol/L Chloride (98-107) mmol/L BUN (7-17) mg/dL Creatinine (0.52-1.04) mg/dL Glucose (74-99) mg/dL POC Glucose (mg/dL) 198 H 182 H 176 H (70-110) mg/dL Calcium (8.4-10.2) mg/dL Ionized Calcium Silvano (4.5-5.3) mg/dL 09/21/23 Range/Units 13:15 WBC (3.8-10.6) k/uL Plt Count (150-450) k/uL Neutrophils # (Manual) (1.3-7.7) k/uL Lymphocytes # (Manual) (1.0-4.8) k/uL Metamyelocytes # (Man) (0) k/uL Nucleated RBCs (0-0) /100 WBC ABG pH (7.35-7.45) ABG pCO2 (35-45) mmHg ABG pO2 (83-108) mmHg ABG HCO3 (21-25) mmol/L ABG Total CO2 (19-24) mmol/L ABG O2 Saturation (94-97) % Sodium (137-145) mmol/L Chloride (98-107) mmol/L BUN (7-17) mg/dL Creatinine (0.52-1.04) mg/dL Glucose (74-99) mg/dL POC Glucose (mg/dL) 172 H (70-110) mg/dL Calcium (8.4-10.2) mg/dL Ionized Calcium Silvano (4.5-5.3) mg/dL Microbiology - Last 24 Hours (Table) 09/17/23 08:30 Fungal Culture - Preliminary Bronchoalviolar Lavage - Left Fungus Isolated 09/17/23 01:56 Blood Culture - Preliminary Blood 09/17/23 01:56 Blood Culture - Preliminary Blood Assessment and Plan (1) MSSA (methicillin susceptible Staphylococcus aureus) infection Current Visit: Yes Status: Acute Code(s): A49.01 - METHICILLIN SUSCEP STAPH INFECTION, UNSP SITE SNOMED Code(s): 248920050 (2) Pneumonia Current Visit: Yes Status: Acute Code(s): J18.9 - PNEUMONIA, UNSPECIFIED ORGANISM SNOMED Code(s): 908917501 (3) Sepsis Current Visit: Yes Status: Acute Code(s): A41.9 - SEPSIS, UNSPECIFIED ORGANISM SNOMED Code(s): 65182379 Plan: 1patient with sepsis/septic shock source likely post influenza pneumonia secondary to Staphylococcus aureus in this patient with acute respiratory failure requiring intubation 2-patient also have a worsening renal failure and high risk of nephrotoxicity from vancomycin 3-patient remains to be critically ill still requiring high pressor support, bronchoscopy culture also isolated fungus which is not yeast a possible com ponent of suppurative fungal infection not excluded keeping in mind her critical condition and requiring maximum pressor support we will add voriconazole with initial doses of IV as per discussion with the pharmacist and also continue with the clindamycin and cefazolin Prognosis remains to be guarded keeping in mind the patient requiring maximum pressor support and still hypotensive at the bedside he was a bit about her care Dictation was produced using [employer] dictation software. please excuse any grammatical, word or spelling errors. Time with Patient: Less than 30
[2023-09-21 15:31] VITALS: RESP 28
[2023-09-21] MEDS ORDERED: HEPARIN SODIUM 1,000 UN/ML (10ML VL) IV PRN (15:50)
--- NOTE | 2023-09-21 15:50 | P.PN ---
Subjective The patient is a 63-year-old female patient who is known to our service from before with a past medical history significant for coronary artery disease with prior stenting of the LAD in the setting of acute coronary syndrome with subsequent echocardiogram showing an ejection fraction between 25 to 30% at that point as well as history of smoking and hypertension and dyslipidemia and multiple comorbid conditions. The patient was brought to the hospital by her who is brought in medic. Apparently for the last few days she has been experiencing progressive cough associated with shortness of breath and congestion and also low-grade fever exceeding 100 Fahrenheit. No symptoms of any chest pain or chest discomfort and no dizziness or lightheadedness and no presyncope or syncope. She was brought to the hospital where chest x-ray showed what is seems to be underlying pneumonia involving the left lung and the patient was initially admitted to the floor. We consulted to see the patient because of atrial fibrillation with rapid ventricular response and initially the patient was stable hemodynamically and started on Cardizem IV. Subsequently the patient deteriorated over the next few hours. Her shortness of breath has progressed and she became more congested and for that reason she was transferred to the intensive care unit and she was intubated and placed on mechanical ventilation. Because her pressure has been soft the Cardizem IV was stopped and she was started on amiodarone IV. Currently she is in atrial fibrillation with overall controlled heart rate and heart rate around 110 bpm. She is also on heparin IV. Beside that she underwent further workup including hemoglobin which came to be stable and creatinine at 1.53 with low potassium and normal sodium. The chest x-ray showed large left-sided pneumonia. Currently the patient is in what is seems to be septic shock. She received 3 L of IV fluid with the pressure being low and currently she is unstable requiring norepinephrine to support her blood pressure. She underwent stenting of the LAD in 2020 and she underwent an echo last in 2020 showing an EF between 25 to 30%. For some reasons reviewing her home medication she continues to be on dual antiplatelet therapy for unknown reason at this point. No history of atrial fibrillation in the past and. 09/17 Patient seen and examined. Patient remains intubated on ventilator. FiO2 50%. Echocardiogram from yesterday shows EF 20-25% with apical akinesis as well as left ventricular apical thrombus. She did go into A. fib with RVR with heart rates up into the 180s and was placed on amiodarone. She converted and has been sinus tachycardia with heart rates from the 120s to 130s. She is tachypnic on ventilator despite increased sedation with propofol. She is receiving IV fluids with bicarbonate drip at 100 mL per hour. She had received approximate 7 L with very minimal urine output. Creatinine has been increasing up to 1.9 this morning. 09/18 Patient seen and examined. Patient has been requiring increasing vasopressors. Remains on bicarbonate drip. FiO2 was increased up to 60%. Creatinine increasing. Has not been making any urine output. Concern of toxic shock syndrome, staph infection superimposed on influenza. She did go in A. fib with mild RVR with heart rates in the 140s and amiodarone drip was started. With the A. fib she did drop her pressure with increased need for pressor requirement. 09/19 Patient seen and examined. Her platelets have continued to decrease down to 44. No active bleeding. Heparin drip was discontinued this morning and we sent a HIT panel. Has been in and out of Afib and amio drip had been discontinued last night. Predominantly sinus rhythm in the 90s to 100s and A. fib with heart rates 120s. Maintained on IV fluids, half-normal saline at 100 mL per hour. Sodium has decreased down to 129, likely related to volume overload. She is significantly edematous. She is maintained on FiO2 60% with a PEEP of 10. 09/20 Patient seen and examined. Patient remains intubated and sedated on ventilator. Remains on vasopressors and was given albumin with improvement in blood pressures. Not making any urine and plan for dialysis catheter to be placed today. Platelets 54 and HIT was negative. PHYSICAL EXAMINATION Vital signs reviewed. CONSTITUTIONAL: Ill appearing, on vent HEENT: Head is normocephalic. Pupils are equal, round. Sclerae anicteric. Mucous membranes of the mouth are moist. No JVD. No carotid bruit. CHEST EXAMINATION: +Crackles and rhonchi bilaterally HEART EXAMINATION: tachycardic rate and rhythm. S1, S2 heard. No murmurs, gallops or rub. ABDOMEN: Soft, nontender. Positive bowel sounds. EXTREMITIES: 2+ peripheral pulses, no lower extremity edema and no calf tenderness. NEUROLOGIC EXAMINATION: Patient is sedated on vent Assessment Pneumonia/sepsis, Influenza A Septic shock New onset atrial fibrillation, currently sinus rhythm History of cardiomyopathy Coronary artery disease with prior stenting of the LAD History of smoking Electrolytes imbalance Acute renal failure likely ATN from sepsis Apical LV thrombus Sinus tachycardia, appears reactive to severe sepsis Plan Patient has been in and out of atrial fibrillation. Likely will continue to go in and out however continue with amiodarone and monitor response. HIT panel negative and we will restart Heparin drip. Thrombocytopenia likely related to overwhelming sepsis. Nephrology, pulmonology recommendations regarding sepsis. HD per nephro. Objective - Vital Signs Vital signs: Vital Signs Temp 98.2 F 09/21/23 12:00 Pulse 110 H 09/21/23 15:15 Resp 28 H 09/21/23 15:15 BP 91/53 09/17/23 06:45 Pulse Ox 93 L 09/21/23 15:15 FiO2 80 09/21/23 12:00 Intake & Output 09/20/23 09/21/23 09/21/23 18:59 06:59 18:59 Intake Total 5190.457 1423.129 1766.660 Output Total 0 5 0 Balance 0529.486 1868.129 1766.660 Weight 97.6 kg Intake: IV 859 76 197 Calcium Gluconate in NaCl 100 1 gm In Saline 1 100ml. bag @ 100 mls/hr IVPB ONCE ONE Rx#:[id number] Clindamycin 900 mg In 100 50 Dextrose 5% in Water 50 ml @ 50 mls/hr IVPB Q8H [facility] Rx#:[id number] Dextrose 5% in Water 1, 400 000 ml @ 100 mls/hr IV . [id number] [facility] with Sodium Bicarb (1 Meq/ml) 150 ml Rx#:[id number] Pressure Bag (0.9 sodium 39 36 27 chloride) Sodium Chloride 0.9% 1, 220 40 120 000 ml @ 20 mls/hr IV . Q24H [facility] Rx#:[id number] Intake, IV Titration 0548.136 5660.129 1569.660 Amount Albumin Human 25% 50 ml 100 In Empty Bag 2 bag @ 50 mls/hr IVPB Q1H [facility] Rx#: [id number] Amiodarone 450 mg In 233.894 250 Dextrose 5% in Water 250 ml @ 0.5 MG/MIN 16.667 mls/hr IV .Q15H [facility] Rx#: [id number] Clindamycin 900 mg In 50 Dextrose 5% in Water 50 ml @ 50 mls/hr IVPB Q8H [facility] Rx#:[id number] Insulin Regular 100 unit 30.8 37.2 5.0 In Sodium Chloride 0.9% 100 ml @ Titrate IV .Q0M [facility] Rx#:[id number] Magnesium Sulfate-D5w Pmx 100 1 gm In Dextrose/Water 1 100ml.bag @ 100 mls/hr IVPB ONCE ONE Rx#: [id number] Norepinephrine 32 mg In 4.409 25.115 246.714 Sodium Chloride 0.9% 218 ml @ 0.03 MCG/KG/MIN 1. 232 mls/hr IV .Q24H [facility] Rx#:[id number] Sodium Chloride 0.45% 1, 700 1200 660 000 ml @ 60 mls/hr IV . [id number] [facility] with Sodium Bicarb (1 Meq/ml) 150 ml Rx#:[id number] Vasopressin 20 unit In 51 51 51 Sodium Chloride 0.9% 50 ml @ 0.03 UNITS/MIN 4.59 mls/hr IV .Q11H7M [facility] Rx# :[id number] Voriconazole 300 mg In 100 Sodium Chloride 0.9% 100 ml @ 66.667 mls/hr IVPB Q12H [facility] Rx#:[id number] propofoL 1,000 mg In 158.120 96.92 106.946 Empty Bag 1 bag @ 15 MCG/ KG/MIN 7.144 mls/hr IV . Q14H [facility] Rx#:[id number] Lipid 50 ceFAZolin 2 gm In Sodium 50 Chloride 0.9% 50 ml @ 100 mls/hr IVPB Q12H [facility] Rx# :[id number] Output: Urine 0 5 0 Other: Voiding Method Indwelling Catheter Indwelling Catheter Indwelling Catheter ABP, PAP, CO, CI - Last Documented Arterial Blood Pressure 107/59 - Labs CBC & Chem 7: 09/21/23 04:30 09/21/23 04:30 Labs: Abnormal Lab Results - Last 24 Hours (Table) 09/20/23 09/20/23 09/20/23 Range/Units 16:12 17:20 18:54 WBC (3.8-10.6) k/uL Plt Count (150-450) k/uL Neutrophils # (Manual) (1.3-7.7) k/uL Metamyelocytes # (Man) (0) k/uL ABG pH (7.35-7.45) ABG pCO2 (35-45) mmHg ABG pO2 (83-108) mmHg ABG HCO3 (21-25) mmol/L ABG Total CO2 (19-24) mmol/L ABG O2 Saturation (94-97) % Sodium (137-145) mmol/L Chloride (98-107) mmol/L BUN (7-17) mg/dL Creatinine (0.52-1.04) mg/dL Glucose (74-99) mg/dL POC Glucose (mg/dL) 143 H 157 H 165 H (70-110) mg/dL Calcium (8.4-10.2) mg/dL Ionized Calcium Silvano (4.5-5.3) mg/dL 09/20/23 09/20/23 09/20/23 Range/Units 20:11 22:20 23:14 WBC (3.8-10.6) k/uL Plt Count (150-450) k/uL Neutrophils # (Manual) (1.3-7.7) k/uL Metamyelocytes # (Man) (0) k/uL ABG pH (7.35-7.45) ABG pCO2 (35-45) mmHg ABG pO2 (83-108) mmHg ABG HCO3 (21-25) mmol/L ABG Total CO2 (19-24) mmol/L ABG O2 Saturation (94-97) % Sodium (137-145) mmol/L Chloride (98-107) mmol/L BUN (7-17) mg/dL Creatinine (0.52-1.04) mg/dL Glucose (74-99) mg/dL POC Glucose (mg/dL) 132 H 156 H 152 H (70-110) mg/dL Calcium (8.4-10.2) mg/dL Ionized Calcium Silvano (4.5-5.3) mg/dL 09/21/23 09/21/23 09/21/23 Range/Units 00:28 01:16 02:17 WBC (3.8-10.6) k/uL Plt Count (150-450) k/uL Neutrophils # (Manual) (1.3-7.7) k/uL Metamyelocytes # (Man) (0) k/uL ABG pH (7.35-7.45) ABG pCO2 (35-45) mmHg ABG pO2 (83-108) mmHg ABG HCO3 (21-25) mmol/L ABG Total CO2 (19-24) mmol/L ABG O2 Saturation (94-97) % Sodium (137-145) mmol/L Chloride (98-107) mmol/L BUN (7-17) mg/dL Creatinine (0.52-1.04) mg/dL Glucose (74-99) mg/dL POC Glucose (mg/dL) 156 H 155 H 126 H (70-110) mg/dL Calcium (8.4-10.2) mg/dL Ionized Calcium Silvano (4.5-5.3) mg/dL 09/21/23 09/21/23 09/21/23 Range/Units 03:12 04:29 04:30 WBC 16.1 H (3.8-10.6) k/uL Plt Count 54 L (150-450) k/uL Neutrophils # (Manual) 13.50 H (1.3-7.7) k/uL Metamyelocytes # (Man) 0.64 H (0) k/uL ABG pH (7.35-7.45) ABG pCO2 (35-45) mmHg ABG pO2 (83-108) mmHg ABG HCO3 (21-25) mmol/L ABG Total CO2 (19-24) mmol/L ABG O2 Saturation (94-97) % Sodium (137-145) mmol/L Chloride (98-107) mmol/L BUN (7-17) mg/dL Creatinine (0.52-1.04) mg/dL Glucose (74-99) mg/dL POC Glucose (mg/dL) 151 H 169 H (70-110) mg/dL Calcium (8.4-10.2) mg/dL Ionized Calcium Silvano (4.5-5.3) mg/dL 09/21/23 09/21/23 09/21/23 Range/Units 04:30 05:30 05:30 WBC (3.8-10.6) k/uL Plt Count (150-450) k/uL Neutrophils # (Manual) (1.3-7.7) k/uL Metamyelocytes # (Man) (0) k/uL ABG pH (7.35-7.45) ABG pCO2 (35-45) mmHg ABG pO2 (83-108) mmHg ABG HCO3 (21-25) mmol/L ABG Total CO2 (19-24) mmol/L ABG O2 Saturation (94-97) % Sodium 129 L (137-145) mmol/L Chloride 88 L (98-107) mmol/L BUN 65 H (7-17) mg/dL Creatinine 4.34 H (0.52-1.04) mg/dL Glucose 162 H (74-99) mg/dL POC Glucose (mg/dL) 170 H (70-110) mg/dL Calcium 5.5 L* (8.4-10.2) mg/dL Ionized Calcium Silvano 3.2 L* (4.5-5.3) mg/dL 09/21/23 09/21/23 09/21/23 Range/Units 06:19 06:25 07:10 WBC (3.8-10.6) k/uL Plt Count (150-450) k/uL Neutrophils # (Manual) (1.3-7.7) k/uL Metamyelocytes # (Man) (0) k/uL ABG pH 7.33 L (7.35-7.45) ABG pCO2 49 H (35-45) mmHg ABG pO2 58 L* (83-108) mmHg ABG HCO3 26 H (21-25) mmol/L ABG Total CO2 27 H (19-24) mmol/L ABG O2 Saturation 88.3 L (94-97) % Sodium (137-145) mmol/L Chloride (98-107) mmol/L BUN (7-17) mg/dL Creatinine (0.52-1.04) mg/dL Glucose (74-99) mg/dL POC Glucose (mg/dL) 157 H 159 H (70-110) mg/dL Calcium (8.4-10.2) mg/dL Ionized Calcium Silvano (4.5-5.3) mg/dL 09/21/23 09/21/23 09/21/23 Range/Units 08:02 09:06 10:10 WBC (3.8-10.6) k/uL Plt Count (150-450) k/uL Neutrophils # (Manual) (1.3-7.7) k/uL Metamyelocytes # (Man) (0) k/uL ABG pH (7.35-7.45) ABG pCO2 (35-45) mmHg ABG pO2 (83-108) mmHg ABG HCO3 (21-25) mmol/L ABG Total CO2 (19-24) mmol/L ABG O2 Saturation (94-97) % Sodium (137-145) mmol/L Chloride (98-107) mmol/L BUN (7-17) mg/dL Creatinine (0.52-1.04) mg/dL Glucose (74-99) mg/dL POC Glucose (mg/dL) 178 H 182 H 198 H (70-110) mg/dL Calcium (8.4-10.2) mg/dL Ionized Calcium Silvano (4.5-5.3) mg/dL 09/21/23 09/21/23 09/21/23 Range/Units 11:11 12:12 13:15 WBC (3.8-10.6) k/uL Plt Count (150-450) k/uL Neutrophils # (Manual) (1.3-7.7) k/uL Metamyelocytes # (Man) (0) k/uL ABG pH (7.35-7.45) ABG pCO2 (35-45) mmHg ABG pO2 (83-108) mmHg ABG HCO3 (21-25) mmol/L ABG Total CO2 (19-24) mmol/L ABG O2 Saturation (94-97) % Sodium (137-145) mmol/L Chloride (98-107) mmol/L BUN (7-17) mg/dL Creatinine (0.52-1.04) mg/dL Glucose (74-99) mg/dL POC Glucose (mg/dL) 182 H 176 H 172 H (70-110) mg/dL Calcium (8.4-10.2) mg/dL Ionized Calcium Silvano (4.5-5.3) mg/dL 09/21/23 09/21/23 Range/Units 14:07 15:06 WBC (3.8-10.6) k/uL Plt Count (150-450) k/uL Neutrophils # (Manual) (1.3-7.7) k/uL Metamyelocytes # (Man) (0) k/uL ABG pH (7.35-7.45) ABG pCO2 (35-45) mmHg ABG pO2 (83-108) mmHg ABG HCO3 (21-25) mmol/L ABG Total CO2 (19-24) mmol/L ABG O2 Saturation (94-97) % Sodium (137-145) mmol/L Chloride (98-107) mmol/L BUN (7-17) mg/dL Creatinine (0.52-1.04) mg/dL Glucose (74-99) mg/dL POC Glucose (mg/dL) 171 H 182 H (70-110) mg/dL Calcium (8.4-10.2) mg/dL Ionized Calcium Silvano (4.5-5.3) mg/dL Microbiology - Last 24 Hours (Table) 09/17/23 08:30 Fungal Culture - Preliminary Bronchoalviolar Lavage - Left Fungus Isolated 09/17/23 01:56 Blood Culture - Preliminary Blood 09/17/23 01:56 Blood Culture - Preliminary Blood
[2023-09-21] MEDS ORDERED: LIDOCAINE 1% INJ 10MG/ML (20 ML MDV) SQ ONE (15:55)
[2023-09-21] MEDS ORDERED: HEPARIN SODIUM 1,000 UN/ML (10ML VL) MISCELLANE ONE (15:55)
[2023-09-21] MEDS ORDERED: HEPARIN SOD,PORK IN 0.45% NACL 25,000 UNIT in 0.45% NACL 1 250ML.BAG IV SCH (16:00)
[2023-09-21 16:41] VITALS: BMI 33.7
--- NOTE | 2023-09-21 17:01 | XR ---
EXAMINATION TYPE: XR chest 1V portable DATE OF EXAM: 09/21/2023 COMPARISON: Dialysis catheter placement HISTORY: Shortness of breath TECHNIQUE: Single frontal view of the chest is obtained. FINDINGS: There is an ET tube 5.9 cm above the becca. There is an NG tube within the stomach. There is a PICC line entering the left arm terminating the SVC/RA junction. There is a right jugular centr al venous catheter terminating in SVC/RA junction. The stenosis interval change in the large consolidative opacities bilaterally left greater than right . There is no pneumothorax. IMPRESSION: 1. Dialysis catheter terminates in the SVC/RA junction 2. Marked acute cardiopulmonary disease with no audible change as described above. 3. ET tube 5.9 cm above the becca
[2023-09-21 17:12] LABS: HCT 34.4 % (34.0-46.0); HGB 12.4 gm/dL (11.4-16.0); MCH 32.4 pg (25.0-35.0); MCV 90.1 fL (80.0-100.0); Mean Platelet Volume 12.8; Poikilocytosis Slight; RBC 3.82 m/uL (3.80-5.40); RDW 14.9 % (11.5-15.5)
[2023-09-21 17:31] LABS: Hepatitis B Surface Antigen Nonreactive (Nonreactive)
[2023-09-21] MEDS ORDERED: EPINEPHrine 4 MG in DEXTROSE 5% IN WATER 250 ML IV SCH (17:45)
[2023-09-21] MEDS ORDERED: CISATRACURIUM 2 MG/ML 5 ML VIAL IV ONE (17:45)
[2023-09-21 17:46] LABS: Platelet Count 51 k/uL (150-450)
[2023-09-21 17:52] LABS: Band Neutrophils % 7 %; Eosinophils # (M) 0.24 k/uL (0-0.7); Lymphocytes # (M) 0.48 k/uL (1.0-4.8); Metamyelocytes % 5 %; Monocytes # (M) 0.48 k/uL (0-1.0); Myelocytes # (M) 0.72 k/uL (0); Myelocytes % 3 %; Neutrophils % (M) 83 %; Nucleated Red Blood Cells 2 /100 WBC (0-0); Total Cells Counted 200; WBC 23.9 k/uL (3.8-10.6)
[2023-09-21 18:06] LABS: INR 0.9 (<1.2); Prothrombin Time 10.5 sec (10.0-12.5)
[2023-09-21 18:19] VITALS: BP 70/50; PULSE 125
--- NOTE | 2023-09-21 18:59 | P.EN ---
CODE BLUE Code Course: Arrived to the room to find patient with severe hypotension and blood pressure of 43/30. She been attempting to undergo HD when they noted loss over volume on the vent and hypotension. On arrival the patient was being bagged. Patient's blood pressure was suboptimal with being maxed out on 32 mics of Levophed and vasopressin at 0.04. At that point in time patient was given 1 amp of epinephrine. She then lost pulses and had a PEA rhythm. She was given 2 doses of epinephrine, 1 amp of bicarb, and 1 amp of calcium gluconate. She had ROSC. As we were walking her back up to the vent it was noted that her peak airway pressures were in the 70s and they were suctioning out shawna blood. At that point in time Dr. Cordova was having a discussion with the who decided . We were attempting to obtain a stat chest x-ray and labs. She was then noted to have absent breath sounds on the left. As we are preparing for emergent needle decompression and obtaining the appropriate needle patient went into V-fib arrest. She had absent pulse and declared at 1745 Vital signs reviewed Absent pulse, fine V-fib on the monitor, no withdrawal to pain, absent breath sounds Assessment: PEA arrest Elevated peak airway pressure on the vent, suspect tension pneumothorax- patient passed berfore CXR obtained Hospital DX: Bilateral pneumonia, Staph aureus Septic shock Toxic shock syndrome KATALINA Cardiomyopathy with ejection fraction 20 to 25% Ventricular apical thrombus currently off of heparin due to thrombocytopenia Disposition: Notified: Dr. Palacios during episode of ROSC Nursing will notifiy attending of patient passing A Total of 31 minutes of critical care time was spent on the complex care of this patient. This dictation was prepared using [employer] voice recognition software. Though every attempt is made to correct errors during dictation some may still exist.
--- NOTE | 2023-09-21 20:02 | P.PN ---
Subjective Progress Note Date: 09/21/23 Patient remains in the ICU ventilated and on sedation. Continues on pressors, hypotension persisting. CBC revealed WBC 16.1, hemoglobin 13.1, platelets 54,000. DIC workup and HIT antibody negative. Objective - Vital Signs Vital signs: Vital Signs Temp 98.2 F 09/21/23 12:00 Pulse 110 H 09/21/23 15:15 Resp 28 H 09/21/23 15:15 BP 91/53 09/17/23 06:45 Pulse Ox 93 L 09/21/23 15:15 FiO2 80 09/21/23 12:00 Intake & Output 09/20/23 09/21/23 09/21/23 18:59 06:59 18:59 Intake Total 9050.083 2640.129 1766.660 Output Total 0 5 0 Balance 9389.201 7769.129 1766.660 Weight 97.6 kg Intake: IV 859 76 197 Calcium Gluconate in NaCl 100 1 gm In Saline 1 100ml. bag @ 100 mls/hr IVPB ONCE ONE Rx#:[id number] Clindamycin 900 mg In 100 50 Dextrose 5% in Water 50 ml @ 50 mls/hr IVPB Q8H [facility] Rx#:[id number] Dextrose 5% in Water 1, 400 000 ml @ 100 mls/hr IV . [id number] [facility] with Sodium Bicarb (1 Meq/ml) 150 ml Rx#:[id number] Pressure Bag (0.9 sodium 39 36 27 chloride) Sodium Chloride 0.9% 1, 220 40 120 000 ml @ 20 mls/hr IV . Q24H [facility] Rx#:[id number] Intake, IV Titration 7213.009 2796.129 1569.660 Amount Albumin Human 25% 50 ml 100 In Empty Bag 2 bag @ 50 mls/hr IVPB Q1H [facility] Rx#: [id number] Amiodarone 450 mg In 233.894 250 Dextrose 5% in Water 250 ml @ 0.5 MG/MIN 16.667 mls/hr IV .Q15H [facility] Rx#: [id number] Clindamycin 900 mg In 50 Dextrose 5% in Water 50 ml @ 50 mls/hr IVPB Q8H [facility] Rx#:[id number] Insulin Regular 100 unit 30.8 37.2 5.0 In Sodium Chloride 0.9% 100 ml @ Titrate IV .Q0M [facility] Rx#:[id number] Magnesium Sulfate-D5w Pmx 100 1 gm In Dextrose/Water 1 100ml.bag @ 100 mls/hr IVPB ONCE ONE Rx#: [id number] Norepinephrine 32 mg In 4.409 25.115 246.714 Sodium Chloride 0.9% 218 ml @ 0.03 MCG/KG/MIN 1. 232 mls/hr IV .Q24H [facility] Rx#:[id number] Sodium Chloride 0.45% 1, 700 1200 660 000 ml @ 60 mls/hr IV . [id number] [facility] with Sodium Bicarb (1 Meq/ml) 150 ml Rx#:[id number] Vasopressin 20 unit In 51 51 51 Sodium Chloride 0.9% 50 ml @ 0.03 UNITS/MIN 4.59 mls/hr IV .Q11H7M [facility] Rx# :[id number] Voriconazole 300 mg In 100 Sodium Chloride 0.9% 100 ml @ 66.667 mls/hr IVPB Q12H [facility] Rx#:[id number] propofoL 1,000 mg In 158.120 96.92 106.946 Empty Bag 1 bag @ 15 MCG/ KG/MIN 7.144 mls/hr IV . Q14H [facility] Rx#:[id number] Lipid 50 ceFAZolin 2 gm In Sodium 50 Chloride 0.9% 50 ml @ 100 mls/hr IVPB Q12H [facility] Rx# :[id number] Output: Urine 0 5 0 Other: Voiding Method Indwelling Catheter Indwelling Catheter Indwelling Catheter ABP, PAP, CO, CI - Last Documented Arterial Blood Pressure 107/59 - Constitutional General appearance: Present: no acute distress - Respiratory Details: ventilated breath sounds - Cardiovascular Details: tachycardic - Integumentary Integumentary: Absent: cyanotic - Neurologic Neurologic Comment(s): sedated - Labs CBC & Chem 7: 09/21/23 16:54 09/21/23 04:30 Labs: Abnormal Lab Results - Last 24 Hours (Table) 09/20/23 09/20/23 09/20/23 Range/Units 16:12 17:20 18:54 WBC (3.8-10.6) k/uL Plt Count (150-450) k/uL Neutrophils # (Manual) (1.3-7.7) k/uL Metamyelocytes # (Man) (0) k/uL ABG pH (7.35-7.45) ABG pCO2 (35-45) mmHg ABG pO2 (83-108) mmHg ABG HCO3 (21-25) mmol/L ABG Total CO2 (19-24) mmol/L ABG O2 Saturation (94-97) % Sodium (137-145) mmol/L Chloride (98-107) mmol/L BUN (7-17) mg/dL Creatinine (0.52-1.04) mg/dL Glucose (74-99) mg/dL POC Glucose (mg/dL) 143 H 157 H 165 H (70-110) mg/dL Calcium (8.4-10.2) mg/dL Ionized Calcium Silvano (4.5-5.3) mg/dL 09/20/23 09/20/23 09/20/23 Range/Units 20:11 22:20 23:14 WBC (3.8-10.6) k/uL Plt Count (150-450) k/uL Neutrophils # (Manual) (1.3-7.7) k/uL Metamyelocytes # (Man) (0) k/uL ABG pH (7.35-7.45) ABG pCO2 (35-45) mmHg ABG pO2 (83-108) mmHg ABG HCO3 (21-25) mmol/L ABG Total CO2 (19-24) mmol/L ABG O2 Saturation (94-97) % Sodium (137-145) mmol/L Chloride (98-107) mmol/L BUN (7-17) mg/dL Creatinine (0.52-1.04) mg/dL Glucose (74-99) mg/dL POC Glucose (mg/dL) 132 H 156 H 152 H (70-110) mg/dL Calcium (8.4-10.2) mg/dL Ionized Calcium Silvano (4.5-5.3) mg/dL 09/21/23 09/21/23 09/21/23 Range/Units 00:28 01:16 02:17 WBC (3.8-10.6) k/uL Plt Count (150-450) k/uL Neutrophils # (Manual) (1.3-7.7) k/uL Metamyelocytes # (Man) (0) k/uL ABG pH (7.35-7.45) ABG pCO2 (35-45) mmHg ABG pO2 (83-108) mmHg ABG HCO3 (21-25) mmol/L ABG Total CO2 (19-24) mmol/L ABG O2 Saturation (94-97) % Sodium (137-145) mmol/L Chloride (98-107) mmol/L BUN (7-17) mg/dL Creatinine (0.52-1.04) mg/dL Glucose (74-99) mg/dL POC Glucose (mg/dL) 156 H 155 H 126 H (70-110) mg/dL Calcium (8.4-10.2) mg/dL Ionized Calcium Silvano (4.5-5.3) mg/dL 09/21/23 09/21/23 09/21/23 Range/Units 03:12 04:29 04:30 WBC 16.1 H (3.8-10.6) k/uL Plt Count 54 L (150-450) k/uL Neutrophils # (Manual) 13.50 H (1.3-7.7) k/uL Metamyelocytes # (Man) 0.64 H (0) k/uL ABG pH (7.35-7.45) ABG pCO2 (35-45) mmHg ABG pO2 (83-108) mmHg ABG HCO3 (21-25) mmol/L ABG Total CO2 (19-24) mmol/L ABG O2 Saturation (94-97) % Sodium (137-145) mmol/L Chloride (98-107) mmol/L BUN (7-17) mg/dL Creatinine (0.52-1.04) mg/dL Glucose (74-99) mg/dL POC Glucose (mg/dL) 151 H 169 H (70-110) mg/dL Calcium (8.4-10.2) mg/dL Ionized Calcium Silvano (4.5-5.3) mg/dL 09/21/23 09/21/23 09/21/23 Range/Units 04:30 05:30 05:30 WBC (3.8-10.6) k/uL Plt Count (150-450) k/uL Neutrophils # (Manual) (1.3-7.7) k/uL Metamyelocytes # (Man) (0) k/uL ABG pH (7.35-7.45) ABG pCO2 (35-45) mmHg ABG pO2 (83-108) mmHg ABG HCO3 (21-25) mmol/L ABG Total CO2 (19-24) mmol/L ABG O2 Saturation (94-97) % Sodium 129 L (137-145) mmol/L Chloride 88 L (98-107) mmol/L BUN 65 H (7-17) mg/dL Creatinine 4.34 H (0.52-1.04) mg/dL Glucose 162 H (74-99) mg/dL POC Glucose (mg/dL) 170 H (70-110) mg/dL Calcium 5.5 L* (8.4-10.2) mg/dL Ionized Calcium Silvano 3.2 L* (4.5-5.3) mg/dL 09/21/23 09/21/23 09/21/23 Range/Units 06:19 06:25 07:10 WBC (3.8-10.6) k/uL Plt Count (150-450) k/uL Neutrophils # (Manual) (1.3-7.7) k/uL Metamyelocytes # (Man) (0) k/uL ABG pH 7.33 L (7.35-7.45) ABG pCO2 49 H (35-45) mmHg ABG pO2 58 L* (83-108) mmHg ABG HCO3 26 H (21-25) mmol/L ABG Total CO2 27 H (19-24) mmol/L ABG O2 Saturation 88.3 L (94-97) % Sodium (137-145) mmol/L Chloride (98-107) mmol/L BUN (7-17) mg/dL Creatinine (0.52-1.04) mg/dL Glucose (74-99) mg/dL POC Glucose (mg/dL) 157 H 159 H (70-110) mg/dL Calcium (8.4-10.2) mg/dL Ionized Calcium Silvano (4.5-5.3) mg/dL 09/21/23 09/21/23 09/21/23 Range/Units 08:02 09:06 10:10 WBC (3.8-10.6) k/uL Plt Count (150-450) k/uL Neutrophils # (Manual) (1.3-7.7) k/uL Metamyelocytes # (Man) (0) k/uL ABG pH (7.35-7.45) ABG pCO2 (35-45) mmHg ABG pO2 (83-108) mmHg ABG HCO3 (21-25) mmol/L ABG Total CO2 (19-24) mmol/L ABG O2 Saturation (94-97) % Sodium (137-145) mmol/L Chloride (98-107) mmol/L BUN (7-17) mg/dL Creatinine (0.52-1.04) mg/dL Glucose (74-99) mg/dL POC Glucose (mg/dL) 178 H 182 H 198 H (70-110) mg/dL Calcium (8.4-10.2) mg/dL Ionized Calcium Silvano (4.5-5.3) mg/dL 09/21/23 09/21/23 09/21/23 Range/Units 11:11 12:12 13:15 WBC (3.8-10.6) k/uL Plt Count (150-450) k/uL Neutrophils # (Manual) (1.3-7.7) k/uL Metamyelocytes # (Man) (0) k/uL ABG pH (7.35-7.45) ABG pCO2 (35-45) mmHg ABG pO2 (83-108) mmHg ABG HCO3 (21-25) mmol/L ABG Total CO2 (19-24) mmol/L ABG O2 Saturation (94-97) % Sodium (137-145) mmol/L Chloride (98-107) mmol/L BUN (7-17) mg/dL Creatinine (0.52-1.04) mg/dL Glucose (74-99) mg/dL POC Glucose (mg/dL) 182 H 176 H 172 H (70-110) mg/dL Calcium (8.4-10.2) mg/dL Ionized Calcium Silvano (4.5-5.3) mg/dL 09/21/23 09/21/23 Range/Units 14:07 15:06 WBC (3.8-10.6) k/uL Plt Count (150-450) k/uL Neutrophils # (Manual) (1.3-7.7) k/uL Metamyelocytes # (Man) (0) k/uL ABG pH (7.35-7.45) ABG pCO2 (35-45) mmHg ABG pO2 (83-108) mmHg ABG HCO3 (21-25) mmol/L ABG Total CO2 (19-24) mmol/L ABG O2 Saturation (94-97) % Sodium (137-145) mmol/L Chloride (98-107) mmol/L BUN (7-17) mg/dL Creatinine (0.52-1.04) mg/dL Glucose (74-99) mg/dL POC Glucose (mg/dL) 171 H 182 H (70-110) mg/dL Calcium (8.4-10.2) mg/dL Ionized Calcium Silvano (4.5-5.3) mg/dL Microbiology - Last 24 Hours (Table) 09/17/23 08:30 Fungal Culture - Preliminary Bronchoalviolar Lavage - Left Fungus Isolated 09/17/23 01:56 Blood Culture - Preliminary Blood 09/17/23 01:56 Blood Culture - Preliminary Blood Assessment and Plan (1) Influenza Current Visit: Yes Status: Acute Code(s): J11.1 - FLU DUE TO UNIDENTIFIED INFLUENZA VIRUS W OTH RESP MANIFEST SNOMED Code(s): 6368174 (2) MSSA (methicillin susceptible Staphylococcus aureus) pneumonia Current Visit: Yes Status: Acute Code(s): J15.211 - PNEUMONIA DUE TO METHICILLIN SUSCEP STAPH SNOMED Code(s): 512686407486852 (3) Sepsis Current Visit: Yes Status: Acute Code(s): A41.9 - SEPSIS, UNSPECIFIED ORGANISM SNOMED Code(s): 78811294 (4) Thrombocytopenia Current Visit: Yes Status: Acute Priority: High Code(s): D69.6 - THROMBOCYTOPENIA, UNSPECIFIED SNOMED Code(s): 779451839 Plan: Thrombocytopenia -DIC labs were neg. Recheck PRN -Basic thrombocytopenia lab work up ordered-no specific deficiencies noted -Heparin drip stopped due to plt<50,000. Pt cont on asa and plavix for now per Cardiology. Not high suspicion for recent heparin administration therefore, low suspicions for HIT at this time. HIT ab negative -Acute illness, flu A, pneumonia. Lennox to be contributing to low plt counts -Continue to monitor CBC. Transfuse for plt less then 50,000 if remains on antiplatelet/anticoagulation tx, or if symptomatic
--- NOTE | 2023-09-21 23:52 | OP ---
OPERATIVE REPORT DATE OF SERVICE : PREOPERATIVE DIAGNOSIS: Acute chronic renal failure. The patient has been intubated. PROCEDURE PERFORMED: Placement of dialysis catheter, right jugular approach. DESCRIPTION OF PROCEDURE: Right side of the neck and chest was prepped, draped and prepared in a sterile manner. A 1% lidocaine infiltrated in the neck area. Ultrasound-guided micropuncture introduced into the right jugular vein. Micropuncture guidewire was passed. Then, we passed a regular guidewire. After that, we passed a dilator and then we placed a 16 cm triple-lumen dialysis catheter on top of the guidewire. Guidewire was removed, flushed with heparinized saline, hep-locked and secured with 3-0 nylon. Recommended x-ray of the chest. The patient tolerated the procedure well. ALFREDO / KIMMIEN: [id number] /
--- NOTE | 2023-09-22 02:43 | CONS ---
CONSULTATION This is a 63-year-old female. The patient was seen in the intensive care unit for placement of dialysis catheter. The patient has history of congestive heart failure and type 2 diabetes mellitus. The patient also has a history of breast cancer and lumpectomy in the past. The patient has been intubated. The patient is on pressor. On chest examination, the patient has crackles bilaterally. Abdomen is protuberant, no peritoneal sign. The patient has marked swelling of both lower extremities. PLAN: Placement of her dialysis catheter, right jugular approach. Risks and complications discussed. MMODL / IJN: [id number] /
--- NOTE | 2023-09-22 08:53 | P.DS ---
Providers Date of admission: 09/17/23 07:00 Expected date of discharge: 09/21/23 Attending physician: Sharna Monteiro Consults: 09/16/23 17:31 Consult Physician Routine Consulting Provider: Orlando Steve Consult Reason/Comments: respiratory failure Do you want consulting provider notified?: Yes 09/17/23 01:40 Consult Physician Stat Consulting Provider: Candido Ramirez Consult Reason/Comments: New onset Afib Do you want consulting provider notified?: Already Contacted 09/19/23 05:36 Consult Physician Stat Consulting Provider: Eliot Goldberg Consult Reason/Comments: Decreased platelet count from 50% of their baseline Do you want consulting provider notified?: Yes 09/19/23 07:00 Consult Physician Stat Consulting Provider: Jim Julien Consult Reason/Comments: KATALINA Do you want consulting provider notified?: Yes 09/19/23 12:43 Consult Physician Urgent Consulting Provider: Refugio Arndt Consult Reason/Comments: abx positive sputum culture Do you want consulting provider notified?: Yes 09/21/23 09:28 Consult Physician Stat Consulting Provider: Gabino Villalba Consult Reason/Comments: new dialysis catheter placement for dialysis today Do you want consulting provider notified?: Yes Primary care physician: Tara Sellers MD Hospital Course: Preliminary cause of Acute hypoxemic respiratory failure with septic shock secondary to influenza A and Staph aureus bacteremia Final diagnosis Acute hypoxemic respiratory failure requiring mechanical ventilator secondary to acute influenza A infection as well as bacterial pneumonia, culture showing Staph aureus. Acute influenza A infection Left-sided acute focal bacterial pneumonia. Status post bronchoscopy on 09/17/2023, bronchial lavage culture showed presumptive Staph aureus. Procalcitonin is 99.9 Sepsis/septic shock requiring pressor x 2 support secondary to above New onset atrial fibrillation with rapid ventricular rate. Plans for TABBY per cardiology once more stable Thrombocytopenia Hyperglycemia is uncontrolled diabetes type 2 insulin-dependent, extremely noncompliant outpatient per Acute kidney injury possibly ATN, worsening kidney functions, patient will receive a dialysis cath today and start hemodialysis Coronary artery history of stent placement to LAD Chronic CHF with systolic dysfunction/ischemic cardiomyopathy Hyperlipidemia Hypertension History of plaque psoriasis Hypothyroidism History of breast cancer status post lumpectomy and radiation Continued ongoing nicotine dependence Obesity with a BMI of 30.2 DVT prophylaxis currently being held due to low platelets GI prophylaxis Full code Discharge disposition Patient has . According to nursing documentation, time of was 1747 on 09/21/2023. Patient had coded. Please refer to CODE BLUE charting for further HPI. Total time taken greater than 35 minutes. Hospital course Patient is a 63-year-old female with a known history of coronary artery disease status post stent placement, chronic CHF, hypertension, diabetes type 2, history of left breast cancer due to lumpectomy and radiation, hypothyroidism and osteoarthritis and prior history of smoking, quit in 2018 presents to ER with complaints of shortness of breath, cough, congestion and generalized weakness since last week. She was also complaining of nasal congestion and sore throat. Cough is mainly nonproductive. Patient's was treated for bronchitis recently. On admission patient was Febrile with Tmax 100.3 and tachycardic and tachypneic admission on admission. She was requiring 4 L oxygen via nasal cannula. Laboratory data showed WBC 10.9 hemoglobin 16.6 and platelets 179, sodium 133 potassium 3.9 chloride 102 bicarb is 17, BUN 17 and creatinine 0.54 and blood sugar 326 procalcitonin level was 5.65 Urinalysis showed cloudy with increased physical gravity and 2+ protein and 4+ glucose and 1+ ketones and negative for leukocyte esterase. Patient is tested positive for influenza A. Patient decompensated and was sent to ER due to hypoxic respiratory failure. Patient was placed on BiPAP initially and is eventually intubated and currently on mechanical ventilator. Chest x-ray showed findings most consistent with a left-sided acute focal pneumonia. 09/21/2023 Patient had received dialysis catheter with vascular surgery to start emergent dialysis. Patient was maxed out on pressor support and continued on mechanical ventilation with increased respiratory demands. Attempting to undergo dialysis although patient became extremely hypotensive with low pressures on the vent and per nursing staff had coded and CODE BLUE was called and ACLS protocol was initiated. After 2 rounds of epi per protocol patient had received ROSC although continued to be extremely hypotensive and low volumes on the vent with suspected tension pneumothorax. Patient coded and ultimately at 1747. Please refer to code charting and event note for further HPI. The impression and plan of care has been dictated by Belkis Friedman, Nurse Practitioner as directed. Dr. Estefania MD I have performed a history and examination and MDM of this patient, discussed the same with the dictator, and agree with the dictator's assessment and plan as written ,documented as a scribe. Based on total visit time, I have performed more than 50% of the visit. Patient Condition at Discharge: Undetermined Plan - Discharge Summary Discharge Rx Participant: No New Discharge Prescriptions: No Action Aspirin 81 mg PO DAILY #30 chew Anastrozole [Arimidex] 1 mg PO DAILY Clopidogrel [Plavix] 75 mg PO DAILY 30 Days #30 tab Fluocinolone 0.01% Oil 1 applic TOPICAL DIRECTED Metoprolol Succinate (ER) [Toprol Xl] 75 mg PO BID Venlafaxine HCl [Effexor XR] 150 mg PO DAILY Losartan [Cozaar] 50 mg PO HS 30 Days #30 tab Spironolactone [Aldactone] 25 mg PO DAILY 30 Days #30 tab Insulin NPH Hum/Reg Insulin Hm [NovoLIN 70-30 100 Unit/ml Vial] 45 unit SQ DAILY Levothyroxine Sodium [Synthroid] 150 mcg PO DAILY Rosuvastatin [Crestor] 20 mg PO HS Discharge Medication List Aspirin 81 mg PO DAILY #30 chew 12/26/17 [Rx] Anastrozole [Arimidex] 1 mg PO DAILY 10/13/18 [History] Clopidogrel [Plavix] 75 mg PO DAILY 30 Days #30 tab 01/11/21 [Rx] Losartan [Cozaar] 50 mg PO HS 30 Days #30 tab 01/11/21 [Rx] Spironolactone [Aldactone] 25 mg PO DAILY 30 Days #30 tab 01/12/21 [Rx] Fluocinolone 0.01% Oil 1 applic TOPICAL DIRECTED 09/16/23 [History] Insulin NPH Hum/Reg Insulin Hm [NovoLIN 70-30 100 Unit/ml Vial] 45 unit SQ DAILY 09/16/23 [History] Levothyroxine Sodium [Synthroid] 150 mcg PO DAILY 09/16/23 [History] Metoprolol Succinate (ER) [Toprol Xl] 75 mg PO BID 09/16/23 [History] Rosuvastatin [Crestor] 20 mg PO HS 09/16/23 [History] Venlafaxine HCl [Effexor XR] 150 mg PO DAILY 09/16/23 [History] Follow up Appointment(s)/Referral(s): Wilbur Downs MD [REFERRING] - 1-2 days Discharge Disposition: - Preliminary Cause of Preliminary Cause of : Staph Aureus bacterial pneumonia with acute hypoxemic respiratory failure
[2023-09-22] MEDS ORDERED: SODIUM CHLORIDE 0.9% IVPB SCH (12:00)
[2023-09-22] MEDS ORDERED: VORICONAZOLE IVPB SCH (12:00)
== END 2023-09-21 21:40 | disposition expired | DRG 870 ==
LOC: EC 15:09 → 4SSUR 17:31 → 2SICU 09-17 03:19 → OBSVTOIN 09-17 07:00
PROVIDERS: ADMIT Hospitalist; ATTEND Hospitalist
PROC: 5A1955Z Respiratory Ventilation, Greater than 96 Consecutive Hours (ICD-10-PCS; principal; 2023-09-17)
PROC: 0B9J8ZX Drainage of Left Lower Lung Lobe, Via Natural or Artificial Opening Endoscopic, Diagnostic (ICD-10-PCS; 2023-09-17)
PROC: 02HV33Z Insertion of Infusion Device into Superior Vena Cava, Percutaneous Approach (ICD-10-PCS; 2023-09-17)
PROC: 0B9B8ZZ Drainage of Left Lower Lobe Bronchus, Via Natural or Artificial Opening Endoscopic (ICD-10-PCS; 2023-09-17)
PROC: 3E033XZ Introduction of Vasopressor into Peripheral Vein, Percutaneous Approach (ICD-10-PCS; 2023-09-17)
PROC: 0B988ZZ Drainage of Left Upper Lobe Bronchus, Via Natural or Artificial Opening Endoscopic (ICD-10-PCS; 2023-09-17)
PROC: 0B978ZZ Drainage of Left Main Bronchus, Via Natural or Artificial Opening Endoscopic (ICD-10-PCS; 2023-09-17)
PROC: 3E033RZ Introduction of Antiarrhythmic into Peripheral Vein, Percutaneous Approach (ICD-10-PCS; 2023-09-17)
PROC: 0BH17EZ Insertion of Endotracheal Airway into Trachea, Via Natural or Artificial Opening (ICD-10-PCS; 2023-09-17)
PROC: 5A09357 Assistance with Respiratory Ventilation, Less than 24 Consecutive Hours, Continuous Positive Airway Pressure (ICD-10-PCS; 2023-09-17)
PROC: 0D9670Z Drainage of Stomach with Drainage Device, Via Natural or Artificial Opening (ICD-10-PCS; 2023-09-17)
PROC: 3E0G76Z Introduction of Nutritional Substance into Upper GI, Via Natural or Artificial Opening (ICD-10-PCS; 2023-09-18)
PROC: 02HV33Z Insertion of Infusion Device into Superior Vena Cava, Percutaneous Approach (ICD-10-PCS; 2023-09-21)
PROC: 5A1D70Z Performance of Urinary Filtration, Intermittent, Less than 6 Hours Per Day (ICD-10-PCS; 2023-09-21)
PROC: 5A12012 Performance of Cardiac Output, Single, Manual (ICD-10-PCS; 2023-09-21)
DX: A41.89 Other specified sepsis (principal); A48.3 Toxic shock syndrome; J10.01 Influenza due to other identified influenza virus with the same other identified influenza virus pneumonia; N17.0 Acute kidney failure with tubular necrosis; J96.01 Acute respiratory failure with hypoxia; J96.02 Acute respiratory failure with hypercapnia; J93.0 Spontaneous tension pneumothorax; R65.21 Severe sepsis with septic shock; J10.08 Influenza due to other identified influenza virus with other specified pneumonia; J15.211 Pneumonia due to Methicillin susceptible Staphylococcus aureus; E87.20 Acidosis, unspecified; I13.0 Hypertensive heart and chronic kidney disease with heart failure and stage 1 through stage 4 chronic kidney disease, or unspecified chronic kidney disease; E87.4 Mixed disorder of acid-base balance; I50.22 Chronic systolic (congestive) heart failure; A41.01 Sepsis due to Methicillin susceptible Staphylococcus aureus; E11.22 Type 2 diabetes mellitus with diabetic chronic kidney disease; D69.59 Other secondary thrombocytopenia; I51.3 Intracardiac thrombosis, not elsewhere classified; E03.9 Hypothyroidism, unspecified; E11.65 Type 2 diabetes mellitus with hyperglycemia; E66.9 Obesity, unspecified; I48.0 Paroxysmal atrial fibrillation; N18.9 Chronic kidney disease, unspecified; Z68.33 Body mass index [BMI] 33.0-33.9, adult; I46.9 Cardiac arrest, cause unspecified; Z79.4 Long term (current) use of insulin; I25.5 Ischemic cardiomyopathy; I25.2 Old myocardial infarction; E78.5 Hyperlipidemia, unspecified; I25.10 Atherosclerotic heart disease of native coronary artery without angina pectoris; M19.90 Unspecified osteoarthritis, unspecified site; L40.0 Psoriasis vulgaris; Z91.199 Patient's noncompliance with other medical treatment and regimen due to unspecified reason; Z79.82 Long term (current) use of aspirin; Z79.811 Long term (current) use of aromatase inhibitors; Z79.02 Long term (current) use of antithrombotics/antiplatelets; Z79.890 Hormone replacement therapy; Z79.899 Other long term (current) drug therapy; Z87.891 Personal history of nicotine dependence; Z86.14 Personal history of Methicillin resistant Staphylococcus aureus infection; Z95.5 Presence of coronary angioplasty implant and graft; Z92.3 Personal history of irradiation; Z85.3 Personal history of malignant neoplasm of breast; Z71.3 Dietary counseling and surveillance; Z88.2 Allergy status to sulfonamides
CPT/HCPCS: 36415; 36600; 71045; 71046; 76770; 80048; 80053; 80202; 81001; 82330; 82525; 82533; 82607; 82746; 82805; 83036; 83605; 83735; 84132; 84145; 84443; 84484; 85025; 85384; 85610; 85730; 86022; 86706; 87040; 87070; 87077; 87102; 87116; 87186; 87205; 87206; 87340; 87449; 87496; 87498; 87502; 87529; 87634; 87635; 87636; 87798; 89050; 90935; 92950; 93005; 93306; 94002; 94003; 94640; 94660; 99285